=== PATIENT | female | born 1945 | race Caucasian/White ===

== ENCOUNTER → 2018-10-06 07:18 | Outpatient (CLI) | payer MEDICARE, SELFPAY ==
--- NOTE | 2018-10-06 07:24 | BI_ITS ---
MAMMOGRAPHY - BILATERAL SCREENING REASON FOR EXAM: Female, 73 years old. Routine annual screening examination. PERTINENT HISTORY: Grandmother with breast cancer. Remote left excisional breast biopsies. TECHNIQUE: Digital bilateral breast nick (3D mammographic acquisition) in the CC and MLO projections. 2-D mediolateral oblique (MLO) and craniocaudad (CC) views of both breasts were obtained. CAD: Full Field Digital Mammography with Computer Added Detection was performed. COMPARISON: Comparison is made with prior study dated February 09, 2016 and October 18, 2014. FINDINGS: Breast Composition: The breasts are heterogeneously dense, which may obscure small masses. There are no dominant masses or suspicious calcifications. There is evidence of a 8.8 mm x 8.1 mm well-defined nodular density in the deep slightly upper medial portion of the right breast. Correlation with ultrasound is recommended. The previously seen nodular density in the axillary region of the right breast as clear. No other significant abnormalities are identified. BI/SCREENING MAMM (CAD), BILAT IMPRESSION: 8.8 mm x 8.1 mm well-defined nodule in the slightly upper medial portion of the right breast. Correlation with ultrasound is recommended. ASSESSMENT CATEGORY: BIRADS Category 0: Incomplete. Need additional imaging evaluation. A letter regarding these results will be sent to the patient by the facility within 30 days. Approximately 10% of breast cancers are not detected by mammography. A normal mammogram should not delay biopsy of a clinically suspicious abnormality. [id number] Electronically Signed: Gutierrez Fisher MD at 9:14 EST Tel [phone], Service support ,
--- NOTE | 2018-10-06 13:53 | US_ITS ---
STUDY: ULTRASOUND BREAST - RIGHT REASON FOR EXAM: Female, 73 years old. Abnormal screening mammogram. TECHNIQUE: Axial and longitudinal images of the RIGHT breast were performed with a high resolution ultrasound transducer. COMPARISON: Comparison is made with prior mammogram dated October 06, 2018 and prior ultrasound of her breast dated September 02, 2016. FINDINGS: RIGHT Breast: The upper inner quadrant of the right breast was examined by ultrasound. No solid or cystic mass lesion is seen. The patient will be recalled for additional views of the right breast including 90 degree lateral and compression spot views. The previously seen cyst at the 9:00 position of breast is not seen at this time. US/Breast Limited Unilateral IMPRESSION: No sonographic abnormality is seen at this time. The patient will be recalled for additional views of the right breast including 90 degree lateral and compression spot views. ASSESSMENT CATEGORY: BIRADS Category 0: Incomplete. Need additional imaging evaluation. A letter regarding these results will be sent to the patient by the facility within 30 days. Electronically Signed: Gutierrez Fisher MD at 8:20 EST Tel [phone], Service support ,
--- OUTSIDE RECORDS SUMMARY | 2018-12-08 07:36 | XMS RPT_ITS | Continuity of Care Document ---
:1945 Author Organization [facility] Address [address] [place] [address] Phone Care Team Providers Name Role Phone Kristine Mccauley CNP Unavailable Macario De Jesus Unavailable Dr. Abebe Ba Unavailable Aurora Pedro Unavailable Unavailable Unavailable Unavailable Problems Name Dates Details Allergic rhinitis (J30.9, 477.9) Comments: stable Status: Active Benign essential hypertension (I10, 401.1) Comments: Diet and exercise, low salt diet.Check BP at home(arm cuff), relax for 5 minutes and take BP. Given BP log.Lipid panel: counselled on diet and exercisecontinue losartanTold to call if SOB, chest pain, syncope, headaches, numness/weakness in the body or rapid heart rate. Status: Active BMI 26.0-26.9,adult (Z68.26, V85.22) Status: Active Colonoscopy refused (Z53.20, V64.2) Comments: referred to Dr ba 07/30 for colonoscopy. pt doesnt want to get it because if you have a polyp she would have to pay for it.never had colonoscopy in the pastWarned her: Colonoscopy can detect early CRC which is treatable. Status: Active Cyst, breast, right (N60.01, 610.0) Comments: recheck 6 month 08/30: Stable cyst 4x5x4 mm, simple cystPt does not want to see surgeon at this time, but will referral to Dr Dukes 6 mmx 6 mmx 5 mm rt breast(02/28) Status: Active Deliveries (Parity) Comments: 2 Status: Active Diabetes mellitus type 2, controlled (E11.9, 250.00) Comments: HBA1c: 7.1(12/04/15) HBA1c :7.5 (02/28)HBA1c 6.8 (06/30)HBA1c 6.9 (7-18-17) EK12/07/15 Blood sugars at home:does not checkExercise: noDiet adherance:not eat very wellVision problems:noOpthalmology exam : 05/31 , no diabetic changes, Cataract), no changes, Nat Gallegos, [facility].Labs:urine albumin/Cr:Lipid panel:[id number] on medicine done.DIABETIC FOOT CARE:Check feet daily for sores, c uts, callusses, infection.Check inside of the shoes daily for loose objects or rough edges.Do not go barefoot inside or outside.Follow up in 3 monthsFBS at home:124. 118 Status: Active Elevated TSH (R79.89, 794.5) Comments: look at labs in 3months and decide on med Status: Active Encounter for screening mammogram for breast cancer (Renamed from Encounter for screening mammogram for malignant neoplasm of breast) (Z12.31, V76.12) Status: Active GERD (gastroesophageal reflux disease) (K21.9, 530.81) Comments: take prevacid m and f and help keep at bay. OTC TUMs.Discussed the need to let u know if continued reflux because of the risk of esophageal cancer if left unchecked. Pt encourage to stop eating chocol ate and peppermint, lose wt and adhere to behavior modification. Status: Active History of pulmonary embolism (Z86.711, V12.55) Comments: 7-14 question if even there and look old nto sure gut treated. told risk 7 % for repeat because no inciding. hypercoag workup negative. pt not want lifetime xarelto. aware of risk remind xarelto make sure have at home Status: Active Hypercholesteremia (E78.00, 272.0) Comments: reveiwed with patient recent tests and better on increase statin. Status: Active Hypertriglyceridemia (E78.1, 272.1) Comments: TG improved from 201(05/31) to 129(12/16) Triglyceride 152 Status: Active Influenza vaccination declined (Renamed from Refused influenza vaccine) (Z28.21, V64.06) Status: Active Need for prophylactic vaccination and inoculation against influenza (Renamed from Need for immunization against influenza) (Z23, V04.81) Status: Active Non-smoker (Z78.9, V49.89) Status: Active Osteopenia (M85.80, 733.90) Comments: bd 2-15 Status: Active Postmenopausal (Renamed from Postmenopausal status) (Z78.0, V49.81) Status: Active Pregnancies () Comments: 2 Status: Active Unspecified Diagnosis Status: Active Vitamin D deficiency (E55.9, 268.9) Comments: take 2000 daily Status: Active Medications Name Dates Details GlyBURIDE 5 MG Oral Tablet 1 (one) Tablet bid for 30 days Quantity: 90 {Tablet} Refills: 3 Ordered:14-Aug-2018 Parisa CAPPS Kristine Wanda CAPPS Kristine Perrin Start : 14-Aug-2018 Active GlyBURIDE 5 MG Oral Tablet 1 (one) Tablet bid for 90 days Quantity: 180 {Tablet} Refills: 3 Ordered:14-Aug-2018 Parisa CAPPS Kristine Wanda CAPPS Yuni Start : 14-Aug-2018 Active Losartan Potassium 50 MG Oral Tablet 1 (one) Tablet daily for 90 days Quantity: 90 {Tablet} Refills: 3 Ordered:11-Feb-2018 Parisa CAPPS Kristine Wanda CAPPS Yuni Start : 11-Feb-2018 Active Magnesium zinc daily Active MetFORMIN HCl ER (MOD) 1000 MG Oral Tablet Extended Release 24 Hour 1 (one) Tablet 1 in am and 1/2 qpm for 0 days Quantity: 130 {Tablet} Refills: 3 Ordered:14-Aug-2018 Parisa CAPPS Kristine Wanda CAPPS Yuni Start : 14-Aug-2018 Active MetFORMIN HCl ER (MOD) 1000 MG Oral Tablet Extended Release 24 Hour 1 (one) Tablet 1 in am and 1/2 qpm for 90 days Quantity: 135 {Tablet} Refills: 3 Ordered:14-Aug-2018 Parisa CAPPS Kristine Wanda CAPPS Kristine Perrin Start : 14-Aug-2018 Active MVI daily Active OneTouch Ultra Blue In Vitro Strip 1 (one) Strip bid for 90 days Quantity: 180 {Strip} Refills: 3 Ordered:14-Aug-2018 Parisa CAPPS, Kristine Marshall CNP Start : 14-Aug-2018 Active OneTouch Ultra Blue In Vitro Strip 1 (one) Strip bid for 90 days Quantity: 180 {Strip} Refills: 3 Ordered:14-Aug-2018 Parisa CAPPS, Kristine Muñoz CNP, Kristine Perrin Start : 14-Aug-2018 Active OneTouch Ultra Mini w/Device Kit 1 (one) Kit Kit qd for 0 days Quantity: 1 Kit Refills: 0 Ordered:26-Jun-2016 Ilia Garcia Start : 26-Jun-2016 Active Pravastatin Sodium 80 MG Oral Tablet 1 Tablet daily for 0 days Quantity: 90 {Tablet} Refills: 3 Ordered:15-Oct-2017 Parisa CAPPS, Kristine Marshall CNP Start : 15-Oct-2017 Active Pravastatin Sodium 80 MG Oral Tablet 1 Tablet daily for 90 days Quantity: 90 {Tablet} Refills: 3 Ordered:15-Oct-2017 Parisa CAPPS, Kristine Marshall CNP Start : 15-Oct-2017 Active Prevacid 24HR 15 MG Oral Capsule Delayed Release 1 qd prn for 0 days Refills: 0 Ordered:18-Jun-2016 Terrence Garcia MD Start : 18-Jun-2016 Active Victoza 18 MG/3ML Subcutaneous Solution Pen-injector 1.25 Milligram Start 0.6 sc qd x1 wk, then 1.2mg SC qd, then 1.8mg qd for 90 days Quantity: 1 {Milligram} Refills: 2 Ordered:14-Aug-2018 Parisa CAPPS, Kristine Marshall CNP Start : 14-Aug-2018 Active Victoza 18 MG/3ML Subcutaneous Solution Pen-injector 1.25 Milligram Start 0.6 sc qd x1 wk, then 1.2mg SC qd, then 1.8mg qd for 90 days Quantity: 3 {Box} Refills: 3 Ordered:14-Aug-2018 Parisa CAPPS, Kristine Marshall CNP Start : 14-Aug-2018 Active Vitamin D3 1000 UNIT Oral Capsule daily (1000 UNIT) Active ACTOS, 30MG (Oral Tablet) 1 Tablet qd for 0 days Quantity: 90 {Tablet} Refills: 3 Ordered:22-Jun-2013 Long Amalia GOLDSTEIN Start : 13-Aug-2007 End : 22-Jun-2013 Inactive ASTELIN, 137MCG/SPRAY (Nasal Solution) Solution QD for 0 days Quantity: 1 {Solution} Refills: 3 Ordered:22-Jun-2013 Amalia Wilder LPN Start : 16-Jul-2007 End : 22-Jun-2013 Inactive AUGMENTIN, 875-125MG (Oral Tablet) 1 (one) Tablet bid for 0 days Quantity: 28 {Tablet} Refills: 0 Ordered:15-Feb-2014 Amalia Wilder LPN Start : 11-Nov-2013 End : 15-Feb-2014 Inactive BIAXIN XL PAC, 500MG (Oral Tablet Extended Release 24 Hour) 2 (two) Tablet ER 24HR qd for 0 days Quantity: 1 {Packet} Refills: 0 Ordered:31-Jul-2015 GURPREET Brito Start : 15-May-2015 End : 31-Jul-2015 Inactive CALTRATE 600+D, 959-400MF-ATRF (Oral Tablet) 2 (two) Tablet qd for 0 days Quantity: 60 {Tablet} Refills: 0 Ordered:27-Mar-2015 GURPREET Brito Start : 24-Oct-2014 End : 27-Mar-2015 Inactive Comments:calcium with vitamin D 3, zinc and magnesium CoQ10 30 MG Oral Capsule daily (30 MG) Inactive fish oil 1 qd Inactive FISH OIL CONCENTRATE, 1000MG (Oral Capsule) 1 3x weekly (1000 MG) Inactive HYCODEN (Oral Syrup) (Free Text) 1 (one) Syrup Syrup 1 teaspon every 6 horus prn for 0 days Quantity: 4 {Fluid_Ounce} Refills: 0 Ordered:08-Dec-2014 Itzel Pulliam LPN Start : 12-Sep-2014 End : 08-Dec-2014 Inactive Comments:four LISINOPRIL, 20MG (Oral Tablet) 1 Tablet qd for 0 days Quantity: 30 {Tablet} Refills: 3 Ordered:18-Oct-2013 Annalee Alvarenga MD Start : 18-Oct-2013 End : 18-Oct-2013 Inactive Comments:cough MetFORMIN HCl 1000 MG Oral Tablet 1 1/2 Tablet qd for 90 days Quantity: 90 {Tablet} Refills: 3 Ordered:24-Nov-2017 Aline Chu LPN Start : 23-Oct-2017 End : 24-Nov-2017 Inactive NOVOFINE, 32G X 6 MM (Miscellaneous) 1 (one) Misc Misc daily use on victoza for 0 days Quantity: 30 {Each} Refills: 2 Ordered:27-Mar-2015 GURPREET Brito Start : 15-Jun-2014 End : 27-Mar-2015 Inactive PEN NEEDLES, 31G X 6 MM (Miscellaneous) 1 (one) Misc Misc qd for 0 days Quantity: 1 {Box} Refills: 3 Ordered:27-Mar-2015 GURPREET Brito Start : 16-Feb-2015 End : 27-Mar-2015 Inactive Comments:DX: 250.00NPI: [id number] PREDNISONE, 20MG (Oral Tablet) 1 (one) Tablet qd for 0 days Quantity: 4 {Tablet} Refills: 0 Ordered:15-Feb-2014 Long POWDER MILL OPERATOR, Amalia L Start : 11-Nov-2013 End : 15-Feb-2014 Inactive PROVENTIL HFA, 108 (90 Base)MCG/ACT (Inhalation Aerosol Solution) 2 (two) Aerosol Soln q 6 hr prn for 0 days Quantity: 1 {Canister} Refills: 0 Ordered:27-Mar-2015 GURPREET Brito Start : 08-Dec-2014 End : 27-Mar-2015 Inactive SIMVASTATIN, 80MG (Oral Tablet) Tablet QD for 0 days Quantity: 90 {Tablet} Refills: 3 Ordered:22-Jun-2013 Long POWDER MILL OPERATOR, Amalia L Start : 03-Sep-2007 End : 22-Jun-2013 Inactive TAMIFLU, 75MG (Oral Capsule) 1 (one) Capsule bid for 5 days Quantity: 10 {Capsule} Refills: 0 Ordered:12-Sep-2014 Laura Doll Start : 12-Sep-2014 End : 17-Sep-2014 Inactive TENORMIN, 50MG (Oral Tablet) 1 Tablet qd for 0 days Quantity: 30 {Tablet} Refills: 0 Ordered:22-Jun-2013 Long POWDER MILL OPERATOR, Amalia L Start : 13-Aug-2007 End : 22-Jun-2013 Inactive TESSALON PERLES, 100MG (Oral Capsule) 1 (one) Capsule bid prn cough for 0 days Quantity: 20 {Capsule} Refills: 0 Ordered:31-Jul-2015 GURPREET Brito Start : 15-May-2015 End : 31-Jul-2015 Inactive true star 1 qd Inactive Comments:TrueSight and Nasic/LeanX Vitamin D3 1000 UNIT Oral Tablet 2 (two) Tablet qd for 30 days Quantity: 60 {Tablet} Refills: 0 Ordered:11-Nov-2017 Parisa JEFRY, Kristine Muñoz JEFRY, Kristine Perrin Start : 11-Nov-2017 End : 11-Dec-2017 Inactive XARELTO, 15MG (Oral Tablet) 1 (one) Tablet bid for 21 days for 0 days Quantity: 42 {Tablet} Refills: 0 Ordered:14-Apr-2014 GURPREET Brito Start : 22-Mar-2014 End : 14-Apr-2014 Inactive ATENOLOL, 50MG (Oral Tablet) 1 Tablet qd for 0 days Quantity: 30 {Tablet} Refills: 3 Ordered:18-Oct-2013 Annalee Alvarenga MD Start : 18-Oct-2013 End : 18-Oct-2013 Discontinued Citracal +D3 250-107-500 MG-MG-UNIT Oral Tablet Chewable 1 qd for 0 days Refills: 0 Ordered:18-Dec-2016 Aline Chu LPN Start : 18-Jun-2016 End : 18-Dec-2016 Discontinued GlyBURIDE 2.5 MG Oral Tablet 1 (one) Tablet daily for 0 days Quantity: 90 {Tablet} Refills: 3 Ordered:11-Nov-2017 Parisa JEFRY, Kristine Arreolaalex CAPPS, Kristine Perrin Start : 01-Apr-2017 End : 11-Nov-2017 Discontinued GlyBURIDE 2.5 MG Oral Tablet 1 (one) Tablet daily for 30 days Quantity: 30 {QS} Refills: 3 Ordered:11-Nov-2017 Parisa JEFRY, Kristine Muñoz JEFRY, Kristine Perrin Start : 01-Apr-2017 End : 11-Nov-2017 Discontinued GLYBURIDE, 5MG (Oral Tablet) 1 Tablet bid for 0 days Quantity: 180 {Tablet} Refills: 3 Ordered:31-Jul-2015 Annalee Alvarenga MD Start : 31-Jul-2015 End : 31-Jul-2015 Discontinued MetFORMIN HCl 1000 MG Oral Tablet 1 (one) Tablet 1in am and 1 qpm for 90 days Quantity: 180 {Tablet} Refills: 3 Ordered:14-Aug-2018 Aurora Pedro Start : 11-Feb-2018 End : 14-Aug-2018 Discontinued PREVACID, 30MG (Oral Capsule Delayed Release) [address] QD for 0 days Quantity: 90 {Capsule_DR} Refills: 3 Ordered:22-Jun-2013 Colette WING, Annalee Tsang Start : 22-Jun-2013 End : 22-Jun-2013 Discontinued XARELTO, 20MG (Oral Tablet) 1 (one) Tablet Tablet qd for 0 days Quantity: 30 {Tablet} Refills: 2 Ordered:08-Dec-2014 Suri Paredes DO Start : 08-Dec-2014 End : 08-Dec-2014 Discontinued Allergies and Adverse Reactions Name Dates Details Codeine Sulfate *ANALGESICS - OPIOID* (Allergy) Status: Active Comments: vomit Lisinopril *ANTIHYPERTENSIVES* (Allergy) Status: Active Comments: cough No Known Drug Allergies (Allergy) Status: Inactive Past Medical History Name Dates Details Abdominal pain, acute, left upper quadrant (R10.12, 789.02) Comments: ? ibs with ? mass will us Status: Inactive as of 18-Oct-2013 Abnormal echocardiogram (R93.1, 793.2) Comments: segmental motion abn.had sob think PE cause sob. pt needs to see cardio and have cath refuse and nto want that. talk about CTA coronary as copromise with still may need cath if abnormal. at this point pt will think about and understand rsik of if not do Status: Resolved as of 04-Dec-2015 Abnormal lung sounds (R09.89, 786.7) Status: Inactive as of 14-Apr-2014 BMI 26.0-26.9,adult (Z68.26, V85.22) Status: Inactive as of 11-Jul-2017 BMI 27.0-27.9,adult (Z68.27, V85.23) Status: Inactive as of 11-Feb-2018 BMI 27.0-27.9,adult (Z68.27, V85.23) Status: Inactive as of 11-Jul-2017 BMI 27.0-27.9,adult (Z68.27, V85.23) Status: Inactive as of 27-Mar-2015 BMI 28.0-28.9,adult (Z68.28, V85.24) Status: Inactive as of 01-Dec-2015 Body aches (R52, 780.96) Status: Inactive as of 27-Mar-2015 Breast cancer screening (Z12.39, V76.10) Status: Inactive as of 18-Oct-2013 Breast pain (N64.4, 611.71) Comments: cut out caffiene use nsaids. 07-28 mammookay hhx of cyst. if not better then us. if feverish or redness start call for atb Status: Inactive as of 27-Mar-2015 Bronchitis (J40, 490) Status: Inactive as of 27-Mar-2015 Cough (R05, 786.2) Comments: biaxin help only had 5 days though and cogh come back. willcheck stefanie to assure not astham Status: Inactive as of 30-Jul-2015 Diabetes mellitus type 2, uncontrolled (Renamed from Uncontrolled type 2 diabetes mellitus) (E11.65, 250.02) Status: Inactive as of 11-Feb-2018 Elevated WBC count (D72.829, 288.60) Comments: WBC count WNl, lymphocytes high 3.4, will reheck Status: Inactive as of 18-Sep-2016 Encounter for Medicare annual wellness exam (Z00.00, V70.0) Comments: 07-30 reveiwed with patient all questions. mammo due 10-30. needs colonscopy cervix removed. Status: Inactive as of 01-Dec-2015 Encounter for screening colonoscopy (Z12.11, V76.51) Status: Inactive as of 01-Dec-2015 Eustachian tube dysfunction (H69.80, 381.81) Status: Inactive as of 18-Oct-2013 FIBROCYSTIC DISEASE OF BREAST (610.1) Status: Inactive as of 18-Oct-2013 Heart murmur (R01.1, 785.2) Status: Inactive as of 27-Mar-2015 History of tobacco abuse (Z87.891, V15.82) Comments: remote quit decades ago Status: Inactive as of 04-Mar-2016 Peptic ulcer disease (K27.9, 533.90) 1984 Status: Inactive as of 18-Oct-2013 Pneumonia (J18.9, 486) Comments: viral ? - will cover with antibiotics bc of wkd and lung sounds Status: Inactive as of 14-Apr-2014 Preop examination (Z01.818, V72.84) Comments: pt cleared. Status: Inactive as of 15-May-2015 Pulmonary embolism (I26.99, 415.19) Comments: follow up scan to assure resolution of embolism7-14 dx. Status: Resolved as of 31-Jul-2015 Sinusitis, acute (J01.90, 461.9) Status: Inactive as of 14-Apr-2014 SOB (shortness of breath) (R06.02, 786.05) Comments: sob better now Status: Resolved as of 04-Oct-2014 Sore throat (J02.9, 462) Status: Inactive as of 27-Mar-2015 ULCER, NOS Comments: 1983 Status: Inactive as of 18-Oct-2013 Unspecified Diagnosis Status: Resolved as of 12-Aug-2018 Unspecified Diagnosis Status: Inactive as of 14-Apr-2014 Viral infection (B34.9, 079.99) Comments: will use cough medication. if not better in 1 week Status: Inactive as of 27-Mar-2015 WWV V73.21 Comments: refuse vaccine see slava. recommend scope and told finds cancer. Status: Inactive as of 27-Mar-2015 Procedures Procedure Dates Details Annual Eye Exam Completed Comments: yearly bladder Completed Comments: suspended after hyster BLADDER, NOS Completed Comments: Surgery 1990 Bone Density Study Completed Comments: 2011, 10-18-14 BREAST, NOS Completed Comments: Biopsy 1989 Colonoscopy, Screening Completed Comments: has never had DILATION AND CURETTAGE Completed Comments: 1979 hysterectomy Completed Comments: still has L ovary HYSTERECTOMY, NOS Completed Mammogram, Screening Completed Comments: 10-18-14 Pap Smear Completed Comments: few years ago Date Value Details 22-Oct-2016 Dexa Bone Density Study (HP) Result: Comments: See Note; NOTES: [facility] Imaging Services [address] [place] [id number] [address] 4d Dexa Bone Density Study (HP) MR#: [id number] Acct: [id number] Name: ALFONSO SANTIAGO EN Rep #: [id number] : 1945 F 71 From: Gutierrez Fisher MD PCP: Terrence Garcia Status: REG CLI Study: Dexa Bone Density Study (HP) Date of Exam: 10/22/16 Exam# [id number] Ordering Dr: Melvin Garcia STUDY: DUAL ENERGY X-RAY ABSORPTIOMETRY / DXA REASON FOR EXAM: Female, 71 years old. The patient is postmenopausal. TECHNIQUE: Bone Mineral Density (BMD) measurements of lumbar spine and bilateral hips were obtained. COMPARISON: Comparison is made with prior study dated October 18, 2014. FINDINGS: Lumbar Spine (L1-L4): g/cm2 (1.194) / T-score (0.1) / Z-scor e (1.8) Findings are suggestive of normal bone density with a low fracture risk. Left Femur Total: g/cm2 (0.917) / T-score (-0.7) / Z-score (0.8) Left Femoral Neck: g/cm2 (0.919) / T-score (-0.9) / Z-s core (0.9) Right Femur Total: g/cm2 (0.874) / T-score (-1.1) / Z-score (0.5) Right Femoral Neck: g/cm2 (0.769) / T-score (-1.9) / Z-score (-0.2) The T-Scores on the most recent prior examination were: Lumbar Spine (L1-L4): There has been worsening of bone density since the previous examination. Left Femur Total: which represents a worsening of 2.2%. Right Femur Total: which represents an improvemen t of 0.5%. HPBD/Dexa Bone Density Study (HP) IMPRESSION: The patient is considered osteopenic at the level of the right femoral neck as outlined below according to World Douglas Organization (WHO) criteria with a moderate fracture risk. There has been worsening of bone density since the previous examination. R eference Information: The T-score is the number of standard deviations above or below the standard which is normal for young adults at their peak bone mineral density. The World Health Organization (WHO ) interprets the T-scores as follows: Above -1 Normal bone density Between -1 and -2.5 Osteopenia Equal to / or below -2.5 Osteoporosis As a practical clinical guideline, osteopenia may be graded as f ollows: Mild -1 through -1.5 Moderate -1.6 through -2.0 Severe -2.1 through -2.4 The Z-score is the number of standard deviations above or below age-matched controls. A Z-score of less than -1.5 would be considered abnormal. References: 1. NIH Osteoporosis and Related Bone Diseases http://www.osteo.org 2. International Society for Clinical Densitometry http://www.iscd.org 3. National Osteoporosis Fo undation http://www.nof.org Electronically Signed: Gutierrez Fisher MD at 9:00 EST Tel [phone], Service support [phone], CC: Terrence Garcia Security Nurse: Signed 02-Sep-2016 Breast Limited Unilateral Result: Comments: See Note; NOTES: [facility] Imaging Services [address] [place] [id number] [address] 4d Breast Limited Unilateral MR#: [id number] Acct: [id number] Name: EMILY SANTIAGO Rep #: [id number] : 1945 F 71 From: David Mclaughlin MD PCP: Terrence Garcia Status: REG CLI Study: Breast Limited Unilateral Date of Exam: 09/02/16 Exam# [id number] Ordering Dr: Terrence Garcia STUDY: UL TRASOUND BREAST - RIGHT REASON FOR EXAM: Female, 71 years old. Cyst follow-up TECHNIQUE: Axial and longitudinal images of the RIGHT breast were performed with a high resolution ultrasound transducer. COMPARISON: 02/14/2016 FINDINGS: RIGHT Breast: Stable appearance of a known 4 x 5 x 4 mm simple cyst in the 9:00 position of the right breast 8 cm from the nipple. N o suspicious shadowing lesion, nor or textural distortion or shadowing calcifications. US/Breast Limited Unilateral IMPRESSION: Stable subcentimeter cyst in the upper outer quadrant of the right breast. ASSESSMENT CATEGORY: BIRADS Category 2: Benign. A letter regarding these results will be sent to the patient by the facility within 30 days. E lectronically Signed: Kyle Mclaughlin MD at 10:19 EST Tel , Service support [phone], CC: Terrence Garcia Security Nurse: Signed 14-Feb-2016 Breast Limited Unilateral Result: Comments: See Note; NOTES: [facility] Imaging Services [address] [place] [address] Verdana 4d Breast Limited Unilateral MR#: [id number] Acct: [id number] Name: EMILY AVINA Rep #: [id number] : 1945 F 71 From: Gutierrez Fisher MD PCP: Annalee Alvarenga MD Status: REG CLI Study: Breast Limited Unilateral Date of Exam: 02/14/16 Exam# [id number] Ordering Dr: Annalee Alvarenga MD STUDY: ULTRASOUND BREAST - RIGHT REASON FOR EXAM: Female, 71 years old. Abnormal screening mammogram. TECHNIQUE: Axial and longitudinal images of the RIGHT breast were perf ormed with a high resolution ultrasound transducer. COMPARISON: Comparison is made with prior mammogram dated February 09, 2016. FINDINGS: RIGHT Breast: There is a 6 mm x 6 mm x 5 mm cyst at the 9:00 position of the breast at 8 cm from the nipple. This corresponds to the mammographic findings. IMPRESSION: The mammographic abnormality corresponds to a 6 mm x 6 mm x 5 mm cyst. ASSESSMENT CATEGORY: BIRADS Category 2: Benign. A letter regarding these results will be sent to the patien t by the facility within 30 days. Electronically Signed: Gutierrez Fisher MD at 9:13 EDT Tel [phone], Service support [phone], CC: Annalee Alvarenga MD Security Nurse: Signed 09-Feb-2016 Bilat Scrn Digital AND CAD Result: Comments: See Note; NOTES: [facility] Imaging Services [address] [place] [address] Verdana 4d Bilat Scrn Digital AND CAD MR#: [id number] Acct: [id number] Name: EMILY SANTIAGO Rep #: [id number] : 1945 F 71 From: Gutierrez Fisher MD PCP: Annalee Alvarenga MD Status: REG CLI Study: Bilat Scrn Digital AND CAD Date of Exam: 02/09/16 Exam# [id number] Ivonin g Dr: Annalee Alvarenga MD MAMMOGRAPHY - BILATERAL SCREENING REASON FOR EXAM: Female, 71 years old. Routine annual screening examination. PERTINENT HISTORY: Grandmother with breast cancer. Prior le ft excisional breast biopsies. TECHNIQUE: Digital bilateral breast tomosynthesis (3-D mammographic acquisition) in the CC and MLO projections. Synthesized 2-D images (C-View reconstruction from julito osynthesis acquisition) providing bilateral breast CC and MLO views. Mediolateral oblique (MLO) and craniocaudad (CC) views of both breasts were obtained. CAD: Full Field Digital Mammography with Com puter Added Detection was performed. COMPARISON: Comparison is made with prior study dated October 18, 2014 and July 21, 2013. FINDINGS: Breast Composition: The breasts are heterogeneously dense, which may obscure small masses. There are no dominant masses or suspicious calcifications. Stable calcified fibroadenomas in the left breast. Scattered benign -appearing bilateral calcifications. There is a 7 mm x 7 mm well-defined nodular density in the axillary region of the right breast. This may represent a small. Correlation with ultrasound is recomme nded. No other significant abnormalities are identified. IMPRESSION: 7 mm x 7 mm well-defined nodule in the axillary region of the right breast. Correlation wi th ultrasound is recommended. ASSESSMENT CATEGORY: BIRADS Category 0: Incomplete. Need additional imaging evaluation. A letter regarding these results will be s ent to the patient by the facility within 30 days. Approximately 10% of breast cancers are not detected by mammography. A normal mammogram should not delay biopsy of a clinically suspicious abnorma lity. [id number] Electronically Signed: Gutierrez Fisher MD at 10:27 EDT Tel [phone], Service support [phone], CC: Annalee Alvarenga MD Security Nurse: Signed 04-Dec-2015 ELECTROCARDIOGRAM, COMPLETE (ECG) ([id number]) Comments: see scanned document of test done to see results reviewed today with patient Result: [MEASUREMENTS ANALYSIS] Date of Test: 12/04/2015 08:33:40; Heart Rate: 71; DC Interval: 146; QRS: 96; QT Interval: 370; Corrected QT Interval (QTc): 389; P [place]: 52; QRS [place]: -15; T [place] : -1; Blood Pressure: 140/80 [ECG DIAGNOSTIC STATEMENTS] Date of Test: 12/04/2015 08:33:40; Summary: Sinus Rhythm WITHIN NORMAL LIMITS 15-May-2015 Spirometry (79626) Comments: see scanned document of test done to see results reviewed today with patient Result: 08-Dec-2014 Spirometry (47953) Comments: poor technique- mild restriction Result: 18-Oct-2014 Bilat Scrn Digital AND CAD Result: Comments: See Note; NOTES: [facility] Imaging Services [address] [place] [address] Breast Imaging Report MR#: [id number] Acct: [id number] Name: EMILY SANTIAGO Rep #: [id number] : 1945 F 69 From: Gutierrez Fisher MD PCP: Annalee Alvarenga MD Status: REG CLI Study: Bilat Scrn Digital AND CAD Date of Exam: 10/18/14 Exam# [id number] Ordering Dr: Annalee Alvarenga MD MAMMOGRAPHY - BILATERAL SCREENING REASON FOR EXAM: Female, 69 years old. Routine annual screening examination. PERTINENT HISTORY: Prior left excisional biopsies. TECHNIQUE: Digital examinatio n. Mediolateral oblique (MLO) and craniocaudad (CC) views of both breasts were obtained. CAD: CAD was performed on this study. COMPARISON: Comparison is made with prior study dated July 21, 2013 and June 11, 2011. FINDINGS: Breast Composition: The breasts are heterogeneously dense, which may obscure small masses. There are no dominant masses or s uspicious calcifications. Scattered calcifications are seen bilaterally there is stable calcified nodular density in the axillary region of the left breast. No other significant abnormalities are id entified. There has been no significant change since the prior study. IMPRESSION: Stable bilateral screening mammogram. Yearly follow-up recommended. (A) ASSESSMENT CATEGORY: BIRADS Category 2: Benign. A letter regarding these results will be sent to the patient by the facility within 30 days. Approximately [address]% [address] cancers are not detected by mammography. A normal mammogram should not delay biopsy of a clinically suspicious abnormality. Electronically Signed: Gutierrez Fisher MD at 9:48 EST Tel [phone], Service support [phone], CC: Annalee Alvarenga MD Security Nurse: Signed 18-Oct-2014 Dexa Bone Density Study (HP) Result: Comments: See Note; NOTES: [facility] Imaging Services [address] [place] [address] Bone Density Report MR#: [id number] Acct: [id number] Name: EMILY SANTIAGO Rep #: [id number] : 1945 F 69 From: Gutierrez Fisher MD PCP: Annalee Alvarenga MD Status: REG CLI Study: Dexa Bone Density Study (HP) Date of Exam: 10/18/14 Exam# [id number] Ordering Dr: Annalee Alvarenga MD STUDY: DUAL ENERGY X-RAY ABSORPTIOMETRY / DXA REASON FOR EXAM: Female, 69 years old. Early menopause. TECHNIQUE: Bone Mineral Density (BMD) measurements of lumbar spine and bilateral hips were obtained. COMPARISON: Comparison is made with prior study dated June 11, 2011. FINDINGS: Lumbar Spine (L1-L4): g/cm2 (1.198) / T-score (0.2) / Z-score (1. 8) Findings are suggestive of normal bone density with a low fracture risk. Left Femur Total: g/cm2 (0.938) / T-score (-0.6) / Z-score (0.9) Left Femoral Neck: g/cm2 (0.861) / T-score (-1.3) / Z-sco re (0.4) Right Femur Total: g/cm2 (0.870) / T-score (-1.1) / Z-score (0.4) Right Femoral Neck: g/cm2 (0.733) / T-score (-2.2) / Z-score (-0.5) The T-Scores on the most recent prior examination were: Lumbar Spine (L1-L4): There has been improvement of bone density since the previous examination. Left Femur Total: which represents an improvement of 2.6%. Right Femur Total: which represents a w orsening of 2.6%. IMPRESSION: The patient is considered osteopenic at the level of the femoral neck as outlined below according to World Douglas Organization (WHO) criteria with a moderate fracture risk. There has been improvement of bone density since the previous examination. Reference Information: The T-score is the n umber of standard deviations above or below the standard which is normal for young adults at their peak bone mineral density. The World Health Organization (WHO) interprets the T-scores as follows: Above -1 Normal bone density Between -1 and -2.5 Osteopenia Equal to / or below -2.5 Osteoporosis As a practical clinical guideline, osteopenia may be graded as follows: Mild -1 through -1.5 Mode rate -1.6 through -2.0 Severe -2.1 through -2.4 The Z-score is the number of standard deviations above or below age-matched controls. A Z-score of less than -1.5 would be considered abnormal. Refe rences: 1. NIH Osteoporosis and Related Bone Diseases http://www.osteo.org 2. International Society for Clinical Densitometry http://www.iscd.org 3. National Osteoporosis Foundation http://www.nof.or g Electronically Signed: Gutierrez Fisher MD at 11:31 EST Tel [phone], Service support [phone], CC: Annalee Alvarenga MD Security Nurse: Signed 23-Sep-2014 Discharge Instruction Result: Comments: See Note; NOTES: [facility] Medical Records Department [address] [place] [address] Discharge Instruction 09/15/14 1351 MR#: [id number] Acct: [id number] Name: EMILY SANTIAGO Rep #: [id number] : 1945 69 From: Phani Valencia MD PCP: Annalee Alvarenga MD Status: DEP ER ED Disposition - Plan for ED Patient: Chief Complaint: Cough Instructions: DRUG REACTION, GI Intolerance Prescriptions: Ondansetron [Zofran Odt] 4 mg PO Q8H PRN PRN #10 tablet PRN Reason: Nausea Referrals: Annalee Alvarenga MD [Primary Care Provider] - 3-5 Days if not improving What to do if you have Problems For any increased pain, shortness of breath, bleeding, nausea or vomiting, chest pain, or any unexpected problems, contact your doctor. Call [facility] ( [phone]) or report to the closest Emergency Room. Call 911 if necessary. 09/23/14 0821 <Electronically signed by Phani Valencia MD> Date ____ Phani Valencia MD Cosigner Signature (If Indicated): Date CC: Annalee Alvarenga MD 23-Sep-2014 Emergency Department Summary Result: Comments: See Note; NOTES: [facility] Medical Records Department [address] [place] [address] Emergency Department Summary MR#: [id number] Acct: [id number] Name: EMILY SANTIAGO Rep #: [id number] : 1945 69 From: Phani Valencia MD PCP: Annalee Alvarenga MD Status: DEP ER DATE OF SERVICE: 09/15/2014 METHOD OF ARRIVAL: Private car. CHIEF COMPLAINT: Nausea. HISTORY OF PRESENT ILLNESS: A 69-year-old female patient of Dr. Alvarenga who was diagnosed with influenza 3 days ago, placed on Tamiflu reports that immediately after taking Tamiflu. She becomes ve ry nauseated. She is not on anything for this. The patient reports she has had subjective fever, chills, nonproductive cough. No vomiting or diarrhea. Mild headache. PHYSICAL EXAMINATION: GENERA L: Reveals alert woman in no acute distress. VITAL SIGNS: 98.6, 164/92, 76, 16, 99% on room air. She is not hypoxic. CARDIOVASCULAR: Significant physical exam findings includes the cardiovascular exam shows regular rate and rhythm with no murmur. RESPIRATORY: Clear to auscultation bilaterally. ABDOMEN: Benign. Soft, nontender, nondistended with normal bowel sounds. The remainder of the physical exam is unremarkable. Please see T-sheet for details. TEST RESULTS: The patient had a chest x-ray that is normal. EMERGENCY DEPARTMENT COURSE: The patient was given Zofran IV, following which he r nausea was much better. TREATMENT PLAN: The patient will be discharged with Zofran prescription ____ prior to taking her Tamiflu. Follow up with Dr. Alvarenga in 2-3 days if not improving. DISPOS ITION: Home, stable condition. IMPRESSION: 1. Influenza. 2. Nausea from Tamiflu. Phani Valencia MD C C: Annalee Alvarenga MD T: [facility] JOB: [id number] 09/23/14 0821 <Electronically melissa d by Phani Valencia MD> Date Phani Valencia MD CC: Annalee Alvarenga MD Date Dictated: 09/18/14 1201 Date Transcribed: 09/18/141200 Security Nurse: Signed 15-Sep-2014 Chest PA and Lateral Result: Comments: See Note; NOTES: [facility] Imaging Services [address] [place] [address] Radiology Report MR#: [id number] Acct: [id number] Name: EMILY SANTIAGO Rep #: [id number] : 1945 F 69 From: Karina Grimm MD PCP: Annalee Alvarenga MD Status: [facility] ER Study: Chest PA and Lateral Date of Exam: 09/15/14 Exam# [id number] Ordering Dr: Phani Valencia MD STUDY: X-RA Y CHEST REASON FOR EXAM: Female, 69 years old. Cough TECHNIQUE: Frontal and lateral views of the chest. COMPARISON: November 11, 2013 FINDINGS: The lungs a re clear and expanded. There is no demonstrated pleural abnormality. Normal size heart. Normal mediastinum and manny. Normal visualized pulmonary arteries. Normal visualized aortic arch and descendin g thoracic aorta. There is a dextroscoliosis of the thoracic spine angle measures approximately 18?. Normal visualized ribs, clavicles, and shoulders. There is no demonstrated abnormality of the v isualized soft tissue structures of the upper abdomen. IMPRESSION: There is no evidence of acute disease. Electronically Signed: Lakshmi Grimm MD at 9:27 EST Tel , Service support [phone], RAD/Chest PA and Lateral IMPRESSION: There is no evidence of acute disease. Electronically Sign ed: Lakshmi Grimm MD at 9:27 EST Tel , Service support [phone], CC: Annalee Alvarenga MD; Phani Valencia MD Security Nurse: Signed 11-Mar-2014 Echocardiogram Complete Result: Comments: See Note; NOTES: [facility] Cardiovascular Services [address] [place] [address] Echo Complete 03/11/14 1314 MR#: [id number] Acct: [id number] Name: MEME SANTIAGO Rep #: [id number] : 1945 69 From: Joshua Leonard MD Attending Dr: Annalee Alvarenga MD Status: REG CLI Ordering Dr: Annalee Alvarenga MD Date: 03/11/14 Location: CT Sex: F C Admitted: [facility] This was a 2D Doppler, Color Flow transthoracic echocardiogram. The exam was of adequate technical quality. Exam performed in department. Left Ventricle Normal LV size. Segmental dysfunction with preserved ejection fraction (see wall motion). The estimated ejection fraction is 55 %. Septal bounce. Infero-Basal: Hypokinetic. Mid-Inferior: Hypokinetic. Mid-inferoseptal : Hypokinetic. Mid- anteroseptal : Hypokinetic. Anterior [place] : Hypokinetic. Inferior [place] : Hypokinetic. Septal [place] : Hypokinetic. Right Ventricle Normal RV size. Normal systolic function. Atria The left atrium i s mildly enlarged. Normal right atrium. No doppler evidence for ASD. Mitral Valve There is no mitral annular calcification. Normal mitral valve. Trivial mitral valve insufficiency. Tricuspid Valv e Normal tricuspid valve. Trivial tricuspid valve insufficiency. Aortic Valve Trisinus/trileaflet aortic valve. Normal aortic valve. Trivial aortic valve insufficiency. Pulmonic Valve The pulmon ic valve is not well visualized. Trivial pulmonic valve insufficiency. Great Vessels Normal sized aortic root. Pericardium/Pleural No pericardial effusion. LVIDd: 4.1 cm IVSd: 1.1 cm Ao root d yousuf: 2.6 cm LAV(MOD-bp): 50.6 ml LVIDs: 2.5 cm LVPWd: 1.0 cm Ao root area: 5.5 cm2 LAV(MOD-bp) Indexed: 26.5 ml/m2 RVDd: 2.8 cm FS: 37.9 % LA dimension: 4.0 cm LAV(MOD-sp2): 49.7 ml LAV(MOD-sp4): 5 1.2 ml LA A4 area: 18.9 cm2 RA A4 area: 10.6 cm2 MV E max latanya: 82.5 cm/secLat Peak E' Latanya: Med Peak E' Latanya: Ao V 2 max: MV A max latanya: 8.8 cm/sec 6.5 cm/sec 162.7 cm/sec 102.2 cm/sec Ao max P.6 mmHg MV E/A: 0.81 LV V1 max : 127.5 cm/sec PA V2 max: 122.2 cm/sec E/E' lat: 9.3 E /E' med: 12.8 LV V1 max P.5 mmHg PA max P.0 mmHg Interpretation Summary Segmental dysfunction with preserved ejection fraction (see wal l motion). The estimated ejection fraction is 55 %. Septal bounce. The left atrium is mildly enlarged. Trivial mitral valve insufficiency. Trivial tricuspid valve insufficiency. Trivial aortic jami ve insufficiency. Trivial pulmonic valve insufficiency. Ordering Physician: Annalee Alvarenga Per formed By: RHIANNON Mark : Annalee Alvarenga MD Date Dictated: 03/11/14 1314 Date Transcribed: 03/11/14 1713 Security Nurse: Signed 11-Mar-2014 CTA Chest W/WO Contrast Result: Comments: See Note; NOTES: [facility] Imaging Services [address] [place] [address] CAT Scan Report MR#: [id number] Acct: [id number] Name: EMILY SANTIAGO Rep #: [id number] : 1945 F 69 From: Gutierrez Fisher MD PCP: Annalee Alvarenga MD Status: REG CLI Study: CTA Chest W/WO Contrast Date of Exam: 03/11/14 Exam# [id number] Ordering Dr: Annalee Alvarenga MD STUDY : CTA CHEST REASON FOR EXAM: Female, 69 years old. Shortness of breath on exertion. RADIATION DOSAGE (If Supplied By Facility): CTDIvol = ( 16.28 ) mGy, DLP = ( 694.92 ) mGycm TECHNIQUE: The exam ination was performed with the intravenous administration of 75CC ml of Isovue 370 contrast material. Post-processing of the angiographic images was performed, with multiplanar reformation and 3D rec onstruction. COMPARISON: None. FINDINGS: There is a 5.7 mm hypodense nodule in the right lobe of the thyroid. There is elevation of the right diaphragm. The re is a single tiny intraluminal filling defect seen in the proximal branch of the right interlobar artery. This does not occupy the entire lumen. This most likely represents an old contracted thrombu s. No other filling defects are seen. . Normal thoracic aorta and visualized great vessels. There is no demonstrated aortic dissection. Normal heart and pericardium. Normal mediastinum. Normal hilar regions. Normal visualized trachea and bronchi. The lungs are well expanded. Normal pulmonary parenchyma. Normal pleura. Normal chest wall structures. Normal osseous structures. Normal visualized upper abdomen. IMPRESSION: Tiny nonobstructive intraluminal filling defect is seen in the proximal branch of the right interlobar artery as described . This most likely evidence of an old contracted thrombus. No significant pulmonary embolism is seen. Electronically Signed: Gutierrez Fisher MD at 15:17 EDT Tel [phone], Service support [phone], CC: Annalee Alvarenga MD Security Nurse: Signed 11-Nov-2013 Chest PA and Lateral Result: Comments: See Note; NOTES: [facility] Imaging Services [address] [place] [address] Radiology Report MR#: [id number] Acct: [id number] Name: EMILY SANTIAGO Rep #: [id number] : 1945 F 68 From: Alexander Gilman DO PCP: Suri Paredes DO Status: REG CLI Study: Chest PA and Lateral Date of Exam: 11/11/13 Exam# [id number] Ordering Dr: Suri Paredes DO STUDY: X -RAY CHEST REASON FOR EXAM: Female, 68 years old. Cough for 3 days. TECHNIQUE: PA and lateral views of the chest. COMPARISON: None. FINDINGS: The lungs are well expanded. There is interstitial changes within the lingula suggesting atelectasis versus infiltrate. There is no demonstrated pleural abnormality. Normal size heart. Normal mediastinum and hil a. Normal visualized pulmonary arteries. Normal visualized aortic arch and descending thoracic aorta. Normal visualized thoracic spine. Normal visualized ribs, clavicles, and shoulders. There is no demonstrated abnormality of the visualized soft tissue structures of the upper abdomen. IMPRESSION: Atelectasis versus infiltrate in the lingula. Electronic ally Signed: Alexander Gilman D.O. at 21:45 EST , Service support [phone], CC: Suri Paredes DO Security Nurse: Signed 21-Jul-2013 Bilat Scrn Digital & CAD Result: Comments: See Note; NOTES: [facility] Imaging Services [address] [place] [address] Breast Imaging Report MR#: [id number] Acct: [id number] Name: EMILY SANTIAGO Rep #: [id number] : 1945 F 68 From: Gutierrez Fisher MD PCP: CARLOS LING Status: REG CLI Exam# [id number] Ordering Dr: Annalee Alvarenga MD MAMMOGRAPHY - BILATERAL SCREENING REASON FOR EXAM: F leny, 68 years old. Routine annual screening examination. PERTINENT HISTORY: Non-contributory. TECHNIQUE: Digital examination. Mediolateral oblique (MLO) and craniocaudad (CC) views of both breas ts were obtained. CAD: CAD was performed on this study. COMPARISON: Comparison is made with prior study dated June 11, 2011 and June 01, 2008. FINDIN GS: The breast composition is heterogeneously dense - ranging from 51% to 75% of the breast tissue. There are no dominant masses or suspicious calcifications. No other significant abnormalities ar e identified. There has been no significant change since the prior study. IMPRESSION: Stable bilateral screening mammogram. Yearly follow-up recommended. (A) __ ASSESSMENT CATEGORY: BIRADS Category 2: Benign finding(s). A letter regarding these results will be sent to the patient by the facility within 30 days. Approximat gloria 10% of breast cancers are not detected by mammography. A normal mammogram should not delay biopsy of a clinically suspicious abnormality. Signed: Gutierrez Fisher M.D. July 21, 2013 at 2 :40:05 PM EST [phone] Electronically Signed GP/GP If you are the referring physician and would like to consult with the radiologist who provided this interpretation, please contact Gutierrez Fisher M.D. at [phone]. If this radiologist is unavailable, you will be directed to another radiologist to assist. If you are a patient with a question regarding this report, please contact your referring physician directly. Professional Interpretation Provided By: Sun Number, Phone , These documents contain legally protected and confidential health i nformation intended only for the use of the individual or entity named above. If you are not the intended recipient, you are hereby notified that any disclosure, copying, distribution, or other use of these documents is strictly prohibited. If you have received this information in error, please notify the sender immediately and arrange for the return or destruction of these documents. 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 Exercise History Comments: Inactive Status: Active Living Situation Comments: , Lives with spouse Status: Active No Drug Use Status: Active Non Smoker/No Tobacco Use Status: Active Vital Signs Date Test Result Details :13 Temperature 97.4 f Comments: Method: Temporal Pulse 83 /min Comments: Pattern: Regular Respiration Rate 16 /min Comments: Pattern: Unlabored O2 SAT 97 % Comments: Room air BP Systolic 116 mm[Hg] Comments: Patient Position: Sitting; Cuff Location: Left Arm; Cuff Size: Standard BP Diastolic 82 mm[Hg] Comments: Patient Position: Sitting; Cuff Location: Left Arm; Cuff Size: Standard Weight 171.125 lb Height 67 in Body Mass Index Calculated 26.8 kg/m2 Body Surface Area Calculated 1.89 m2 :18 Temperature 97.6 f Pulse 74 /min Comments: Pattern: Regular Respiration Rate 16 /min Comments: Pattern: Unlabored O2 SAT 98 % Comments: Room air BP Systolic 126 mm[Hg] Comments: Patient Position: Sitting; Cuff Location: Left Arm; Cuff Size: Standard BP Diastolic 82 mm[Hg] Comments: Patient Position: Sitting; Cuff Location: Left Arm; Cuff Size: Standard Weight 172.25 lb Height 67 in Body Mass Index Calculated 26.98 kg/m2 Body Surface Area Calculated 1.9 m2 :27 Temperature 97.8 f Comments: Method: Temporal Pulse 78 /min Comments: Pattern: Regular Respiration Rate 16 /min Comments: Pattern: Unlabored O2 SAT 98 % Comments: Room air BP Systolic 132 mm[Hg] Comments: Patient Position: Sitting; Cuff Location: Left Arm; Cuff Size: Standard BP Diastolic 74 mm[Hg] Comments: Patient Position: Sitting; Cuff Location: Left Arm; Cuff Size: Standard Weight 175 lb Height 67 in Body Mass Index Calculated 27.41 kg/m2 Body Surface Area Calculated 1.91 m2 :35 Temperature 97.4 f Pulse 71 /min Comments: Pattern: Regular Respiration Rate 16 /min Comments: Pattern: Unlabored O2 SAT 95 % Comments: Room air BP Systolic 118 mm[Hg] Comments: Patient Position: Sitting; Cuff Location: Left Arm; Cuff Size: Standard BP Diastolic 72 mm[Hg] Comments: Patient Position: Sitting; Cuff Location: Left Arm; Cuff Size: Standard Weight 173 lb Height 67 in Body Mass Index Calculated 27.1 kg/m2 Body Surface Area Calculated 1.9 m2 [id number] Temperature 97.8 f Pulse 72 /min Comments: Pattern: Regular Respiration Rate 18 /min Comments: Pattern: Unlabored O2 SAT 97 % Comments: Room air BP Systolic 124 mm[Hg] Comments: Patient Position: Sitting; Cuff Location: Left Arm; Cuff Size: Standard BP Diastolic 82 mm[Hg] Comments: Patient Position: Sitting; Cuff Location: Left Arm; Cuff Size: Standard Weight 173.5 lb Height 67 in Body Mass Index Calculated 27.17 kg/m2 Body Surface Area Calculated 1.9 m2 :45 Temperature 97.4 f Pulse 73 /min Comments: Pattern: Regular Respiration Rate 16 /min Comments: Pattern: Unlabored O2 SAT 98 % Comments: Room air BP Systolic 122 mm[Hg] Comments: Patient Position: Sitting; Cuff Location: Left Arm; Cuff Size: Standard BP Diastolic 80 mm[Hg] Comments: Patient Position: Sitting; Cuff Location: Left Arm; Cuff Size: Standard Weight 173 lb Height 67 in Body Mass Index Calculated 27.1 kg/m2 Body Surface Area Calculated 1.9 m2 :11 Temperature 98 f Pulse 76 /min Comments: Pattern: Regular Respiration Rate 16 /min Comments: Pattern: Unlabored O2 SAT 96 % Comments: Room air BP Systolic 116 mm[Hg] Comments: Patient Position: Sitting; Cuff Location: Left Arm; Cuff Size: Standard BP Diastolic 64 mm[Hg] Comments: Patient Position: Sitting; Cuff Location: Left Arm; Cuff Size: Standard Weight 170 lb Height 67 in Body Mass Index Calculated 26.63 kg/m2 Body Surface Area Calculated 1.89 m2 :03 Temperature 97.8 f Comments: Method: Temporal Pulse 72 /min Comments: Pattern: Regular Respiration Rate 15 /min Comments: Pattern: Unlabored O2 SAT 98 % Comments: Room air BP Systolic 132 mm[Hg] Comments: Patient Position: Sitting; Cuff Location: Left Arm; Cuff Size: Standard BP Diastolic 76 mm[Hg] Comments: Patient Position: Sitting; Cuff Location: Left Arm; Cuff Size: Standard Weight 172 lb Height 67 in Body Mass Index Calculated 26.94 kg/m2 Body Surface Area Calculated 1.9 m2 :26 Temperature 97.8 f Comments: Method: Temporal Pulse 79 /min Comments: Pattern: Regular Respiration Rate 16 /min Comments: Pattern: Unlabored O2 SAT 96 % Comments: Room air BP Systolic 122 mm[Hg] Comments: Patient Position: Sitting; Cuff Location: Left Arm; Cuff Size: Standard BP Diastolic 74 mm[Hg] Comments: Patient Position: Sitting; Cuff Location: Left Arm; Cuff Size: Standard Weight 174 lb Height 67 in Body Mass Index Calculated 27.25 kg/m2 Body Surface Area Calculated 1.91 m2 :53 Temperature 97.6 f Comments: Method: Temporal Pulse 74 /min Comments: Pattern: Regular Respiration Rate 20 /min Comments: Pattern: Unlabored O2 SAT 98 % Comments: Room air BP Systolic 140 mm[Hg] Comments: Patient Position: Sitting; Cuff Location: Left Arm; Cuff Size: Large BP Diastolic 80 mm[Hg] Comments: Patient Position: Sitting; Cuff Location: Left Arm; Cuff Size: Large Weight 177 lb Height 67 in Body Mass Index Calculated 27.72 kg/m2 Body Surface Area Calculated 1.92 m2 :34 Temperature 97.8 f Comments: Method: Temporal Pulse 68 /min Comments: Pattern: Regular Respiration Rate 20 /min Comments: Pattern: Unlabored O2 SAT 97 % Comments: Room air BP Systolic 140 mm[Hg] Comments: Patient Position: Sitting; Cuff Location: Left Arm; Cuff Size: Standard BP Diastolic 80 mm[Hg] Comments: Patient Position: Sitting; Cuff Location: Left Arm; Cuff Size: Standard Weight 179 lb Height 67 in Body Mass Index Calculated 28.04 kg/m2 Body Surface Area Calculated 1.93 m2 :11 Temperature 97.6 f Comments: Method: Temporal Pulse 78 /min Comments: Pattern: Regular Respiration Rate 18 /min Comments: Pattern: Unlabored O2 SAT 98 % Comments: Room air BP Systolic 126 mm[Hg] Comments: Patient Position: Sitting; Cuff Location: Left Arm; Cuff Size: Standard BP Diastolic 78 mm[Hg] Comments: Patient Position: Sitting; Cuff Location: Left Arm; Cuff Size: Standard Weight 172 lb Height 67 in Body Mass Index Calculated 26.94 kg/m2 Body Surface Area Calculated 1.9 m2 :03 Temperature 98.2 f Comments: Method: Temporal Pulse 72 /min Comments: Pattern: Regular Respiration Rate 18 /min Comments: Pattern: Unlabored O2 SAT 98 % Comments: Room air BP Systolic 128 mm[Hg] Comments: Patient Position: Sitting; Cuff Location: Left Arm; Cuff Size: Standard BP Diastolic 78 mm[Hg] Comments: Patient Position: Sitting; Cuff Location: Left Arm; Cuff Size: Standard Weight 172 lb Height 67 in Body Mass Index Calculated 26.94 kg/m2 Body Surface Area Calculated 1.9 m2 :51 Temperature 98.8 f Comments: Method: Oral Pulse 64 /min Comments: Pattern: Regular Respiration Rate 18 /min Comments: Pattern: Unlabored O2 SAT 98 % Comments: Room air BP Systolic 138 mm[Hg] Comments: Patient Position: Sitting; Cuff Location: Left Arm; Cuff Size: Large BP Diastolic 72 mm[Hg] Comments: Patient Position: Sitting; Cuff Location: Left Arm; Cuff Size: Large Weight 177 lb Height 67 in Body Mass Index Calculated 27.72 kg/m2 Body Surface Area Calculated 1.92 m2 :44 Temperature 96.8 f Comments: Method: Temporal Pulse 68 /min Comments: Pattern: Regular Respiration Rate 16 /min Comments: Pattern: Unlabored O2 SAT 98 % Comments: Room air BP Systolic 118 mm[Hg] Comments: Patient Position: Sitting; Cuff Location: Left Arm; Cuff Size: Standard BP Diastolic 70 mm[Hg] Comments: Patient Position: Sitting; Cuff Location: Left Arm; Cuff Size: Standard Weight 177 lb Height 67 in Body Mass Index Calculated 27.72 kg/m2 Body Surface Area Calculated 1.92 m2 :07 Temperature 98.6 f Comments: Method: Temporal Pulse 111 /min Comments: Pattern: Regular Respiration Rate 18 /min Comments: Pattern: Unlabored O2 SAT 98 % Comments: Room air BP Systolic 160 mm[Hg] Comments: Patient Position: Sitting; Cuff Location: Left Arm; Cuff Size: Standard BP Diastolic 90 mm[Hg] Comments: Patient Position: Sitting; Cuff Location: Left Arm; Cuff Size: Standard Weight 176 lb Height 67 in Body Mass Index Calculated 27.57 kg/m2 Body Surface Area Calculated 1.92 m2 :07 Temperature 97.8 f Comments: Method: Temporal Pulse 72 /min Comments: Pattern: Regular Respiration Rate 20 /min Comments: Pattern: Unlabored BP Systolic 138 mm[Hg] Comments: Patient Position: Sitting; Cuff Location: Left Arm; Cuff Size: Standard BP Diastolic 80 mm[Hg] Comments: Patient Position: Sitting; Cuff Location: Left Arm; Cuff Size: Standard Weight 176 lb Height 67 in Body Mass Index Calculated 27.57 kg/m2 Body Surface Area Calculated 1.92 m2 :46 Temperature 98.1 f Comments: Method: Oral Pulse 72 /min Comments: Pattern: Regular Respiration Rate 16 /min Comments: Pattern: Unlabored O2 SAT 98 % Comments: Room air BP Systolic 140 mm[Hg] Comments: Patient Position: Sitting; Cuff Location: Left Arm; Cuff Size: Standard BP Diastolic 80 mm[Hg] Comments: Patient Position: Sitting; Cuff Location: Left Arm; Cuff Size: Standard Weight 180 lb Height 67 in Body Mass Index Calculated 28.19 kg/m2 Body Surface Area Calculated 1.93 m2 :07 Temperature 97.6 f Comments: Method: Temporal Pulse 118 /min Comments: Pattern: Regular Respiration Rate 16 /min Comments: Pattern: Unlabored O2 SAT 98 % Comments: Room air BP Systolic 122 mm[Hg] Comments: Patient Position: Sitting; Cuff Location: Left Arm; Cuff Size: Standard BP Diastolic 74 mm[Hg] Comments: Patient Position: Sitting; Cuff Location: Left Arm; Cuff Size: Standard Weight 180 lb Height 67 in Body Mass Index Calculated 28.19 kg/m2 Body Surface Area Calculated 1.93 m2 :03 Temperature 97.4 f Comments: Method: Temporal Pulse 78 /min Comments: Pattern: Regular Respiration Rate 16 /min Comments: Pattern: Unlabored O2 SAT 98 % Comments: Room air BP Systolic 124 mm[Hg] Comments: Patient Position: Sitting; Cuff Location: Left Arm; Cuff Size: Standard BP Diastolic 72 mm[Hg] Comments: Patient Position: Sitting; Cuff Location: Left Arm; Cuff Size: Standard Weight 180 lb Height 67 in Body Mass Index Calculated 28.19 kg/m2 Body Surface Area Calculated 1.93 m2 :40 Temperature 98.8 f Comments: Method: Temporal Pulse 84 /min Comments: Pattern: Regular Respiration Rate 16 /min Comments: Pattern: Unlabored O2 SAT 98 % Comments: Room air BP Systolic 120 mm[Hg] Comments: Patient Position: Sitting; Cuff Location: Left Arm; Cuff Size: Standard BP Diastolic 74 mm[Hg] Comments: Patient Position: Sitting; Cuff Location: Left Arm; Cuff Size: Standard Weight 180 lb Height 67 in Body Mass Index Calculated 28.19 kg/m2 Body Surface Area Calculated 1.93 m2 :07 Temperature 97.9 f Comments: Method: Oral Pulse 68 /min Comments: Pattern: Regular Respiration Rate 18 /min Comments: Pattern: Unlabored BP Systolic 120 mm[Hg] Comments: Patient Position: Sitting; Cuff Location: Left Arm; Cuff Size: Standard BP Diastolic 70 mm[Hg] Comments: Patient Position: Sitting; Cuff Location: Left Arm; Cuff Size: Standard Weight 180 lb Height 67 in Body Mass Index Calculated 28.19 kg/m2 Body Surface Area Calculated 1.93 m2 :39 Temperature 96.3 f Comments: Method: Oral Pulse 74 /min Comments: Pattern: Regular Respiration Rate 16 /min BP Systolic 112 mm[Hg] Comments: Patient Position: Sitting BP Diastolic 68 mm[Hg] Comments: Patient Position: Sitting Weight 181 lb Height 67 in Body Mass Index Calculated 28.35 kg/m2 Body Surface Area Calculated 1.94 m2 :34 Temperature 98.4 f Comments: Method: Oral Pulse 70 /min Comments: Pattern: Regular Respiration Rate 18 /min Comments: Pattern: Unlabored BP Systolic 120 mm[Hg] Comments: Patient Position: Sitting; Cuff Location: Left Arm; Cuff Size: Standard BP Diastolic 80 mm[Hg] Comments: Patient Position: Sitting; Cuff Location: Left Arm; Cuff Size: Standard Weight 190 lb Height 0 in Head Circumference 0.00 cm :03 Temperature 98.5 f Comments: Method: Oral Pulse 70 /min Comments: Pattern: Regular Respiration Rate 18 /min Comments: Pattern: Unlabored BP Systolic 118 mm[Hg] Comments: Patient Position: Sitting; Cuff Location: Left Arm; Cuff Size: Standard BP Diastolic 76 mm[Hg] Comments: Patient Position: Sitting; Cuff Location: Left Arm; Cuff Size: Standard Weight 0 lb Height 0 in Head Circumference 0.00 cm Results Date Description Value Details :14 HgA1C , Office (64930) HgA1C , Office 7.5 % (Abnormal) Range: 4.6 - 7.1 :14 Blood Glucose , Office (59245) Blood Glucose , Office 156 (Normal) :10 HgA1C , Office (22629) Comments: 6.8 has improved HgA1C , Office 6.8 % (Normal) Range: 4.6 - 7.1 :10 Blood Glucose , Office (78486) Blood Glucose , Office 167 (Normal) :46 T4, FREE (THYROXINE) (50601) Comments: PATIENT WAS FASTINGPERFORMED BY: [facility] [id number] T4,Free(Direct) 1.00 ng/dL (Normal) Range: 0.82-1.77 :46 T3, FREE (TRIDOTHYRONINE) (14828) Comments: PATIENT WAS FASTINGPERFORMED BY: [facility] [id number] Triiodothyronine,Free,Serum 2.8 pg/mL (Normal) Range: 2.0-4.4 :46 TSH (THYROID STIMULATING Comments: PATIENT WAS FASTINGPERFORMED BY: [facility] [id number] HORMONE) (39820) TSH 3.730 {uIU/mL} (Normal) Range: 0.450-4.500 :46 Metabolic Panel, Comprehensive Comments: PATIENT WAS FASTINGPERFORMED BY: [facility] [id number] ([id number]) ALT (SGPT) 23 [iU]/L (Normal) Range: 0-32 AST (SGOT) 19 [iU]/L (Normal) Range: 0-40 Alkaline Phosphatase 79 [iU]/L (Normal) Range: 39-117 Bilirubin, Total 0.5 mg/dL (Normal) Range: 0.0-1.2 A/G Ratio 2.0 (Normal) Range: 1.2-2.2 Globulin, Total 2.2 g/dL (Normal) Range: 1.5-4.5 Albumin 4.4 g/dL (Normal) Range: 3.5-4.8 Protein, Total 6.6 g/dL (Normal) Range: 6.0-8.5 Calcium 9.3 mg/dL (Normal) Range: 8.7-10.3 Carbon Dioxide, Total 26 mmol/L (Normal) Range: 18-29 Chloride 101 mmol/L (Normal) Range: 96-106 Potassium 4.2 mmol/L (Normal) Range: 3.5-5.2 Sodium 143 mmol/L (Normal) Range: 134-144 BUN/Creatinine Ratio 12 (Normal) Range: 12-28 eGFR If Africn Am 71 mL/min/1.73 (Normal) eGFR If NonAfricn Am 62 mL/min/1.73 (Normal) Creatinine 0.92 mg/dL (Normal) Range: 0.57-1.00 BUN 11 mg/dL (Normal) Range: 8-27 Glucose 153 mg/dL (Abnormal) Range: 65-99 :25 HgA1C , Office (53413) HgA1C , Office 7.2 % (Abnormal) Range: 4.6 - 7.1 :25 Blood Glucose , Office (12716) Blood Glucose , Office 217 (Normal) :32 Microscopic Examination Comments: PATIENT WAS FASTINGPERFORMED BY: [place] [facility] [id number] Bacteria None seen (Normal) Epithelial Cells (non renal) 0-10 {/hpf} (Normal) Range: 0 - 10 RBC 0-2 {/hpf} (Normal) Range: 0 - 2 WBC 0-5 {/hpf} (Normal) Range: 0 - 5 :32 MICROALBUMIN: CREATININE RATIO Comments: PATIENT WAS FASTINGPERFORMED BY: [facility] [id number] ([id number]) AND (72813) Alb/Creat Ratio 9.8 {mg/g_creat} (Normal) Range: 0.0-30.0 Albumin, Urine 12.3 ug/mL (Normal) Creatinine, Urine 124.9 mg/dL (Normal) :32 URINALYSIS (77043) Comments: PATIENT WAS FASTINGPERFORMED BY: [place] [facility] [id number] Microscopic Examination See below: (Normal) Comments: Microscopic was indicated and was performed. Nitrite, Urine Negative (Normal) Urobilinogen,Semi-Qn 0.2 mg/dL (Normal) Range: 0.2-1.0 Bilirubin Negative (Normal) Occult Blood Negative (Normal) Ketones Negative (Normal) Glucose Negative (Normal) Protein Negative (Normal) WBC Esterase Trace (Abnormal) Appearance Clear (Normal) Urine-Color Yellow (Normal) pH 6.5 (Normal) Range: 5.0-7.5 Specific [place] 1.017 (Normal) Range: 1.005-1.030 :32 Lipid Panel (58338) Comments: PATIENT WAS FASTINGPERFORMED BY: [facility] [id number] LDL/HDL Ratio 1.8 {ratio_units} (Normal) Range: 0.0-3.2 Comments: LDL/HDL Ratio Men Women 1/2 Avg.Risk 1.0 1.5 Av g.Risk 3.6 3.2 2X Avg.Risk 6.2 5.0 3X Avg.Risk 8.0 6.1 LDL Cholesterol Calc 93 mg/dL (Normal) Range: 0-99 VLDL Cholesterol Arpit 45 mg/dL (Abnormal) Range: 5-40 HDL Cholesterol 53 mg/dL (Normal) Triglycerides 224 mg/dL (Abnormal) Range: 0-149 Cholesterol, Total 191 mg/dL (Normal) Range: 100-199 :32 Metabolic Panel, Comprehensive Comments: PATIENT WAS FASTINGPERFORMED BY: [facility] [id number] ([id number]) ALT (SGPT) 29 [iU]/L (Normal) Range: 0-32 AST (SGOT) 23 [iU]/L (Normal) Range: 0-40 Alkaline Phosphatase, S 77 [iU]/L (Normal) Range: 39-117 Bilirubin, Total 0.4 mg/dL (Normal) Range: 0.0-1.2 A/G Ratio 1.8 (Normal) Range: 1.2-2.2 Globulin, Total 2.4 g/dL (Normal) Range: 1.5-4.5 Albumin, Serum 4.3 g/dL (Normal) Range: 3.5-4.8 Protein, Total, Serum 6.7 g/dL (Normal) Range: 6.0-8.5 Calcium, Serum 9.3 mg/dL (Normal) Range: 8.7-10.3 Carbon Dioxide, Total 25 mmol/L (Normal) Range: 18-29 Chloride, Serum 101 mmol/L (Normal) Range: 96-106 Potassium, Serum 4.2 mmol/L (Normal) Range: 3.5-5.2 Sodium, Serum 143 mmol/L (Normal) Range: 134-144 BUN/Creatinine Ratio 8 (Abnormal) Range: 12-28 eGFR If Africn Am 59 mL/min/1.73 (Abnormal) eGFR If NonAfricn Am 51 mL/min/1.73 (Abnormal) Creatinine, Serum 1.08 mg/dL (Abnormal) Range: 0.57-1.00 BUN 9 mg/dL (Normal) Range: 8-27 Glucose, Serum 158 mg/dL (Abnormal) Range: 65-99 67-Gge-02989:32 CBC, Platelets & Auto Diff Comments: PATIENT WAS FASTINGPERFORMED BY: [facility]CoHoly [facility] Medical CenterDyohht0843 [facility] [id number] ([id number]) Immature Grans (Abs) 0.0 {x10E3/uL} (Normal) Range: 0.0-0.1 Immature Granulocytes 0 % (Normal) Baso (Absolute) 0.0 {x10E3/uL} (Normal) Range: 0.0-0.2 Eos (Absolute) 0.3 {x10E3/uL} (Normal) Range: 0.0-0.4 Monocytes(Absolute) 0.4 {x10E3/uL} (Normal) Range: 0.1-0.9 Lymphs (Absolute) 2.8 {x10E3/uL} (Normal) Range: 0.7-3.1 Neutrophils (Absolute) 2.5 {x10E3/uL} (Normal) Range: 1.4-7.0 Basos 1 % (Normal) Eos 5 % (Normal) Monocytes 7 % (Normal) Lymphs 46 % (Normal) Neutrophils 41 % (Normal) Platelets 209 {x10E3/uL} (Normal) Range: 150-379 RDW 13.6 % (Normal) Range: 12.3-15.4 MCHC 32.6 g/dL (Normal) Range: 31.5-35.7 MCH 28.7 pg (Normal) Range: 26.6-33.0 MCV 88 fL (Normal) Range: 79-97 Hematocrit 38.4 % (Normal) Range: 34.0-46.6 Hemoglobin 12.5 g/dL (Normal) Range: 11.1-15.9 RBC 4.35 {x10E6/uL} (Normal) Range: 3.77-5.28 WBC 6.0 {x10E3/uL} (Normal) Range: 3.4-10.8 :32 TSH (80277) Comments: PATIENT WAS FASTINGPERFORMED BY: [facility] Wscgfw2382 [facility] [place] [id number] TSH 4.760 {uIU/mL} (Abnormal) Range: 0.450-4.500 :32 CALCIFEDIOL (08621) Comments: PATIENT WAS FASTINGPERFORMED BY: [facility] Euuubv9459 [facility] [place] [id number] Vitamin D, 25-Hydroxy 70.9 ng/mL (Normal) Range: 30.0-100.0 Comments: Vitamin D deficiency has been defined by the [place] of[facility] and an Endocrine Society practice guideline as alevel of serum 25-OH vitamin D less than 20 ng/mL (1,2).The Endocrine Society went on to further define vitamin Dinsufficiency as a level between 21 and 29 ng/mL (2).1. IOM ([place] of Medicine). 2010. Dietary reference intakes for calcium and D. [place]: The National Academies Press.2. Sadiq MF, Pasha NC, Chirag CAMERON, et al. Evaluation, treatment, and prevention of vitamin D deficiency: an Endocrine Society clinical practice guideline. JCEM. 2010; 96(7):1911-30. :11 HgA1C , Office (96708) HgA1C , Office 6.8 % (Normal) Range: 4.6 - 7.1 :11 Blood Glucose , Office (29010) Blood Glucose , Office 209 (Normal) :22 CALCIFEDIOL (24495) Comments: today; PATIENT NOT FASTINGPERFORMED BY: [facility] Sotbag8056 [facility] [id number] Vitamin D, 25-Hydroxy 50.8 ng/mL (Normal) Range: 30.0-100.0 Comments: Vitamin D deficiency has been defined by the [place] ofMedicine and an Endocrine Society practice guideline as alevel of serum 25-OH vitamin D less than 20 ng/mL (1,2).The Endocrine Society went on to further define vitamin Dinsufficiency as a level between 21 and 29 ng/mL (2).1. IOM ([place] of Medicine). 2010. Dietary reference intakes for calcium and D. [place]: The National Academies Press.2. Sadiq MF, Pasha GARG, Chirag CAMERON, et al. Evaluation, treatment, and prevention of vitamin D deficiency: an Endocrine Society clinical practice guideline. JCEM. 2010; 96(7):1911-30. :32 HgA1C , Office (49955) HgA1C , Office 6.9 % (Normal) Range: 4.6 - 7.1 :31 Blood Glucose , Office (13951) Blood Glucose , Office 171 (Normal) :56 HgA1C , Office (87077) HgA1C , Office 6.6 % (Normal) Range: 4.6 - 7.1 :56 Blood Glucose , Office (00699) Blood Glucose , Office 184 (Normal) Comments: Just ate breakfast :49 MICROALBUMIN: CREATININE RATIO Comments: PATIENT WAS FASTINGPERFORMED BY: [employer] Mtvxda8343 [facility] [id number] (68486) AND (73747) Microalb/Creat Ratio 7.4 {mg/g_creat} (Normal) Range: 0.0-30.0 Microalbumin, Urine 14.7 ug/mL (Normal) Creatinine, Urine 198.7 mg/dL (Normal) :49 VITAMIN B12 AND FOLATES Comments: PATIENT WAS FASTINGPERFORMED BY: [employer] Slojvr8994 [facility] [id number] ([id number]) Folate (Folic Acid), Serum >20.0 ng/mL (Normal) Comments: A serum folate concentration of less than 3.1 ng/mL isconsidered to represent clinical deficiency. Vitamin B12 497 pg/mL (Normal) Range: 211-946 :49 CALCIFEDIOL (29544) Comments: PATIENT WAS FASTINGPERFORMED BY: [facility]6370 [facility] [id number] Vitamin D, 25-Hydroxy 57.6 ng/mL (Normal) Range: 30.0-100.0 Comments: Vitamin D deficiency has been defined by the [place] ofMedicine and an Endocrine Society practice guideline as alevel of serum 25-OH vitamin D less than 20 ng/mL (1,2).The Endocrine Society went on to further define vitamin Dinsufficiency as a level between 21 and 29 ng/mL (2).1. IOM ([place] of Medicine). 2010. Dietary reference intakes for calcium and D. [place]: The National Academies Press.2. Sadiq MF, Pasha GARG, Chirag CAMERON, et al. Evaluation, treatment, and prevention of vitamin D deficiency: an Endocrine Society clinical practice guideline. JCEM. 2010; 96(7):1911-30. :49 TSH (THYROID STIMULATING Comments: PATIENT WAS FASTINGPERFORMED BY: [facility]6370 [facility] [id number] HORMONE) (51399) TSH 3.740 {uIU/mL} (Normal) Range: 0.450-4.500 :49 LIPID PANEL (46840) Comments: PATIENT WAS FASTINGPERFORMED BY: [facility]6370 [facility] [id number] LDL/HDL Ratio 1.9 {ratio_units} (Normal) Range: 0.0-3.2 Comments: LDL/HDL Ratio Men Women 1/2 Avg.Risk 1.0 1.5 Av g.Risk 3.6 3.2 2X Avg.Risk 6.2 5.0 3X Avg.Risk 8.0 6.1 LDL Cholesterol Calc 97 mg/dL (Normal) Range: 0-99 VLDL Cholesterol Arpit 30 mg/dL (Normal) Range: 5-40 HDL Cholesterol 52 mg/dL (Normal) Triglycerides 152 mg/dL (Abnormal) Range: 0-149 Cholesterol, Total 179 mg/dL (Normal) Range: 100-199 :49 METABOLIC PANEL, COMPREHENSIVE Comments: PATIENT WAS FASTINGPERFORMED BY: MORE LabCoHoly Name Medical CenterWtqcxl6942 [facility] [id number] ([id number]) ALT (SGPT) 27 [iU]/L (Normal) Range: 0-32 AST (SGOT) 21 [iU]/L (Normal) Range: 0-40 Alkaline Phosphatase, S 78 [iU]/L (Normal) Range: 39-117 Bilirubin, Total 0.4 mg/dL (Normal) Range: 0.0-1.2 A/G Ratio 1.8 (Normal) Range: 1.2-2.2 Comments: Please note reference interval change Globulin, Total 2.3 g/dL (Normal) Range: 1.5-4.5 Albumin, Serum 4.1 g/dL (Normal) Range: 3.5-4.8 Protein, Total, Serum 6.4 g/dL (Normal) Range: 6.0-8.5 Calcium, Serum 9.2 mg/dL (Normal) Range: 8.7-10.3 Carbon Dioxide, Total 24 mmol/L (Normal) Range: 18-29 Chloride, Serum 100 mmol/L (Normal) Range: 96-106 Potassium, Serum 4.1 mmol/L (Normal) Range: 3.5-5.2 Sodium, Serum 142 mmol/L (Normal) Range: 134-144 BUN/Creatinine Ratio 12 (Normal) Range: 11-26 Comments: Effective December 16, 2016 BUN/Creatinine Ratio reference interval will be changing to: Age Male Female 0 days - 7 days 9 - 8 days - 30 days 8 - 32 10 - 33 1 month - 6 months 11 - 57 11 - 54 7 mo nths - 1 year - - 71 2 years - 5 years 19 - 51 19 - 49 6 years - 12 years 14 - 34 13 - 32 13 years - 17 years 10 - 22 10 - 22 18 years - 59 years 9 - 20 9 - 23 >59 years 10 - 24 12 - 28 eGFR If Africn Am 71 mL/min/1.73 (Normal) eGFR If NonAfricn Am 61 mL/min/1.73 (Normal) Creatinine, Serum 0.94 mg/dL (Normal) Range: 0.57-1.00 BUN 11 mg/dL (Normal) Range: 8-27 Glucose, Serum 136 mg/dL (Abnormal) Range: 65-99 :49 CBC, PLATELETS & AUT DIFF Comments: PATIENT WAS FASTINGPERFORMED BY: CB [facility] Wztqce1941 [facility] [id number]; fu [facility] 12-18-16 ([id number]) Immature Grans (Abs) 0.0 {x10E3/uL} (Normal) Range: 0.0-0.1 Immature Granulocytes 0 % (Normal) Baso (Absolute) 0.1 {x10E3/uL} (Normal) Range: 0.0-0.2 Eos (Absolute) 0.2 {x10E3/uL} (Normal) Range: 0.0-0.4 Monocytes(Absolute) 0.5 {x10E3/uL} (Normal) Range: 0.1-0.9 Lymphs (Absolute) 2.3 {x10E3/uL} (Normal) Range: 0.7-3.1 Neutrophils (Absolute) 2.9 {x10E3/uL} (Normal) Range: 1.4-7.0 Basos 1 % (Normal) Eos 3 % (Normal) Monocytes 8 % (Normal) Lymphs 38 % (Normal) Neutrophils 50 % (Normal) Platelets 215 {x10E3/uL} (Normal) Range: 150-379 RDW 13.3 % (Normal) Range: 12.3-15.4 MCHC 32.9 g/dL (Normal) Range: 31.5-35.7 MCH 28.7 pg (Normal) Range: 26.6-33.0 MCV 87 fL (Normal) Range: 79-97 Hematocrit 38.3 % (Normal) Range: 34.0-46.6 Hemoglobin 12.6 g/dL (Normal) Range: 11.1-15.9 RBC 4.39 {x10E6/uL} (Normal) Range: 3.77-5.28 WBC 5.9 {x10E3/uL} (Normal) Range: 3.4-10.8 :09 Blood Glucose , Office (79380) Blood Glucose , Office 231 (Normal) :09 HgA1C , Office (58730) HgA1C , Office 6.5 % (Normal) Range: 4.6 - 7.1 :33 MICROALBUMIN: CREATININE RATIO Comments: PATIENT WAS FASTINGPERFORMED BY: [facility] Uqeaag8399 [facility] [place] [id number] ([id number]) AND (35354) Microalb/Creat Ratio 14.1 {mg/g_creat} (Normal) Range: 0.0-30.0 Microalbumin, Urine 16.3 ug/mL (Normal) Creatinine, Urine 115.2 mg/dL (Normal) :33 VITAMIN B12 AND FOLATES Comments: PATIENT WAS FASTINGPERFORMED BY: [facility] Wkscnl5610 [facility] [place] [id number] ([id number]) Folate (Folic Acid), Serum 15.9 ng/mL (Normal) Comments: A serum folate concentration of less than 3.1 ng/mL isconsidered to represent clinical deficiency. Vitamin B12 251 pg/mL (Normal) Range: 211-946 :33 CALCIFEDIOL (94213) Comments: PATIENT WAS FASTINGPERFORMED BY: [facility] Jvonxk8613 [facility] [place] [id number] Vitamin D, 25-Hydroxy 45.1 ng/mL (Normal) Range: 30.0-100.0 Comments: Vitamin D deficiency has been defined by the [place] ofMedicine and an Endocrine Society practice guideline as alevel of serum 25-OH vitamin D less than 20 ng/mL (1,2).The Endocrine Society went on to further define vitamin Dinsufficiency as a level between 21 and 29 ng/mL (2).1. IOM ([place] of Medicine). 2010. Dietary reference intakes for calcium and D. [place]: The National Academies Press.2. Sadiq MF, Pasha NC, Chirag CAMERON, et al. Evaluation, treatment, and prevention of vitamin D deficiency: an Endocrine Society clinical practice guideline. JCEM. 2010; 96(7):1911-30. :33 TSH (THYROID STIMULATING Comments: PATIENT WAS FASTINGPERFORMED BY: [facility] Rcchly8380 [facility] [place] [id number] HORMONE) (83055) TSH 3.200 {uIU/mL} (Normal) Range: 0.450-4.500 :33 LIPID PANEL (71607) Comments: PATIENT WAS FASTINGPERFORMED BY: [employer] Fkktzc6387 [facility] [id number] LDL/HDL Ratio 1.3 {ratio_units} (Normal) Range: 0.0-3.2 Comments: LDL/HDL Ratio Men Women 1/2 Avg.Risk 1.0 1.5 Av g.Risk 3.6 3.2 2X Avg.Risk 6.2 5.0 3X Avg.Risk 8.0 6.1 LDL Cholesterol Calc 68 mg/dL (Normal) Range: 0-99 VLDL Cholesterol Arpit 26 mg/dL (Normal) Range: 5-40 HDL Cholesterol 53 mg/dL (Normal) Triglycerides 129 mg/dL (Normal) Range: 0-149 Cholesterol, Total 147 mg/dL (Normal) Range: 100-199 :33 METABOLIC PANEL, COMPREHENSIVE Comments: PATIENT WAS FASTINGPERFORMED BY: [employer]6370 [facility] [id number] ([id number]) ALT (SGPT) 20 [iU]/L (Normal) Range: 0-32 AST (SGOT) 20 [iU]/L (Normal) Range: 0-40 Alkaline Phosphatase, S 69 [iU]/L (Normal) Range: 39-117 Bilirubin, Total 0.5 mg/dL (Normal) Range: 0.0-1.2 A/G Ratio 2.2 (Normal) Range: 1.1-2.5 Globulin, Total 2.0 g/dL (Normal) Range: 1.5-4.5 Albumin, Serum 4.3 g/dL (Normal) Range: 3.5-4.8 Protein, Total, Serum 6.3 g/dL (Normal) Range: 6.0-8.5 Calcium, Serum 9.1 mg/dL (Normal) Range: 8.7-10.3 Carbon Dioxide, Total 25 mmol/L (Normal) Range: 18-29 Chloride, Serum 102 mmol/L (Normal) Range: 96-106 Potassium, Serum 4.0 mmol/L (Normal) Range: 3.5-5.2 Sodium, Serum 143 mmol/L (Normal) Range: 134-144 BUN/Creatinine Ratio 14 (Normal) Range: 11-26 eGFR If Africn Am 66 mL/min/1.73 (Normal) eGFR If NonAfricn Am 58 mL/min/1.73 (Abnormal) Creatinine, Serum 0.99 mg/dL (Normal) Range: 0.57-1.00 BUN 14 mg/dL (Normal) Range: 8-27 Glucose, Serum 133 mg/dL (Abnormal) Range: 65-99 37-Liz-16261:33 CBC, PLATELETS & AUT DIFF Comments: PATIENT WAS FASTINGPERFORMED BY: LabCoHoly Name Medical CenterUlfzcv6585 [facility] [id number] ([id number]) Immature Grans (Abs) 0.0 {x10E3/uL} (Normal) Range: 0.0-0.1 Immature Granulocytes 0 % (Normal) Baso (Absolute) 0.1 {x10E3/uL} (Normal) Range: 0.0-0.2 Eos (Absolute) 0.2 {x10E3/uL} (Normal) Range: 0.0-0.4 Monocytes(Absolute) 0.5 {x10E3/uL} (Normal) Range: 0.1-0.9 Lymphs (Absolute) 3.0 {x10E3/uL} (Normal) Range: 0.7-3.1 Neutrophils (Absolute) 3.1 {x10E3/uL} (Normal) Range: 1.4-7.0 Basos 1 % (Normal) Eos 3 % (Normal) Monocytes 7 % (Normal) Lymphs 44 % (Normal) Neutrophils 45 % (Normal) Platelets 210 {x10E3/uL} (Normal) Range: 150-379 RDW 12.9 % (Normal) Range: 12.3-15.4 MCHC 33.0 g/dL (Normal) Range: 31.5-35.7 MCH 29.9 pg (Normal) Range: 26.6-33.0 MCV 91 fL (Normal) Range: 79-97 Hematocrit 38.5 % (Normal) Range: 34.0-46.6 Hemoglobin 12.7 g/dL (Normal) Range: 11.1-15.9 RBC 4.25 {x10E6/uL} (Normal) Range: 3.77-5.28 WBC 6.8 {x10E3/uL} (Normal) Range: 3.4-10.8 :04 HgA1C , Office (17290) HgA1C , Office 6.8 % (Normal) Range: 4.6 - 7.1 :04 Blood Glucose , Office (95864) Blood Glucose , Office 140 (Normal) Comments: not fasting :58 VITAMIN D, 1, 25-DIHYDROXY Comments: PATIENT WAS FASTINGPERFORMED BY: [place] [facility] [id number] BY: Refinery29 [address] [id number] (32169) Calcitriol(1,25 di-OH Vit D) 38.6 pg/mL (Normal) Range: 19.9-79.3 :58 LIPID PANEL (24083) Comments: PATIENT WAS FASTINGPERFORMED BY: [place] CenterExajouleNovant Health [facility] [id number] BY: [employer] [id number] LDL/HDL Ratio 1.7 {ratio_units} (Normal) Range: 0.0-3.2 Comments: LDL/HDL Ratio Men Women 1/2 Avg.Risk 1.0 1.5 Av g.Risk 3.6 3.2 2X Avg.Risk 6.2 5.0 3X Avg.Risk 8.0 6.1 LDL Cholesterol Calc 88 mg/dL (Normal) Range: 0-99 VLDL Cholesterol Arpit 40 mg/dL (Normal) Range: 5-40 HDL Cholesterol 51 mg/dL (Normal) Comments: According to ATP-III Guidelines, HDL-C >59 mg/dL is considered anegative risk factor for CHD. Triglycerides 201 mg/dL (Abnormal) Range: 0-149 Cholesterol, Total 179 mg/dL (Normal) Range: 100-199 :58 MICROALBUMIN: CREATININE Comments: PATIENT WAS FASTINGPERFORMED BY: [place] [facility] [id number] BY: [employer] [id number] RATIO (12512) AND (64477) Microalb/Creat Ratio 5.1 {mg/g_creat} (Normal) Range: 0.0-30.0 Microalbumin, Urine 6.3 ug/mL (Normal) Creatinine, Urine 122.4 mg/dL (Normal) :58 METABOLIC PANEL, Comments: PATIENT WAS FASTINGPERFORMED BY: CB [facility] Alqyjp2563 [facility] [id number] BY: BN [facility] Mzxbejimcn0073 [facility] [id number] COMPREHENSIVE (48591) ALT (SGPT) 31 [iU]/L (Normal) Range: 0-32 AST (SGOT) 20 [iU]/L (Normal) Range: 0-40 Alkaline Phosphatase, S 81 [iU]/L (Normal) Range: 39-117 Bilirubin, Total 0.4 mg/dL (Normal) Range: 0.0-1.2 A/G Ratio 1.8 (Normal) Range: 1.1-2.5 Globulin, Total 2.3 g/dL (Normal) Range: 1.5-4.5 Albumin, Serum 4.2 g/dL (Normal) Range: 3.5-4.8 Protein, Total, Serum 6.5 g/dL (Normal) Range: 6.0-8.5 Calcium, Serum 9.3 mg/dL (Normal) Range: 8.7-10.3 Carbon Dioxide, Total 25 mmol/L (Normal) Range: 18-29 Chloride, Serum 101 mmol/L (Normal) Range: 97-108 Potassium, Serum 4.6 mmol/L (Normal) Range: 3.5-5.2 Sodium, Serum 144 mmol/L (Normal) Range: 134-144 BUN/Creatinine Ratio 9 (Abnormal) Range: 11-26 eGFR If Africn Am 75 mL/min/1.73 (Normal) eGFR If NonAfricn Am 65 mL/min/1.73 (Normal) Creatinine, Serum 0.89 mg/dL (Normal) Range: 0.57-1.00 BUN 8 mg/dL (Normal) Range: 8-27 Glucose, Serum 138 mg/dL (Abnormal) Range: 65-99 09-Fto-76188:58 CBC, PLATELETS & AUT DIFF Comments: PATIENT WAS FASTINGPERFORMED BY: CB [facility] Msgyeh6156 Ann Marie [facility] [id number] BY: BN [facility] Dlgudlpply3762 [facility] [id number] (96951) Immature Grans (Abs) 0.0 {x10E3/uL} (Normal) Range: 0.0-0.1 Immature Granulocytes 0 % (Normal) Baso (Absolute) 0.1 {x10E3/uL} (Normal) Range: 0.0-0.2 Eos (Absolute) 0.3 {x10E3/uL} (Normal) Range: 0.0-0.4 Monocytes(Absolute) 0.5 {x10E3/uL} (Normal) Range: 0.1-0.9 Lymphs (Absolute) 3.4 {x10E3/uL} (Abnormal) Range: 0.7-3.1 Neutrophils (Absolute) 2.7 {x10E3/uL} (Normal) Range: 1.4-7.0 Basos 1 % (Normal) Eos 5 % (Normal) Monocytes 7 % (Normal) Lymphs 48 % (Normal) Neutrophils 39 % (Normal) Platelets 222 {x10E3/uL} (Normal) Range: 150-379 RDW 13.0 % (Normal) Range: 12.3-15.4 MCHC 33.7 g/dL (Normal) Range: 31.5-35.7 MCH 29.5 pg (Normal) Range: 26.6-33.0 MCV 88 fL (Normal) Range: 79-97 Hematocrit 38.6 % (Normal) Range: 34.0-46.6 Hemoglobin 13.0 g/dL (Normal) Range: 11.1-15.9 RBC 4.40 {x10E6/uL} (Normal) Range: 3.77-5.28 WBC 6.9 {x10E3/uL} (Normal) Range: 3.4-10.8 :14 HgA1C , Office (56667) HgA1C , Office 7.5 % (Abnormal) Range: 4.6 - 7.1 :14 Blood Glucose , Office (58479) Blood Glucose , Office 108 (Normal) :55 HgA1C , Office (63203) HgA1C , Office 7.1 % (Normal) Range: 4.6 - 7.1 :08 CALCIFIDIOL (63756) VIT D 25 Comments: PATIENT WAS FASTINGPERFORMED BY: [facility]JumpSaint [facility] Bpsqsf2101 [facility] [id number] Vitamin D, 25-Hydroxy 42.3 ng/mL (Normal) Range: 30.0-100.0 Comments: Vitamin D deficiency has been defined by the [place] of[place]icine and an Endocrine Society practice guideline as alevel of serum 25-OH vitamin D less than 20 ng/mL (1,2).The Endocrine Society went on to further define vitamin Dinsufficiency as a level between 21 and 29 ng/mL (2).1. IOM ([place] of Medicine). 2010. Dietary reference intakes for calcium and D. [place]: The National Academies Press.2. Sadiq MF, Pasha NC, Chirag CAMERON, et al. Evaluation, treatment, and prevention of vitamin D deficiency: an Endocrine Society clinical practice guideline. JCEM. 2010; 96(7):1911-30. :08 MICROALBUMIN: CREATININE RATIO Comments: PATIENT WAS FASTINGPERFORMED BY: Nereus PharmaceuticalsSanta Ana Health CenterVksgdv7770 [facility] [id number] (69323) AND (57140) Microalb/Creat Ratio 6.3 {mg/g_creat} (Normal) Range: 0.0-30.0 Microalbumin, Urine 11.8 ug/mL (Normal) Range: 0.0-17.0 Creatinine, Urine 186.0 mg/dL (Normal) Range: 15.0-278.0 :08 METABOLIC PANEL, COMPREHENSIVE Comments: PATIENT WAS FASTINGPERFORMED BY: Nereus PharmaceuticalsSanta Ana Health CenterLorcmb8200 [facility] [id number] (43526) ALT (SGPT) 25 [iU]/L (Normal) Range: 0-32 AST (SGOT) 18 [iU]/L (Normal) Range: 0-40 Alkaline Phosphatase, S 85 [iU]/L (Normal) Range: 39-117 Bilirubin, Total 0.4 mg/dL (Normal) Range: 0.0-1.2 A/G Ratio 1.8 (Normal) Range: 1.1-2.5 Globulin, Total 2.4 g/dL (Normal) Range: 1.5-4.5 Albumin, Serum 4.4 g/dL (Normal) Range: 3.5-4.8 Protein, Total, Serum 6.8 g/dL (Normal) Range: 6.0-8.5 Calcium, Serum 9.3 mg/dL (Normal) Range: 8.7-10.3 Carbon Dioxide, Total 26 mmol/L (Normal) Range: 18-29 Chloride, Serum 100 mmol/L (Normal) Range: 97-108 Potassium, Serum 4.2 mmol/L (Normal) Range: 3.5-5.2 Sodium, Serum 143 mmol/L (Normal) Range: 134-144 BUN/Creatinine Ratio 13 (Normal) Range: 11-26 eGFR If Africn Am 69 mL/min/1.73 (Normal) eGFR If NonAfricn Am 60 mL/min/1.73 (Normal) Creatinine, Serum 0.96 mg/dL (Normal) Range: 0.57-1.00 BUN 12 mg/dL (Normal) Range: 8-27 Glucose, Serum 141 mg/dL (Abnormal) Range: 65-99 75-Jcq-69646:08 LIPID PANEL (81774) Comments: PATIENT WAS FASTINGPERFORMED BY: LabCoHoly Name Medical CenterKeyzjc2596 [facility] [id number]; apt. 12-04-15 LDL/HDL Ratio 1.7 {ratio_units} (Normal) Range: 0.0-3.2 Comments: LDL/HDL Ratio Men Women 1/2 Avg.Risk 1.0 1.5 Av g.Risk 3.6 3.2 2X Avg.Risk 6.2 5.0 3X Avg.Risk 8.0 6.1 LDL Cholesterol Calc 75 mg/dL (Normal) Range: 0-99 VLDL Cholesterol Aript 51 mg/dL (Abnormal) Range: 5-40 HDL Cholesterol 45 mg/dL (Normal) Comments: According to ATP-III Guidelines, HDL-C >59 mg/dL is considered anegative risk factor for CHD. Triglycerides 255 mg/dL (Abnormal) Range: 0-149 Cholesterol, Total 171 mg/dL (Normal) Range: 100-199 :08 CBC with auto diff Comments: PATIENT WAS FASTINGPERFORMED BY: LabCoHoly Name Medical CenterPyhyhj5312 [facility] [id number] Information: [id number] (02445) Immature Grans (Abs) 0.0 {x10E3/uL} (Normal) Range: 0.0-0.1 Immature Granulocytes 0 % (Normal) Baso (Absolute) 0.0 {x10E3/uL} (Normal) Range: 0.0-0.2 Eos (Absolute) 0.2 {x10E3/uL} (Normal) Range: 0.0-0.4 Monocytes(Absolute) 0.5 {x10E3/uL} (Normal) Range: 0.1-0.9 Lymphs (Absolute) 2.9 {x10E3/uL} (Normal) Range: 0.7-3.1 Neutrophils (Absolute) 2.9 {x10E3/uL} (Normal) Range: 1.4-7.0 Basos 1 % (Normal) Eos 4 % (Normal) Monocytes 8 % (Normal) Lymphs 44 % (Normal) Neutrophils 43 % (Normal) Platelets 210 {x10E3/uL} (Normal) Range: 150-379 RDW 13.6 % (Normal) Range: 12.3-15.4 MCHC 33.2 g/dL (Normal) Range: 31.5-35.7 MCH 29.1 pg (Normal) Range: 26.6-33.0 MCV 88 fL (Normal) Range: 79-97 Hematocrit 38.6 % (Normal) Range: 34.0-46.6 Hemoglobin 12.8 g/dL (Normal) Range: 11.1-15.9 RBC 4.40 {x10E6/uL} (Normal) Range: 3.77-5.28 WBC 6.6 {x10E3/uL} (Normal) Range: 3.4-10.8 :38 HgA1C , Office (16748) HgA1C , Office 7.5 % (Abnormal) Range: 4.6 - 7.1 :38 Blood Glucose , Office (23398) Blood Glucose , Office 171 (Normal) :31 LIPID PANEL (11559) Comments: PATIENT WAS FASTINGPERFORMED BY: [facility] Pahdub8361 [facility] [id number] Information: [id number]; apt. 07-31-15 LDL/HDL Ratio 1.7 {ratio_units} (Normal) Range: 0.0-3.2 Comments: LDL/HDL Ratio Men Women 1/2 Avg.Risk 1.0 1.5 Av g.Risk 3.6 3.2 2X Avg.Risk 6.2 5.0 3X Avg.Risk 8.0 6.1 LDL Cholesterol Calc 90 mg/dL (Normal) Range: 0-99 VLDL Cholesterol Arpit 35 mg/dL (Normal) Range: 5-40 HDL Cholesterol 52 mg/dL (Normal) Comments: According to ATP-III Guidelines, HDL-C >59 mg/dL is considered anegative risk factor for CHD. Triglycerides 173 mg/dL (Abnormal) Range: 0-149 Cholesterol, Total 177 mg/dL (Normal) Range: 100-199 :31 CALCIFIDIOL (25264) VIT D 25 Comments: PATIENT WAS FASTINGPERFORMED BY: [facility] Raaufr1455 [facility] [id number] Vitamin D, 25-Hydroxy 33.0 ng/mL (Normal) Range: 30.0-100.0 Comments: Vitamin D deficiency has been defined by the [place] ofMedicine and an Endocrine Society practice guideline as alevel of serum 25-OH vitamin D less than 20 ng/mL (1,2).The Endocrine Society went on to further define vitamin Dinsufficiency as a level between 21 and 29 ng/mL (2).1. IOM ([place] of Medicine). 2010. Dietary reference intakes for calcium and D. [place]: The National Academies Press.2. Sadiq MF, Pasha NC, Chirag CAMERON, et al. Evaluation, treatment, and prevention of vitamin D deficiency: an Endocrine Society clinical practice guideline. JCEM. 2010; 96(7):1911-30. :09 HgA1C , Office (53528) HgA1C , Office 6.8 % (Normal) Range: 4.6 - 7.1 :09 Blood Glucose , Office (83082) Blood Glucose , Office 172 (Normal) :20 CBC With Differential/Platelet Comments: PATIENT WAS FASTINGPERFORMED BY: MORE Nereus PharmaceuticalsHoly Name Medical CenterZjrguj4753 [facility] [id number] Information: [id number] Immature Grans (Abs) 0.0 {x10E3/uL} (Normal) Range: 0.0-0.1 Immature Granulocytes 0 % (Normal) Baso (Absolute) 0.1 {x10E3/uL} (Normal) Range: 0.0-0.2 Eos (Absolute) 0.2 {x10E3/uL} (Normal) Range: 0.0-0.4 Monocytes(Absolute) 0.5 {x10E3/uL} (Normal) Range: 0.1-0.9 Lymphs (Absolute) 2.9 {x10E3/uL} (Normal) Range: 0.7-3.1 Neutrophils (Absolute) 3.6 {x10E3/uL} (Normal) Range: 1.4-7.0 Basos 1 % (Normal) Eos 3 % (Normal) Monocytes 7 % (Normal) Lymphs 40 % (Normal) Neutrophils 49 % (Normal) Platelets 202 {x10E3/uL} (Normal) Range: 150-379 RDW 12.5 % (Normal) Range: 12.3-15.4 MCHC 33.9 g/dL (Normal) Range: 31.5-35.7 MCH 29.5 pg (Normal) Range: 26.6-33.0 MCV 87 fL (Normal) Range: 79-97 Hematocrit 37.5 % (Normal) Range: 34.0-46.6 Hemoglobin 12.7 g/dL (Normal) Range: 11.1-15.9 RBC 4.31 {x10E6/uL} (Normal) Range: 3.77-5.28 WBC 7.2 {x10E3/uL} (Normal) Range: 3.4-10.8 :20 Comp. Metabolic Panel (14) Comments: PATIENT WAS FASTINGPERFORMED BY: MORE LabCoHoly Name Medical CenterEzvboo6725 [facility] [id number]; will review at 03/27 appt ALT (SGPT) 18 [iU]/L (Normal) Range: 0-32 AST (SGOT) 14 [iU]/L (Normal) Range: 0-40 Alkaline Phosphatase, S 78 [iU]/L (Normal) Range: 39-117 Bilirubin, Total 0.4 mg/dL (Normal) Range: 0.0-1.2 A/G Ratio 2.0 (Normal) Range: 1.1-2.5 Globulin, Total 2.2 g/dL (Normal) Range: 1.5-4.5 Albumin, Serum 4.3 g/dL (Normal) Range: 3.5-4.8 Protein, Total, Serum 6.5 g/dL (Normal) Range: 6.0-8.5 Calcium, Serum 9.5 mg/dL (Normal) Range: 8.7-10.3 Carbon Dioxide, Total 25 mmol/L (Normal) Range: 18-29 Chloride, Serum 99 mmol/L (Normal) Range: 97-108 Potassium, Serum 4.6 mmol/L (Normal) Range: 3.5-5.2 Sodium, Serum 140 mmol/L (Normal) Range: 134-144 BUN/Creatinine Ratio 13 (Normal) Range: 11-26 eGFR If Africn Am 61 mL/min/1.73 (Normal) eGFR If NonAfricn Am 53 mL/min/1.73 (Abnormal) Creatinine, Serum 1.07 mg/dL (Abnormal) Range: 0.57-1.00 BUN 14 mg/dL (Normal) Range: 8-27 Glucose, Serum 133 mg/dL (Abnormal) Range: 65-99 21-Mar-20158:20 Lipid Panel With LDL/HDL Comments: PATIENT WAS FASTINGPERFORMED BY: LabCoHoly Name Medical CenterSxiwsb8872 [facility] [id number] Ratio LDL/HDL Ratio 1.8 {ratio_units} Range: 0.0-3.2 (Normal) Comments: LDL/HDL Ratio Men Women 1/2 Avg.Risk 1.0 1.5 Av g.Risk 3.6 3.2 2X Avg.Risk 6.2 5.0 3X Avg.Risk 8.0 6.1 LDL Cholesterol Calc 92 mg/dL (Normal) Range: 0-99 VLDL Cholesterol Arpit 50 mg/dL (Abnormal) Range: 5-40 HDL Cholesterol 51 mg/dL (Normal) Comments: According to ATP-III Guidelines, HDL-C >59 mg/dL is considered anegative risk factor for CHD. Triglycerides 249 mg/dL (Abnormal) Range: 0-149 Cholesterol, Total 193 mg/dL (Normal) Range: 100-199 : Vitamin D, 25-Hydroxy 23.5 ng/mL (Abnormal) Comments: PATIENT NOT FASTINGPERFORMED BY: [facility] Jxwmge4633 Ann Marie [facility]Wilson [facility] Centerignacio [place] [id number] Information: [id number] Range: 30.0-100.0 Comments: Vitamin D deficiency has been defined by the [place] ofMedicine and an Endocrine Society practice guideline as alevel of serum 25-OH vitamin D less than 20 ng/mL (1,2).The Endocrine Society went on to further define vitamin Dinsufficiency as a level between 21 and 29 ng/mL (2).1. IOM ([place] of Medicine). 2010. Dietary reference intakes for calcium and D. [place]: The National Academies Press.2. Sadiq MF, Pasha NC, Chirag CAMERON, et al. Evaluation, treatment, and prevention of vitamin D deficiency: an Endocrine Society clinical practice guideline. JCEM. 2010; 96(7):1911-30. :40 Rapid Strep Test, Office (04341) Rapid Strep Test, Office Negative (Normal) :39 Rapid Flu (51748 x 2) Influenza A Ag neg a and b (Normal) :45 HgA1C , Office (61727) HgA1C , Office 7.2 % (Abnormal) Range: 4.6 - 7.1 :16 Basic Metabolic Profile (BMP) Comments: Test performed at:[facility] Decfvgvqxd65[address] [place] [address] GAP 6 (Normal) Range: 5-15 CO2 31.0 mmol/L (Normal) Range: 21.0-32.0 CL 102 mmol/L (Normal) Range: 98-107 K 3.9 mmol/L (Normal) Range: 3.5-5.1 NA 139 mmol/L (Normal) Range: 136-145 CA 8.5 mg/dL (Normal) Range: 8.5-10.1 BUN/CRE 10.0 {RATIO} (Normal) Range: 10-20 Estimated CRCL 46.94 ml/min (Normal) EST GFR - AA 63 mL/min (Normal) EST GFR 52 mL/min (Abnormal) CREAT,SERUM 1.1 mg/dL (Abnormal) Range: 0.6-1.0 BUN 11 mg/dL (Normal) Range: 7-18 GLU 116 mg/dL (Abnormal) Range: 70-110 Comments: Fasting Glucose result from 110 to <126 mg/dLsuggests IMPAIRED HOMEOSTASIS per A.D.A. criteria. 4-Pre-841972:16 CBC W/Diff, Automated Comments: Test performed at:[facility] Xfipsvrjux5[address] Dejesus[address] [place], [place] [address] Absolute Lymph 1.81 {X10_3/ul} (Normal) Range: 0.83-4.51 Absolute Neut 2.5 {X10_3/uL} (Normal) Range: 2.0-7.7 IM GRAN % 0.200 % (Normal) Range: 0.0-0.9 Comments: IG% - Immature Granulocytes (promyelocytes, myelocytes andmetamyelocytes) > 1% indicates that a LEFT SHIFT is Present. BASO% 0.6 % (Normal) Range: 0-1 EO% 1.3 % (Normal) Range: 0-5 MONO% 7.4 % (Normal) Range: 0-10 LY% 38.3 % (Normal) Range: 19-41 NEUT% 52.2 % (Normal) Range: 47-70 MPV 9.7 fL (Normal) Range: 6.2-12.0 PLT 158 K/mm3 (Normal) Range: 150-450 RDW SD 39.5 fL (Normal) Range: 35.1-43.9 RDW CV 12.3 % (Normal) Range: 11.6-14.6 MCHC 33.6 {g/gl} (Normal) Range: 32-36 MCH 29.1 pg (Normal) Range: 27.0-32.0 MCV 86.5 fL (Normal) Range: 81-99 HCT 37.8 % (Normal) Range: 37-47 HGB 12.7 g/dL (Normal) Range: 12.0-15.0 RBC 4.37 {M/mm3} (Normal) Range: 4.2-5.4 WBC 4.7 K/mm3 (Normal) Range: 4.4-11.0 97-Ogv-270525:23 Rapid Flu (65561 x 2) Influenza A Ag positive A (Normal) 87-Ewu-99297:30 METABOLIC PANEL, COMPREHENSIVE Comments: PATIENT WAS FASTINGPERFORMED BY: LabCoHoly Name Medical CenterApwagj7108 [facility] [id number] (10336) ALT (SGPT) 21 [iU]/L (Normal) Range: 0-32 AST (SGOT) 15 [iU]/L (Normal) Range: 0-40 Alkaline Phosphatase, S 81 [iU]/L (Normal) Range: 39-117 Bilirubin, Total 0.5 mg/dL (Normal) Range: 0.0-1.2 A/G Ratio 2.0 (Normal) Range: 1.1-2.5 Globulin, Total 2.3 g/dL (Normal) Range: 1.5-4.5 Albumin, Serum 4.5 g/dL (Normal) Range: 3.6-4.8 Protein, Total, Serum 6.8 g/dL (Normal) Range: 6.0-8.5 Calcium, Serum 9.3 mg/dL (Normal) Range: 8.6-10.2 Comments: Effective October 03, 2014 the reference interval for Calcium, Serum will be changing to: Age Male Female 0 - 10 days 8.6 - 10.4 8.6 - 10.4 11 days - 1 year 9.2 - 11.0 9.2 - 11.0 2 - 11 years 9.1 - 10.5 9.1 - 10.5 12 - 17 years 8.9 - 10.4 8.9 - 10.4 18 - 59 years 8.7 - 10.2 8.7 - 10.2 >59 years 8.6 - 10.2 8.7 - 10.3 Carbon Dioxide, Total 25 mmol/L (Normal) Range: 18-29 Chloride, Serum 100 mmol/L (Normal) Range: 97-108 Potassium, Serum 4.2 mmol/L (Normal) Range: 3.5-5.2 Sodium, Serum 142 mmol/L (Normal) Range: 134-144 BUN/Creatinine Ratio 13 (Normal) Range: 11-26 eGFR If Africn Am 63 mL/min/1.73 (Normal) eGFR If NonAfricn Am 55 mL/min/1.73 (Abnormal) Creatinine, Serum 1.04 mg/dL (Abnormal) Range: 0.57-1.00 BUN 13 mg/dL (Normal) Range: 8-27 Glucose, Serum 138 mg/dL (Abnormal) Range: 65-99 15-Ygi-43767:30 CBC WITH MANUAL DIFF Comments: PATIENT WAS FASTINGPERFORMED BY: LabCoHoly Name Medical CenterNfufmh1606 [facility] [id number] Information: [id number] (25551) Immature Grans (Abs) 0.0 {x10E3/uL} (Normal) Range: 0.0-0.1 Immature Granulocytes 0 % (Normal) Baso (Absolute) 0.1 {x10E3/uL} (Normal) Range: 0.0-0.2 Eos (Absolute) 0.2 {x10E3/uL} (Normal) Range: 0.0-0.4 Monocytes(Absolute) 0.4 {x10E3/uL} (Normal) Range: 0.1-0.9 Lymphs (Absolute) 2.7 {x10E3/uL} (Normal) Range: 0.7-3.1 Neutrophils (Absolute) 4.0 {x10E3/uL} (Normal) Range: 1.4-7.0 Basos 1 % (Normal) Eos 3 % (Normal) Monocytes 6 % (Normal) Lymphs 37 % (Normal) Neutrophils 53 % (Normal) Platelets 226 {x10E3/uL} (Normal) Range: 150-379 RDW 13.3 % (Normal) Range: 12.3-15.4 MCHC 32.9 g/dL (Normal) Range: 31.5-35.7 MCH 28.7 pg (Normal) Range: 26.6-33.0 MCV 87 fL (Normal) Range: 79-97 Hematocrit 39.8 % (Normal) Range: 34.0-46.6 Hemoglobin 13.1 g/dL (Normal) Range: 11.1-15.9 RBC 4.56 {x10E6/uL} (Normal) Range: 3.77-5.28 WBC 7.5 {x10E3/uL} (Normal) Range: 3.4-10.8 8-Zss-398348:56 Anticardiolip Ab, IgA/G/M, Comments: PATIENT NOT FASTINGPERFORMED BY: [employer] [id number] BY: Reframe Itlin6370 Jesus Roadbl[address] [place] [id number] BY: [facility]CoMc[facility] ORP7811 [facility] [id number] Anticardiolipin Ab,IgA,Qn <9 {APL_U/mL} (Normal) Range: 0-11 Comments: Negative: <12 Indeterminate: 12 - 20 Low-Med Positive: >20 - 80 High Positive: >80 Anticardiolipin Ab,IgG,Qn <9 {GPL_U/mL} (Normal) Range: 0-14 Comments: Negative: <15 Indeterminate: 15 - 20 Low-Med Positive: >20 - 80 High Positive: >80 Anticardiolipin Ab,IgM,Qn <9 {MPL_U/mL} (Normal) Range: 0-12 Comments: Negative: <13 Indeterminate: 13 - 20 Low-Med Positive: >20 - 80 High Positive: >80 3-Xrg-171234:56 Antithrombin III, Comments: PATIENT NOT FASTINGPERFORMED BY: [employer] [id number] BY: [place] Jxrgml3361 [facility] [id number] BY: [facility] Func/Immunol WXU4240 [facility] [id number] Antithrombin Activity 117 % (Normal) Range: 75-135 Antithrombin Antigen 116 % (Normal) Range: 75-130 4-Rbt-427241:5 Factor II Activity 111 % (Normal) Comments: PATIENT NOT FASTINGPERFORMED BY: [employer] [id number] BY: [place] Ljmrzq4863 [facility] [id number] BY: [facility]Copris[facility] [id number] [facility] [id number] Range: 75-130 6-Cnp-350895:56 Factor V Leiden Mutation Comments: PATIENT NOT FASTINGPERFORMED BY: BN [facility] Llmgtiuulj5569 [place] [id number] BY: CB [facility] Gdxsbo1473 [place] [id number] BY: TG [facility] YWC5034 [place] [id number] Factor V Leiden FVNEG3 (Normal) Comments: Result: Negative (no mutation found) .Factor V Leiden is a specific mutation (R506Q) in the factorV gene that is associated with an increased r isk of venousthrombosis. Factor V Leiden is more resistant toinactivation by activated protein C. As a result, factor Vpersists in the circulation leading to a mild hyper-coagulable state. The Leiden mutation accounts for 90% -95% of APC resistance. Factor V Leiden has been reported inpatients with deep vein thrombosis, pulmonary embolus,central retinal vein occlusion, cerebral sinus thrombosisand hepatic vein thrombosis. Other risk factors to beconsidered in the workup for venous thrombosis include [id number] mutation in the factor II (prothrombin) gene,protein S and C deficiency, and antithromb in deficiencies.Anticardiolipin antibody and lupus anticoagulant analysismay be appropriate for certain patients, as well ashomocysteine levels. .Contact your local [facility] for information on how to orderadditional testing if desired. .Genetic counselors are available for health care* providers to discuss results at [phone] ([phone]). .Methodology:DNA analysis of the Factor V gene was performed by allele-specific PCR followed by gel electrophoresis. The diagnosticsensitivity and specificity is >99% for both. Molecular-based testing is highly accurate, but as in any laboratorytest, diagnostic errors may occur. All test results must becombined with clinical information for the most accurateinterpretation. .References:Kilo Pratt (1995). Clin Lab Med 16: 169-186. .Koby Do, Syed Arias PhDMarcia Eisenberg, Mirza Moseley MDVal V Zvereff, MD, PhDS JACOBY Davidson, PhD . Homocyst(e)ine, 10.8 umol/L Comments: PATIENT NOT FASTINGPERFORMED BY: BN [facility] Azyljrmhvk1502 [facility] [id number] BY: CB [facility] [id number] [facility] CenterD[facility] [place] [id number] BY: TG [facility] 8:56 Plasma (Normal) [id number] [facility] [id number] Range: 0.0-15.0 [id number] MTHFR Comments: PATIENT NOT FASTINGPERFORMED BY: BN [facility] [id number] [facility] [id number] BY: CB [facility] [id number] [facility] CenterD[facility] [place] [id number] BY: TG [facility] [id number] [facility] [id number] MTHFR, DNA Analysis [id number] (Normal) Comments: Result: C677T/C677T Two copies of the same mutation (C677T and C677T) identified .Interpretation: .This individual is homozygous for the MTHFR C677T variant (two copies).The MTHFR W3890M variant was not identified. Homozygosity for [id number] mutation confers an increased risk for the development ofhyperhomocysteinemia when the individual is deficient in folate,vitamin B6, or vitamin B12. A fasting homocysteine level should bemeasured. Hyperhomocysteinemia may also occur due to mutations inenzymes other than MTHFR that are involved in homocysteine metabolism,or arise due to acquired factors. If homocysteine falls within thenormal range, there is no increased risk for venous thromboembolism nani women, recurrent loss. Elevated homocysteine may beassociated with a mildly increased risk for venous thrombosis, coronaryartery disease and recurrent preg jus loss. Women homozygous forMTHFR C677T also have a modestly increased risk of neural tube defectswith , with a greater risk if the fetus is also homozygousfor MTHFR C677T. Other risk facto rs may be detected through systematicclinical laboratory analysis.Genetic counselors are available to discuss these results with healthcare providers at [phone]. .Methylenetetrahydrofolate reductase (MTHFR) is a salazar enzyme in thefolate pathway and is responsible for the metabolism of homocysteine.There are two common variants i n the MTHFR gene, c.655C>T(p.Pcz126Rxc), referred to as C677T, and c.1286A>C (p.Qyw714Sid),referred to as O6095L. Individuals homozygous for C677T (two copiesof the variant), have decreased activi ty of the MTHFR enzyme and apredisposition to hyperhomocysteinemia, particularly when deficient infolate. Hyperhomocysteinemia is a risk factor for venous thrombosisand coronary artery disease and is as sociated with an increased riskof open neural tube defects. The C677T variant does notindependently increase risk of these conditions in the absence ofhyperhomocysteinemia. The [id number] variant is n ot associated withelevated homocysteine levels unless a C677T variant is also present;however, the clinical significance of heterozygosity for both [id number] [id number] is controversial. Population data sugg est that these twovariants are not present on the same chromosome, but rare exceptionshave been reported of triple variant MTHFR genotypes (ie. homozygousfor one variant and heterozygous for the other). Homozygosity [id number] has an estimated frequency of 10% to 15% in Caucasians and 25%in Hispanics. .Additional information: .Dietary folic acid, B6 and B12 supplementation has been suggested tolower homocysteine levels in some people. Folic acid supplementationhas bee n shown to reduce the occurrence of neural tube defects.Methodology:DNA analysis of the MTHFR gene was performed by PCRamplification followed by restriction analysis. Thediagnostic sensitivity is >9 9% for both. Molecular-basedtesting is highly accurate, but as in any laboratory test,rare diagnostic errors may occur. All test results must becombined with clinical information for the most accuratei nterpretation. .Kpo LD, Jang Q. Am J Epidemiol 2000; 151(9):862-877.Anibal MM, Bryan JA. Arch Pathol Lab Med 2007; 131(6):872-884.Frosst P et al. Anahi Naomi 1995; 10(1):111-113.Jamie SE et al. Naomi Med 2013; 15(2):153- 156.Quentin C et al. Obstet Gynecol 2011; 118(3):730-740.Esdras B et al. Eur J Epidemiol 2013; 28(8):621-647. .Jami Gonogra MD, PhDJessica Bran, PhDOsmany Green, PhDMally Potter, PhDCt Berman, Eva Simon, MS, PhD 3-Wmm-517765:56 Protein C Deficiency Comments: PATIENT NOT FASTINGPERFORMED BY: [employer] [facility] Cmdkladvrd4962 [place] [id number] BY: [employer] LabCoFrugotonVwweev3526 [employer] Private LimitedNovant Health [facility] [id number] BY: TG LabBenten [employer] Profile [id number] [facility] [id number] Protein C-Functional 137 % (Normal) Range: 74-151 Protein C Antigen 124 % (Normal) Range: 70-140 1-Ilj-245920:56 Protein S Panel Comments: PATIENT NOT FASTINGPERFORMED BY: [employer] [facility] Pmqaujyjeh3228 [facility] [id number] BY: [employer] [facility] [id number] [employer] IndiaNovant Health [facility] [id number] BY: [employer] [facility] [id number] [facility] [id number] Protein S-Functional 120 % (Normal) Range: 60-145 Protein S, Free 129 % (Abnormal) Range: 56-124 Protein S, Total 112 % (Normal) Range: 58-150 21-Mar-20148:17 Metabolic Panel, Basic ([id number]) Comments: PATIENT WAS FASTINGPERFORMED BY: [employer] [id number] [employer] Private LimitedNovant Health [facility] [id number] Calcium, Serum 9.4 mg/dL (Normal) Range: 8.6-10.2 Carbon Dioxide, Total 26 mmol/L (Normal) Range: 18-29 Chloride, Serum 101 mmol/L (Normal) Range: 97-108 Potassium, Serum 4.5 mmol/L (Normal) Range: 3.5-5.2 Sodium, Serum 141 mmol/L (Normal) Range: 134-144 BUN/Creatinine Ratio 9 (Abnormal) Range: 11-26 eGFR If Africn Am 62 mL/min/1.73 (Normal) eGFR If NonAfricn Am 54 mL/min/1.73 (Abnormal) Creatinine, Serum 1.06 mg/dL (Abnormal) Range: 0.57-1.00 BUN 10 mg/dL (Normal) Range: 8-27 Glucose, Serum 137 mg/dL (Abnormal) Range: 65-99 :17 CBC (Auto) (31567) Comments: PATIENT WAS FASTINGPERFORMED BY: [employer] Cokclr1147 [facility] [id number] Information: [id number] Platelets 201 {x10E3/uL} (Normal) Range: 150-379 RDW 13.1 % (Normal) Range: 12.3-15.4 MCH 29.2 pg (Normal) Range: 26.6-33.0 MCHC 32.7 g/dL (Normal) Range: 31.5-35.7 MCV 89 fL (Normal) Range: 79-97 Hematocrit 40.1 % (Normal) Range: 34.0-46.6 Hemoglobin 13.1 g/dL (Normal) Range: 11.1-15.9 RBC 4.49 {x10E6/uL} (Normal) Range: 3.77-5.28 WBC 6.6 {x10E3/uL} (Normal) Range: 3.4-10.8 :04 HgA1C , Office (75366) HgA1C , Office 8.4 % (Abnormal) Range: 4.6 - 7.1 :04 Blood Glucose , Office (10750) Blood Glucose , Office 198 (Normal) :47 MICROALBUMIN: CREATININE RATIO Comments: PATIENT WAS FASTINGPERFORMED BY: Nereus PharmaceuticalsHoly Name Medical CenterMmmkqt9579 [facility] [id number] ([id number]) AND (51871) Microalb/Creat Ratio 4.0 {mg/g_creat} (Normal) Range: 0.0-30.0 Microalbumin, Urine 5.6 ug/mL (Normal) Range: 0.0-17.0 Creatinine, Urine 139.4 mg/dL (Normal) Range: 15.0-278.0 :47 METABOLIC PANEL, COMPREHENSIVE Comments: PATIENT WAS FASTINGPERFORMED BY: [employer] [facility] [id number] ([id number]) ALT (SGPT) 25 [iU]/L (Normal) Range: 0-32 Alkaline Phosphatase, S 81 [iU]/L (Normal) Range: 39-117 AST (SGOT) 22 [iU]/L (Normal) Range: 0-40 Bilirubin, Total 0.4 mg/dL (Normal) Range: 0.0-1.2 A/G Ratio 2.2 (Normal) Range: 1.1-2.5 Globulin, Total 2.0 g/dL (Normal) Range: 1.5-4.5 Albumin, Serum 4.4 g/dL (Normal) Range: 3.6-4.8 Protein, Total, Serum 6.4 g/dL (Normal) Range: 6.0-8.5 Calcium, Serum 9.3 mg/dL (Normal) Range: 8.6-10.2 Carbon Dioxide, Total 24 mmol/L (Normal) Range: 19-28 Chloride, Serum 102 mmol/L (Normal) Range: 97-108 Potassium, Serum 4.5 mmol/L (Normal) Range: 3.5-5.2 Sodium, Serum 141 mmol/L (Normal) Range: 134-144 BUN/Creatinine Ratio 13 (Normal) Range: 11-26 eGFR If Africn Am 66 mL/min/1.73 (Normal) eGFR If NonAfricn Am 58 mL/min/1.73 (Abnormal) Creatinine, Serum 1.00 mg/dL (Normal) Range: 0.57-1.00 BUN 13 mg/dL (Normal) Range: 8-27 Glucose, Serum 177 mg/dL (Abnormal) Range: 65-99 :47 LIPID PANEL (79258) Comments: PATIENT WAS FASTINGPERFORMED BY: [employer] Imtczr5695 [facility] [id number]; Non-emergent and has apt next week 02/2014. LDL/HDL Ratio 1.4 {ratio_units} (Normal) Range: 0.0-3.2 LDL Cholesterol Calc 81 mg/dL (Normal) Range: 0-99 VLDL Cholesterol Arpit 38 mg/dL (Normal) Range: 5-40 HDL Cholesterol 56 mg/dL (Normal) Comments: According to ATP-III Guidelines, HDL-C >59 mg/dL is considered anegative risk factor for CHD. Triglycerides 191 mg/dL (Abnormal) Range: 0-149 Cholesterol, Total 175 mg/dL (Normal) Range: 100-199 77-Jfd-63804:47 CBC WITH MANUAL DIFF Comments: PATIENT WAS FASTINGPERFORMED BY: LabAscension St. [facility] Hospital6370 [facility] [id number] Information: [id number] ([id number]) Immature Grans (Abs) 0.0 {x10E3/uL} (Normal) Range: 0.0-0.1 Immature Granulocytes 0 % (Normal) Range: 0-2 Baso (Absolute) 0.1 {x10E3/uL} (Normal) Range: 0.0-0.2 Eos (Absolute) 0.2 {x10E3/uL} (Normal) Range: 0.0-0.4 Monocytes(Absolute) 0.4 {x10E3/uL} (Normal) Range: 0.1-0.9 Lymphs (Absolute) 2.7 {x10E3/uL} (Normal) Range: 0.7-3.1 Neutrophils (Absolute) 3.0 {x10E3/uL} (Normal) Range: 1.4-7.0 Basos 1 % (Normal) Range: 0-3 Eos 3 % (Normal) Range: 0-5 Monocytes 6 % (Normal) Range: 4-12 Lymphs 42 % (Normal) Range: 14-46 Neutrophils 48 % (Normal) Range: 40-74 Platelets 203 {x10E3/uL} (Normal) Range: 155-379 RDW 13.5 % (Normal) Range: 12.3-15.4 MCHC 33.7 g/dL (Normal) Range: 31.5-35.7 MCH 29.1 pg (Normal) Range: 26.6-33.0 MCV 86 fL (Normal) Range: 79-97 Hematocrit 38.3 % (Normal) Range: 34.0-46.6 Hemoglobin 12.9 g/dL (Normal) Range: 11.1-15.9 RBC 4.44 {x10E6/uL} (Normal) Range: 3.77-5.28 WBC 6.3 {x10E3/uL} (Normal) Range: 3.4-10.8 :06 Blood Glucose , Office (89691) Blood Glucose , Office 135 (Normal) :06 HgA1C , Office (66064) HgA1C , Office 7.1 % (Normal) Range: 4.6 - 7.1 :23 Hemoglobin Glyclated (HGB A1C) Comments: PATIENT WAS FASTINGPERFORMED BY: Nereus PharmaceuticalsSanta Ana Health CenterZqnubw9920 [facility] [id number] ([id number]) Hemoglobin A1c 6.5 % (Abnormal) Range: 4.8-5.6 Comments: . Increased risk for diabetes: 5.7 - 6.4 Diabetes: >6.4 Glycemic control for adults with diabetes: <7.0 :23 MICROALBUMIN: CREATININE RATIO Comments: PATIENT WAS FASTINGPERFORMED BY: [employer] [facility] [id number] ([id number]) AND (73578) Microalb/Creat Ratio 2.3 {mg/g_creat} (Normal) Range: 0.0-30.0 Microalbumin, Urine 1.7 ug/mL (Normal) Range: 0.0-17.0 Creatinine, Urine 75.5 mg/dL (Normal) Range: 15.0-278.0 :23 METABOLIC PANEL, COMPREHENSIVE Comments: PATIENT WAS FASTINGPERFORMED BY: [employer] Iclfxm7446 [facility] [id number] ([id number]) ALT (SGPT) 19 [iU]/L (Normal) Range: 0-32 AST (SGOT) 17 [iU]/L (Normal) Range: 0-40 Alkaline Phosphatase, S 73 [iU]/L (Normal) Range: 39-117 Comments: Please note reference interval change Bilirubin, Total 0.4 mg/dL (Normal) Range: 0.0-1.2 A/G Ratio 1.7 (Normal) Range: 1.1-2.5 Globulin, Total 2.4 g/dL (Normal) Range: 1.5-4.5 Albumin, Serum 4.1 g/dL (Normal) Range: 3.6-4.8 Protein, Total, Serum 6.5 g/dL (Normal) Range: 6.0-8.5 Calcium, Serum 9.3 mg/dL (Normal) Range: 8.6-10.2 Carbon Dioxide, Total 23 mmol/L (Normal) Range: 19-28 Chloride, Serum 103 mmol/L (Normal) Range: 97-108 Potassium, Serum 4.9 mmol/L (Normal) Range: 3.5-5.2 Sodium, Serum 140 mmol/L (Normal) Range: 134-144 BUN/Creatinine Ratio 11 (Normal) Range: 11-26 eGFR If Africn Am 71 mL/min/1.73 (Normal) eGFR If NonAfricn Am 62 mL/min/1.73 (Normal) Creatinine, Serum 0.95 mg/dL (Normal) Range: 0.57-1.00 BUN 10 mg/dL (Normal) Range: 8-27 Glucose, Serum 140 mg/dL (Abnormal) Range: 65-99 :23 LIPID PANEL (56106) Comments: PATIENT WAS FASTINGPERFORMED BY: [employer] [facility] [id number] LDL/HDL Ratio 1.8 {ratio_units} (Normal) Range: 0.0-3.2 LDL Cholesterol Calc 100 mg/dL (Abnormal) Range: 0-99 HDL Cholesterol 56 mg/dL (Normal) Comments: According to ATP-III Guidelines, HDL-C >59 mg/dL is considered anegative risk factor for CHD. VLDL Cholesterol Arpit 41 mg/dL (Abnormal) Range: 5-40 Triglycerides 203 mg/dL (Abnormal) Range: 0-149 Cholesterol, Total 197 mg/dL (Normal) Range: 100-199 :23 CBC WITH MANUAL DIFF Comments: PATIENT WAS FASTINGPERFORMED BY: [id number] [facility] [id number] Information: [id number] (02324) Immature Grans (Abs) 0.0 {x10E3/uL} (Normal) Range: 0.0-0.1 Immature Granulocytes 0 % (Normal) Range: 0-2 Baso (Absolute) 0.1 {x10E3/uL} (Normal) Range: 0.0-0.2 Eos (Absolute) 0.4 {x10E3/uL} (Normal) Range: 0.0-0.4 Monocytes(Absolute) 0.3 {x10E3/uL} (Normal) Range: 0.1-0.9 Lymphs (Absolute) 2.8 {x10E3/uL} (Normal) Range: 0.7-3.1 Neutrophils (Absolute) 2.3 {x10E3/uL} (Normal) Range: 1.4-7.0 Basos 1 % (Normal) Range: 0-3 Eos 6 % (Abnormal) Range: 0-5 Monocytes 6 % (Normal) Range: 4-12 Lymphs 47 % (Abnormal) Range: 14-46 Neutrophils 40 % (Normal) Range: 40-74 Platelets 210 {x10E3/uL} (Normal) Range: 155-379 RDW 13.2 % (Normal) Range: 12.3-15.4 MCHC 33.7 g/dL (Normal) Range: 31.5-35.7 MCH 29.6 pg (Normal) Range: 26.6-33.0 MCV 88 fL (Normal) Range: 79-97 Hematocrit 38.9 % (Normal) Range: 34.0-46.6 Hemoglobin 13.1 g/dL (Normal) Range: 11.1-15.9 RBC 4.42 {x10E6/uL} (Normal) Range: 3.77-5.28 WBC 5.8 {x10E3/uL} (Normal) Range: 3.4-10.8 :37 HgA1C , Office (33379) HgA1C , Office .26 % (Abnormal) Range: 4.6 - 7.1 :45 CBCD,SMEAR DIFF CELLS COUNTED 100 (Normal) EOS 4 % (Normal) Range: 0-5 HCT 39.0 % (Normal) Range: 37-47 HGB 13.6 Gm/dl (Normal) Range: 12.0-16.0 LYMPH 55 % (Abnormal) Range: 19-41 MCH 31.6 PG (Normal) Range: 27-32 MCHC 34.9 g/dL (Normal) Range: 32-36 MCV 91 fL (Normal) Range: 81-99 MONOCYTE 2 % (Normal) Range: 0-10 PLT 210 K/mm3 (Normal) Range: 150-450 PLT EST SeeNote (Normal) Comments: Result: ADEQUATE RBC 4.31 {M/mm3} (Normal) Range: 4.2-5.4 RDW 12.7 % (Normal) Range: 11.6-14.6 RED CELL MORPH SeeNote {NORMAL} (Normal) Comments: Result: NORM C&C SEGS 39 % (Abnormal) Range: 47-70 WBC 6.3 K/mm3 (Normal) Range: 4.4-11.0 :45 COMP METABOLIC A/G 1.3 {RATIO} (Normal) Range: 0.9-2.4 ALB 3.9 g/dL (Normal) Range: 3.4-5.0 ALK P 93 U/L (Normal) Range: 50-136 ALT 37 [iU]/L (Normal) Range: 30-65 AST 16 U/L (Normal) Range: 15-37 BUN 13 mg/dL (Normal) Range: 7-18 BUN/CRE 11.8 {RATIO} (Normal) Range: 10-20 CA 9.5 mg/dL (Normal) Range: 8.5-10.1 CL 105 mmol/L (Normal) Range: 98-107 CO2 31.4 mmol/L (Normal) Range: 21.0-32.0 Comments: Please Note Reference Interval Change CREAT,SERUM 1.1 mg/dL (Abnormal) Range: 0.6-1.0 GAP 7 (Normal) Range: 5-15 GLOB 3.0 g/dL (Normal) Range: 2.7-4.2 Comments: Please Note Reference Interval Change GLU 134 mg/dL (Abnormal) Range: 70-110 Comments: Fasting Glucose result greater than or equal to 126 mg/dL suggests DIABETES MELLITUS per A.D.A. criteria. K 4.4 mmol/L (Normal) Range: 3.5-5.1 NA 143 mmol/L (Normal) Range: 136-145 T BILI 0.23 mg/dL (Normal) Range: 0.00-1.00 T PROT 6.9 g/dL (Normal) Range: 6.4-8.2 :45 LIPID CHOL 249 mg/dL (Abnormal) Comments: <200 mg/dL Desirable 200-240 mg/dL Borderline >240 mg/dL High Risk HDL 55 mg/dL (Normal) Comments: Reference Range HDL <40 mg/dL Low HDL Cholesterol HDL >or= 60 mg/dL High HDL Cholesterol LDL 155 mg/dL (Abnormal) Range: 0-130 TRIG 195 mg/dL (Normal) Comments: Serum Triglycerides Reference Interval Normal <150 mg/dL Borderline high 150 - 199 mg/dL High 200 - 499 mg/dL Very High > or = 500 mg/dL VLDL 39 mg/dL (Normal) Range: 5-40 37-Dyq-29849:45 MICROALB:CRE UR MALB:CREAT 2.8 {mg/g_CRE} (Normal) MICROALBUMIN,UR 4.4 mg/L (Normal) UR CREAT 155.1 mg/dL (Normal) 0-Aqr-208743:29 Blood Glucose , Office (73359) Blood Glucose , Office 101 (Normal) Plan of Care Name Dates Details Instructions Non-smoker : Eprescribed prescriptions (G8553) Indication: Non-smoker Vitamin D deficiency : Follow up in 6 months Indication: Vitamin D deficiency Diabetes mellitus type 2, controlled : Eprescribed prescriptions (G8553) Indication: Diabetes mellitus type 2, controlled Hypertriglyceridemia : Reviewed Lab Indication: Hypertriglyceridemia Benign essential hypertension : Reviewed Lab Indication: Benign essential hypertension Elevated TSH : Follow up in 1 month Indication: Elevated TSH Diabetes mellitus type 2, uncontrolled (Renamed from Uncontrolled type 2 diabetes mellitus) : Reviewed Diagnostic Tests Indication: Diabetes mellitus type 2, uncontrolled (Renamed from Uncontrolled type 2 diabetes mellitus) Diabetes mellitus type 2, uncontrolled (Renamed from Uncontrolled type 2 diabetes mellitus) : Diet, Exercise, and Wt loss Indication: Diabetes mellitus type 2, uncontrolled (Renamed from Uncontrolled type 2 diabetes mellitus) Diabetes mellitus type 2, uncontrolled (Renamed from Uncontrolled type 2 diabetes mellitus) : Eprescribed prescriptions (G8553) Indication: Diabetes mellitus type 2, uncontrolled (Renamed from Uncontrolled type 2 diabetes mellitus) BMI 27.0-27.9,adult : Follow up in 4 months Indication: BMI 27.0-27.9,adult Diabetes mellitus type 2, controlled : Eprescribed prescriptions (G8553) Indication: Diabetes mellitus type 2, controlled Hypercholesteremia : Follow up in 3 months Indication: Hypercholesteremia Diabetes mellitus type 2, controlled : Eprescribed prescriptions (G8553) Indication: Diabetes mellitus type 2, controlled Postmenopausal (Renamed from Postmenopausal status) : Follow up in 3 months Indication: Postmenopausal (Renamed from Postmenopausal status) Vitamin D deficiency : Reviewed Lab Indication: Vitamin D deficiency Hypertriglyceridemia : Reviewed Lab Indication: Hypertriglyceridemia Diabetes mellitus type 2, controlled : Eprescribed prescriptions (G8553) Indication: Diabetes mellitus type 2, controlled Diabetes mellitus type 2, controlled : Follow up in 3 months Indication: Diabetes mellitus type 2, controlled Diabetes mellitus type 2, controlled : Eprescribed prescriptions (G8553) Indication: Diabetes mellitus type 2, controlled Diabetes mellitus type 2, controlled : Follow up in 3 months Indication: Diabetes mellitus type 2, controlled Diabetes mellitus type 2, controlled : Eprescribed prescriptions (G8553) Indication: Diabetes mellitus type 2, controlled Diabetes mellitus type 2, controlled : Follow up in 3 months Indication: Diabetes mellitus type 2, controlled Diabetes mellitus type 2, controlled : Eprescribed prescriptions (G8553) Indication: Diabetes mellitus type 2, controlled Cough : *Antibiotic Usage Education - Female Indication: Cough Diabetes mellitus type 2, controlled : Eprescribed prescriptions (G8553) Indication: Diabetes mellitus type 2, controlled Pulmonary embolism : Eprescribed prescriptions (G8553) Indication: Pulmonary embolism Breast pain : Eprescribed prescriptions (G8553) Indication: Breast pain Pneumonia : MDI Education Indication: Pneumonia Abnormal lung sounds : *Antibiotic Usage Education - Female Indication: Abnormal lung sounds Sinusitis, acute : *URI Symptoms Indication: Sinusitis, acute GERD (gastroesophageal reflux disease) : Heartburn *: gastroesophageal reflux Indication: GERD (gastroesophageal reflux disease) Benign essential hypertension : *Waldo Inhibitor Side Effects Indication: Benign essential hypertension Hypercholesteremia : Cholesterol - Medication Side Effects Indication: Hypercholesteremia Hypercholesteremia : Cholesterol - Nonprescription Treatment Indication: Hypercholesteremia Planned Observations CALCIFEDIOL (03950)Indication: Osteopenia On: 1-Cmo-739941:03 Request METABOLIC PANEL, COMPREHENSIVE (75496)Indication: Benign essential hypertension On: 09-Mgi-17796:10 Request LIPID PANEL (60474)Indication: Benign essential hypertension On: 12-Vye-69758:10 Request CBC W/AUTO DIFF WBC (77602)Indication: Benign essential hypertension On: 28-Vom-98016:10 Request Protein S Profile (75445)Indication: Pulmonary embolism On: :45 Request Protein C Profile (48808)Indication: Pulmonary embolism On: :45 Request Homocysteine, Plasma (19981)Indication: Pulmonary embolism On: :45 Request Antiphospholipid atb (58723)Indication: Pulmonary embolism On: :45 Request ANTICOAG ANTTHROMB III & ASSAY (31278)Indication: Pulmonary embolism On: :45 Request ANTITHROMBIN III ACTIVTY (75591)Indication: Pulmonary embolism On: :45 Request CLOTTING FACTOR II (60266)Indication: Pulmonary embolism On: :45 Request Factor V Leiden (42305)Indication: Pulmonary embolism On: :45 Request MTHFR (47685)Indication: Pulmonary embolism On: :45 Request HEPATIC FUNCTION PANEL (32184)Indication: Hypercholesteremia On: :59 Request LIPID PANEL (88003)Indication: Hypercholesteremia On: :59 Request MICROALBUMIN: CREATININE RATIO (09847) AND (56389)Indication: Diabetes mellitus type 2, controlled On: 8-Wiv-660192:35 Request METABOLIC PANEL, COMPREHENSIVE (91983)Indication: Diabetes mellitus type 2, controlled On: 2-Ymp-053201:35 Request LIPID PANEL (67648)Indication: Diabetes mellitus type 2, controlled On: 1-Sgs-747362:35 Request CBC WITH MANUAL DIFF (56604)Indication: Diabetes mellitus type 2, controlled On: 6-Tjs-023996:35 Request Planned Procedures SCREENING DIGITAL TOMOSYNTHESIS OF On: 14-Aug-2018 Intent BREAST (28503)By: Kristine Mccauley CNP E Kristine Mccauley CNP E MAMMOGRAM, RIGHT (61319)By: Radha On: 28-Aug-2016 Intent Terrence WING Breast Ultrasound - RightBy: Radha On: 28-Aug-2016 Intent Terrence WING MAMMOGRAM, SCREENING, BOTH BREAST On: 31-Jul-2015 Intent (68072)By: Annalee Alvarenga MD Comments: 2-16 CTA CHEST W/W/O CONTRAST On: 08-Dec-2014 Intent (96173)By: Suri Paredes DO Treatment (01165)By: On: 08-Dec-2014 Intent Suri Paredes DO Comments: more a/e- DEXA SCAN AXIAL SKELETON On: 04-Oct-2014 Intent (06869)By: Annalee Alvarenga MD Comments: postmenapausal MAMMOGRAM, SCREENING, BOTH BREAST On: 04-Oct-2014 Intent (92663)By: Annalee Alvarenga MD EKG (31699)By: Annalee Alvarenga MD On: 04-Oct-2014 Intent Comments: see scanned document of test done to see results reviewed today with patient CT - Cardiac CTABy: Colette WING, On: 14-Apr-2014 Intent Annalee Tsang Venous Doppler - LeftBy: Colette On: 22-Mar-2014 Intent Annalee WING Comments: bilateral legs today COMPUTED TOMOGRAPHY ANGIOGRAPHY OF On: 09-Mar-2014 Intent CHEST WITH AND WITHOUT CONTRAST Comments: PE PROTOCOL (87225)By: Annalee Alvarenga MD CT - Chest (IV Contrast Needed)By: On: 08-Mar-2014 Intent Annalee Alvarenga MD Comments: due pe protocol Ultrasound - Breast - LeftBy: On: 08-Mar-2014 Intent Annalee Alvarenga MD Echo CompleteBy: Annalee Alvarenga MD On: 15-Feb-2014 Intent M Eprescribed prescriptions On: 15-Feb-2014 Intent (G8553)By: Annalee Alvarenga MD Inhaler Demo (99162)By: Reggie BRAND, On: 11-Nov-2013 Intent Suri Radiology - Chest- PA and LatBy: On: 11-Nov-2013 Intent Suri Paredes DO Aerosol Treatment (88632)By: On: 11-Nov-2013 Intent Suri Paredes DO Comments: more a/e less tight Eprescribed prescriptions On: 11-Nov-2013 Intent (G8553)By: Suri Paredes DO Breast Screening - BilateralBy: On: 14-Jul-2013 Intent Annalee Alvarenga MD MAMMOGRAM, SCREENING, BOTH BREASTS On: 08-Jul-2013 Intent (44359)By: Annalee Alvarenga MD EKG (64788)By: Annalee Alvarenga MD On: 22-Jun-2013 Intent Comments: see scanned document of test done to see results reviewed today with patient Eprescribed prescriptions On: 22-Jun-2013 Intent (G8553)By: Amalia Wilder LPN EKG (92561)By: Annalee Alvarenga MD On: 03-Sep-2007 Intent Ultrasound - Abdomen (Limited Area On: 03-Sep-2007 Intent or Organs)By: Annalee Alvarenga MD Comments: upper look at mass in epig area and luq Ultrasound - GallbladderBy: On: 03-Sep-2007 Intent Annalee Alvarenga MD EKG (15226)By: Annalee Alvarenga MD On: 03-Sep-2007 Intent Instructions Name Dates Details Non-smoker : How to access health information online Indication: Non-smoker Non-smoker : How to access health information online - Detail Indication: Non-smoker Non-smoker : Patient Instructions Indication: Non-smoker Diabetes mellitus type 2, controlled : How to access health information online Indication: Diabetes mellitus type 2, controlled Diabetes mellitus type 2, controlled : How to access health information online - Detail Indication: Diabetes mellitus type 2, controlled Diabetes mellitus type 2, controlled : Patient Instructions Indication: Diabetes mellitus type 2, controlled Diabetes mellitus type 2, uncontrolled (Renamed from Uncontrolled type 2 diabetes mellitus) : How to access health information online Indication: Diabetes mellitus type 2, uncontrolled (Renamed from Uncontrolled type 2 diabetes mellitus) Diabetes mellitus type 2, uncontrolled (Renamed from Uncontrolled type 2 diabetes mellitus) : How to access health information online - Detail Indication: Diabetes mellitus type 2, uncontrolled (Renamed from Uncontrolled type 2 diabetes mellitus) Diabetes mellitus type 2, uncontrolled (Renamed from Uncontrolled type 2 diabetes mellitus) : Patient Instructions Indication: Diabetes mellitus type 2, uncontrolled (Renamed from Uncontrolled type 2 diabetes mellitus) Diabetes mellitus type 2, controlled : How to access health information online Indication: Diabetes mellitus type 2, controlled Diabetes mellitus type 2, controlled : How to access health information online - Detail Indication: Diabetes mellitus type 2, controlled BMI 27.0-27.9,adult : Patient Instructions Indication: BMI 27.0-27.9,adult Diabetes mellitus type 2, controlled : How to access health information online Indication: Diabetes mellitus type 2, controlled Diabetes mellitus type 2, controlled : How to access health information online - Detail Indication: Diabetes mellitus type 2, controlled Diabetes mellitus type 2, controlled : Patient Instructions Indication: Diabetes mellitus type 2, controlled Cyst, breast, right : DISCONTINUED - US BREAST RIGHT (10617) Indication: Cyst, breast, right Diabetes mellitus type 2, controlled : How to access health information online Indication: Diabetes mellitus type 2, controlled Diabetes mellitus type 2, controlled : How to access health information online - Detail Indication: Diabetes mellitus type 2, controlled Diabetes mellitus type 2, controlled : Patient Instructions Indication: Diabetes mellitus type 2, controlled Diabetes mellitus type 2, controlled : How to access health information online Indication: Diabetes mellitus type 2, controlled Diabetes mellitus type 2, controlled : How to access health information online - Detail Indication: Diabetes mellitus type 2, controlled Diabetes mellitus type 2, controlled : Patient Instructions Indication: Diabetes mellitus type 2, controlled Diabetes mellitus type 2, controlled : How to access health information online Indication: Diabetes mellitus type 2, controlled Diabetes mellitus type 2, controlled : How to access health information online - Detail Indication: Diabetes mellitus type 2, controlled Diabetes mellitus type 2, controlled : Patient Instructions Indication: Diabetes mellitus type 2, controlled Diabetes mellitus type 2, controlled : How to access health information online Indication: Diabetes mellitus type 2, controlled Diabetes mellitus type 2, controlled : How to access health information online - Detail Indication: Diabetes mellitus type 2, controlled Diabetes mellitus type 2, controlled : Patient Instructions Indication: Diabetes mellitus type 2, controlled Diabetes mellitus type 2, controlled : How to access health information online Indication: Diabetes mellitus type 2, controlled Diabetes mellitus type 2, controlled : How to access health information online - Detail Indication: Diabetes mellitus type 2, controlled Diabetes mellitus type 2, controlled : Patient Instructions Indication: Diabetes mellitus type 2, controlled Diabetes mellitus type 2, controlled : How to access health information online Indication: Diabetes mellitus type 2, controlled Diabetes mellitus type 2, controlled : How to access health information online - Detail Indication: Diabetes mellitus type 2, controlled Diabetes mellitus type 2, controlled : Patient Instructions Indication: Diabetes mellitus type 2, controlled Cough : How to access health information online Indication: Cough Cough : How to access health information online - Detail Indication: Cough Cough : Patient Instructions Indication: Cough Preop examination : How to access health information online Indication: Preop examination Preop examination : How to access health information online - Detail Indication: Preop examination Preop examination : Patient Instructions Indication: Preop examination Cough : Patient Instructions Indication: Cough Diabetes mellitus type 2, controlled : How to access health information online Indication: Diabetes mellitus type 2, controlled Diabetes mellitus type 2, controlled : How to access health information online - Detail Indication: Diabetes mellitus type 2, controlled Diabetes mellitus type 2, controlled : Patient Instructions Indication: Diabetes mellitus type 2, controlled Pulmonary embolism : How to access health information online Indication: Pulmonary embolism Pulmonary embolism : How to access health information online - Detail Indication: Pulmonary embolism Pulmonary embolism : Patient Instructions Indication: Pulmonary embolism Breast pain : Patient Instructions Indication: Breast pain Diabetes mellitus type 2, controlled : Patient Instructions Indication: Diabetes mellitus type 2, controlled Cough : Patient Instructions Indication: Cough Diabetes mellitus type 2, controlled : Patient Instructions Indication: Diabetes mellitus type 2, controlled Encounters Review On: 14-Aug-2018 8:12 Encounter Reason: Follow up for chronic medical issues - The patient feels well with no complaints, has good energy level and is sleeping well. Patient has been compliant with instructions. Current medication use: no mitch e effects, compliant with dosing regimen and considered effective by patient. Patient sleeps 7 (6-7) hours per night. Impact of disease: emotional impact-mild. Nutrition: inappropriate diet. The medical issues the patient is following up for include blood sugar issues, cardiac issues, gastric reflux, high cholesterol, osteoporosis/osteopenia and other (vitamin d def., allergic rhinitis ). fasting bloo d sugars : (127-150 (at different times)). Note for Follow up for chronic medical issues: Have been off of meds x 3 months.Encounter Diagnosis: Diabetes mellitus type 2, controlled, Non-smoker, BMI 26.0-26.9,adult, Encounter for screening mammogram for breast cancer (Renamed from Encounter for screening mammogram for malignant neoplasm of breast), Need for prophylactic vaccination and inoculation against influenza (Renamed from Need for immunizati on against influenza), Influenza vaccination declined (Renamed from Refused influenza vaccine) [facility] Annotation/Addendum On: 19-Jun-2018 13:15 [facility] End: 19-Jun-2018 13:16 Office Visit On: 11-Feb-2018 9:09 Encounter Reason: Follow up for chronic medical issues - The patient feels well with no complaints, has good energy level and is sleeping well. Patient has been compliant with instructions. Current medication use: no mitch End: 11-Feb-2018 10:44 e effects, compliant with dosing regimen and considered effective by patient. Patient sleeps 7 hours per night. Impact of disease: emotional impact-mild. Nutrition: balanced diet and supplemental vitami ns. The medical issues the patient is following up for include blood sugar issues, cardiac issues, gastric reflux, high cholesterol, osteoporosis/osteopenia and other (vitamin d def., allergic rhinitis ). Note for Follow up for chronic medical issues: No complaints is aksing about kidney functionEncounter Diagnosis: Non-smoker, BMI 26.0-26.9,adult, Diabetes mellitus type 2, controlled, Vitamin D deficiency [facility] Annotation/Addendum On: 03-Dec-2017 14:12 Encounter Diagnosis: Unspecified Diagnosis End: 03-Dec-2017 14:16 [facility] Office Visit On: 11-Nov-2017 8:19 Encounter Reason: Follow up tests - Date: (11.03.17 - see vit d and tsh)., [ADDITIONAL REASON] Follow up for chronic medical issues - The patient feels well with no complaints End: 11-Nov-2017 9:40 , has good energy level and is sleeping well. Patient has been compliant with instructions. Current medication use: no side effects, compliant with dosing regimen and considered effective by patient. Miles donald sleeps 7 hours per night. Impact of disease: emotional impact-mild. Nutrition: balanced diet and supplemental vitamins. The medical issues the patient is following up for include blood sugar issue s, cardiac issues, gastric reflux, high cholesterol, osteoporosis/osteopenia and other (vitamin d def., allergic rhinitis ). Encounter Diagnosis: Diabetes mellitus type 2, uncontrolled (Renamed from Uncontrolled type 2 diabetes mellitus), Benign essential hypertension, Vitamin D deficiency, Hypertriglyceridemia, Elevated TSH [facility] Office Visit On: 11-Jul-2017 7:10 Encounter Reason: Follow up for chronic medical issues - The patient feels well with no complaints, has good energy level and is sleeping well. Patient has been compliant with instructions. Current medication use: no mitch End: 11-Jul-2017 8:20 e effects, compliant with dosing regimen and considered effective by patient. Patient sleeps 7 hours per night. Impact of disease: emotional impact-mild. Nutrition: balanced diet and supplemental vitami ns. The medical issues the patient is following up for include blood sugar issues, cardiac issues, gastric reflux, high cholesterol, osteoporosis/osteopenia and other (vitamin d def., allergic rhinitis ). Note for Follow up for chronic medical issues: Victoza was too expensive but worked in [facility] Diagnosis: Diabetes mellitus type 2, controlled, Non- smoker, Hypercholesteremia, Benign essential hypertension, Vitamin D deficiency, BMI 27.0-27.9,adult [facility] Office Visit On: 01-Apr-2017 7:21 Encounter Reason: Follow up for chronic medical issues - The patient feels well with no complaints, has good energy level and is sleeping well. Patient has been compliant with instructions. Current medication use: no mitch End: 01-Apr-2017 9:50 e effects, compliant with dosing regimen and considered effective by patient. Patient sleeps 7 hours per night. Impact of disease: emotional impact-mild. Nutrition: balanced diet and supplemental vitami ns. The medical issues the patient is following up for include blood sugar issues, cardiac issues, gastric reflux, high cholesterol, osteoporosis/osteopenia and other (vitamin d def., allergic rhinitis )., [ADDITIONAL REASON] Follow up for diabetes/glucose intolerance - The patient feels well with no complaints. Patient has been compliant with instructions. fasting blood sugars : (140-150). Encounter Diagnosis: Non-smoker, Diabetes mellitus type 2, controlled, GERD (gastroesophageal reflux disease), Vitamin D deficiency, Benign essential hypertension, Hypercholesteremia, BMI 27.0-27.9,adult [facility] Annotation/Addendum On: 10-Jan-2017 12:51 Encounter Diagnosis: Unspecified Diagnosis End: 10-Jan-2017 12:53 [facility] Office Visit On: 18-Dec-2016 7:54 Encounter Reason: Follow up for chronic medical issues - The patient feels well with no complaints, has good energy level and is sleeping well. Patient has been compliant with instructions. Current medication use: no mitch End: 18-Dec-2016 9:42 e effects, compliant with dosing regimen and considered effective by patient. Patient sleeps 7 hours per night. Impact of disease: emotional impact-mild. Nutrition: balanced diet and supplemental vitami ns. The medical issues the patient is following up for include blood sugar issues, cardiac issues, gastric reflux, high cholesterol, osteoporosis/osteopenia and other (vitamin d def., allergic rhinitis )., [ADDITIONAL REASON] Follow up tests - Diagnostic tests include other (labs ). Date: (12/10/16). Encounter Diagnosis: Diabetes mellitus type 2, controlled, BMI 27.0- 27.9,adult, Non-smoker, Hypertriglyceridemia, Vitamin D deficiency, History of pulmonary embolism, Cyst, breast, right, Postmenopausal (Renamed from Postmenopausal status) [facility] Office Visit On: 22-Oct-2016 9:01 Encounter Diagnosis: Diabetes mellitus type 2, controlled, Benign essential hypertension, Hypercholesteremia End: 22-Oct-2016 9:05 [facility] Office Visit On: 18-Sep-2016 8:04 Encounter Reason: Follow up for chronic medical issues - The patient feels well with no complaints, has good energy level and is sleeping well. Patient has been compliant with instructions. Current medication use: no mitch End: 18-Sep-2016 19:18 e effects, compliant with dosing regimen and considered effective by patient. Patient sleeps 7 hours per night. Impact of disease: emotional impact-mild. Nutrition: balanced diet and supplemental vitami ns. The medical issues the patient is following up for include blood sugar issues, cardiac issues, gastric reflux, high cholesterol, osteoporosis/osteopenia and other (vitamin d def., allergic rhinitis ).Encounter Diagnosis: Need for prophylactic vaccination and inoculation against influenza (Renamed from Need for immunization against influenza), Influenza vaccination declined (Renamed from Refused influenza vaccine), Diabetes mellitus type 2, controlled, BMI 26.0-26.9,adult, Non-smoker, Cyst, breast, right, Colonoscopy refused, Hypertriglyceridemia, GERD (gastroesophageal reflux disease), Benign essential hypertension, History of pulmonary embolism, Vitamin D deficiency, Hypercholesteremia, Osteopenia [facility] Phone Encounter On: 28-Aug-2016 15:25 Encounter Diagnosis: Cyst, breast, right End: 28-Aug-2016 15:28 [facility] Phone Encounter On: 26-Jun-2016 14:59 Encounter Diagnosis: Diabetes mellitus type 2, controlled End: 26-Jun-2016 15:03 [facility] Office Visit On: 18-Jun-2016 7:56 Encounter Reason: Follow up for chronic medical issues - The patient feels well with no complaints, has good energy level and is sleeping well. Patient has been compliant with instructions. Current medication use: no mitch End: 18-Jun-2016 16:57 e effects, compliant with dosing regimen and considered effective by patient. Patient sleeps 7 hours per night. Impact of disease: emotional impact-mild. Nutrition: balanced diet and supplemental vitami ns. The medical issues the patient is following up for include blood sugar issues, cardiac issues, gastric reflux, high cholesterol, osteoporosis/osteopenia and other (vitamin d def., allergic rhinitis )., [ADDITIONAL REASON] Follow up tests - Date: (06.10.16). Encounter Diagnosis: Diabetes mellitus type 2, controlled, Cyst, breast, right, Osteopenia, History of pulmonary embolism, GERD (gastroesophageal reflux disease), Hypercholesteremia, Benign essential hypertension, Vitamin D deficiency, Allergic rhinitis, Postmenopausal (Renamed from Postmenopausal status), Hypertriglyceridemia, Elevated WBC count, Colonoscopy refused [facility] Office Visit On: 04-Mar-2016 8:06 Encounter Reason: Follow up for chronic medical issues - The patient feels well with no complaints, has good energy level and is sleeping well. Patient has been compliant with instructions. Current medication use: no mitch End: 04-Mar-2016 17:10 e effects, compliant with dosing regimen and considered effective by patient. Patient sleeps 7 hours per night. Impact of disease: emotional impact-mild. Nutrition: balanced diet and supplemental vitami ns. The medical issues the patient is following up for include blood sugar issues, cardiac issues, gastric reflux, high cholesterol, osteoporosis/osteopenia and other (vitamin d def., allergic rhinitis ).Encounter Diagnosis: Diabetes mellitus type 2, controlled, Benign essential hypertension, Hypercholesteremia, History of pulmonary embolism, Vitamin D deficiency, GERD (gastroesophageal reflux disease), Non-smoker, Cyst, breast, right, Osteopenia, Allergic rhinitis [facility] Office Visit On: 04-Dec-2015 7:53 Encounter Reason: Follow up for chronic medical issues - The patient feels well with no complaints, has good energy level and is sleeping well. Patient has been compliant with instructions. Current medication use: no mitch End: 04-Dec-2015 8:41 e effects, compliant with dosing regimen and considered effective by patient. Patient sleeps 7 hours per night. Impact of disease: emotional impact-mild. Nutrition: balanced diet and supplemental vitami ns. The medical issues the patient is following up for include blood sugar issues, cardiac issues, gastric reflux, high cholesterol, osteoporosis/osteopenia and other (vitamin d def., allergic rhinitis ).Encounter Diagnosis: Diabetes mellitus type 2, controlled, History of tobacco abuse, Abnormal echocardiogram, Benign essential hypertension, GERD (gastroesophageal reflux disease), Osteopenia, History of pulmonary embolism, Hypercholesteremia, Allergic rhinitis, Vitamin D deficiency [facility] Office Visit On: 31-Jul-2015 8:34 Encounter Reason: Annual Medicare Exam - The patient had reviewed and updated the family history, medication/s, past medical history and social history. Yes the patient did have a mini mental status exam done today. The End: 31-Jul-2015 9:15 activities of daily living the patient needs help with are none. The patient has driven in past 6 months, put area rugs through house (fall handout given ) and put handrails in bathroom, but the patient has not had fecal incontinence, had urinary incontinence, missed or ran out of medications to soon, fallen in the past 6 months, gotten lost or has a medalert necklace or bracelet. The patient has comp leted the following preventative measures: PAP smear (Benekos, had cervix removed not having anymore ), mammography () and colonoscopy (has never had one, encouraged to make an apt. ). The patient does have durable power of pe teacher and living will. The patient has noticed nothing from the geriatic depression scale. Other providers contributing to the patient's care are other: (Opthalm: Dr. Zavala in [place] ).Encounter Diagnosis: Encounter for Medicare annual wellness exam, BMI 28.0-28.9,adult, History of tobacco abuse, Diabetes mellitus type 2, controlled, Encounter for screening colonoscopy, Vitamin D deficiency, GERD (gastroesophageal reflux disease), Osteopenia, Abnormal echocardiogram, Benign essential hypertension, Pulmonary embolism, Hypercholesteremia, Allergic rhinitis, Encounter for screening mammogram for breast cancer (Renamed from Encounter for screening mammogram for malignant neoplasm of breast), History of pulmonary embolism [facility] Office Visit On: 15-May-2015 11:11 Encounter Diagnosis: Cough, Type II Diabetes,controlled (250.00) End: 15-May-2015 11:53 [facility] Office Visit On: 27-Mar-2015 9:02 Encounter Reason: Preoperative evaluation - The patient feels well with no complaints, has good energy level and is sleeping well. Surgical procedures include: other (--ilateral cataract ??right eye is ??and left eye is End: 27-Mar-2015 9:45 04-27-15 ). Date of procedure: (-- Dr. Joshua Zavala ) . There have been no problems with general anesthesia or blood/blood products. Prosthetics include: eye glasses. Note for Preoperative evaluation: no issues with MAC. no signs and symptoms of infections. not able to get last script of hannah in [facility]. Encounter Diagnosis: Preop examination, Type II Diabetes,controlled (250.00), GERD (530.81), Benign Essential Hypertension (401.1), Osteopenia, Hypercholesteremia (272.0), Pulmonary embolism, Allergic rhinitis (477.9), Abnormal echocardiogram, Vitamin D deficiency [facility] Office Visit On: 08-Dec-2014 8:42 Encounter Reason: Cough - The last clinic visit was 1 day(s) ago. No changes in management were made at the last visit. Symptoms include cough and sore throat, while symptoms do not include chills, fever, runny nose or s End: 08-Dec-2014 10:08 tuffy nose. The cough is described as hacking. There is no known event that preceded symptom onset. The cough occurs constantly. Symptoms are described as moderate in severity.Encounter Diagnosis: Cough, Body aches, Sore throat, Bronchitis, Pulmonary embolism [facility] Phone Encounter On: 24-Oct-2014 13:02 Encounter Diagnosis: Osteopenia End: 24-Oct-2014 13:04 [facility] Office Visit On: 04-Oct-2014 8:44 Encounter Reason: Follow up for chronic medical issues - The patient feels well with minor complaints, has good energy level and is sleeping well. Patient has been compliant with instructions. Current medication use: com End: 04-Oct-2014 9:25 pliant with dosing regimen and considered effective by patient. Patient sleeps 7 hours per night. Impact of disease: emotional impact-mild. Nutrition: balanced diet and supplemental vitamins. The medica l issues the patient is following up for include blood sugar issues, cardiac issues, gastric reflux, high cholesterol and other (allergic rhinitis )., [ADDITIONAL REASON] Follow up tests - Date: (labs 09.27.14). Encounter Diagnosis: Type II Diabetes,controlled (250.00), GERD (530.81), Hypercholesteremia (272.0), Benign Essential Hypertension (401.1), BMI 27.0-27.9,adult, Breast pain, Allergic rhinitis (477.9), SOB (shortness of breath), Heart murmur, Abnormal echocardiogram, Pulmonary embolism, WWV V73.21 [facility] Office Visit On: 12-Sep-2014 13:07 Encounter Reason: Sinusitis/ - The duration of the symptoms are 2 days The course has been constant. The sinusitis/ has no relieving factors. Associated features include The symptoms have been associated with cough, ear End: 13-Sep-2014 18:20 pain, nasal discharge/stuffy nose and sinus pain. Note for Sinusitis/: clear drainage sore throat.Encounter Diagnosis: Viral infection [facility] Phone Encounter On: 18-Jul-2014 16:02 Encounter Diagnosis: Type II Diabetes,controlled (250.00) End: 18-Jul-2014 16:04 [facility] Office Visit On: 14-Apr-2014 10:06 Encounter Reason: Follow up, Diagnostic Procedure Results - Diagnostic tests include other (labs ). Date: (03-22-14).Encounter Diagnosis: Pulmonary embolism, Abnormal echocardiogram, SOB (shortness of breath) End: 14-Apr-2014 11:34 [facility] Office Visit On: 22-Mar-2014 11:44 Encounter Reason: Follow up tests - Date: (03/11/14 blood work and CTA of chest and Echo).Encounter Diagnosis: Pulmonary embolism, Abnormal echocardiogram End: 22-Mar-2014 12:51 [facility] Phone Encounter On: 09-Mar-2014 10:40 Encounter Diagnosis: SOB (shortness of breath) End: 09-Mar-2014 10:50 [facility] Office Visit On: 08-Mar-2014 16:07 Encounter Reason: Breast painEncounter Diagnosis: Breast pain, Type II Diabetes,controlled (250.00), SOB (shortness of breath) End: 08-Mar-2014 16:37 [facility] Office Visit On: 15-Feb-2014 14:01 Encounter Diagnosis: Heart murmur End: 15-Feb-2014 14:01 [facility] Office Visit On: 15-Feb-2014 13:02 Encounter Reason: Follow up for chronic medical issues - The patient feels well with minor complaints, has good energy level and is sleeping well. Patient has been compliant with instructions. Current medication use: com End: 15-Feb-2014 13:54 pliant with dosing regimen and considered effective by patient. Patient sleeps 7 hours per night. Impact of disease: emotional impact-mild. Nutrition: balanced diet and supplemental vitamins. The medica l issues the patient is following up for include blood sugar issues, cardiac issues, gastric reflux, high cholesterol and other (allergic rhinitis )., [ADDITIONAL REASON] Follow up tests - Date: (February 08, 2014). Encounter Diagnosis: Type II Diabetes,controlled (250.00), Hypercholesteremia (272.0), Allergic rhinitis (477.9), Benign Essential Hypertension (401.1), GERD (530.81), Pneumonia, Abnormal Lung Sounds/Rales (786.7), Cough [facility] Office Visit On: 11-Nov-2013 9:37 Encounter Reason: Cold Symptoms - Onset was 3 day(s) ago.Encounter Diagnosis: Cough, SINUSITIS, ACUTE NOS (461.9), Pneumonia, Abnormal Lung Sounds/Rales (786.7) End: 11-Nov-2013 14:59 [facility] Office Visit On: 18-Oct-2013 13:05 Encounter Reason: Follow up for chronic medical issues - The patient feels well with minor complaints, has good energy level and is sleeping well. Patient has been compliant with instructions. Current medication use: exp End: 18-Oct-2013 13:37 eriencing side effects (lisinopril caused cough ), compliant with dosing regimen and considered effective by patient. Patient sleeps 7 hours per night. Impact of disease: emotional impact-mild. Nutritio n: balanced diet and supplemental vitamins. The medical issues the patient is following up for include blood sugar issues, cardiac issues, gastric reflux, high cholesterol and other (allergic rhinitis ).Encounter Diagnosis: Type II Diabetes,controlled (250.00), Hypercholesteremia (272.0), Allergic rhinitis (477.9), GERD (530.81), Benign Essential Hypertension (401.1) [facility] Phone Encounter On: 14-Jul-2013 12:45 Encounter Diagnosis: Breast cancer screening (V76.10) End: 14-Jul-2013 12:47 [facility] Phone Encounter On: 08-Jul-2013 10:12 Encounter Diagnosis: Breast cancer screening (V76.10) End: 08-Jul-2013 10:14 [facility] Refill Request On: 24-Jun-2013 7:50 Encounter Diagnosis: Benign Essential Hypertension (401.1) End: 24-Jun-2013 7:51 [facility] Office Visit On: 22-Jun-2013 11:37 Encounter Reason: Follow up for chronic medical issues - The patient feels well with minor complaints and is sleeping well. Current medication use: no side effects. Patient sleeps 7 hours per night. Impact of disease: no End: 22-Jun-2013 12:25 overall impact. Nutrition: supplemental vitamins. The medical issues the patient is following up for include All identified problems below. Note for Follow up for chronic medical issues: etd better b ut ocass wheeze and postnasal drip, discomfort with eating in left upper quadEncounter Diagnosis: Type II Diabetes,controlled (250.00), GERD (530.81), FIBROCYSTIC DISEASE OF BREAST (610.1), Eustachian tube dysfunction (381.81), Hypercholesteremia (272.0), Peptic Ulcer Disease (536.9), Allergic rhinitis (477.9), Abdominal Pain,LUQ (789.02), ULCER, NOS, Benign Essential Hypertension (401.1), WWV V73.21 [facility] Office Visit On: 03-Sep-2007 8:34 Encounter Reason: Follow up, Laboratory Test Results - Lab results: abnormal blood chemistry ,abnormal blood lipids and abnormal CBC. Date: (08-26-07 ). There is a family history of cardiovascular disease. Past medical h End: 03-Sep-2007 9:08 istory includes elevated cholesterol ,elevated triglycerides ,gastroesophageal reflux disease and other (Type II diabetes ). , [ADDITIONAL REASON] Follow up for chronic medical issues - The patient feels well with minor complai nts. Patient has been compliant with instructions. Current medication use: no side effects. Patient sleeps 7 hours per night. Impact of disease: no overall impact. Nutrition: balanced diet. The medical issues the patient is following up for include All identified problems below. Note for Follow up for chronic medical issues: etd better but ocass wheeze and postnasal drip, discomfort with eating in left upper quad Encounter Diagnosis: Type II Diabetes,controlled (250.00), ULCER, NOS, GERD (530.81), FIBROCYSTIC DISEASE OF BREAST (610.1), Peptic Ulcer Disease (536.9), Eustachian tube dysfunction (381.81), Allergic rhinitis (477.9), Hypercholesteremia (272.0), Abdominal Pain,LUQ (789.02) [facility] Historical Summary On: 01-Sep-2007 9:26 [facility] End: 01-Sep-2007 9:33 Phone Encounter On: 11-Aug-2007 16:34 [facility] End: 11-Aug-2007 16:35 Office Visit On: 16-Jul-2007 13:03 Encounter Reason: Earache - The onset of the pain has been acute and has been occurring in a persistent pattern for 5 days. The course has been constant. The pain is described as a moderate dull aching and pressure. The End: 16-Jul-2007 13:35 pain is described as being located in the inner ear. The pain is felt in the right ear. Encounter Diagnosis: Eustachian tube dysfunction (381.81), Type II Diabetes,controlled (250.00) [facility] Payers [employer] Daylin Santiago; a guarantor
--- OUTSIDE RECORDS SUMMARY | 2018-12-08 07:36 | XMS RPT_ITS | Continuity of Care Document ---
:1945 Author Organization [facility] Address [address] [place] [address] Phone Care Team Providers Name Role Phone [...] Cataract), no changes, Nat Gallegos, [facility].Labs:urine albumin/Cr:Lipid panel:[id number] on medicine done.DIABETIC FOOT CARE:Check feet daily [...] home Status: Active Hypercholesteremia (E78.00, 272.0) Comments: has been taking but worse than a year ago, Status: Active Hypertriglyceridemia (E78.1, 272.1) Comments: TG improved from 201(05/31) to 129(08/30) Triglyceride 152 Status: Active Influenza vaccination declined [...] Status: Active Vitamin D deficiency (E55.9, 268.9) Status: Active Medications Name Dates Details GlyBURIDE 5 MG Oral Tablet 1 (one) Tablet bid for 30 days Quantity: 90 {Tablet} Refills: 3 Ordered:28-Sep-2018 Parisa CAPPS Kristine Wanda CAPPS Kristine Perrin Start : 28-Sep-2018 Active GlyBURIDE 5 MG Oral Tablet 1 (one) Tablet bid for 90 days Quantity: 180 {Tablet} Refills: 3 Ordered:28-Sep-2018 Parisa CAPPS Kristine NICOLEshireen CAPPS Kristine Perrin Start : 28-Sep-2018 Active Losartan Potassium 50 MG Oral Tablet 1 (one) Tablet daily for 90 days Quantity: 90 {Tablet} Refills: 3 Ordered:11-Feb-2018 Parisa CAPPS Kristine Wanda CAPPS Kristine Perrin Start : 11-Feb-2018 Active Magnesium zinc daily Active MetFORMIN HCl 1000 MG Oral Tablet 1 (one) Tablet 1in am and 1/2 qpm for 90 days Quantity: 135 {Tablet} Refills: 3 Ordered:31-Aug-2018 Parisa CAPPS Kristine Wanda CAPPS Kristine Perrin Start : 31-Aug-2018 Active MVI daily Active OneTouch Ultra Blue In Vitro Strip 1 (one) Strip bid for 90 days Quantity: 180 {Strip} Refills: 3 Ordered:14-Aug-2018 Parisa CAPPS Kristine Wanda CAPPS Kristine Perrin Start : 14-Aug-2018 Active OneTouch Ultra Blue In Vitro Strip 1 (one) Strip bid for 90 days Quantity: 180 {Strip} Refills: 3 Ordered:14-Aug-2018 Parisa CAPPS Kristine Wanda CAPPS Kristine Perrin Start : 14-Aug-2018 Active OneTouch Ultra Mini w/Device Kit 1 (one) Kit Kit qd for 0 days Quantity: 1 Kit Refills: 0 Ordered:26-Jun-2016 Ilia Garcia Start : 26-Jun-2016 Active Pravastatin Sodium 80 MG Oral Tablet 1 Tablet daily for 90 days Quantity: 90 {Tablet} Refills: 3 Ordered:15-Oct-2017 Parisa CAPPS, Kristine Muñoz CNP, Kristine Perrin Start : 15-Oct-2017 Active Pravastatin Sodium 80 MG Oral Tablet 1 Tablet daily for 0 days Quantity: 90 {Tablet} Refills: 3 Ordered:15-Oct-2017 Parisa CAPPS, Kristine Muñoz CNP, Kristine Perrin Start : 15-Oct-2017 Active Prevacid 24HR 15 MG Oral Capsule Delayed Release 1 qd prn for 0 days Refills: 0 Ordered:18-Jun-2016 Terrence Garcia MD Start : 18-Jun-2016 Active Victoza 18 MG/3ML Subcutaneous Solution Pen-injector 1.25 Milligram Start 0.6 sc qd x1 wk, then 1.2mg SC qd, then 1.8mg qd for 90 days Quantity: 1 {Milligram} Refills: 2 Ordered:14-Aug-2018 Parisa CAPPS, Kristine Muñoz CNP, Kristine Perrin Start : 14-Aug-2018 Active Victoza 18 MG/3ML Subcutaneous Solution Pen-injector 1.25 Milligram Start 0.6 sc qd x1 wk, then 1.2mg SC qd, then 1.8mg qd for 90 days Quantity: 3 {Box} Refills: 3 Ordered:14-Aug-2018 Parisa CAPPS, Kristine Muñoz CNP, Kristine Perrin Start : 14-Aug-2018 Active Vitamin D3 Ultra Strength 5000 UNIT Oral Capsule 1 (one) Capsule daily for 0 days Quantity: 30 {Capsule} Refills: 0 Ordered:14-Aug-2018 Parisa CAPPS, Kristine Muñoz CNP, Kristine Perrin Start : 14-Aug-2018 Active ACTOS, 30MG (Oral Tablet) 1 Tablet qd for 0 days Quantity: 90 {Tablet} Refills: 3 Ordered:22-Jun-2013 Long FILM READER, Amalia L Start : 13-Aug-2007 End : 22-Jun-2013 Inactive ASTELIN, 137MCG/SPRAY (Nasal Solution) Solution QD for 0 days Quantity: 1 {Solution} Refills: 3 Ordered:22-Jun-2013 Long FILM READER, Amalia L Start : 16-Jul-2007 End : 22-Jun-2013 Inactive AUGMENTIN, 875-125MG (Oral Tablet) 1 (one) Tablet bid for 0 days Quantity: 28 {Tablet} Refills: 0 Ordered:15-Feb-2014 Meño GOLDSTEIN Amalia Love Start : 11-Nov-2013 End : 15-Feb-2014 Inactive BIAXIN XL PAC, 500MG (Oral Tablet Extended Release 24 Hour) 2 (two) Tablet ER 24HR qd for 0 days Quantity: 1 {Packet} Refills: 0 Ordered:31-Jul-2015 GURPREET Brito Start : 15-May-2015 End : 31-Jul-2015 Inactive CALTRATE 600+D, 230-928OD-QBUN (Oral Tablet) 2 (two) Tablet qd for [...] 16-Feb-2015 End : 27-Mar-2015 Inactive Comments:DX: 250.00NPI: [phone] PREDNISONE, 20MG (Oral Tablet) 1 (one) Tablet qd for 0 days Quantity: 4 {Tablet} Refills: 0 Ordered:15-Feb-2014 Long FILM READER, Amalia L Start : 11-Nov-2013 End : 15-Feb-2014 Inactive PROVENTIL HFA, 108 (90 Base)MCG/ACT (Inhalation Aerosol Solution) 2 (two) Aerosol Soln q 6 hr prn for 0 days Quantity: 1 {Canister} Refills: 0 Ordered:27-Mar-2015 GURPREET Brito Start : 08-Dec-2014 End : 27-Mar-2015 Inactive SIMVASTATIN, 80MG (Oral Tablet) Tablet QD for 0 days Quantity: 90 {Tablet} Refills: 3 Ordered:22-Jun-2013 Long FILM READER, Amalia L Start : 03-Sep-2007 End : 22-Jun-2013 Inactive TAMIFLU, 75MG (Oral Capsule) 1 (one) Capsule bid for 5 days Quantity: 10 {Capsule} Refills: 0 Ordered:12-Sep-2014 Laura Doll Start : 12-Sep-2014 End : 17-Sep-2014 Inactive TENORMIN, 50MG (Oral Tablet) 1 Tablet qd for 0 days Quantity: 30 {Tablet} Refills: 0 Ordered:22-Jun-2013 Long FILM READER, Amalia L Start : 13-Aug-2007 End : 22-Jun-2013 Inactive TESSALON PERLES, 100MG (Oral Capsule) 1 (one) Capsule bid prn cough for 0 days Quantity: 20 {Capsule} Refills: 0 Ordered:31-Jul-2015 GURPREET Brito Start : 15-May-2015 End : 31-Jul-2015 Inactive true star 1 qd Inactive Comments:TrueSight and Nasic/LeanX Vitamin D3 1000 UNIT Oral Capsule daily (1000 UNIT) Inactive Vitamin D3 1000 UNIT Oral Tablet 2 (two) Tablet qd for 30 days Quantity: 60 {Tablet} Refills: 0 Ordered:11-Nov-2017 Parisa CAPPS, Kristine Muñoz CNP, Yuni Start : 11-Nov-2017 End : 11-Dec-2017 Inactive [...] Quantity: 90 {Tablet} Refills: 3 Ordered:11-Nov-2017 Parisa CAPPS, Kristine Muñoz CNP, Yuni Start : 01-Apr-2017 End : 11-Nov-2017 Discontinued GlyBURIDE 2.5 MG Oral Tablet 1 (one) Tablet daily for 30 days Quantity: 30 {QS} Refills: 3 Ordered:11-Nov-2017 Parisa CAPPS, Kristine Muñoz CNP, Yuni Start : 01-Apr-2017 End : 11-Nov-2017 Discontinued GLYBURIDE, 5MG (Oral Tablet) 1 Tablet bid for 0 days Quantity: 180 {Tablet} Refills: 3 Ordered:31-Jul-2015 Annalee Alvarenga MD Start : 31-Jul-2015 End : 31-Jul-2015 Discontinued MetFORMIN HCl ER (MOD) 1000 MG Oral Tablet Extended Release 24 Hour 1 (one) Tablet 1 in am and 1/2 qpm for 90 days Quantity: 135 {Tablet} Refills: 3 Ordered:31-Aug-2018 Aurora Pedro Start : 14-Aug-2018 End : 31-Aug-2018 Discontinued MetFORMIN HCl ER (MOD) 1000 MG Oral Tablet Extended Release 24 Hour 1 (one) Tablet 1 in am and 1/2 qpm for 0 days Quantity: 130 {Tablet} Refills: 3 Ordered:31-Aug-2018 Aurora Pedro Start : 14-Aug-2018 End : 31-Aug-2018 Discontinued PREVACID, 30MG (Oral Capsule Delayed Release) [address] QD for 0 days Quantity: 90 {Capsule_DR} Refills: 3 Ordered:22-Jun-2013 Annalee Alvarenga MD Start : 22-Jun-2013 End : 22-Jun-2013 Discontinued [...] V85.23) Status: Inactive as of 27-Mar-2015 BMI 27.0-27.9,adult (Z68.27, V85.23) Status: Inactive as of 11-Jul-2017 BMI 28.0-28.9,adult (Z68.28, V85.24) Status: Inactive as [...] Study (HP) Result: Comments: See Note; NOTES: [facility] Imaging Services [address] [place] [address] Verdana 4d Dexa Bone Density Study (HP) MR#: [id number] Acct: [id number] Name: ALFONSO SANTIAGO EN Rep #: [id number] : 1945 F 71 From: Gutierrez Fisher MD PCP: Terrence Garcia Status: REG CLI Study: Dexa Bone Density Study (HP) Date of Exam: 10/22/16 Exam# [id number] Ordering Dr: Melvin Garcia STUDY: DUAL ENERGY [...] Gutierrez Fisher MD at 9:00 EST Tel [phone], Service support [phone], CC: Terrence Garcia Software Quality Analyst: Signed 02-Sep-2016 Breast Limited Unilateral Result: Comments: See Note; NOTES: [facility] Imaging Services [address] [place] [address] Verda 4d Breast Limited Unilateral MR#: [id number] Acct: [id number] Name: EMILY SANTIAGO Rep #: [id number] : 1945 F 71 From: David Mclaughlin MD PCP: Terrence Garcia Status: REG CLI Study: Breast Limited Unilateral Date of Exam: 09/02/16 Exam# [id number] Ordering Dr: Terrence Garcia STUDY: UL TRASOUND [...] at 10:19 EST Tel , Service support [phone], CC: Terrence Garcia Software Quality Analyst: Signed 14-Feb-2016 Breast Limited Unilateral Result: Comments: See Note; NOTES: [facility] Imaging Services [address] [place] [address], [place] [address] Verdana 4d Breast Limited Unilateral MR#: [id number] Acct: [id number] Name: EMILY AVINA Rep #: [id number] : 1945 F 71 From: Gutierrez Fisher MD PCP: Annalee Alvarenga MD Status: REG CLI Study: Breast Limited Unilateral Date of Exam: 02/14/16 Exam# [id number] Ordering Dr: Annalee Alvarenga MD STUDY: ULTRASOUND [...] these results will be sent to the chandra mazariegos by the facility within 30 days. Electronically Signed: Gutierrez Fisher MD at 9:13 EDT Tel [phone], Service support [phone], CC: Annalee Alvarenga MD Software Quality Analyst: Signed 09-Feb-2016 Bilat Scrn Digital AND CAD Result: Comments: See Note; NOTES: [facility] Imaging Services [address] [place] [address] Verdana 4d Bilat Scrn Digital AND CAD MR#: [id number] Acct: [id number] Name: EMILY SANTIAGO Rep #: [id number] : 1945 F 71 From: Gutierrez Fisher MD PCP: Annalee Alvarenga MD Status: REG CLI Study: Bilat Scrn Digital AND CAD Date of Exam: 02/09/16 Exam# [id number] Hamzah ziegler Dr: Annalee Alvarenga MD MAMMOGRAPHY - BILATERAL [...] region of the right breast. Correlation wi ultrasound is recommended. ASSESSMENT CATEGORY: BIRADS Category 0: Incomplete. Need additional imaging evaluation. A letter regarding these results will be s ent to the patient by the facility within 30 days. Approximately 10% of breast cancers are not detected by mammography. A normal mammogram should not delay biopsy of a clinically suspicious abnorma lity. [id number] Electronically Signed: Gutierrez Fisher MD at 10:27 EDT Tel [phone], Service support [phone], CC: Annalee Alvarenga MD Software Quality Analyst: Signed 04-Dec-2015 ELECTROCARDIOGRAM, COMPLETE (ECG) (40393) Comments: see scanned document of test done to see results reviewed today with patient Result: [MEASUREMENTS ANALYSIS] Date of Test: 12/04/2015 08:33:40; Heart Rate: 71; NV Interval: 146; QRS: 96; QT Interval: 370; Corrected QT Interval (QTc): 389; P [place]: 52; QRS [place]: -15; T [place] : -1; Blood Pressure: 140/80 [ECG DIAGNOSTIC STATEMENTS] Date of Test: 12/04/2015 08:33:40; Summary: Sinus Rhythm WITHIN NORMAL LIMITS 15-May-2015 Spirometry (36127) Comments: see scanned document of test done to see results reviewed today with patient Result: 08-Dec-2014 Spirometry (92967) Comments: poor technique- mild restriction Result: 18-Oct-2014 Bilat Scrn Digital AND CAD Result: Comments: See Note; NOTES: [facility] Imaging Services [address] [place] [address] Breast Imaging Report MR#: [id number] Acct: [id number] Name: EMILY SANTIAGO Rep #: [id number] : 1945 F 69 From: Gutierrez Fisher MD PCP: Annalee Alvarenga MD Status: REG CLI Study: Bilat Scrn Digital AND CAD Date of Exam: 10/18/14 Exam# [id number] Ordering Dr: Annalee Alvarenga MD MAMMOGRAPHY - [...] Gutierrez Fisher MD at 9:48 EST Tel [phone], Service support [phone], CC: Annalee Alvarenga MD Software Quality Analyst: Signed 18-Oct-2014 Dexa Bone Density Study (HP) Result: Comments: See Note; NOTES: [facility] Imaging Services [address] [place] [address] Bone Density Report MR#: [id number] Acct: [id number] Name: EMILY SANTIAGO Rep #: [id number] : 1945 F 69 From: Gutierrez Fisher MD PCP: Annalee Alvarenga MD Status: REG CLI Study: Dexa Bone Density Study (HP) Date of Exam: 10/18/14 Exam# [id number] Ordering Dr: Annalee Alvarenga MD STUDY: DUAL [...] Gutierrez Fisher MD at 11:31 EST Tel [phone], Service support [phone], CC: Annalee Alvarenga MD Software Quality Analyst: Signed 23-Sep-2014 Discharge Instruction Result: Comments: See Note; NOTES: [facility] Medical Records Department [address] [place] [address] Discharge Instruction 09/15/14 1351 MR#: [id number] Acct: [id number] Name: EMILY SANTIAGO Rep #: [id number] : 1945 69 From: Phani Valencia MD [...] contact your doctor. Call [facility] ( [phone]) or report to the closest Emergency Room. Call 911 if necessary. 09/23/14 0821 <Electronically signed by Phani Valencia MD> Date ____ Phani Valencia MD Cosigner Signature (If Indicated): Date CC: Annalee Alvarenga MD 23-Sep-2014 Emergency Department Summary Result: Comments: See Note; NOTES: [facility] Medical Records Department [address] [place] [address] Emergency Department Summary MR#: [id number] Acct: [id number] Name: EMILY SANTIAGO Rep #: [id number] : 1945 69 From: Phani Valencia MD [...] IMPRESSION: 1. Influenza. 2. Nausea from Tamiflu. MD Hugh Ramirez C: Annalee Alvarenga MD T: [facility] JOB: [id number] 09/23/14 0821 <Electronically melissa d by Phani Valencia MD> Date Phani Valencia MD CC: Annalee Alvarenga MD Date Dictated: 09/18/14 1201 Date Transcribed: 09/18/141200 Software Quality Analyst: Signed 15-Sep-2014 Chest PA and Lateral Result: Comments: See Note; NOTES: [facility] Imaging Services [address] [place] [address] Radiology Report MR#: [id number] Acct: [id number] Name: EMILY SANTIAGO Rep #: [id number] : 1945 F 69 From: Karina Grimm MD PCP: Annalee Alvarenga MD Status: DEP ER Study: Chest PA and Lateral Date of Exam: 09/15/14 Exam# [id number] Ordering Dr: Phani Valencia MD STUDY: X-RA [...] at 9:27 EST Tel , Service support [phone], RAD/Chest PA and Lateral IMPRESSION: There is no evidence of acute disease. Electronically Sign ed: Lakshmi Grimm MD at 9:27 EST Tel , Service support [phone], CC: Annalee Alvarenga MD; Phani Valencia MD Software Quality Analyst: Signed 11-Mar-2014 Echocardiogram Complete Result: Comments: See Note; NOTES: [facility] Cardiovascular Services [address] [place] [address] Echo Complete 03/11/14 1314 MR#: [id number] Acct: [id number] Name: MEME SANTIAGO Rep #: [id number] : 1945 69 From: Joshua Leonard MD Attending Dr: Annalee Alvarenga MD Status: REG CLI Ordering Dr: Annalee Alvarenga MD Date: 03/11/14 Location: CT Sex: F C Admitted: [facility] This was a 2D Doppler, Color Flow transthoracic echocardiogram. The exam was of adequate technical quality. Exam performed in department. Left Ventricle Normal LV size. Segmental dysfunction with preserved ejection fraction (see wall motion). The estimated ejection fraction is 55 %. Septal bounce. Infero-Basal: Hypokinetic. Mid-Inferior: Hypokinetic. Mid-inferoseptal : Hypokinetic. Mid- anteroseptal : Hypokinetic. Anterior [place] : Hypokinetic. Inferior [place] : Hypokinetic. Septal [place] : Hypokinetic. Right Ventricle Normal RV size. [...] Dictated: 03/11/14 1314 Date Transcribed: 03/11/14 1713 Software Quality Analyst: Signed 11-Mar-2014 CTA Chest W/WO Contrast Result: Comments: See Note; NOTES: [facility] Imaging Services [address] [place] [address] CAT Scan Report MR#: [id number] Acct: [id number] Name: EMILY SANTIAGO Rep #: [id number] : 1945 F 69 From: Gutierrez Fisher MD PCP: Annalee Alvarenga MD Status: REG CLI Study: CTA Chest W/WO Contrast Date of Exam: 03/11/14 Exam# [id number] Ordering Dr: Annalee Alvarenga MD STUDY : [...] Gutierrez Fisher MD at 15:17 EDT Tel [phone], Service support [phone], CC: Annalee Alvarenga MD Software Quality Analyst: Signed 11-Nov-2013 Chest PA and Lateral Result: Comments: See Note; NOTES: [facility] Imaging Services [address] [place] [address] Radiology Report MR#: [id number] Acct: [id number] Name: EMILY SANTIAGO Rep #: [id number] : 1945 F 68 From: Alexander Gilman DO PCP: Suri Paredes DO Status: REG CLI Study: Chest PA and Lateral Date of Exam: 11/11/13 Exam# [id number] Ordering Dr: Suri Paredes DO STUDY: X [...] D.O. at 21:45 EST , Service support [phone], CC: Suri Paredes DO Software Quality Analyst: Signed 21-Jul-2013 Adele Quintero Digital & CAD Result: Comments: See Note; NOTES: [facility] Imaging Services [address] [place] [address] Breast Imaging Report MR#: [id number] Acct: [id number] Name: EMILY SANTIAGO Rep #: [id number] : 1945 F 68 From: Gutierrez Fisher MD PCP: CARLOS LING Status: REG CLI Exam# [id number] Ordering Dr: Annalee Alvarenga MD MAMMOGRAPHY - [...] 21, 2013 at 2 :40:05 PM EST [phone] Electronically Signed GP/GP If you are the referring physician and would like to consult with the radiologist who provided this interpretation, please contact Gutierrez Fisher M.D. at [phone]. If this radiologist is unavailable, you will be directed to another radiologist to assist. If you are a patient with a question regarding this report, please contact your referring physician directly. Professional Interpretation Provided By: [employer], Phone , These documents contain legally protected [...] documents. CC: CARLOS LING; Annalee Alvarenga MD Software Quality Analyst: Signed Family History Unknown Family Member Name [...] kg/m2 Body Surface Area Calculated 1.9 m2 :53 Temperature 97.8 f Pulse 72 /min Comments: [...] 0.00 cm Results Date Description Value Details :39 CALCIFEDIOL (78276) Comments: PATIENT WAS FASTINGPERFORMED BY: [facility]ykuam7382 [facility] [id number] Vitamin D, 25-Hydroxy 37.6 ng/mL (Normal) Range: 30.0-100.0 Comments: Vitamin D deficiency has been defined by the [place] of[place]icine and an Endocrine Society practice guideline as alevel of serum 25-OH vitamin D less than 20 ng/mL (1,2).The Endocrine Society went on to further define vitamin Dinsufficiency as a level between 21 and 29 ng/mL (2).1. IOM ([place] of Medicine). 2010. Dietary reference intakes for calcium and D. [place]: The National Academies Press.2. Sadiq MF, Pasha GARG, Chirag CAMERON, et al. Evaluation, treatment, and prevention of vitamin D deficiency: an Endocrine Society clinical practice guideline. JCEM. 2010; 96(7):1911-30. 91-Bgs-36024:39 Metabolic Panel, Comprehensive Comments: PATIENT WAS FASTINGPERFORMED BY: [facility] Xprpxk9737 [facility] [id number] (56070) ALT (SGPT) 19 [iU]/L (Normal) Range: 0-32 AST (SGOT) 15 [iU]/L (Normal) Range: 0-40 Alkaline Phosphatase 79 [iU]/L (Normal) Range: 39-117 Bilirubin, Total 0.3 mg/dL (Normal) Range: 0.0-1.2 A/G Ratio 2.3 (Abnormal) Range: 1.2-2.2 Globulin, Total 2.0 g/dL (Normal) Range: 1.5-4.5 Albumin 4.5 g/dL (Normal) Range: 3.5-4.8 Protein, Total 6.5 g/dL (Normal) Range: 6.0-8.5 Calcium 9.2 mg/dL (Normal) Range: 8.7-10.3 Carbon Dioxide, Total 23 mmol/L (Normal) Range: 20-29 Chloride 104 mmol/L (Normal) Range: 96-106 Potassium 4.4 mmol/L (Normal) Range: 3.5-5.2 Sodium 142 mmol/L (Normal) Range: 134-144 BUN/Creatinine Ratio 12 (Normal) Range: 12-28 eGFR If Africn Am 63 mL/min/1.73 (Normal) eGFR If NonAfricn Am 55 mL/min/1.73 (Abnormal) Creatinine 1.02 mg/dL (Abnormal) Range: 0.57-1.00 BUN 12 mg/dL (Normal) Range: 8-27 Glucose 210 mg/dL (Abnormal) Range: 65-99 :39 LIPID PANEL (01901) Comments: PATIENT WAS FASTINGPERFORMED BY: [facility]6370 [facility] [id number]; fu 11-30 MEC LDL/HDL Ratio 2.3 {ratio} (Normal) Range: 0.0-3.2 Comments: LDL/HDL Ratio Men Women 1/2 Avg.Risk 1.0 1.5 Av g.Risk 3.6 3.2 2X Avg.Risk 6.2 5.0 3X Avg.Risk 8.0 6.1 LDL Cholesterol Calc 123 mg/dL (Abnormal) Range: 0-99 VLDL Cholesterol Arpit 43 mg/dL (Abnormal) Range: 5-40 HDL Cholesterol 53 mg/dL (Normal) Triglycerides 213 mg/dL (Abnormal) Range: 0-149 Cholesterol, Total 219 mg/dL (Abnormal) Range: 100-199 :14 HgA1C , Office (77965) HgA1C , Office 7.5 % (Abnormal) Range: 4.6 - 7.1 :14 Blood Glucose , Office (86589) Blood Glucose , Office 156 (Normal) :10 HgA1C , Office (02004) Comments: 6.8 has improved HgA1C , Office 6.8 % (Normal) Range: 4.6 - 7.1 :10 Blood Glucose , Office (47633) Blood Glucose , Office 167 (Normal) :46 T4, FREE (THYROXINE) (28412) Comments: PATIENT WAS FASTINGPERFORMED BY: [facility]Co[facility] HospitalCndcna0420 [facility] [id number] T4,Free(Direct) 1.00 ng/dL (Normal) Range: 0.82-1.77 :46 T3, FREE (TRIDOTHYRONINE) (48944) Comments: PATIENT WAS FASTINGPERFORMED BY: [facility] [id number] Triiodothyronine,Free,Serum 2.8 pg/mL (Normal) Range: 2.0-4.4 :46 TSH (THYROID STIMULATING Comments: PATIENT WAS FASTINGPERFORMED BY: [facility]6[address] [facility] [id number] HORMONE) (00824) TSH 3.730 {uIU/mL} (Normal) Range: 0.450-4.500 :46 Metabolic Panel, Comprehensive Comments: PATIENT WAS FASTINGPERFORMED BY: [facility]6[address] [facility] [id number] (18558) ALT (SGPT) 23 [iU]/L (Normal) Range: 0-32 [...] (Abnormal) Range: 65-99 :25 HgA1C , Office (12527) HgA1C , Office 7.2 % (Abnormal) Range: 4.6 - 7.1 :25 Blood Glucose , Office (86343) Blood Glucose , Office 217 (Normal) :32 Microscopic Examination Comments: PATIENT WAS FASTINGPERFORMED BY: [facility]Pres[facility] RanchoKrnxqe7598 [facility] [id number] Bacteria None seen (Normal) Epithelial Cells (non renal) 0-10 {/hpf} (Normal) Range: 0 - 10 RBC 0-2 {/hpf} (Normal) Range: 0 - 2 WBC 0-5 {/hpf} (Normal) Range: 0 - 5 :32 MICROALBUMIN: CREATININE RATIO Comments: PATIENT WAS FASTINGPERFORMED BY: [facility] [employer] [facility] [id number] (55792) AND (75097) Alb/Creat Ratio 9.8 {mg/g_creat} (Normal) Range: 0.0-30.0 Albumin, Urine 12.3 ug/mL (Normal) Creatinine, Urine 124.9 mg/dL (Normal) :32 URINALYSIS (36693) Comments: PATIENT WAS FASTINGPERFORMED BY: NWIX Sjbxgk0015 [facility] [id number] Microscopic Examination See below: (Normal) Comments: Microscopic was indicated and was performed. Nitrite, Urine Negative (Normal) Urobilinogen,Semi-Qn 0.2 mg/dL (Normal) Range: 0.2-1.0 Bilirubin Negative (Normal) Occult Blood Negative (Normal) Ketones Negative (Normal) Glucose Negative (Normal) Protein Negative (Normal) WBC Esterase Trace (Abnormal) Appearance Clear (Normal) Urine-Color Yellow (Normal) pH 6.5 (Normal) Range: 5.0-7.5 Specific [place] 1.017 (Normal) Range: 1.005-1.030 :32 Lipid Panel (16027) Comments: PATIENT WAS FASTINGPERFORMED BY: [facility] [id number] LDL/HDL Ratio 1.8 {ratio_units} (Normal) Range: 0.0-3.2 [...] Panel, Comprehensive Comments: PATIENT WAS FASTINGPERFORMED BY: [facility]Co[facility] HospitalWhfbqs3635 [facility] [id number] (40811) ALT (SGPT) 29 [iU]/L (Normal) Range: 0-32 [...] Glucose, Serum 158 mg/dL (Abnormal) Range: 65-99 :32 CBC, Platelets & Auto Diff Comments: PATIENT WAS FASTINGPERFORMED BY: [facility]6[address] [facility] [id number] (97593) Immature Grans (Abs) 0.0 {x10E3/uL} (Normal) Range: [...] 6.0 {x10E3/uL} (Normal) Range: 3.4-10.8 :32 TSH (91253) Comments: PATIENT WAS FASTINGPERFORMED BY: [facility] [id number] TSH 4.760 {uIU/mL} (Abnormal) Range: 0.450-4.500 54-Ssl-24076:32 CALCIFEDIOL (84926) Comments: PATIENT WAS FASTINGPERFORMED BY: [facility] Panfjc4414 [facility] [place] [id number] Vitamin D, 25-Hydroxy 70.9 ng/mL (Normal) Range: 30.0-100.0 Comments: Vitamin D deficiency has been defined by the [place] ofMedicine and an Endocrine Society practice guideline as alevel of serum 25-OH vitamin D less than 20 ng/mL (1,2).The Endocrine Society went on to further define vitamin Dinsufficiency as a level between 21 and 29 ng/mL (2).1. IOM ([place] of Medicine). 2010. Dietary reference intakes for calcium and D. [place]: The National [employer].2. Pasha Quevedo, Chirag CAMERON, et al. Evaluation, treatment, and prevention of vitamin D deficiency: an Endocrine Society clinical practice guideline. JCEM. 2010; 96(7):1911-30. :11 HgA1C , Office (55750) HgA1C , Office 6.8 % (Normal) Range: 4.6 - 7.1 :11 Blood Glucose , Office (72591) Blood Glucose , Office 209 (Normal) :22 CALCIFEDIOL (61134) Comments: today; PATIENT NOT FASTINGPERFORMED BY: [facility] Ywhrcy6321 [facility] [id number] Vitamin D, 25-Hydroxy 50.8 ng/mL (Normal) Range: 30.0-100.0 Comments: Vitamin D deficiency has been defined by the [place]inson ofMedicine and an Endocrine Society practice guideline as alevel of serum 25-OH vitamin D less than 20 ng/mL (1,2).The Endocrine Society went on to further define vitamin Dinsufficiency as a level between 21 and 29 ng/mL (2).1. IOM (Vinson of Medicine). 2010. Dietary reference intakes for calcium and D. [place]: The National [employer].2. Pasha Quevedo, Chirag CAMERON, et al. Evaluation, treatment, and prevention of vitamin D deficiency: an Endocrine Society clinical practice guideline. JCEM. 2010; 96(7):1911-30. :32 HgA1C , Office (17240) HgA1C , Office 6.9 % (Normal) Range: 4.6 - 7.1 :31 Blood Glucose , Office (14968) Blood Glucose , Office 171 (Normal) :56 HgA1C , Office (97526) HgA1C , Office 6.6 % (Normal) Range: 4.6 - 7.1 :56 Blood Glucose , Office (02329) Blood Glucose , Office 184 (Normal) Comments: Just ate breakfast :49 MICROALBUMIN: CREATININE RATIO Comments: PATIENT WAS FASTINGPERFORMED BY: Redknee70 [facility] Construction[facility], [facility] [id number] (62684) AND (02418) Microalb/Creat Ratio 7.4 {mg/g_creat} (Normal) Range: 0.0-30.0 Microalbumin, Urine 14.7 ug/mL (Normal) Creatinine, Urine 198.7 mg/dL (Normal) :49 VITAMIN B12 AND FOLATES Comments: PATIENT WAS FASTINGPERFORMED BY: Tilck Lhrtfe1273 R.A. Burch ConstructionNovant Health, [facility] [id number] (31249) Folate (Folic Acid), Serum >20.0 ng/mL (Normal) Comments: A serum folate concentration of less than 3.1 ng/mL isconsidered to represent clinical deficiency. Vitamin B12 497 pg/mL (Normal) Range: 211-946 :49 CALCIFEDIOL (85295) Comments: PATIENT WAS FASTINGPERFORMED BY: Tilck Fxmnrt4876 [facility] [id number] Vitamin D, 25-Hydroxy 57.6 ng/mL (Normal) Range: 30.0-100.0 Comments: Vitamin D deficiency has been defined by the Vinson ofMedicine and an Endocrine Society practice guideline as alevel of serum 25-OH vitamin D less than 20 ng/mL (1,2).The Endocrine Society went on to further define vitamin Dinsufficiency as a level between 21 and 29 ng/mL (2).1. IOM (Vinson of Medicine). 2010. Dietary reference intakes for calcium and D. [place]: The National Academies Press.2. Sadiq MF, Pasha NC, Chirag CAMERON, et al. Evaluation, treatment, and prevention of vitamin D deficiency: an Endocrine Society clinical practice guideline. JCEM. 2010; 96(7):6811-30. :49 TSH (THYROID STIMULATING Comments: PATIENT WAS FASTINGPERFORMED BY: Redknee70 [facility] [id number] HORMONE) (51104) TSH 3.740 {uIU/mL} (Normal) Range: 0.450-4.500 :49 LIPID PANEL (79421) Comments: PATIENT WAS FASTINGPERFORMED BY: [facility] [id number] LDL/HDL Ratio 1.9 {ratio_units} (Normal) Range: 0.0-3.2 [...] PANEL, COMPREHENSIVE Comments: PATIENT WAS FASTINGPERFORMED BY: Redknee70 [facility] [id number] (15976) ALT (SGPT) 27 [iU]/L (Normal) Range: 0-32 [...] 0 days - 7 days 9 - 25 9 - 26 8 days - 30 days 8 - 32 10 - 33 1 month - 6 months 11 - 57 11 - 54 7 mo nths - 1 year - 71 - 71 2 years - 5 years [...] Glucose, Serum 136 mg/dL (Abnormal) Range: 65-99 82-Whf-80527:49 CBC, PLATELETS & AUT DIFF Comments: PATIENT WAS FASTINGPERFORMED BY: CB [facility] Oryxhs3638 [facility] [id number]; fu [facility] 12-18-[facility] (22459) Immature Grans (Abs) 0.0 {x10E3/uL} (Normal) Range: [...] Range: 3.4-10.8 :09 Blood Glucose , Office (19689) Blood Glucose , Office 231 (Normal) :09 HgA1C , Office (10316) HgA1C , Office 6.5 % (Normal) Range: 4.6 - 7.1 :33 MICROALBUMIN: CREATININE RATIO Comments: PATIENT WAS FASTINGPERFORMED BY: NWIXSt. Luke's Warren HospitalOjmhps1543 [facility] [id number] (25902) AND (46338) Microalb/Creat Ratio 14.1 {mg/g_creat} (Normal) Range: 0.0-30.0 Microalbumin, Urine 16.3 ug/mL (Normal) Creatinine, Urine 115.2 mg/dL (Normal) :33 VITAMIN B12 AND FOLATES Comments: PATIENT WAS FASTINGPERFORMED BY: NWIX Wczevx0703 [facility] [id number] (32566) Folate (Folic Acid), Serum 15.9 ng/mL (Normal) Comments: A serum folate concentration of less than 3.1 ng/mL isconsidered to represent clinical deficiency. Vitamin B12 251 pg/mL (Normal) Range: 211-946 :33 CALCIFEDIOL (86686) Comments: PATIENT WAS FASTINGPERFORMED BY: NWIX Epkonw0144 [facility] [id number] Vitamin D, 25-Hydroxy 45.1 ng/mL (Normal) Range: 30.0-100.0 Comments: Vitamin D deficiency has been defined by the Vinson ofMedicine and an Endocrine Society practice guideline as alevel of serum 25-OH vitamin D less than 20 ng/mL (1,2).The Endocrine Society went on to further define vitamin Dinsufficiency as a level between 21 and 29 ng/mL (2).1. IOM (Vinson of Medicine). 2010. Dietary reference intakes for calcium and D. [place]: The National Academies Press.2. Sadiq MF, Pasha NC, Chirag CAMERON, et al. Evaluation, treatment, and prevention of vitamin D deficiency: an Endocrine Society clinical practice guideline. JCEM. 2010; 96(7):1911-30. :33 TSH (THYROID STIMULATING Comments: PATIENT WAS FASTINGPERFORMED BY: [employer])lin6370 [facility] [id number] HORMONE) (58334) TSH 3.200 {uIU/mL} (Normal) Range: 0.450-4.500 :33 LIPID PANEL (64210) Comments: PATIENT WAS FASTINGPERFORMED BY: NWIX Zqaydi2306 [facility] [id number] LDL/HDL Ratio 1.3 {ratio_units} (Normal) Range: 0.0-3.2 [...] PANEL, COMPREHENSIVE Comments: PATIENT WAS FASTINGPERFORMED BY: [employer] [facility] [id number] (42049) ALT (SGPT) 20 [iU]/L (Normal) Range: 0-32 [...] Glucose, Serum 133 mg/dL (Abnormal) Range: 65-99 :33 CBC, PLATELETS & AUT DIFF Comments: PATIENT WAS FASTINGPERFORMED BY: Tilck Qchlll4573 [facility] [id number] (45439) Immature Grans (Abs) 0.0 {x10E3/uL} (Normal) Range: [...] (Normal) Range: 3.4-10.8 :04 HgA1C , Office (97060) HgA1C , Office 6.8 % (Normal) Range: 4.6 - 7.1 :04 Blood Glucose , Office (20312) Blood Glucose , Office 140 (Normal) Comments: not fasting :58 VITAMIN D, 1, 25-DIHYDROXY Comments: PATIENT WAS FASTINGPERFORMED BY: CB [facility] Oixiqf4086 [facility] [id number] BY: BN [facility] [address] [id number] (23644) Calcitriol(1,25 di-OH Vit D) 38.6 pg/mL (Normal) Range: 19.9-79.3 :58 LIPID PANEL (00377) Comments: PATIENT WAS FASTINGPERFORMED BY: NWIX[address] [id number] BY: Corsair[address] [id number] LDL/HDL Ratio 1.7 {ratio_units} (Normal) Range: 0.0-3.2 [...] MICROALBUMIN: CREATININE Comments: PATIENT WAS FASTINGPERFORMED BY: [place]ckJulie [place] 0198870 [facility] [id number] BY: NWIX[address] [id number] RATIO (60454) AND (28559) Microalb/Creat Ratio 5.1 {mg/g_creat} (Normal) Range: 0.0-30.0 Microalbumin, Urine 6.3 ug/mL (Normal) Creatinine, Urine 122.4 mg/dL (Normal) :58 METABOLIC PANEL, Comments: PATIENT WAS FASTINGPERFORMED BY: [place]ck[place] 0198870 [facility] [id number] BY: Corsair[address] [id number] COMPREHENSIVE (77392) ALT (SGPT) 31 [iU]/L (Normal) Range: 0-32 [...] Glucose, Serum 138 mg/dL (Abnormal) Range: 65-99 53-Rew-75592:58 CBC, PLATELETS & AUT DIFF Comments: PATIENT WAS FASTINGPERFORMED BY: CB [facility] Chhcwi1585 [facility] [id number] BY: BN [facility] [address] [id number] (09182) Immature Grans (Abs) 0.0 {x10E3/uL} (Normal) Range: [...] (Normal) Range: 3.4-10.8 :14 HgA1C , Office (02828) HgA1C , Office 7.5 % (Abnormal) Range: 4.6 - 7.1 :14 Blood Glucose , Office (62252) Blood Glucose , Office 108 (Normal) :55 HgA1C , Office (93204) HgA1C , Office 7.1 % (Normal) Range: 4.6 - 7.1 :08 CALCIFIDIOL (87308) VIT D 25 Comments: PATIENT WAS FASTINGPERFORMED BY: [facility]6370 [facility] [id number] Vitamin D, 25-Hydroxy 42.3 ng/mL (Normal) Range: 30.0-100.0 Comments: Vitamin D deficiency has been defined by the Vinson ofMedicine and an Endocrine Society practice guideline as alevel of serum 25-OH vitamin D less than 20 ng/mL (1,2).The Endocrine Society went on to further define vitamin Dinsufficiency as a level between 21 and 29 ng/mL (2).1. IOM (Vinson of Medicine). 2010. Dietary reference intakes for calcium and D. [place]: The National Academies Press.2. Sadiq MF, Pasha GARG, Chirag CAMERON, et al. Evaluation, treatment, and prevention of vitamin D deficiency: an Endocrine Society clinical practice guideline. JCEM. 2010; 96(7):1911-30. :08 MICROALBUMIN: CREATININE RATIO Comments: PATIENT WAS FASTINGPERFORMED BY: TilckPresbyterian Medical Center-Rio RanchoVoksbr3960 [facility] [id number] (58553) AND (15023) Microalb/Creat Ratio 6.3 {mg/g_creat} (Normal) Range: 0.0-30.0 Microalbumin, Urine 11.8 ug/mL (Normal) Range: 0.0-17.0 Creatinine, Urine 186.0 mg/dL (Normal) Range: 15.0-278.0 :08 METABOLIC PANEL, COMPREHENSIVE Comments: PATIENT WAS FASTINGPERFORMED BY: Tilck Hmdrev7086 [facility] [id number] (86172) ALT (SGPT) 25 [iU]/L (Normal) Range: 0-32 [...] Glucose, Serum 141 mg/dL (Abnormal) Range: 65-99 :08 LIPID PANEL (30377) Comments: PATIENT WAS FASTINGPERFORMED BY: Redknee70 [facility] [id number]; apt. 12-04-15 LDL/HDL Ratio 1.7 {ratio_units} (Normal) Range: 0.0-3.2 Comments: LDL/HDL Ratio Men Women 1/2 Avg.Risk 1.0 1.5 Av g.Risk 3.6 3.2 2X Avg.Risk 6.2 5.0 3X Avg.Risk 8.0 6.1 LDL Cholesterol Calc 75 mg/dL (Normal) Range: 0-99 VLDL Cholesterol Arpit 51 mg/dL (Abnormal) Range: 5-40 HDL Cholesterol 45 mg/dL (Normal) Comments: According to ATP-III Guidelines, HDL-C >59 mg/dL is considered anegative risk factor for CHD. Triglycerides 255 mg/dL (Abnormal) Range: 0-149 Cholesterol, Total 171 mg/dL (Normal) Range: 100-199 :08 CBC with auto diff Comments: PATIENT WAS FASTINGPERFORMED BY: [employer]6370 [facility] [id number] Information: [id number] (11902) Immature Grans (Abs) 0.0 {x10E3/uL} (Normal) Range: [...] (Normal) Range: 3.4-10.8 :38 HgA1C , Office (58827) HgA1C , Office 7.5 % (Abnormal) Range: 4.6 - 7.1 :38 Blood Glucose , Office (27839) Blood Glucose , Office 171 (Normal) :31 LIPID PANEL (27828) Comments: PATIENT WAS FASTINGPERFORMED BY: LabCoSt. Luke's Warren HospitalSxzxwv6756 [facility] [id number] Information: [id number]; apt. 07-31-15 LDL/HDL Ratio 1.7 {ratio_units} (Normal) [...] 177 mg/dL (Normal) Range: 100-199 :31 CALCIFIDIOL (76520) VIT D 25 Comments: PATIENT WAS FASTINGPERFORMED BY: NWIX Iqzpku9677 [facility] [id number] Vitamin D, 25-Hydroxy 33.0 ng/mL (Normal) Range: 30.0-100.0 Comments: Vitamin D deficiency has been defined by the Vinson ofMedicine and an Endocrine Society practice guideline as alevel of serum 25-OH vitamin D less than 20 ng/mL (1,2).The Endocrine Society went on to further define vitamin Dinsufficiency as a level between 21 and 29 ng/mL (2).1. IOM (Vinson of Medicine). 2010. Dietary reference intakes for calcium and D. [place]: The National Academies Press.2. Sadiq MF, Pasha NC, Chirag CAMERON, et al. Evaluation, treatment, and prevention of vitamin D deficiency: an Endocrine Society clinical practice guideline. JCEM. 2010; 96(7):1911-30. :09 HgA1C , Office (86743) HgA1C , Office 6.8 % (Normal) Range: 4.6 - 7.1 :09 Blood Glucose , Office (94962) Blood Glucose , Office 172 (Normal) :20 CBC With Differential/Platelet Comments: PATIENT WAS FASTINGPERFORMED BY: LabCoSt. Luke's Warren HospitalBygkjk9515 [facility] [id number] Information: [id number] Immature Grans (Abs) 0.0 {x10E3/uL} (Normal) Range: [...] 3.77-5.28 WBC 7.2 {x10E3/uL} (Normal) Range: 3.4-10.8 21-Mar-20158:20 Comp. Metabolic Panel (14) Comments: PATIENT WAS FASTINGPERFORMED BY: LabCoSt. Luke's Warren HospitalYsqktd8009 [facility] [id number]; will review at 03/27 appt ALT (SGPT) [...] Glucose, Serum 133 mg/dL (Abnormal) Range: 65-99 :20 Lipid Panel With LDL/HDL Comments: PATIENT WAS FASTINGPERFORMED BY: [facility]XNov[facility] Health, [facility] [id number] Ratio LDL/HDL Ratio 1.8 {ratio_units} Range: 0.0-3.2 [...] ng/mL (Abnormal) Comments: PATIENT NOT FASTINGPERFORMED BY: Redknee70 [facility] [id number] Information: [id number] Range: 30.0-100.0 Comments: Vitamin D deficiency has been defined by the Vinson ofMedicine and an Endocrine Society practice guideline as alevel of serum 25-OH vitamin D less than 20 ng/mL (1,2).The Endocrine Society went on to further define vitamin Dinsufficiency as a level between 21 and 29 ng/mL (2).1. IOM (Vinson of Medicine). 2010. Dietary reference intakes for calcium and D. [place]: The National Academies Press.2. Sadiq MF, Pasha NC, Chirag CAMERON, et al. Evaluation, treatment, and prevention of vitamin D deficiency: an Endocrine Society clinical practice guideline. JCEM. 2010; 96(7):1911-30. :40 Rapid Strep Test, Office (20298) Rapid Strep Test, Office Negative (Normal) :39 Rapid Flu (97431 x 2) Influenza A Ag neg a and b (Normal) :45 HgA1C , Office (04252) HgA1C , Office 7.2 % (Abnormal) Range: 4.6 - 7.1 :16 Basic Metabolic Profile (BMP) Comments: Test performed at:[facility] Soitlcxmme9621 [place] [address] GAP 6 (Normal) Range: 5-15 CO2 31.0 [...] <126 mg/dLsuggests IMPAIRED HOMEOSTASIS per A.D.A. criteria. :16 CBC W/Diff, Automated Comments: Test performed at:[facility] Vdjypaojkx3933 [place] [address] Absolute Lymph 1.81 {X10_3/ul} (Normal) Range: 0.83-4.51 [...] 4.2-5.4 WBC 4.7 K/mm3 (Normal) Range: 4.4-11.0 38-Byy-349160:23 Rapid Flu (44944 x 2) Influenza A Ag positive A (Normal) 47-Ehr-40686:30 METABOLIC PANEL, COMPREHENSIVE Comments: PATIENT WAS FASTINGPERFORMED BY: LabCoSt. Luke's Warren HospitalDwgbjs9943 [facility] [id number] (32326) ALT (SGPT) 21 [iU]/L (Normal) Range: 0-32 [...] Glucose, Serum 138 mg/dL (Abnormal) Range: 65-99 64-Pkw-94512:30 CBC WITH MANUAL DIFF Comments: PATIENT WAS FASTINGPERFORMED BY: LabCoSt. Luke's Warren HospitalZslduw8737 [facility] [id number] Information: [id number] (76306) Immature Grans (Abs) 0.0 {x10E3/uL} (Normal) Range: [...] 3.77-5.28 WBC 7.5 {x10E3/uL} (Normal) Range: 3.4-10.8 8-Pve-784536:56 Anticardiolip Ab, IgA/G/M, Comments: PATIENT NOT FASTINGPERFORMED BY: BN [facility] Ohkweochnf7961 [facility] [id number] BY: CB [facility] Kborbd5163 [facility] [id number] BY: TG [facility] Qn BNL1815 [facility] [id number] Anticardiolipin Ab,IgA,Qn <9 {APL_U/mL} (Normal) Range: 0-11 [...] Positive: >20 - 80 High Positive: >80 4-Luy-449279:56 Antithrombin III, Comments: PATIENT NOT FASTINGPERFORMED BY: Infolinks [facility] Ggwgwqmrvy[address] [id number] BY: IEMO [facility] Yplshg5540 Jesus RoadNovant Health, [facility] [id number] BY: [facility] [employer]5582 [facility] [id number] Antithrombin Activity 117 % (Normal) Range: 75-135 Antithrombin Antigen 116 % (Normal) Range: 75-130 8-Pbc-622810:5 Factor II Activity 111 % (Normal) Comments: PATIENT NOT FASTINGPERFORMED BY: Infolinks [facility] Eosduhkmgj299[address] [id number] BY: [facility] Ienzre0685 [facility] [id number] BY: LabCoralph [facility]. [facility] VRG1224 [facility] [id number] Range: 75-130 1-Khj-606303:56 Factor V Leiden Mutation Comments: PATIENT NOT FASTINGPERFORMED BY: [facility] [address] [id number] BY: IEMO [facility] Yphvdw2709 [facility] Hospitalin [place] [id number] BY: [facility] EFQ1770 [facility] [id number] Factor V Leiden FVNEG3 (Normal) Comments: Result: [...] in the workup for venous thrombosis include [id number] mutation in the factor II (prothrombin) gene,protein S and C deficiency, and antithromb in deficiencies.Anticardiolipin antibody and lupus anticoagulant analysismay be appropriate for certain patients, as well ashomocysteine levels. .Contact your local [facility] for information on how to orderadditional testing if desired. .Genetic counselors are available for health care* providers to discuss results at [phone]). .Methodology:DNA analysis of the Factor V gene was performed by allele-specific PCR followed by gel electrophoresis. The diagnosticsensitivity and specificity is >99% for both. Molecular-based testing is highly accurate, but as in any laboratorytest, diagnostic errors may occur. All test results must becombined with clinical information for the most accurateinterpretation. .References:Kilo Pratt (1996). Clin Lab Med 16: 169-186. .Koby Do, Syed Arias PhDRuth Ann Velasquez, PhDMally Potter PhDJenny Astorga MD, PhDS JACOBY Davidson, PhD . Homocyst(e)ine, 10.8 umol/L Comments: PATIENT NOT FASTINGPERFORMED BY: [facility] Klsifucmfx1835 [facility] [id number] BY: CB LabCoSt. Luke's Warren HospitalJfmzws5101 [facility] [id number] BY: TG [facility] 8:56 Plasma (Normal) YBN3428 TW [facility] [id number] Range: 0.0-15.0 3-Jxb-467232:56 MTHFR Comments: PATIENT NOT FASTINGPERFORMED BY: [facility] Yfxukasonn4740 [facility] [id number] BY: CB [facility] Clktro1832 [place] [id number] BY: TG [facility] GIX5015 JOSELITO [facility]int[facility]JEFFERSON [facility] [id number] MTHFR, DNA Analysis KMV280 (Normal) Comments: Result: C677T/C677T Two copies of the same mutation (C677T and C677T) identified .Interpretation: .This individual is homozygous for the MTHFR C677T variant (two copies).The MTHFR I3269O variant was not identified. Homozygosity for okrP562P mutation confers an increased risk for the [...] discuss these results with healthcare providers at [phone]. .Methylenetetrahydrofolate reductase (MTHFR) is a salazar enzyme in thefolate pathway and is responsible for the metabolism of homocysteine.There are two common variants i n the MTHFR gene, c.655C>T(p.Hsi100Ngd), referred to as C677T, and c.1286A>C (p.Dqf236Wqz),referred to as M7333E. Individuals homozygous for C677T (two copiesof the variant), have decreased activi ty of the MTHFR enzyme and apredisposition to hyperhomocysteinemia, particularly when deficient infolate. Hyperhomocysteinemia is a risk factor for venous thrombosisand coronary artery disease and is as sociated with an increased riskof open neural tube defects. The C677T variant does notindependently increase risk of these conditions in the absence ofhyperhomocysteinemia. The V8408E variant is n ot associated withelevated homocysteine levels unless a C677T variant is also present;however, the clinical significance of heterozygosity for both I567Jgli X2282B is controversial. Population data sugg est that these twovariants are not present on the same chromosome, but rare exceptionshave been reported of triple variant MTHFR genotypes (ie. homozygousfor one variant and heterozygous for the other). Homozygosity wufI558M has an estimated frequency of 10% to [...] clinical information for the most accuratei nterpretation. .Esperanza LD, Jang Q. Am J Epidemiol 2000; 151(9):862-877.Silvay MM, Bryan JA. Arch Pathol Lab Med 2007; 131(6):872-884.Frosst P et al. Anahi Naomi 1995; 10(1):111-113.Hickey SE et al. Naomi Med 2013; 15(2):153- 156.[place] C et al. Obstet Gynecol 2011; 118(3):730-740.Esdras B et al. Eur J Epidemiol 2013; 28(8):621-647. .Jami Gongora MD, PhDJessica Bran PhDOsmany Green, PhDMirza Carpenter MDAnnette K Taylor, MS, PhD 1-Cgw-329070:56 Protein C Deficiency Comments: PATIENT NOT FASTINGPERFORMED BY: [facility] Afcbbpgjcr2949 [facility] [id number] BY: [facility] Pxuucg9961 [facility] [id number] BY: TG [facility] Profile PQT7965 JOSELITO McintoshJEFFERSON [facility]SD[facility] [id number] Protein C-Functional 137 % (Normal) Range: 74-151 Protein C Antigen 124 % (Normal) Range: 70-140 6-Yqs-404212:56 Protein S Panel Comments: PATIENT NOT FASTINGPERFORMED BY: [facility] Aoltxxzdvx2545 [facility] [id number] BY: CB [facility] Rpqvmk4007 JesusFinanzCheckFormerly [facility] [id number] BY: TG [facility] MSA8148 JOSELITO McintoshJEFFERSON [facility]SD[facility] [id number] Protein S-Functional 120 % (Normal) Range: 60-145 Protein S, Free 129 % (Abnormal) Range: 56-124 Protein S, Total 112 % (Normal) Range: 58-150 :17 Metabolic Panel, Basic (88365) Comments: PATIENT WAS FASTINGPERFORMED BY: [facility] Wfpiib9919 [facility] [id number] Calcium, Serum 9.4 mg/dL (Normal) Range: 8.6-10.2 [...] mg/dL (Abnormal) Range: 65-99 :17 CBC (Auto) (45713) Comments: PATIENT WAS FASTINGPERFORMED BY: [facility] Pzyidg2291 Jesus V-me MediaFormerly [facility] [id number] Information: [id number] Platelets 201 {x10E3/uL} (Normal) Range: 150-379 RDW 13.1 % (Normal) Range: 12.3-15.4 MCH 29.2 pg (Normal) Range: 26.6-33.0 MCHC 32.7 g/dL (Normal) Range: 31.5-35.7 MCV 89 fL (Normal) Range: 79-97 Hematocrit 40.1 % (Normal) Range: 34.0-46.6 Hemoglobin 13.1 g/dL (Normal) Range: 11.1-15.9 RBC 4.49 {x10E6/uL} (Normal) Range: 3.77-5.28 WBC 6.6 {x10E3/uL} (Normal) Range: 3.4-10.8 :04 HgA1C , Office (69395) HgA1C , Office 8.4 % (Abnormal) Range: 4.6 - 7.1 :04 Blood Glucose , Office (49953) Blood Glucose , Office 198 (Normal) :47 MICROALBUMIN: CREATININE RATIO Comments: PATIENT WAS FASTINGPERFORMED BY: [facility] Ukdvdo1159 [facility] [id number] (65038) AND (82955) Microalb/Creat Ratio 4.0 {mg/g_creat} (Normal) Range: 0.0-30.0 Microalbumin, Urine 5.6 ug/mL (Normal) Range: 0.0-17.0 Creatinine, Urine 139.4 mg/dL (Normal) Range: 15.0-278.0 :47 METABOLIC PANEL, COMPREHENSIVE Comments: PATIENT WAS FASTINGPERFORMED BY: [facility] Vwynly5978 [facility] [id number] (49393) ALT (SGPT) 25 [iU]/L (Normal) Range: 0-32 [...] Glucose, Serum 177 mg/dL (Abnormal) Range: 65-99 57-Qob-45638:47 LIPID PANEL (88681) Comments: PATIENT WAS FASTINGPERFORMED BY: [employer] [facility] [id number]; Non-emergent and has apt next week 02/2014. LDL/HDL Ratio 1.4 {ratio_units} (Normal) Range: 0.0-3.2 LDL Cholesterol Calc 81 mg/dL (Normal) Range: 0-99 VLDL Cholesterol Arpit 38 mg/dL (Normal) Range: 5-40 HDL Cholesterol 56 mg/dL (Normal) Comments: According to ATP-III Guidelines, HDL-C >59 mg/dL is considered anegative risk factor for CHD. Triglycerides 191 mg/dL (Abnormal) Range: 0-149 Cholesterol, Total 175 mg/dL (Normal) Range: 100-199 79-Fvs-20693:47 CBC WITH MANUAL DIFF Comments: PATIENT WAS FASTINGPERFORMED BY: Tilck Krhgmq3437 [facility] [id number] Information: [id number] (39226) Immature Grans (Abs) 0.0 {x10E3/uL} (Normal) Range: [...] Range: 3.4-10.8 :06 Blood Glucose , Office (10392) Blood Glucose , Office 135 (Normal) :06 HgA1C , Office (40539) HgA1C , Office 7.1 % (Normal) Range: 4.6 - 7.1 :23 Hemoglobin Glyclated (HGB A1C) Comments: PATIENT WAS FASTINGPERFORMED BY: LabCoSt. Luke's Warren HospitalVcopfy9404 [facility] [id number] (26940) Hemoglobin A1c 6.5 % (Abnormal) Range: 4.8-5.6 Comments: . Increased risk for diabetes: 5.7 - 6.4 Diabetes: >6.4 Glycemic control for adults with diabetes: <7.0 :23 MICROALBUMIN: CREATININE RATIO Comments: PATIENT WAS FASTINGPERFORMED BY: [facility] [id number] [facility] [id number] ([id number]) AND ([id number]) Microalb/Creat Ratio 2.3 {mg/g_creat} (Normal) Range: 0.0-30.0 Microalbumin, Urine 1.7 ug/mL (Normal) Range: 0.0-17.0 Creatinine, Urine 75.5 mg/dL (Normal) Range: 15.0-278.0 :23 METABOLIC PANEL, COMPREHENSIVE Comments: PATIENT WAS FASTINGPERFORMED BY: [employer] [id number] [facility] [id number] ([id number]) ALT (SGPT) 19 [iU]/L (Normal) Range: 0-32 [...] mg/dL (Abnormal) Range: 65-99 :23 LIPID PANEL ([id number]) Comments: PATIENT WAS FASTINGPERFORMED BY: [id number] [facility] [id number] LDL/HDL Ratio 1.8 {ratio_units} (Normal) Range: 0.0-3.2 [...] MANUAL DIFF Comments: PATIENT WAS FASTINGPERFORMED BY: [id number] [facility] [id number] Information: [id number] ([id number]) Immature Grans (Abs) 0.0 {x10E3/uL} (Normal) Range: [...] (Normal) Range: 3.4-10.8 :37 HgA1C , Office ([id number]) HgA1C , Office .26 % (Abnormal) Range: [...] mg/dL VLDL 39 mg/dL (Normal) Range: 5-40 :45 MICROALB:CRE UR MALB:CREAT 2.8 {mg/g_CRE} (Normal) MICROALBUMIN,UR 4.4 mg/L (Normal) UR CREAT 155.1 mg/dL (Normal) 4-Stk-695383:29 Blood Glucose , Office (77965) Blood Glucose , Office 101 (Normal) Plan of Care Name Dates Details Instructions Vitamin D deficiency : Follow up in 3 months Indication: Vitamin D deficiency Diabetes mellitus type 2, controlled : Diet, Exercise, and Wt loss Indication: Diabetes mellitus type 2, controlled Hypercholesteremia : Diet, Exercise, and Wt loss Indication: Hypercholesteremia Non-smoker : Eprescribed prescriptions (G8553) Indication: Non-smoker [...] - Nonprescription Treatment Indication: Hypercholesteremia Planned Observations Lipid Panel ([id number])Indication: Diabetes mellitus type 2, controlled On: 16-Nov-20188:57 Request CALCIFEDIOL (14978)Indication: Vitamin D deficiency On: 16-Nov-20188:57 Request Metabolic Panel, Comprehensive (66099)Indication: Diabetes mellitus type 2, controlled On: 16-Nov-20188:57 Request CALCIFEDIOL (27499)Indication: Osteopenia On: 3-Wny-530623:03 Request METABOLIC PANEL, COMPREHENSIVE (21033)Indication: Benign essential hypertension On: 21-Fyx-19683:10 Request LIPID PANEL (52342)Indication: Benign essential hypertension On: :10 Request CBC W/AUTO DIFF WBC (22720)Indication: Benign essential hypertension On: 68-Tuh-61015:10 Request Protein S Profile (03945)Indication: Pulmonary embolism On: :45 Request Protein C Profile (66213)Indication: Pulmonary embolism On: :45 Request Homocysteine, Plasma (11162)Indication: Pulmonary embolism On: :45 Request Antiphospholipid atb (35708)Indication: Pulmonary embolism On: :45 Request ANTICOAG ANTTHROMB III & ASSAY (34058)Indication: Pulmonary embolism On: :45 Request ANTITHROMBIN III ACTIVTY (45784)Indication: Pulmonary embolism On: :45 Request CLOTTING FACTOR II (31566)Indication: Pulmonary embolism On: :45 Request Factor V Leiden (13789)Indication: Pulmonary embolism On: :45 Request MTHFR (21961)Indication: Pulmonary embolism On: :45 Request HEPATIC FUNCTION PANEL (20127)Indication: Hypercholesteremia On: :59 Request LIPID PANEL (11173)Indication: Hypercholesteremia On: :59 Request MICROALBUMIN: CREATININE RATIO (36161) AND (26590)Indication: Diabetes mellitus type 2, controlled On: 8-Hws-988214:35 Request METABOLIC PANEL, COMPREHENSIVE (08610)Indication: Diabetes mellitus type 2, controlled On: 6-Wnb-638301:35 Request LIPID PANEL (54348)Indication: Diabetes mellitus type 2, controlled On: :35 Request CBC WITH MANUAL DIFF (19722)Indication: Diabetes mellitus type 2, controlled On: 5-Ppv-396122:35 Request Planned Encounters Medical; 3 Month FU - On: 23-Nov-2018 8:30 [facility] Kristine Mccauley CNP, CNP, Mary E Planned Procedures SCREENING DIGITAL TOMOSYNTHESIS OF On: 14-Aug-2018 Intent BREAST ([id number])By: Kristine Mccauley CNP, CNP, Mary E MAMMOGRAM, RIGHT ([id number])By: Radha On: 28-Aug-2016 Intent Terrence WING Breast Ultrasound - RightBy: Radha On: 28-Aug-2016 Intent Terrence WING MAMMOGRAM, SCREENING, BOTH BREAST On: 31-Jul-2015 Intent (73191)By: Annalee Alvarenga MD Comments: 2-16 CTA CHEST W/W/O CONTRAST On: 08-Dec-2014 Intent ([id number])By: Suri Paredes DO Aerosol Treatment (13164)By: On: 08-Dec-2014 Intent Suri Paredes DO Comments: more a/e- DEXA SCAN AXIAL SKELETON On: 04-Oct-2014 Intent (63261)By: Annalee Alvarenga MD Comments: postmenapausal MAMMOGRAM, SCREENING, BOTH BREAST On: 04-Oct-2014 Intent ([id number])By: Annalee Alvarenga MD EKG ([id number])By: Annalee Alvarenga MD On: 04-Oct-2014 Intent Comments: see scanned document of test done to see results reviewed today with patient CT - Cardiac CTABy: Colette WING, On: 14-Apr-2014 Intent Annalee Tsang Venous Doppler - LeftBy: Colette On: 22-Mar-2014 Intent Annalee WING Comments: bilateral legs today COMPUTED TOMOGRAPHY ANGIOGRAPHY OF On: 09-Mar-2014 Intent CHEST WITH AND WITHOUT CONTRAST Comments: PE PROTOCOL ([id number])By: Annalee Alvarenga MD CT - Chest (IV Contrast Needed)By: On: 08-Mar-2014 Intent Annalee Alvarenga MD Comments: due pe protocol Ultrasound - Breast - LeftBy: On: 08-Mar-2014 Intent Annalee Alvarenga MD Echo CompleteBy: Annalee Alvarenga MD On: 15-Feb-2014 Intent Trinh Eprescribed prescriptions On: 15-Feb-2014 Intent (G8553)By: Annalee Alvarenga MD Inhaler Demo ([id number])By: Reggie BRAND, On: 11-Nov-2013 Intent Suri Radiology - Chest- PA and LatBy: On: 11-Nov-2013 Intent Suri Paredes DO Aerosol Treatment ([id number])By: On: 11-Nov-2013 Intent uSri Paredes DO Comments: more a/e less tight Eprescribed prescriptions On: 11-Nov-2013 Intent (G8553)By: Suri Paredes DO Breast Screening - BilateralBy: On: 14-Jul-2013 Intent Annalee Alvarenga MD MAMMOGRAM, SCREENING, BOTH BREASTS On: 08-Jul-2013 Intent ([id number])By: Annalee Alvarenga MD EKG ([id number])By: Annalee Alvarenga MD On: 22-Jun-2013 Intent Comments: see scanned document of test done to see results reviewed today with patient Eprescribed prescriptions On: 22-Jun-2013 Intent (G8553)By: Amalia Wilder LPN EKG ([id number])By: Annalee Alvarenga MD On: 03-Sep-2007 Intent Ultrasound - Abdomen (Limited Area On: 03-Sep-2007 Intent or Organs)By: Annalee Alvarenga MD Comments: upper look at mass in epig area and luq Ultrasound - GallbladderBy: On: 03-Sep-2007 Intent Annalee Alvarenga MD EKG ([id number])By: Annalee Alavrenga MD On: 03-Sep-2007 Intent Instructions Name Dates Details Non-smoker : How to access health information online Indication: Non-smoker Non-smoker : How to access health information online - Detail Indication: Non-smoker Vitamin D deficiency : Patient Instructions Indication: Vitamin D deficiency Diabetes mellitus type 2, controlled : How [...] right : DISCONTINUED - US BREAST RIGHT ([id number]) Indication: Cyst, breast, right Diabetes mellitus type [...] Indication: Diabetes mellitus type 2, controlled Encounters Office Visit On: 14-Aug-2018 8:12 Encounter Reason: Follow up for chronic medical issues - The patient feels well with no complaints, has good energy level and is sleeping well. Patient has been compliant with instructions. Current medication use: no mitch End: 14-Aug-2018 9:01 e effects, compliant with dosing regimen and [...] vaccination declined (Renamed from Refused influenza vaccine), Hypercholesteremia, Vitamin D deficiency [facility] Annotation/Addendum On: 19-Jun-2018 13:15 [...] dosing regimen and considered effective by patient. Pa donald sleeps 7 hours per night. Impact [...] Victoza was too expensive but worked in [facility] Diagnosis: Diabetes mellitus type 2, controlled, Non- [...] The patient does have durable power of vat tender and living will. The patient has noticed nothing from the geriatic depression scale. Other providers contributing to the patient's care are other: (Opthalm: Dr. Zavala in [place] ).Encounter Diagnosis: Encounter for Medicare annual wellness [...] not able to get last script of victoza in [facility]. Encounter Diagnosis: Preop examination, Type II Diabetes,controlled [...] Internal Medicine Payers [employer] Daylin Santiago; alex guarantor
--- OUTSIDE RECORDS SUMMARY | 2018-12-08 07:37 | XMS RPT_ITS | Continuity of Care Document ---
:1945 Author Organization [facility] Address [address] [place] [address] Phone Care Team Providers Name Role Phone Kristine Mccauley CNP Unavailable Macario De Jesus Unavailable Dr. Abebe Ba Unavailable Unavailable Unavailable Problems Name Dates Details [...] Cataract), no changes, Nat Gallegos, [facility].Labs:urine albumin/Cr:Lipid panel:VZK5ACaweth on medicine done.DIABETIC FOOT CARE:Check feet daily for sores, c uts, callusses, infection.Check inside of the shoes daily for loose objects or rough edges.Do not go barefoot inside or outside.Follow up in 3 monthsFBS at home:124. 118 Status: Active Elevated TSH (R79.89, 794.5) Comments: look at labs in 3months and decide on med Status: Active GERD (gastroesophageal reflux disease) (K21.9, [...] 2 Status: Active Unspecified Diagnosis Status: Active Unspecified Diagnosis Status: Active Vitamin D deficiency (E55.9, 268.9) Comments: take 2000 daily Status: Active Medications Name Dates Details GlyBURIDE 5 MG Oral Tablet 1 (one) Tablet Tablet daily as directed for 0 days Quantity: 90 {Tablet} Refills: 0 Ordered:11-Nov-2017 Aline Chu LPN Start : 11-Nov-2017 Active GlyBURIDE 5 MG Oral Tablet 1 (one) Tablet Tablet daily as directed for 30 days Quantity: 90 {Tablet} Refills: 3 Ordered:11-Nov-2017 Aline Chu LPN Start : 11-Nov-2017 Active Losartan Potassium 50 MG Oral Tablet 1 (one) Tablet daily for 90 days Quantity: 90 {Tablet} Refills: 3 Ordered:11-Feb-2018 Kristine Mccauley CNP, CNP, Mary E Start : 11-Feb-2018 Active Magnesium zinc daily Active MetFORMIN HCl 1000 MG Oral Tablet 1 (one) Tablet 1in am and 1 qpm for 90 days Quantity: 180 {Tablet} Refills: 3 Ordered:11-Feb-2018 Kristine Mccauley CNP, CNP, Mary E Start : 11-Feb-2018 Active MetFORMIN HCl ER (MOD) 1000 MG Oral Tablet Extended Release 24 Hour 1 (one) Tablet 1 in am and 1/2 qpm for 0 days Quantity: 130 {Tablet} Refills: 3 Ordered:24-Mar-2018 Kristine Mccauley CNP, CNP, Mary E Start : 24-Mar-2018 End : 11-Feb-2018 Active MetFORMIN HCl ER (MOD) 1000 MG Oral Tablet Extended Release 24 Hour 1 (one) Tablet 1 in am and 1/2 qpm for 0 days Quantity: 130 {Tablet} Refills: 3 Ordered:24-Mar-2018 Kristine Mccauley CNP, CNP, Mary E Start : 24-Mar-2018 End : 11-Feb-2018 Active MVI daily Active OneTouch Ultra Blue In Vitro Strip 1 (one) Strip Strip qd for 0 days Quantity: 100 {Strip} Refills: 3 Ordered:26-Jun-2016 Ilia Garcia Start : 26-Jun-2016 Active OneTouch Ultra Mini w/Device Kit 1 (one) Kit Kit qd for 0 days Quantity: 1 Kit Refills: 0 Ordered:26-Jun-2016 Ilia Garcia Start : 26-Jun-2016 Active Pravastatin Sodium 80 MG Oral Tablet 1 Tablet daily for 90 days Quantity: 90 {Tablet} Refills: 3 Ordered:15-Oct-2017 [employer] SALES, Kristine Muñoz DIRECTOR SALES, [employer] Start : 15-Oct-2017 Active Pravastatin Sodium 80 MG Oral Tablet 1 Tablet daily for 0 days Quantity: 90 {Tablet} Refills: 3 Ordered:15-Oct-2017 [place] DIRECTOR SALES, Kristine Muñoz [facility], [place] Start : 15-Oct-2017 Active Prevacid 24HR 15 MG Oral Capsule Delayed Release 1 qd prn for 0 days Refills: 0 Ordered:18-Jun-2016 Terrence Garcia MD Start : 18-Jun-2016 Active Vitamin D3 1000 UNIT Oral Capsule daily (1000 UNIT) Active ACTOS, 30MG (Oral Tablet) 1 Tablet qd for 0 days Quantity: 90 {Tablet} Refills: 3 Ordered:22-Jun-2013 Amalia Wilder LPN Start : 13-Aug-2007 End : 22-Jun-2013 Inactive ASTELIN, 137MCG/SPRAY (Nasal Solution) Solution QD for 0 days Quantity: 1 {Solution} Refills: 3 Ordered:22-Jun-2013 Amalia Wilder LPN L Start : 16-Jul-2007 End : 22-Jun-2013 Inactive AUGMENTIN, 875-125MG (Oral Tablet) 1 (one) Tablet bid for 0 days Quantity: 28 {Tablet} Refills: 0 Ordered:15-Feb-2014 Herve Wilder LPNn L Start : 11-Nov-2013 End : 15-Feb-2014 Inactive BIAXIN XL PAC, 500MG (Oral Tablet Extended Release 24 Hour) 2 (two) Tablet ER 24HR qd for 0 days Quantity: 1 {Packet} Refills: 0 Ordered:31-Jul-2015 GURPREET Brito Start : 15-May-2015 End : 31-Jul-2015 Inactive CALTRATE 600+D, 264-580YK-WOLD (Oral Tablet) 2 (two) Tablet qd for [...] 16-Feb-2015 End : 27-Mar-2015 Inactive Comments:DX: 250.00NPI: [id number] PREDNISONE, 20MG (Oral Tablet) 1 (one) Tablet qd for 0 days Quantity: 4 {Tablet} Refills: 0 Ordered:15-Feb-2014 Amalia Wilder LPN [...] Quantity: 90 {Tablet} Refills: 3 Ordered:22-Jun-2013 Long DOCTOR OF NURSING PRACTICE, Amalia L Start : 03-Sep-2007 End : 22-Jun-2013 Inactive TAMIFLU, 75MG (Oral Capsule) 1 (one) Capsule bid for 5 days Quantity: 10 {Capsule} Refills: 0 Ordered:12-Sep-2014 Laura Doll Start : 12-Sep-2014 End : 17-Sep-2014 Inactive TENORMIN, 50MG (Oral Tablet) 1 Tablet qd for 0 days Quantity: 30 {Tablet} Refills: 0 Ordered:22-Jun-2013 Long DOCTOR OF NURSING PRACTICE, Amalia L Start : 13-Aug-2007 End : 22-Jun-2013 Inactive TESSALON PERLES, 100MG (Oral Capsule) 1 (one) Capsule bid prn cough for 0 days Quantity: 20 {Capsule} Refills: 0 Ordered:31-Jul-2015 GURPREET Brito Start : 15-May-2015 End : 31-Jul-2015 Inactive true star 1 qd Inactive Comments:TrueSight and Nasic/LeanX Victoza 18 MG/3ML Subcutaneous Solution Pen-injector 1.25 Milligram Start 0.6 sc qd x1 wk, then 1.2mg SC qd, then 1.8mg qd for 90 days Quantity: 1 {Milligram} Refills: 2 Ordered:11-Nov-2017 Parisa CAPPS, Kristine Marshall CNP E Start : 11-Jul-2017 End : 11-Nov-2017 Inactive Victoza 18 MG/3ML Subcutaneous Solution Pen-injector 1.25 Milligram Start 0.6 sc qd x1 wk, then 1.2mg SC qd, then 1.8mg qd for 90 days Quantity: 3 {Box} Refills: 3 Ordered:11-Nov-2017 Parisa CAPPS, Kristine Marshall CNP E Start : 11-Jul-2017 End : 11-Nov-2017 Inactive Vitamin D3 1000 UNIT Oral Tablet 2 (two) Tablet qd for 30 days Quantity: 60 {Tablet} Refills: 0 Ordered:11-Nov-2017 Parisa CAPPS, Kristine Muñoz CNP, Kristine Perrin Start : 11-Nov-2017 End : [...] 3 Ordered:11-Nov-2017 Parisa CAPPS, Kristine Muñoz CNP, Kristine Perrin Start : 01-Apr-2017 End : 11-Nov-2017 Discontinued GlyBURIDE 2.5 MG Oral Tablet 1 (one) Tablet daily for 0 days Quantity: 90 {Tablet} Refills: 3 Ordered:11-Nov-2017 Parisa CAPPS, Kristine Muñoz CNP, Kristine Perrin Start : 01-Apr-2017 End : 11-Nov-2017 Discontinued GLYBURIDE, 5MG (Oral Tablet) 1 Tablet bid for 0 days Quantity: 180 {Tablet} Refills: 3 Ordered:31-Jul-2015 Annalee Alvarenga MD Start : 31-Jul-2015 End : 31-Jul-2015 Discontinued PREVACID, 30MG (Oral Capsule Delayed Release) [...] 611.71) Comments: cut out caffiene use nsaids. - mammookay hhx of cyst. if not better [...] (Z12.11, V76.51) Status: Inactive as of 01-Dec-2015 Encounter for screening mammogram for breast cancer (Renamed from Encounter for screening mammogram for malignant neoplasm of breast) (Z12.31, V76.12) Status: Inactive as of 01-Dec-2015 Eustachian tube [...] Inactive as of 18-Oct-2013 Unspecified Diagnosis Status: Inactive as of 14-Apr-2014 [...] Study (HP) Result: Comments: See Note; NOTES: [facility] Imaging Services [address] [place] [address] Verdana 4d Dexa Bone Density Study (HP) MR#: [id number] Acct: [id number] Name: ALFONSO SANTIAGO EN Rep #: [id number] : 1945 F 71 From: Gutierrez Fisher MD PCP: Terrence Garcia Status: REG CLI Study: Dexa Bone Density Study (HP) Date of Exam: 10/22/16 Exam# [id number] Ordering Dr: Melvin Garcia STUDY: DUAL ENERGY [...] Gutierrez Fisher MD at 9:00 EST Tel [phone], Service support [phone], CC: Terrence Garcia Seat Cover Maker: Signed 02-Sep-2016 Breast Limited Unilateral Result: Comments: See Note; NOTES: [facility] Imaging Services [address] [place] [address] Verdana 4d Breast Limited Unilateral MR#: [id number] Acct: [id number] Name: EMILY SANTIAGO Rep #: [id number] : 1945 F 71 From: David Mclaughlin MD PCP: Terrence Garcia Status: REG CLI Study: Breast Limited Unilateral Date of Exam: 09/02/16 Exam# [id number] Ordering Dr: Terrence Garcia STUDY: UL TRASOUND [...] at 10:19 EST Tel , Service support [phone], CC: Terrence Garcia Seat Cover Maker: Signed 14-Feb-2016 Breast Limited Unilateral Result: Comments: See Note; NOTES: [facility] Imaging Services [address] [place] [address] Zane 4d Breast Limited Unilateral MR#: [id number] Acct: [id number] Name: EMILY AVINA Rep #: [id number] : 1945 F 71 From: Gutierrez Fisher MD PCP: Annalee Alvarenga MD Status: REG CLI Study: Breast Limited Unilateral Date of Exam: 02/14/16 Exam# [id number] Ordering Dr: Annalee Alvarenga MD STUDY: ULTRASOUND [...] Gutierrez Fisher MD at 9:13 EDT Tel [phone], Service support [phone], CC: Annalee Alvarenga MD Seat Cover Maker: Signed 09-Feb-2016 Bilat Scrn Digital AND CAD Result: Comments: See Note; NOTES: [facility] Imaging Services [address] [place] [address] Verdana 4d Bilat Scrn Digital AND CAD MR#: [id number] Acct: [id number] Name: EMILY SANTIAGO Rep #: [id number] : 1945 F 71 From: Gutierrez Fisher MD PCP: Annalee Alvarenga MD Status: REG CLI Study: Bilat Scrn Digital AND CAD Date of Exam: 02/09/16 Exam# [id number] Orderin g Dr: Annalee Alvarenga MD MAMMOGRAPHY - [...] biopsy of a clinically suspicious abnorma lity. [id number] Electronically Signed: Gutierrez Fisher MD at 10:27 EDT Tel [phone], Service support [phone], CC: Annalee Alvarenga MD Seat Cover Maker: Signed 04-Dec-2015 ELECTROCARDIOGRAM, COMPLETE (ECG) (09721) Comments: see scanned document of test done to see results reviewed today with patient Result: [MEASUREMENTS ANALYSIS] Date of Test: 12/04/2015 08:33:40; Heart Rate: 71; [place] Interval: 146; QRS: 96; QT Interval: 370; Corrected QT Interval (QTc): 389; P Wave [place]: 52; QRS Wave [place]: -15; T Wave [place] : -1; Blood Pressure: 140/80 [ECG DIAGNOSTIC STATEMENTS] Date of Test: 12/04/2015 08:33:40; Summary: Sinus Rhythm WITHIN NORMAL LIMITS 15-May-2015 Spirometry (24237) Comments: see scanned document of test done to see results reviewed today with patient Result: 08-Dec-2014 Spirometry (46471) Comments: poor technique- mild restriction Result: 18-Oct-2014 Bilat Scrn Digital AND CAD Result: Comments: See Note; NOTES: [facility] Imaging Services [address] [place] [address] Breast Imaging Report MR#: [id number] Acct: [id number] Name: EMILY SANTIAGO Rep #: [id number] : 1945 F 69 From: Gutierrez Fisher MD PCP: Annalee Alvarenga MD Status: REG CLI Study: Bilat Scrn Digital AND CAD Date of Exam: 10/18/14 Exam# [id number] Ordering Dr: Annalee Alvarenga MD MAMMOGRAPHY - [...] Gutierrez Fisher MD at 9:48 EST Tel [phone], Service support [phone], CC: Annalee Alvarenga MD Seat Cover Maker: Signed 18-Oct-2014 Dexa Bone Density Study (HP) Result: Comments: See Note; NOTES: [facility] Imaging Services [address] [place] [address] Bone Density Report MR#: [id number] Acct: [id number] Name: EMILY SANTIAGO Rep #: [id number] : 1945 F 69 From: Gutierrez Fisher MD PCP: Annalee Alvarenga MD Status: REG CLI Study: Dexa Bone Density Study () Date of Exam: 10/18/14 Exam# [id number] Ordering Dr: Annalee Alvarenga MD STUDY: DUAL [...] Gutierrez Fisher MD at 11:31 EST Tel [phone], Service support [phone], CC: Annalee Alvarenga MD Seat Cover Maker: Signed 23-Sep-2014 Discharge Instruction Result: Comments: See Note; NOTES: [facility] Medical Records Department [address] [place] [address] Discharge Instruction 09/15/14 1351 MR#: [id number] Acct: [id number] Name: EMILY SANTIAGO Rep #: [id number] : 1945 69 From: Phani Valencia MD [...] any unexpected problems, contact your doctor. Call [facility] ( [phone]) or report to the closest Emergency Room. Call 911 if necessary. 09/23/14 0821 <Electronically signed by Phani Valencia MD> Date ____ Phani Valencia MD Cosigner Signature (If Indicated): Date CC: Annalee Alvarenga MD 23-Sep-2014 Emergency Department Summary Result: Comments: See Note; NOTES: [facility] Medical Records Department [address] [place] [address] Emergency Department Summary MR#: [id number] Acct: [id number] Name: EMILY SANTIAGO Rep #: [id number] : 1945 69 From: Phani Valencia MD [...] Hugh Ramirez C: Annalee Alvarenga MD T: NTS JOB: [id number] 09/23/14 0821 <Electronically melissa d by Phani Valencia MD> Date Phani Valencia MD CC: Annalee Alvarenga MD Date Dictated: 09/18/141200 Date Transcribed: 09/18/141200 Seat Cover Maker: Signed 15-Sep-2014 Chest PA and Lateral Result: Comments: See Note; NOTES: [facility] Imaging Services [address] [place] [address] Radiology Report MR#: [id number] Acct: [id number] Name: EMILY SANTIAGO Rep #: [id number] : 1945 F 69 From: Karina Grimm MD PCP: Annalee Alvarenga MD Status: DEP ER Study: Chest PA and Lateral Date of Exam: 09/15/14 Exam# [id number] Ordering Dr: Phani Valencia MD STUDY: X-RA [...] at 9:27 EST Tel , Service support [phone], RAD/Chest PA and Lateral IMPRESSION: There is no evidence of acute disease. Electronically Sign ed: Lakshmi Grimm MD at 9:27 EST Tel , Service support [phone], CC: Annalee Alvarenga MD; Phani Valencia MD Seat Cover Maker: Signed 11-Mar-2014 Echocardiogram Complete Result: Comments: See Note; NOTES: [facility] Cardiovascular Services [address] [place] [address] Echo Complete 03/11/14 1314 MR#: [id number] Acct: [id number] Name: MEME SANTIAGO Rep #: [id number] : 1945 69 From: Joshua Leonard MD Attending Dr: Annalee Alvarenga MD Status: REG CLI Ordering Dr: Annalee Alvarenga MD Date: 03/11/14 Location: [place] Sex: F C Admitted: [facility] This was a 2D Doppler, Color Flow transthoracic echocardiogram. The exam was of adequate technical quality. Exam performed in department. Left Ventricle Normal LV size. Segmental dysfunction with preserved ejection fraction (see wall motion). The estimated ejection fraction is 55 %. Septal bounce. Infero-Basal: Hypokinetic. Mid-Inferior: Hypokinetic. Mid-inferoseptal : Hypokinetic. Mid- anteroseptal : Hypokinetic. Anterior [place] : Hypokinetic. Inferior [place] : Hypokinetic. Septal [place] : Hypokinetic. Right Ventricle Normal RV size. [...] Dictated: 03/11/14 1314 Date Transcribed: 03/11/14 1713 Seat Cover Maker: Signed 11-Mar-2014 CTA Chest W/WO Contrast Result: Comments: See Note; NOTES: [facility] Imaging Services [address] [place] [address] CAT Scan Report MR#: [id number] Acct: [id number] Name: EMILY SANTIAGO Rep #: [id number] : 1945 F 69 From: Gutierrez Fisher MD PCP: Annalee Alvarenga MD Status: REG CLI Study: CTA Chest W/WO Contrast Date of Exam: 03/11/14 Exam# [id number] Ordering Dr: Annalee Alvarenga MD STUDY : [...] Gutierrez Fisher MD at 15:17 EDT Tel [phone], Service support [phone], CC: Annalee Alvarenga MD Seat Cover Maker: Signed 11-Nov-2013 Chest PA and Lateral Result: Comments: See Note; NOTES: [facility] Imaging Services [address] [place] [address] Radiology Report MR#: [id number] Acct: [id number] Name: EMILY SANTIAGO Rep #: [id number] : 1945 F 68 From: Alexander Gilman DO PCP: Suri Paredes DO Status: REG CLI Study: Chest PA and Lateral Date of Exam: 11/11/13 Exam# [id number] Ordering Dr: Suri Paredes DO STUDY: X [...] D.O. at 21:45 EST , Service support [phone], CC: Suri Paredes DO Seat Cover Maker: Signed 21-Jul-2013 Adele Quintero Digital & CAD Result: Comments: See Note; NOTES: [facility] Imaging Services [address] [place] [address] Breast Imaging Report MR#: [id number] Acct: [id number] Name: EMILY SANTIAGO Rep #: [id number] : 1945 F 68 From: Gutierrez Fisher MD PCP: CARLOS LING Status: REG CLI Exam# [id number] Ordering Dr: Annalee Alvarenga MD MAMMOGRAPHY - BILATERAL SCREENING REASON FOR EXAM: Kailee michele, 68 years old. Routine annual screening examination. [...] 21, 2013 at 2 :40:05 PM EST [phone] Electronically Signed GP/GP If you are the referring physician and would like to consult with the radiologist who provided this interpretation, please contact Gutierrez Fisher M.D. at [phone]. If this radiologist is unavailable, you will be directed to another radiologist to assist. If you are a patient with a question regarding this report, please contact your referring physician directly. Professional Interpretation Provided By: [facility], Phone , These documents contain legally protected [...] documents. CC: CARLOS LING; Annalee Alvarenga MD Seat Cover Maker: Signed Family History Unknown Family Member Name [...] Active Vital Signs Date Test Result Details :18 Temperature 97.6 f Pulse 74 /min [...] 0.00 cm Results Date Description Value Details :10 HgA1C , Office (86068) Comments: 6.8 has improved HgA1C , Office 6.8 % (Normal) Range: 4.6 - 7.1 :10 Blood Glucose , Office (07643) Blood Glucose , Office 167 (Normal) :46 T4, FREE (THYROXINE) (35075) Comments: PATIENT WAS FASTINGPERFORMED BY: [employer] [facility] [id number] T4,Free(Direct) 1.00 ng/dL (Normal) Range: 0.82-1.77 :46 T3, FREE (TRIDOTHYRONINE) (37188) Comments: PATIENT WAS FASTINGPERFORMED BY: [employer]70 [facility] [id number] Triiodothyronine,Free,Serum 2.8 pg/mL (Normal) Range: 2.0-4.4 :46 TSH (THYROID STIMULATING Comments: PATIENT WAS FASTINGPERFORMED BY: [employer]70 [facility] [id number] HORMONE) (74356) TSH 3.730 {uIU/mL} (Normal) Range: 0.450-4.500 :46 Metabolic Panel, Comprehensive Comments: PATIENT WAS FASTINGPERFORMED BY: DeclaraLour[facility] Center of Burlington CountyIvbtof9837 [facility] [id number] (39115) ALT (SGPT) 23 [iU]/L (Normal) Range: 0-32 [...] (Abnormal) Range: 65-99 :25 HgA1C , Office (71224) HgA1C , Office 7.2 % (Abnormal) Range: 4.6 - 7.1 :25 Blood Glucose , Office (56100) Blood Glucose , Office 217 (Normal) :32 Microscopic Examination Comments: PATIENT WAS FASTINGPERFORMED BY: DeclaraLour[facility] of Burlington CountyIcoqld1054 [facility] [id number] Bacteria None seen (Normal) Epithelial Cells (non renal) 0-10 {/hpf} (Normal) Range: 0 - 10 RBC 0-2 {/hpf} (Normal) Range: 0 - 2 WBC 0-5 {/hpf} (Normal) Range: 0 - 5 :32 MICROALBUMIN: CREATININE RATIO Comments: PATIENT WAS FASTINGPERFORMED BY: [employer] [facility] [id number] (67362) AND (47193) Alb/Creat Ratio 9.8 {mg/g_creat} (Normal) Range: 0.0-30.0 Albumin, Urine 12.3 ug/mL (Normal) Creatinine, Urine 124.9 mg/dL (Normal) :32 URINALYSIS (87485) Comments: PATIENT WAS FASTINGPERFORMED BY: [employer] [facility] [id number] Microscopic Examination See below: (Normal) Comments: Microscopic was indicated and was performed. Nitrite, Urine Negative (Normal) Urobilinogen,Semi-Qn 0.2 mg/dL (Normal) Range: 0.2-1.0 Bilirubin Negative (Normal) Occult Blood Negative (Normal) Ketones Negative (Normal) Glucose Negative (Normal) Protein Negative (Normal) WBC Esterase Trace (Abnormal) Appearance Clear (Normal) Urine-Color Yellow (Normal) pH 6.5 (Normal) Range: 5.0-7.5 Specific [place] 1.017 (Normal) Range: 1.005-1.030 :32 Lipid Panel (33119) Comments: PATIENT WAS FASTINGPERFORMED BY: [employer]70 [facility] [id number] LDL/HDL Ratio 1.8 {ratio_units} (Normal) Range: 0.0-3.2 [...] Panel, Comprehensive Comments: PATIENT WAS FASTINGPERFORMED BY: Declara Psfrac5032 [facility] [id number] (05263) ALT (SGPT) 29 [iU]/L (Normal) Range: 0-32 [...] Auto Diff Comments: PATIENT WAS FASTINGPERFORMED BY: Declara Awvtyo4657 [facility] [id number] (80589) Immature Grans (Abs) 0.0 {x10E3/uL} (Normal) Range: [...] 6.0 {x10E3/uL} (Normal) Range: 3.4-10.8 :32 TSH (03183) Comments: PATIENT WAS FASTINGPERFORMED BY: [facility] Kzjnph1929 [facility] [place] [id number] TSH 4.760 {uIU/mL} (Abnormal) Range: 0.450-4.500 :32 CALCIFEDIOL (23941) Comments: PATIENT WAS FASTINGPERFORMED BY: [facility] Idmwls0777 [facility] [place] [id number] Vitamin D, 25-Hydroxy 70.9 ng/mL (Normal) Range: 30.0-100.0 Comments: Vitamin D deficiency has been defined by the [place] of[place]icine and an Endocrine Society practice guideline as alevel of serum 25-OH vitamin D less than 20 ng/mL (1,2).The Endocrine Society went on to further define vitamin Dinsufficiency as a level between 21 and 29 ng/mL (2).1. IOM ([place] of Medicine). 2010. Dietary reference intakes for calcium and D. [place]: The National AcademCloud Floor Press.2. Pasha Quevedo, Chirag CAMERON, et al. Evaluation, treatment, and prevention of vitamin D deficiency: an Endocrine Society clinical practice guideline. JCEM. 2010; 96(7):1911-30. :11 HgA1C , Office (30888) HgA1C , Office 6.8 % (Normal) Range: 4.6 - 7.1 :11 Blood Glucose , Office (58855) Blood Glucose , Office 209 (Normal) :22 CALCIFEDIOL (96161) Comments: today; PATIENT NOT FASTINGPERFORMED BY: [facility]6370 [facility] [id number] Vitamin D, 25-Hydroxy 50.8 ng/mL (Normal) Range: 30.0-100.0 Comments: Vitamin D deficiency has been defined by the [place] of[place] and an Endocrine Society practice guideline as alevel of serum 25-OH vitamin D less than 20 ng/mL (1,2).The Endocrine Society went on to further define vitamin Dinsufficiency as a level between 21 and 29 ng/mL (2).1. IOM ([place] of [employer]). 2010. Dietary reference intakes for calcium and D. [place]: The National AcademCloud Floor Press.2. Pasha Quevedo, Chirag CAMERON, et al. Evaluation, treatment, and prevention of vitamin D deficiency: an Endocrine Society clinical practice guideline. JCEM. 2010; 96(7):1911-30. :32 HgA1C , Office (97112) HgA1C , Office 6.9 % (Normal) Range: 4.6 - 7.1 :31 Blood Glucose , Office (24267) Blood Glucose , Office 171 (Normal) :56 HgA1C , Office (90212) HgA1C , Office 6.6 % (Normal) Range: 4.6 - 7.1 :56 Blood Glucose , Office (18942) Blood Glucose , Office 184 (Normal) Comments: Just ate breakfast :49 MICROALBUMIN: CREATININE RATIO Comments: PATIENT WAS FASTINGPERFORMED BY: [facility] Gjdfqs4039 [facility] [place] [id number] (64571) AND (63195) Microalb/Creat Ratio 7.4 {mg/g_creat} (Normal) Range: 0.0-30.0 Microalbumin, Urine 14.7 ug/mL (Normal) Creatinine, Urine 198.7 mg/dL (Normal) :49 VITAMIN B12 AND FOLATES Comments: PATIENT WAS FASTINGPERFORMED BY: [facility] Ggjirc9895 [facility] [id number] (95158) Folate (Folic Acid), Serum >20.0 ng/mL (Normal) Comments: A serum folate concentration of less than 3.1 ng/mL isconsidered to represent clinical deficiency. Vitamin B12 497 pg/mL (Normal) Range: 211-946 :49 CALCIFEDIOL (88909) Comments: PATIENT WAS FASTINGPERFORMED BY: [facility] [id number] [facility] [place] [id number] Vitamin D, 25-Hydroxy 57.6 ng/mL (Normal) Range: 30.0-100.0 Comments: Vitamin D deficiency has been defined by the [place] of[place] and an Endocrine Society practice guideline as alevel of serum 25-OH vitamin D less than 20 ng/mL (1,2).The Endocrine Society went on to further define vitamin Dinsufficiency as a level between 21 and 29 ng/mL (2).1. IOM ([place] of [employer]). 2010. Dietary reference intakes for calcium and D. [place]: The National Academies Press.2. Sadiq MF, Pasha [place], Chirag CAMERON, et al. Evaluation, treatment, and prevention of vitamin D deficiency: an Endocrine Society clinical practice guideline. JCEM. 2010; 96(7):1911-30. :49 TSH (THYROID STIMULATING Comments: PATIENT WAS FASTINGPERFORMED BY: [facility]6370 [facility] [id number] HORMONE) (14197) TSH 3.740 {uIU/mL} (Normal) Range: 0.450-4.500 :49 LIPID PANEL (93424) Comments: PATIENT WAS FASTINGPERFORMED BY: [facility]6370 [facility] [id number] LDL/HDL Ratio 1.9 {ratio_units} (Normal) Range: 0.0-3.2 [...] PANEL, COMPREHENSIVE Comments: PATIENT WAS FASTINGPERFORMED BY: [facility]6370 [facility] [id number] (56012) ALT (SGPT) 27 [iU]/L (Normal) Range: 0-32 [...] 54 7 mo nths - 1 year 20 - 71 20 - 71 2 years - 5 years [...] Glucose, Serum 136 mg/dL (Abnormal) Range: 65-99 48-Vyu-78933:49 CBC, PLATELETS & AUT DIFF Comments: PATIENT WAS FASTINGPERFORMED BY: CB [facility] Plcljg9154 [facility] [id number]; fu [facility] 12-18-16 (98507) Immature Grans (Abs) 0.0 {x10E3/uL} (Normal) Range: [...] Range: 3.4-10.8 :09 Blood Glucose , Office (52471) Blood Glucose , Office 231 (Normal) :09 HgA1C , Office (49284) HgA1C , Office 6.5 % (Normal) Range: 4.6 - 7.1 :33 MICROALBUMIN: CREATININE RATIO Comments: PATIENT WAS FASTINGPERFORMED BY: DeclaraLourdes Medical Center of Burlington CountyKefbjc1069 [facility] [id number] (00967) AND (85588) Microalb/Creat Ratio 14.1 {mg/g_creat} (Normal) Range: 0.0-30.0 Microalbumin, Urine 16.3 ug/mL (Normal) Creatinine, Urine 115.2 mg/dL (Normal) :33 VITAMIN B12 AND FOLATES Comments: PATIENT WAS FASTINGPERFORMED BY: LabCoLourdes Medical Center of Burlington CountyCokrkk6548 [facility] [id number] (42363) Folate (Folic Acid), Serum 15.9 ng/mL (Normal) Comments: A serum folate concentration of less than 3.1 ng/mL isconsidered to represent clinical deficiency. Vitamin B12 251 pg/mL (Normal) Range: 211-946 :33 CALCIFEDIOL (61481) Comments: PATIENT WAS FASTINGPERFORMED BY: GenomeraEaton [facility] Center6370 [facility] [id number] Vitamin D, 25-Hydroxy 45.1 ng/mL (Normal) Range: 30.0-100.0 Comments: Vitamin D deficiency has been defined by the [place] of[place]icine and an Endocrine Society practice guideline as alevel of serum 25-OH vitamin D less than 20 ng/mL (1,2).The Endocrine Society went on to further define vitamin Dinsufficiency as a level between 21 and 29 ng/mL (2).1. IOM ([place] of Medicine). 2010. Dietary reference intakes for calcium and D. [place]: The National Academies Press.2. Sadiq MF, Pasha GARG, Chirag CAMERON, et al. Evaluation, treatment, and prevention of vitamin D deficiency: an Endocrine Society clinical practice guideline. JCEM. 2010; 96(7):1911-30. :33 TSH (THYROID STIMULATING Comments: PATIENT WAS FASTINGPERFORMED BY: LabEaton [facility] Center6370 [facility] [id number] HORMONE) (93609) TSH 3.200 {uIU/mL} (Normal) Range: 0.450-4.500 :33 LIPID PANEL (37805) Comments: PATIENT WAS FASTINGPERFORMED BY: LabEaton [facility] Center6370 [facility] [id number] LDL/HDL Ratio 1.3 {ratio_units} (Normal) Range: 0.0-3.2 Comments: LDL/HDL Ratio Men Women 1/2 Avg.Risk 1.0 1.5 Av g.Risk 3.6 3.2 2X Avg.Risk 6.2 5.0 3X Avg.Risk 8.0 6.1 LDL Cholesterol Calc 68 mg/dL (Normal) Range: 0-99 VLDL Cholesterol Arpit 26 mg/dL (Normal) Range: 5-40 HDL Cholesterol 53 mg/dL (Normal) Triglycerides 129 mg/dL (Normal) Range: 0-149 Cholesterol, Total 147 mg/dL (Normal) Range: 100-199 12-Sde-17843:33 METABOLIC PANEL, COMPREHENSIVE Comments: PATIENT WAS FASTINGPERFORMED BY: LabCoLourdes Medical Center of Burlington CountyKczegt0756 [facility] [id number] (86143) ALT (SGPT) 20 [iU]/L (Normal) Range: 0-32 [...] Glucose, Serum 133 mg/dL (Abnormal) Range: 65-99 00-Gks-60186:33 CBC, PLATELETS & AUT DIFF Comments: PATIENT WAS FASTINGPERFORMED BY: LabCoLourdes Medical Center of Burlington CountyUoirqs8934 [facility] [id number] (60491) Immature Grans (Abs) 0.0 {x10E3/uL} (Normal) Range: [...] (Normal) Range: 3.4-10.8 :04 HgA1C , Office (20904) HgA1C , Office 6.8 % (Normal) Range: 4.6 - 7.1 :04 Blood Glucose , Office (15699) Blood Glucose , Office 140 (Normal) Comments: not fasting :58 VITAMIN D, 1, 25-DIHYDROXY Comments: PATIENT WAS FASTINGPERFORMED BY: Lab[facility] Tupamx9278 [facility] [id number] BY: LabCo[address] [id number] (70870) Calcitriol(1,25 di-OH Vit D) 38.6 pg/mL (Normal) Range: 19.9-79.3 :58 LIPID PANEL (68607) Comments: PATIENT WAS FASTINGPERFORMED BY: TwiiggLourdes Medical Center of Burlington CountyKwtxuj1975 [facility] [id number] BY: Declara[address] [id number] LDL/HDL Ratio 1.7 {ratio_units} (Normal) Range: 0.0-3.2 [...] MICROALBUMIN: CREATININE Comments: PATIENT WAS FASTINGPERFORMED BY: Vayablelin6370 [facility] [id number] BY: Declara[address] [id number] RATIO (84273) AND (31273) Microalb/Creat Ratio 5.1 {mg/g_creat} (Normal) Range: 0.0-30.0 Microalbumin, Urine 6.3 ug/mL (Normal) Creatinine, Urine 122.4 mg/dL (Normal) 61-Scy-97107:58 METABOLIC PANEL, Comments: PATIENT WAS FASTINGPERFORMED BY: TwiiggMatthew Ville 1001270 [facility] [id number] BY: Declara[address] [id number] COMPREHENSIVE (35995) ALT (SGPT) 31 [iU]/L (Normal) Range: 0-32 [...] Glucose, Serum 138 mg/dL (Abnormal) Range: 65-99 28-Dgd-74511:58 CBC, PLATELETS & AUT DIFF Comments: PATIENT WAS FASTINGPERFORMED BY: CB [facility] Fulkzp7843 [facility] [id number] BY: BN [facility] [address] [id number] (65861) Immature Grans (Abs) 0.0 {x10E3/uL} (Normal) Range: [...] (Normal) Range: 3.4-10.8 :14 HgA1C , Office (77012) HgA1C , Office 7.5 % (Abnormal) Range: 4.6 - 7.1 :14 Blood Glucose , Office (03539) Blood Glucose , Office 108 (Normal) :55 HgA1C , Office (59948) HgA1C , Office 7.1 % (Normal) Range: 4.6 - 7.1 :08 CALCIFIDIOL (43853) VIT D 25 Comments: PATIENT WAS FASTINGPERFORMED BY: [facility]6370 [facility] [id number] Vitamin D, 25-Hydroxy 42.3 ng/mL (Normal) Range: 30.0-100.0 Comments: Vitamin D deficiency has been defined by the [place] of[place]icine and an Endocrine Society practice guideline as alevel of serum 25-OH vitamin D less than 20 ng/mL (1,2).The Endocrine Society went on to further define vitamin Dinsufficiency as a level between 21 and 29 ng/mL (2).1. IOM ([place] of Medicine). 2010. Dietary reference intakes for calcium and D. [place]: The National Academies Press.2. Sadiq MF, Pasha GARG, Chirag CAMERON et al. Evaluation, treatment, and prevention of vitamin D deficiency: an Endocrine Society clinical practice guideline. JCEM. 2010; 96(7):1911-30. :08 MICROALBUMIN: CREATININE RATIO Comments: PATIENT WAS FASTINGPERFORMED BY: [place]6370 [facility] [id number] (27857) AND (82828) Microalb/Creat Ratio 6.3 {mg/g_creat} (Normal) Range: 0.0-30.0 Microalbumin, Urine 11.8 ug/mL (Normal) Range: 0.0-17.0 Creatinine, Urine 186.0 mg/dL (Normal) Range: 15.0-278.0 :08 METABOLIC PANEL, COMPREHENSIVE Comments: PATIENT WAS FASTINGPERFORMED BY: [place]6370 [facility] [id number] (94161) ALT (SGPT) 25 [iU]/L (Normal) Range: 0-32 [...] mg/dL (Abnormal) Range: 65-99 :08 LIPID PANEL (24879) Comments: PATIENT WAS FASTINGPERFORMED BY: LabEaton [facility] Center6370 [facility] [id number]; apt. 3--16 LDL/HDL Ratio 1.7 {ratio_units} (Normal) Range: 0.0-3.2 [...] auto diff Comments: PATIENT WAS FASTINGPERFORMED BY: LabCoLourdes Medical Center of Burlington CountyXmgfde7554 [facility] [id number] Information: [id number] (69757) Immature Grans (Abs) 0.0 {x10E3/uL} (Normal) Range: [...] (Normal) Range: 3.4-10.8 :38 HgA1C , Office (14268) HgA1C , Office 7.5 % (Abnormal) Range: 4.6 - 7.1 :38 Blood Glucose , Office (20048) Blood Glucose , Office 171 (Normal) :31 LIPID PANEL (65211) Comments: PATIENT WAS FASTINGPERFORMED BY: LabCoLourdes Medical Center of Burlington CountyNnsbia6899 [facility] [id number] Information: [id number]; apt. 07-31-15 LDL/HDL Ratio 1.7 {ratio_units} (Normal) [...] 177 mg/dL (Normal) Range: 100-199 :31 CALCIFIDIOL (81233) VIT D 25 Comments: PATIENT WAS FASTINGPERFORMED BY: DeclaraLourdes Medical Center of Burlington CountyFglhfj2869 [facility] [id number] Vitamin D, 25-Hydroxy 33.0 ng/mL (Normal) Range: 30.0-100.0 Comments: Vitamin D deficiency has been defined by the [place] ofS[facility] Hospitalcine and an Endocrine Society practice guideline as alevel of serum 25-OH vitamin D less than 20 ng/mL (1,2).The Endocrine Society went on to further define vitamin Dinsufficiency as a level between 21 and 29 ng/mL (2).1. IOM ([place] of Medicine). 2010. Dietary reference intakes for calcium and D. [place]: The National Academies Press.2. Sadiq MF, Pasha GARG, Chirag CAMERON, et al. Evaluation, treatment, and prevention of vitamin D deficiency: an Endocrine Society clinical practice guideline. JCEM. 2010; 96(7):1911-30. :09 HgA1C , Office (01110) HgA1C , Office 6.8 % (Normal) Range: 4.6 - 7.1 :09 Blood Glucose , Office (33446) Blood Glucose , Office 172 (Normal) :20 CBC With Differential/Platelet Comments: PATIENT WAS FASTINGPERFORMED BY: LabCoMountain View Regional Medical CenterWbzfdy7428 [facility] [id number] Information: [id number] Immature Grans (Abs) 0.0 {x10E3/uL} (Normal) Range: [...] Panel (14) Comments: PATIENT WAS FASTINGPERFORMED BY: LabCoLourdes Medical Center of Burlington CountyIvvpfu8619 [facility] [id number]; will review at 03/27 appt ALT (SGPT) [...] With LDL/HDL Comments: PATIENT WAS FASTINGPERFORMED BY: [place]6370 [employer] [facility] [id number] Ratio LDL/HDL Ratio 1.8 {ratio_units} Range: 0.0-3.2 [...] ng/mL (Abnormal) Comments: PATIENT NOT FASTINGPERFORMED BY: Vayablelin6370 [facility] [id number] Information: [id number] 20 Range: 30.0-100.0 Comments: Vitamin D deficiency has been defined by the [place] of[place]icine and an Endocrine Society practice guideline as alevel of serum 25-OH vitamin D less than 20 ng/mL (1,2).The Endocrine Society went on to further define vitamin Dinsufficiency as a level between 21 and 29 ng/mL (2).1. IOM ([place] of Medicine). 2010. Dietary reference intakes for calcium and D. [place]: The National Academies Press.2. Sadiq MF, Pasha [place], Chirag CAMERON, et al. Evaluation, treatment, and prevention of vitamin D deficiency: an Endocrine Society clinical practice guideline. JCEM. 2010; 96(7):1911-30. :40 Rapid Strep Test, Office (27881) Rapid Strep Test, Office Negative (Normal) :39 Rapid Flu (31016 x 2) Influenza A Ag neg a and b (Normal) :45 HgA1C , Office (86784) HgA1C , Office 7.2 % (Abnormal) Range: 4.6 - 7.1 :16 Basic Metabolic Profile (BMP) Comments: Test performed at:[facility] [address] [place] [address] GAP 6 (Normal) Range: 5-15 CO2 31.0 [...] :16 CBC W/Diff, Automated Comments: Test performed at:[facility] Vjcizjgito8553 [facility] [place], [place] [id number] Absolute Lymph 1.81 {X10_3/ul} (Normal) Range: 0.83-4.51 [...] 4.2-5.4 WBC 4.7 K/mm3 (Normal) Range: 4.4-11.0 59-Xjq-271286:23 Rapid Flu (09960 x 2) Influenza A Ag positive A (Normal) 81-Afq-24211:30 METABOLIC PANEL, COMPREHENSIVE Comments: PATIENT WAS FASTINGPERFORMED BY: LabCoLourdes Medical Center of Burlington CountyLxixqy2368 [facility] [id number] (15674) ALT (SGPT) 21 [iU]/L (Normal) Range: 0-32 [...] Glucose, Serum 138 mg/dL (Abnormal) Range: 65-99 81-Xrx-74459:30 CBC WITH MANUAL DIFF Comments: PATIENT WAS FASTINGPERFORMED BY: LabCoLourdes Medical Center of Burlington CountyDmtaiv9993 [facility] [id number] Information: [id number] (53509) Immature Grans (Abs) 0.0 {x10E3/uL} (Normal) Range: [...] 3.77-5.28 WBC 7.5 {x10E3/uL} (Normal) Range: 3.4-10.8 2-Pzn-304572:56 Anticardiolip Ab, IgA/G/M, Comments: PATIENT NOT FASTINGPERFORMED BY: BN [facility] [address] [id number] BY: CB [facility] Dkkwio9365 [facility] [id number] BY: TG [facility] Qn AWX4290 [facility] [id number] Anticardiolipin Ab,IgA,Qn <9 {APL_U/mL} (Normal) Range: 0-11 [...] Positive: >20 - 80 High Positive: >80 5-Bro-278518:56 Antithrombin III, Comments: PATIENT NOT FASTINGPERFORMED BY: [facility] [address] [id number] BY: CB [facility] Bvllhl0638 Jesus RoadDublin [place] [id number] BY: TG [facility] Func/Immunol GEJ1682 [facility] [id number] Antithrombin Activity 117 % (Normal) Range: 75-135 Antithrombin Antigen 116 % (Normal) Range: 75-130 3-Kum-741317:5 Factor II Activity 111 % (Normal) Comments: PATIENT NOT FASTINGPERFORMED BY: [facility] [address] [id number] BY: [facility] Qfcism7775 [facility] [id number] BY: LabCoallendale [facility] hospital BHY2364 [facility] [id number] Range: 75-130 2-Oaa-844153:56 Factor V Leiden Mutation Comments: PATIENT NOT FASTINGPERFORMED BY: [facility] [address] [id number] BY: [facility] Jbrdqm3440 [facility] Childrenin [place] [id number] BY: [facility] FYN4635 [facility] [id number] Factor V Leiden FVNEG3 (Normal) Comments: Result: [...] in the workup for venous thrombosis include [id number] mutation in the factor II (prothrombin) gene,protein S and C deficiency, and antithromb in deficiencies.Anticardiolipin antibody and lupus anticoagulant analysismay be appropriate for certain patients, as well ashomocysteine levels. .Contact your local [facility] for information on how to orderadditional testing if desired. .Genetic counselors are available for health care* providers to discuss results at [phone] [employer] ([phone]). .Methodology:DNA analysis of the Factor V gene was performed by allele-specific PCR followed by gel electrophoresis. The diagnosticsensitivity and specificity is >99% for both. Molecular-based testing is highly accurate, but as in any laboratorytest, diagnostic errors may occur. All test results must becombined with clinical information for the most accurateinterpretation. .References:Kilo Pratt (1996). Clin Lab Med 16: 169-186. .Koby Do, PhDTaylor Smith PhDShahida Rubio, PhDRuth Ann Velasquez, PhDMally Potter, PhDJenny Astorga MD, PhDS JACOBY Davidson, PhD . Homocyst(e)ine, 10.8 umol/L Comments: PATIENT NOT FASTINGPERFORMED BY: LabCo[address] [id number] BY: LabE[facility] Center6370 [facility] [id number] BY: LabC[facility] 8:56 Plasma (Normal) AWM8938 [facility] [id number] Range: 0.0-15.0 8-Mfy-305140:56 MTHFR Comments: PATIENT NOT FASTINGPERFORMED BY: LabCo[address] [id number] BY: LabE[facility] Center6370 [facility] [id number] BY: [facility] VWF1518 [facility]TP [place] [id number] MTHFR, DNA Analysis [id number] (Normal) Comments: Result: C677T/C677T Two copies of the same mutation (C677T and C677T) identified .Interpretation: .This individual is homozygous for the MTHFR C677T variant (two copies).The MTHFR Y2409A variant was not identified. Homozygosity for vrsI185N mutation confers an increased risk for the [...] discuss these results with healthcare providers at [phone]. .Methylenetetrahydrofolate reductase (MTHFR) is a salazar enzyme in thefolate pathway and is responsible for the metabolism of homocysteine.There are two common variants i n the MTHFR gene, c.655C>T(p.Eif228Clz), referred to as C677T, and c.1286A>C (p.Lnm540Qkh),referred to as I6454I. Individuals homozygous for C677T (two copiesof the variant), have decreased activi ty of the MTHFR enzyme and apredisposition to hyperhomocysteinemia, particularly when deficient infolate. Hyperhomocysteinemia is a risk factor for venous thrombosisand coronary artery disease and is as sociated with an increased riskof open neural tube defects. The C677T variant does notindependently increase risk of these conditions in the absence ofhyperhomocysteinemia. The N7864H variant is n ot associated withelevated homocysteine levels unless a C677T variant is also present;however, the clinical significance of heterozygosity for both L695Kjxg I0770W is controversial. Population data sugg est that these twovariants are not present on the same chromosome, but rare exceptionshave been reported of triple variant MTHFR genotypes (ie. homozygousfor one variant and heterozygous for the other). Homozygosity jutC811X has an estimated frequency of 10% to [...] for the most accuratei nterpretation. .Esperanza LD, Suhail Q. Am J Epidemiol 2000; 151(9):862-877.Anibal MM, Bryan JA. Arch Pathol Lab Med 2007; 131(6):872-884.Frosst P et al. Anahi Naomi 1995; 10(1):111-113.Hickey SE et al. Naomi Med 2013; 15(2):153- 156.Epworth C et al. Obstet Gynecol 2011; 118(3):730-740.Esdras B et al. Eur J Epidemiol 2013; 28(8):621-647. .Jami Gongora MD, PhDJessica Bran, PhDLacy Gutierrez PhDDorothy Adcock, MDAnnette K Taylor, MS, PhD 7-Bot-644018:56 Protein C Deficiency Comments: PATIENT NOT FASTINGPERFORMED BY: BN [facility] Afpifvvime6360 [facility] [id number] BY: CB [facility] Bttdzg3790 [facility] [id number] BY: TG [facility] Profile [id number] TW [facility] [id number] Protein C-Functional 137 % (Normal) Range: 74-151 Protein C Antigen 124 % (Normal) Range: 70-140 2-Lub-770557:56 Protein S Panel Comments: PATIENT NOT FASTINGPERFORMED BY: Lab[facility]1447 [facility] [id number] BY: LabE[facility] Center6370 [facility] [id number] BY: [facility] EJN9816 JOSELIT[facility] [id number] Protein S-Functional 120 % (Normal) Range: 60-145 Protein S, Free 129 % (Abnormal) Range: 56-124 Protein S, Total 112 % (Normal) Range: 58-150 :17 Metabolic Panel, Basic (99925) Comments: PATIENT WAS FASTINGPERFORMED BY: GenomeraEaton Rapids Medical Center6370 [facility] [id number] Calcium, Serum 9.4 mg/dL (Normal) Range: 8.6-10.2 [...] mg/dL (Abnormal) Range: 65-99 :17 CBC (Auto) (05435) Comments: PATIENT WAS FASTINGPERFORMED BY: LabE[facility] Center6370 [facility] [id number] Information: [id number] Platelets 201 {x10E3/uL} (Normal) Range: 150-379 RDW 13.1 % (Normal) Range: 12.3-15.4 MCH 29.2 pg (Normal) Range: 26.6-33.0 MCHC 32.7 g/dL (Normal) Range: 31.5-35.7 MCV 89 fL (Normal) Range: 79-97 Hematocrit 40.1 % (Normal) Range: 34.0-46.6 Hemoglobin 13.1 g/dL (Normal) Range: 11.1-15.9 RBC 4.49 {x10E6/uL} (Normal) Range: 3.77-5.28 WBC 6.6 {x10E3/uL} (Normal) Range: 3.4-10.8 :04 HgA1C , Office (54737) HgA1C , Office 8.4 % (Abnormal) Range: 4.6 - 7.1 :04 Blood Glucose , Office (16746) Blood Glucose , Office 198 (Normal) :47 MICROALBUMIN: CREATININE RATIO Comments: PATIENT WAS FASTINGPERFORMED BY: DeclaraLourdes Medical Center of Burlington CountyTiigjx8659 [facility] [id number] (63772) AND (68703) Microalb/Creat Ratio 4.0 {mg/g_creat} (Normal) Range: 0.0-30.0 Microalbumin, Urine 5.6 ug/mL (Normal) Range: 0.0-17.0 Creatinine, Urine 139.4 mg/dL (Normal) Range: 15.0-278.0 :47 METABOLIC PANEL, COMPREHENSIVE Comments: PATIENT WAS FASTINGPERFORMED BY: [facility]6370 [facility] [id number] (73225) ALT (SGPT) 25 [iU]/L (Normal) Range: 0-32 [...] Glucose, Serum 177 mg/dL (Abnormal) Range: 65-99 17-Ecz-86631:47 LIPID PANEL (62894) Comments: PATIENT WAS FASTINGPERFORMED BY: [facility] [id number]; Non-emergent and has apt next week 02/2014. LDL/HDL Ratio 1.4 {ratio_units} (Normal) Range: 0.0-3.2 LDL Cholesterol Calc 81 mg/dL (Normal) Range: 0-99 VLDL Cholesterol Arpit 38 mg/dL (Normal) Range: 5-40 HDL Cholesterol 56 mg/dL (Normal) Comments: According to ATP-III Guidelines, HDL-C >59 mg/dL is considered anegative risk factor for CHD. Triglycerides 191 mg/dL (Abnormal) Range: 0-149 Cholesterol, Total 175 mg/dL (Normal) Range: 100-199 27-Ejq-82220:47 CBC WITH MANUAL DIFF Comments: PATIENT WAS FASTINGPERFORMED BY: [place]6370 [facility] [id number] Information: [id number] (53311) Immature Grans (Abs) 0.0 {x10E3/uL} (Normal) Range: [...] Range: 3.4-10.8 :06 Blood Glucose , Office (61999) Blood Glucose , Office 135 (Normal) :06 HgA1C , Office (71041) HgA1C , Office 7.1 % (Normal) Range: 4.6 - 7.1 :23 Hemoglobin Glyclated (HGB A1C) Comments: PATIENT WAS FASTINGPERFORMED BY: MORE DeclaraLourdes Medical Center of Burlington CountyXixoxb4145 [facility] [id number] (76611) Hemoglobin A1c 6.5 % (Abnormal) Range: 4.8-5.6 Comments: . Increased risk for diabetes: 5.7 - 6.4 Diabetes: >6.4 Glycemic control for adults with diabetes: <7.0 :23 MICROALBUMIN: CREATININE RATIO Comments: PATIENT WAS FASTINGPERFORMED BY: [employer] Ridge Networkslin6370 [facility] [id number] (39455) AND (17410) Microalb/Creat Ratio 2.3 {mg/g_creat} (Normal) Range: 0.0-30.0 Microalbumin, Urine 1.7 ug/mL (Normal) Range: 0.0-17.0 Creatinine, Urine 75.5 mg/dL (Normal) Range: 15.0-278.0 19-Jul-20138:23 METABOLIC PANEL, COMPREHENSIVE Comments: PATIENT WAS FASTINGPERFORMED BY: DeclaraLourdes Medical Center of Burlington CountyJklzse7300 [facility] [id number] (55344) ALT (SGPT) 19 [iU]/L (Normal) Range: 0-32 [...] mg/dL (Abnormal) Range: 65-99 :23 LIPID PANEL (05182) Comments: PATIENT WAS FASTINGPERFORMED BY: DeclaraLourdes Medical Center of Burlington CountyNgdcoo8935 [facility] [id number] LDL/HDL Ratio 1.8 {ratio_units} (Normal) Range: 0.0-3.2 [...] MANUAL DIFF Comments: PATIENT WAS FASTINGPERFORMED BY: Declara Nfenvw7747 [facility] [id number] Information: [id number] (87313) Immature Grans (Abs) 0.0 {x10E3/uL} (Normal) Range: [...] (Normal) Range: 3.4-10.8 :37 HgA1C , Office (49796) HgA1C , Office .26 % (Abnormal) Range: [...] mg/L (Normal) UR CREAT 155.1 mg/dL (Normal) :29 Blood Glucose , Office (72094) Blood Glucose , Office 101 (Normal) Plan [...] Nonprescription Treatment Indication: Hypercholesteremia Planned Observations CALCIFEDIOL (50357)Indication: Vitamin D deficiency On: 78-Aqr-528828:41 Request Metabolic Panel, Comprehensive (10830)Indication: BMI 26.0-26.9,adult On: 56-Hgi-141333:41 Request LIPID PANEL (88852)Indication: Diabetes mellitus type 2, controlled On: 64-Ycw-171587:40 Request CALCIFEDIOL (49289)Indication: Osteopenia On: 6-Axe-662047:03 Request METABOLIC PANEL, COMPREHENSIVE (41843)Indication: Benign essential hypertension On: 41-Ibh-46750:10 Request LIPID PANEL (44686)Indication: Benign essential hypertension On: 53-Qdo-56678:10 Request CBC W/AUTO DIFF WBC (58681)Indication: Benign essential hypertension On: 70-Avm-00031:10 Request Protein S Profile (28122)Indication: Pulmonary embolism On: :45 Request Protein C Profile (00788)Indication: Pulmonary embolism On: :45 Request Homocysteine, Plasma (53286)Indication: Pulmonary embolism On: :45 Request Antiphospholipid atb (57400)Indication: Pulmonary embolism On: :45 Request ANTICOAG ANTTHROMB III & ASSAY (53631)Indication: Pulmonary embolism On: :45 Request ANTITHROMBIN III ACTIVTY (53129)Indication: Pulmonary embolism On: :45 Request CLOTTING FACTOR II (88656)Indication: Pulmonary embolism On: :45 Request Factor V Leiden (75416)Indication: Pulmonary embolism On: 0-Ftp-715335:45 Request MTHFR (71084)Indication: Pulmonary embolism On: 3-Qba-969452:45 Request HEPATIC FUNCTION PANEL (49781)Indication: Hypercholesteremia On: 01-Erz-15998:59 Request LIPID PANEL (68352)Indication: Hypercholesteremia On: 58-Clf-50537:59 Request MICROALBUMIN: CREATININE RATIO (53903) AND (22496)Indication: Diabetes mellitus type 2, controlled On: 5-Hug-577020:35 Request METABOLIC PANEL, COMPREHENSIVE (74020)Indication: Diabetes mellitus type 2, controlled On: 4-Zkq-667896:35 Request LIPID PANEL (68862)Indication: Diabetes mellitus type 2, controlled On: :35 Request CBC WITH MANUAL DIFF (27320)Indication: Diabetes mellitus type 2, controlled On: :35 Request Planned Encounters Medical; 6 Month FU - On: 14-Aug-2018 8:15 Comprehensive Internal [facility] [place] Planned Procedures MAMMOGRAM, RIGHT ([id number])By: Radha On: 28-Aug-2016 Intent Terrence WING Breast Ultrasound - RightBy: Radha On: 28-Aug-2016 Intent Terrence WING MAMMOGRAM, SCREENING, BOTH BREAST On: 31-Jul-2015 Intent ([id number])By: Annalee Alvarenga MD Comments: 2-16 CTA CHEST W/W/O CONTRAST On: 08-Dec-2014 Intent ([id number])By: Suri Paredes DO Aerosol Treatment ([id number])By: On: 08-Dec-2014 Intent Suri Paredes DO Comments: more a/e- DEXA SCAN AXIAL SKELETON On: 04-Oct-2014 Intent ([id number])By: Annalee Alvarenga MD Comments: postmenapausal MAMMOGRAM, SCREENING, BOTH BREAST On: 04-Oct-2014 Intent ([id number])By: Annalee Alvarenga MD EKG ([id number])By: Annalee Alvarenga MD On: 04-Oct-2014 Intent Comments: see scanned document of test done to see results reviewed today with patient CT - Cardiac CTABy: Colette WING, On: 14-Apr-2014 Intent Annalee Tsang Venous Doppler - LeftBy: Colette On: 22-Mar-2014 Intent Annalee WING Comments: bilateral legs today COMPUTED TOMOGRAPHY ANGIOGRAPHY OF On: 09-Mar-2014 Intent CHEST WITH AND WITHOUT CONTRAST Comments: PE PROTOCOL ([id number])By: Annalee Alvarenga MD CT - Chest (IV Contrast Needed)By: On: 08-Mar-2014 Intent Annalee Alvarenga MD Comments: due pe protocol Ultrasound - Breast - LeftBy: On: 08-Mar-2014 Intent Annalee Alvarenga MD Echo CompleteBy: Annalee Alvarenga MD On: 15-Feb-2014 Maddie Tsang Eprescribed prescriptions On: 15-Feb-2014 Intent ([id number])By: Annalee Alvarenga MD Inhaler Demo ([id number])By: Reggie BRAND, On: 11-Nov-2013 Intent Suri Radiology - Chest- PA and LatBy: On: 11-Nov-2013 Intent Suri Paredes DO Aerosol Treatment ([id number])By: On: 11-Nov-2013 Intent Suri Paredes DO Comments: more a/e less tight Eprescribed prescriptions On: 11-Nov-2013 Intent ([id number])By: Suri Paredes DO Breast Screening - BilateralBy: On: 14-Jul-2013 Intent Annalee Alvarenga MD MAMMOGRAM, SCREENING, BOTH BREASTS On: 08-Jul-2013 Intent ([id number])By: Annalee Alvarenga MD EKG ([id number])By: Annalee Alvarenga MD On: 22-Jun-2013 Intent Comments: see scanned document of test done to see results reviewed today with patient Eprescribed prescriptions On: 22-Jun-2013 Intent ([id number])By: Amalia Wilder LPN EKG ([id number])By: Annalee Alvarenga MD On: 03-Sep-2007 Intent Ultrasound - Abdomen (Limited Area On: 03-Sep-2007 Intent or Organs)By: Annalee Alvarenga MD Comments: upper look at mass in epig area and luq Ultrasound - GallbladderBy: On: 03-Sep-2007 Intent Annalee Alvarenga MD EKG ([id number])By: Annalee Alvarenga MD On: 03-Sep-2007 Intent Instructions Name Dates Details Diabetes mellitus type 2, controlled : How [...] type 2, controlled Cyst, breast, right : [facility] - BREAST RIGHT ([id number]) Indication: Cyst, breast, right Diabetes mellitus type [...] Indication: Diabetes mellitus type 2, controlled Encounters Annotation/Addendum On: 19-Jun-2018 13:15 [facility] [...] Victoza was too expensive but worked in [facility] Diagnosis: Diabetes mellitus type 2, controlled, [...] The patient does have durable power of vascular manager and living will. The patient has noticed nothing from the geriatic depression scale. Other providers contributing to the patient's care are other: (Opthalm: Dr. Zavala in [place] ).Encounter Diagnosis: Encounter for Medicare annual wellness [...] to get last script of victoza in [facility]. Encounter Diagnosis: Preop examination, Type II Diabetes,controlled [...]
--- OUTSIDE RECORDS SUMMARY | 2018-12-08 07:38 | XMS RPT_ITS | Continuity of Care Document ---
:1945 Author Organization [facility] Address [address] [place] [address] Phone Care Team Providers Name Role Phone [...] this time, but will referral to Dr Dukse 6 mmx 6 mmx 5 mm rt breast(02/28) Status: Active Deliveries (Parity) Comments: 2 Status: Active Diabetes mellitus type 2, controlled (E11.9, 250.00) Comments: HBA1c: 7.1(12/04/15) HBA1c :7.5 (02/28)HBA1c 6.8 (06/30)HBA1c 6.9 (7-18-17) EK12/07/15 Blood sugars at home:does not checkExercise: noDiet adherance:not eat very wellVision problems:noOpthalmology exam : 05/31 , no diabetic changes, Cataract), no changes, Nat Gallegos, [facility].Labs:urine albumin/Cr:Lipid panel:[id number] on medicine done.DIABETIC FOOT CARE:Check feet daily [...] {Tablet} Refills: 3 Ordered:14-Aug-2018 Parisa CAPPS Kristine NICOLEshireen CAPPS Kristine Perrin Start : 14-Aug-2018 Active Losartan Potassium 50 MG Oral Tablet 1 (one) Tablet daily for 90 days Quantity: 90 {Tablet} Refills: 3 Ordered:11-Feb-2018 Parisa CAPPS Kristine Wanda CAPPS Kristine Perrin Start : 11-Feb-2018 Active Magnesium zinc daily Active MetFORMIN HCl 1000 MG Oral Tablet 1 (one) Tablet 1in am and 1/2 qpm for 90 days Quantity: 135 {Tablet} Refills: 3 Ordered:31-Aug-2018 aPrisa CAPPS Kristine Wanda CAPPS Kristine Perrin Start : 31-Aug-2018 Active MVI daily Active OneTouch Ultra Blue In Vitro Strip 1 (one) Strip bid for 90 days Quantity: 180 {Strip} Refills: 3 Ordered:14-Aug-2018 Parisa CAPPS Kristine Wanda CAPPS Kristine Perrin Start : 14-Aug-2018 Active OneTouch Ultra Blue In Vitro Strip 1 (one) Strip bid for 90 days Quantity: 180 {Strip} Refills: 3 Ordered:14-Aug-2018 Parisa CAPSP Kristine Wanda CAPPS Kristine Perrin Start : 14-Aug-2018 Active OneTouch Ultra Mini w/Device Kit 1 (one) Kit Kit qd for 0 days Quantity: 1 Kit Refills: 0 Ordered:26-Jun-2016 Ilai Garcia Start : 26-Jun-2016 Active Pravastatin Sodium [...] Quantity: 90 {Tablet} Refills: 3 Ordered:22-Jun-2013 Long SYSTEM ADMIN, Amalia L Start : 13-Aug-2007 End : 22-Jun-2013 Inactive ASTELIN, 137MCG/SPRAY (Nasal Solution) Solution QD for 0 days Quantity: 1 {Solution} Refills: 3 Ordered:22-Jun-2013 Long SYSTEM ADMIN, Amalia L Start : 16-Jul-2007 End : [...] 15-May-2015 End : 31-Jul-2015 Inactive CALTRATE 600+D, 590-167OR-PKJA (Oral Tablet) 2 (two) Tablet qd for [...] 16-Feb-2015 End : 27-Mar-2015 Inactive Comments:DX: 250.00NPI: [id number] PREDNISONE, 20MG (Oral Tablet) 1 (one) Tablet qd for 0 days Quantity: 4 {Tablet} Refills: 0 Ordered:15-Feb-2014 Long SYSTEM ADMIN, Amalia L Start : 11-Nov-2013 End : 15-Feb-2014 Inactive PROVENTIL HFA, 108 (90 Base)MCG/ACT (Inhalation Aerosol Solution) 2 (two) Aerosol Soln q 6 hr prn for 0 days Quantity: 1 {Canister} Refills: 0 Ordered:27-Mar-2015 GURPREET Brito Start : 08-Dec-2014 End : 27-Mar-2015 Inactive SIMVASTATIN, 80MG (Oral Tablet) Tablet QD for 0 days Quantity: 90 {Tablet} Refills: 3 Ordered:22-Jun-2013 Long SYSTEM ADMIN, Amalia L Start : 03-Sep-2007 End : 22-Jun-2013 Inactive TAMIFLU, 75MG (Oral Capsule) 1 (one) Capsule bid for 5 days Quantity: 10 {Capsule} Refills: 0 Ordered:12-Sep-2014 Laura Doll Start : 12-Sep-2014 End : 17-Sep-2014 Inactive TENORMIN, 50MG (Oral Tablet) 1 Tablet qd for 0 days Quantity: 30 {Tablet} Refills: 0 Ordered:22-Jun-2013 Long SYSTEM ADMIN, Amalia L Start : 13-Aug-2007 End : [...] Study (HP) Result: Comments: See Note; NOTES: [facility] Imaging Services [address] [place] [address] Verdana 4d Dexa Bone Density Study (HP) MR#: [id number] Acct: [id number] Name: ALFONSO SANTIAGO EN Rep #: [id number] : 1945 F 71 From: Gutierrez Fisher MD PCP: Terrence Garcia Status: REG CLI Study: Dexa Bone Density Study (HP) Date of Exam: 10/22/16 Exam# [id number] Ordering Dr: Mevlin Garcia STUDY: DUAL ENERGY X-RAY ABSORPTIOMETRY / [...] Gutierrez Fisher MD at 9:00 EST Tel [phone], Service support [phone], CC: Terrence Garcia Java Security Architect: Signed 02-Sep-2016 Breast Limited Unilateral Result: Comments: See Note; NOTES: [facility] Imaging Services [address] [place] [address] Verda 4d Breast Limited Unilateral MR#: [id number] Acct: [id number] Name: EMILY SANTIAGO Rep #: [id number] : 1945 F 71 From: David Mclaughlin MD PCP: Terrence Garcia Status: REG CLI Study: Breast Limited Unilateral Date of Exam: 09/02/16 Exam# [id number] Ordering Dr: Terrence Garcia STUDY: UL TRASOUND [...] at 10:19 EST Tel , Service support [phone], CC: Terrence Garcia Java Security Architect: Signed 14-Feb-2016 Breast Limited Unilateral Result: Comments: See Note; NOTES: [facility] Imaging Services [address] [place] [address], [place] [address] Verdana 4d Breast Limited Unilateral MR#: [id number] Acct: [id number] Name: EMILY AVINA Rep #: [id number] : 1945 F 71 From: Gutierrez Fisher MD PCP: Annalee Alvarenga MD Status: REG CLI Study: Breast Limited Unilateral Date of Exam: 02/14/16 Exam# [id number] Ordering Dr: Annalee Alvarenga MD STUDY: ULTRASOUND [...] Gutierrez Fisher MD at 9:13 EDT Tel [phone], Service support [phone], CC: Annalee Alvarenga MD Java Security Architect: Signed 09-Feb-2016 Bilat Scrn Digital AND CAD Result: Comments: See Note; NOTES: [facility] Imaging Services [address] [place] [address] Verdana 4d Bilat Scrn Digital AND CAD MR#: [id number] Acct: [id number] Name: EMILY SANTIAGO Rep #: [id number] : 1945 F 71 From: Gutierrez Fisher MD PCP: Annalee Alvarenga MD Status: REG CLI Study: Bilat Scrn Digital AND CAD Date of Exam: 02/09/16 Exam# [id number] Hamzah ziegler Dr: Annalee Alvarenga MD MAMMOGRAPHY [...] biopsy of a clinically suspicious abnorma lity. [id number] Electronically Signed: Gutierrez Fisher MD at 10:27 EDT Tel [phone], Service support [phone], CC: Annalee Alvarenga MD Java Security Architect: Signed 04-Dec-2015 ELECTROCARDIOGRAM, COMPLETE (ECG) (74608) Comments: see scanned document of test done to see results reviewed today with patient Result: [MEASUREMENTS ANALYSIS] Date of Test: 12/04/2015 08:33:40; Heart Rate: 71; OR Interval: 146; QRS: 96; QT Interval: 370; Corrected QT Interval (QTc): 389; P Wave Amelia: 52; QRS Wave Amelia: -15; T Wave Amelia : -1; Blood Pressure: 140/80 [ECG DIAGNOSTIC STATEMENTS] Date of Test: 12/04/2015 08:33:40; Summary: Sinus Rhythm WITHIN NORMAL LIMITS 15-May-2015 Spirometry (95342) Comments: see scanned document of test done to see results reviewed today with patient Result: 08-Dec-2014 Spirometry (88747) Comments: poor technique- mild restriction Result: 18-Oct-2014 Bilat Scrn Digital AND CAD Result: Comments: See Note; NOTES: [facility] Imaging Services [address] [place] [address] Breast Imaging Report MR#: [id number] Acct: [id number] Name: EMILY SANTIAGO Rep #: [id number] : 1945 F 69 From: Gutierrez Fisher MD PCP: Annalee Alvarenga MD Status: REG CLI Study: Bilat Scrn Digital AND CAD Date of Exam: 10/18/14 Exam# [id number] Ordering Dr: Annalee Alvarenga MD MAMMOGRAPHY - [...] Gutierrez Fisher MD at 9:48 EST Tel [phone], Service support [phone], CC: Annalee Alvarenga MD Java Security Architect: Signed 18-Oct-2014 Dexa Bone Density Study (HP) Result: Comments: See Note; NOTES: [facility] Imaging Services [address] [place] [address] Bone Density Report MR#: [id number] Acct: [id number] Name: EMILY SANTIAGO Rep #: [id number] : 1945 F 69 From: Gutierrez Fisher MD PCP: Annalee Alvarenga MD Status: REG CLI Study: Dexa Bone Density Study (HP) Date of Exam: 10/18/14 Exam# [id number] Ordering Dr: Annalee Alvarenga MD STUDY: DUAL [...] Gutierrez Fisher MD at 11:31 EST Tel [phone], Service support [phone], CC: Annalee Alvarenga MD Java Security Architect: Signed 23-Sep-2014 Discharge Instruction Result: Comments: See Note; NOTES: [facility] Medical Records Department [address] [place] [address] Discharge Instruction 09/15/14 1351 MR#: [id number] Acct: [id number] Name: EMILY SANTIAGO Rep #: [id number] : 1945 69 From: Phani Valencia MD [...] contact your doctor. Call [facility] ( [phone]) or report to the closest Emergency Room. Call 911 if necessary. 09/23/14 0821 <Electronically signed by Phani Valencia MD> Date ____ Phani Valencia MD Cosigner Signature (If Indicated): Date CC: Annalee Alvarenga MD 23-Sep-2014 Emergency Department Summary Result: Comments: See Note; NOTES: [facility] Medical Records Department [address] [place] [address] Emergency Department Summary MR#: [id number] Acct: [id number] Name: EMILY SANTIAGO Rep #: [id number] : 1945 69 From: Phani Valencia MD [...] Hugh Ramirez C: Annalee Alvarenga MD T: [facility] JOB: [id number] 09/23/14 0821 <Electronically melissa d by Phani Valencia MD> Date Phani Valencia MD CC: Annalee Alvarenga MD Date Dictated: 09/18/14 1201 Date Transcribed: 09/18/141200 Java Security Architect: Signed 15-Sep-2014 Chest PA and Lateral Result: Comments: See Note; NOTES: [facility] Imaging Services [address] [place] [address] Radiology Report MR#: [id number] Acct: [id number] Name: EMILY SANTIAGO Rep #: [id number] : 1945 F 69 From: Karina Grimm MD PCP: Annalee Alvarenga MD Status: DEP ER Study: Chest PA and Lateral Date of Exam: 09/15/14 Exam# [id number] Ordering Dr: Phani Valencia MD STUDY: X-RA [...] at 9:27 EST Tel , Service support [phone], RAD/Chest PA and Lateral IMPRESSION: There is no evidence of acute disease. Electronically Sign ed: Lakshmi Grimm MD at 9:27 EST Tel , Service support [phone], CC: Annalee Alvarenga MD; Phani Valencia MD Java Security Architect: Signed 11-Mar-2014 Echocardiogram Complete Result: Comments: See Note; NOTES: [facility] Cardiovascular Services [address] [place] [address] Echo Complete 03/11/14 1314 MR#: [id number] Acct: [id number] Name: MEME SANTIAGO Rep #: [id number] : 1945 69 From: Joshua Leonard MD Attending Dr: Annalee Alvarenga MD Status: REG CLI Ordering Dr: Annalee Alvarenga MD Date: 03/11/14 Location: CT Sex: F C Admitted: [facility] This was a 2D Doppler, Color Flow transthoracic echocardiogram. The exam was of adequate technical quality. Exam performed in department. Left Ventricle Normal LV size. Segmental dysfunction with preserved ejection fraction (see wall motion). The estimated ejection fraction is 55 %. Septal bounce. Infero-Basal: Hypokinetic. Mid-Inferior: Hypokinetic. Mid-inferoseptal : Hypokinetic. Mid- anteroseptal : Hypokinetic. Anterior [place] : Hypokinetic. Inferior [place] : Hypokinetic. Septal [place] : Hypokinetic. Right Ventricle Normal RV size. [...] Dictated: 03/11/14 1314 Date Transcribed: 03/11/14 1713 Java Security Architect: Signed 11-Mar-2014 CTA Chest W/WO Contrast Result: Comments: See Note; NOTES: [facility] Imaging Services [address] [place] [address] CAT Scan Report MR#: [id number] Acct: [id number] Name: EMILY SANTIAGO Rep #: [id number] : 1945 F 69 From: Gutierrez Fisher MD PCP: Annalee Alvarenga MD Status: REG CLI Study: CTA Chest W/WO Contrast Date of Exam: 03/11/14 Exam# [id number] Ordering Dr: Annalee Alvarenga MD STUDY : [...] Gutierrez Fisher MD at 15:17 EDT Tel [phone], Service support [phone], CC: Annalee Alvarenga MD Java Security Architect: Signed 11-Nov-2013 Chest PA and Lateral Result: Comments: See Note; NOTES: [facility] Imaging Services [address] [place] [address] Radiology Report MR#: [id number] Acct: [id number] Name: EMILY SANTIAGO Rep #: [id number] : 1945 F 68 From: Alexander Gilman DO PCP: Suri Paredes DO Status: REG CLI Study: Chest PA and Lateral Date of Exam: 11/11/13 Exam# [id number] Ordering Dr: Suri Paredes DO STUDY: X [...] D.O. at 21:45 EST , Service support [phone], CC: Suri Paredes DO Java Security Architect: Signed 21-Jul-2013 Adele Quintero Digital & CAD Result: Comments: See Note; NOTES: [facility] Imaging Services [address] [place] [address] Breast Imaging Report MR#: [id number] Acct: [id number] Name: EMILY SANTIAGO Rep #: [id number] : 1945 F 68 From: Gutierrez Fisher MD PCP: CARLOS LING Status: REG CLI Exam# [id number] Ordering Dr: Annalee Alvarenga MD MAMMOGRAPHY - [...] 21, 2013 at 2 :40:05 PM EST [phone] Electronically Signed GP/GP If you are the referring physician and would like to consult with the radiologist who provided this interpretation, please contact Gutierrez Fisher M.D. at [phone]. If this radiologist is unavailable, you will be directed to another radiologist to assist. If you are a patient with a question regarding this report, please contact your referring physician directly. Professional Interpretation Provided By: [employer], Phone , These documents contain legally protected [...] documents. CC: CARLOS LING; Annalee Alvarenga MD Java Security Architect: Signed Family History Unknown Family Member Name [...] Results Date Description Value Details :39 CALCIFEDIOL (56352) Comments: PATIENT WAS FASTINGPERFORMED BY: [facility]Jcqjwa0161 [facility] [id number] Vitamin D, 25-Hydroxy 37.6 ng/mL (Normal) Range: 30.0-100.0 Comments: Vitamin D deficiency has been defined by the [place] ofMedicine and an Endocrine Society practice guideline as alevel of serum 25-OH vitamin D less than 20 ng/mL (1,2).The Endocrine Society went on to further define vitamin Dinsufficiency as a level between 21 and 29 ng/mL (2).1. IOM ([place]endall of Medicine). 2010. Dietary reference intakes for calcium and D. [place]: The National Academies Press.2. Sadiq MF, Pasha GARG, Chirag CAMERON, et al. Evaluation, treatment, and prevention of vitamin D deficiency: an Endocrine Society clinical practice guideline. JCEM. 2010; 96(7):1911-30. 05-Ucv-50250:39 Metabolic Panel, Comprehensive Comments: PATIENT WAS FASTINGPERFORMED BY: [facility] Rcmapl7869 [facility] [id number] (73338) ALT (SGPT) 19 [iU]/L (Normal) Range: 0-32 [...] mg/dL (Abnormal) Range: 65-99 :39 LIPID PANEL (87446) Comments: PATIENT WAS FASTINGPERFORMED BY: [facility]6370 [facility] [id number]; fu 11-30 MEC LDL/HDL Ratio 2.3 {ratio} [...] (Abnormal) Range: 100-199 :14 HgA1C , Office (49946) HgA1C , Office 7.5 % (Abnormal) Range: 4.6 - 7.1 :14 Blood Glucose , Office (04345) Blood Glucose , Office 156 (Normal) :10 HgA1C , Office (65879) Comments: 6.8 has improved HgA1C , Office 6.8 % (Normal) Range: 4.6 - 7.1 :10 Blood Glucose , Office (71188) Blood Glucose , Office 167 (Normal) :46 T4, FREE (THYROXINE) (54206) Comments: PATIENT WAS FASTINGPERFORMED BY: [facility]Lcjqga9519 [facility] [id number] T4,Free(Direct) 1.00 ng/dL (Normal) Range: 0.82-1.77 :46 T3, FREE (TRIDOTHYRONINE) (60365) Comments: PATIENT WAS FASTINGPERFORMED BY: [facility] [id number] Triiodothyronine,Free,Serum 2.8 pg/mL (Normal) Range: 2.0-4.4 :46 TSH (THYROID STIMULATING Comments: PATIENT WAS FASTINGPERFORMED BY: [facility] [id number] HORMONE) (99486) TSH 3.730 {uIU/mL} (Normal) Range: 0.450-4.500 :46 Metabolic Panel, Comprehensive Comments: PATIENT WAS FASTINGPERFORMED BY: [facility] [id number] (83031) ALT (SGPT) 23 [iU]/L (Normal) Range: 0-32 [...] (Abnormal) Range: 65-99 :25 HgA1C , Office (05655) HgA1C , Office 7.2 % (Abnormal) Range: 4.6 - 7.1 :25 Blood Glucose , Office (15718) Blood Glucose , Office 217 (Normal) :32 Microscopic Examination Comments: PATIENT WAS FASTINGPERFORMED BY: [facility] HospitalEknmzk1190 [facility] [id number] Bacteria None seen (Normal) Epithelial Cells (non renal) 0-10 {/hpf} (Normal) Range: 0 - 10 RBC 0-2 {/hpf} (Normal) Range: 0 - 2 WBC 0-5 {/hpf} (Normal) Range: 0 - 5 :32 MICROALBUMIN: CREATININE RATIO Comments: PATIENT WAS FASTINGPERFORMED BY: [employer] [facility] [id number] (62623) AND (96594) Alb/Creat Ratio 9.8 {mg/g_creat} (Normal) Range: 0.0-30.0 Albumin, Urine 12.3 ug/mL (Normal) Creatinine, Urine 124.9 mg/dL (Normal) :32 URINALYSIS (80739) Comments: PATIENT WAS FASTINGPERFORMED BY: [facility] Awrjpc6909 [facility] [id number] Microscopic Examination See below: (Normal) Comments: Microscopic was indicated and was performed. Nitrite, Urine Negative (Normal) Urobilinogen,Semi-Qn 0.2 mg/dL (Normal) Range: 0.2-1.0 Bilirubin Negative (Normal) Occult Blood Negative (Normal) Ketones Negative (Normal) Glucose Negative (Normal) Protein Negative (Normal) WBC Esterase Trace (Abnormal) Appearance Clear (Normal) Urine-Color Yellow (Normal) pH 6.5 (Normal) Range: 5.0-7.5 Specific [place] 1.017 (Normal) Range: 1.005-1.030 :32 Lipid Panel (04821) Comments: PATIENT WAS FASTINGPERFORMED BY: [facility]rapeutics[facility] Oakland6370 [facility] [id number] LDL/HDL Ratio 1.8 {ratio_units} (Normal) Range: 0.0-3.2 [...] Panel, Comprehensive Comments: PATIENT WAS FASTINGPERFORMED BY: [facility]Ahtain8593 [facility] [id number] (90049) ALT (SGPT) 29 [iU]/L (Normal) Range: 0-32 [...] Auto Diff Comments: PATIENT WAS FASTINGPERFORMED BY: [facility] [id number] (20000) Immature Grans (Abs) 0.0 {x10E3/uL} (Normal) Range: [...] 6.0 {x10E3/uL} (Normal) Range: 3.4-10.8 :32 TSH (84383) Comments: PATIENT WAS FASTINGPERFORMED BY: [facility] [id number] TSH 4.760 {uIU/mL} (Abnormal) Range: 0.450-4.500 79-Gey-38190:32 CALCIFEDIOL (01351) Comments: PATIENT WAS FASTINGPERFORMED BY: [facility] Ulhafn5161 [facility] [place] [id number] Vitamin D, 25-Hydroxy 70.9 ng/mL (Normal) Range: 30.0-100.0 Comments: Vitamin D deficiency has been defined by the Kendall ofMedicine and an Endocrine Society practice guideline as alevel of serum 25-OH vitamin D less than 20 ng/mL (1,2).The Endocrine Society went on to further define vitamin Dinsufficiency as a level between 21 and 29 ng/mL (2).1. IOM (Kendall of Medicine). 2010. Dietary reference intakes for calcium and D. [place]: The National [employer] Press.2. Pasha Quevedo, Chirag CAMERON, et al. Evaluation, treatment, and prevention of vitamin D deficiency: an Endocrine Society clinical practice guideline. JCEM. 2010; 96(7):1911-30. :11 HgA1C , Office (94107) HgA1C , Office 6.8 % (Normal) Range: 4.6 - 7.1 :11 Blood Glucose , Office (60068) Blood Glucose , Office 209 (Normal) :22 CALCIFEDIOL (16915) Comments: today; PATIENT NOT FASTINGPERFORMED BY: [facility] Zlsaio6623 [facility] [id number] Vitamin D, 25-Hydroxy 50.8 ng/mL (Normal) Range: 30.0-100.0 Comments: Vitamin D deficiency has been defined by the Kendall ofMedicine and an Endocrine Society practice guideline as alevel of serum 25-OH vitamin D less than 20 ng/mL (1,2).The Endocrine Society went on to further define vitamin Dinsufficiency as a level between 21 and 29 ng/mL (2).1. IOM (Kendall of Medicine). 2010. Dietary reference intakes for calcium and D. [place]: The National [employer].2. Pasha Quevedo, Chirag CAMERON, et al. Evaluation, treatment, and prevention of vitamin D deficiency: an Endocrine Society clinical practice guideline. JCEM. 2010; 96(7):1911-30. :32 HgA1C , Office (35226) HgA1C , Office 6.9 % (Normal) Range: 4.6 - 7.1 :31 Blood Glucose , Office (39027) Blood Glucose , Office 171 (Normal) :56 HgA1C , Office (01723) HgA1C , Office 6.6 % (Normal) Range: 4.6 - 7.1 :56 Blood Glucose , Office (33528) Blood Glucose , Office 184 (Normal) Comments: Just ate breakfast :49 MICROALBUMIN: CREATININE RATIO Comments: PATIENT WAS FASTINGPERFORMED BY: [employer]70 [facility] [id number] (28652) AND (02142) Microalb/Creat Ratio 7.4 {mg/g_creat} (Normal) Range: 0.0-30.0 Microalbumin, Urine 14.7 ug/mL (Normal) Creatinine, Urine 198.7 mg/dL (Normal) :49 VITAMIN B12 AND FOLATES Comments: PATIENT WAS FASTINGPERFORMED BY: [employer] Qxbuqg5759 [facility] [id number] (09377) Folate (Folic Acid), Serum >20.0 ng/mL (Normal) Comments: A serum folate concentration of less than 3.1 ng/mL isconsidered to represent clinical deficiency. Vitamin B12 497 pg/mL (Normal) Range: 211-946 :49 CALCIFEDIOL (02328) Comments: PATIENT WAS FASTINGPERFORMED BY: [employer] Mqctae1964 [facility] [id number] Vitamin D, 25-Hydroxy 57.6 ng/mL (Normal) Range: 30.0-100.0 Comments: Vitamin D deficiency has been defined by the Kendall ofMedicine and an Endocrine Society practice guideline as alevel of serum 25-OH vitamin D less than 20 ng/mL (1,2).The Endocrine Society went on to further define vitamin Dinsufficiency as a level between 21 and 29 ng/mL (2).1. IOM (Kendall of Medicine). 2010. Dietary reference intakes for calcium and D. [place]: The National Academies Press.2. Sadiq MF, Pasha [place], Chirag CAMERON, et al. Evaluation, treatment, and prevention of vitamin D deficiency: an Endocrine Society clinical practice guideline. JCEM. 2010; 96(7):4841-30. :49 TSH (THYROID STIMULATING Comments: PATIENT WAS FASTINGPERFORMED BY: [employer]70 [facility]Nov[facility] [id number] HORMONE) (82204) TSH 3.740 {uIU/mL} (Normal) Range: 0.450-4.500 :49 LIPID PANEL (82124) Comments: PATIENT WAS FASTINGPERFORMED BY: [facility] [id number] LDL/HDL Ratio 1.9 {ratio_units} (Normal) Range: 0.0-3.2 [...] PANEL, COMPREHENSIVE Comments: PATIENT WAS FASTINGPERFORMED BY: [employer]70 [facility] [id number] (16918) ALT (SGPT) 27 [iU]/L (Normal) Range: 0-32 [...] Glucose, Serum 136 mg/dL (Abnormal) Range: 65-99 68-Wmp-18217:49 CBC, PLATELETS & AUT DIFF Comments: PATIENT WAS FASTINGPERFORMED BY: CB [facility] Cgwafl9085 [facility] [id number]; fu [facility] 12-18-16 (10724) Immature Grans (Abs) 0.0 {x10E3/uL} (Normal) Range: [...] Range: 3.4-10.8 :09 Blood Glucose , Office (83073) Blood Glucose , Office 231 (Normal) :09 HgA1C , Office (25757) HgA1C , Office 6.5 % (Normal) Range: 4.6 - 7.1 :33 MICROALBUMIN: CREATININE RATIO Comments: PATIENT WAS FASTINGPERFORMED BY: [facility]Vojzxv8378 [facility] [id number] (54053) AND (63841) Microalb/Creat Ratio 14.1 {mg/g_creat} (Normal) Range: 0.0-30.0 Microalbumin, Urine 16.3 ug/mL (Normal) Creatinine, Urine 115.2 mg/dL (Normal) :33 VITAMIN B12 AND FOLATES Comments: PATIENT WAS FASTINGPERFORMED BY: [employer] Hngvqa8254 [facility] [id number] (32264) Folate (Folic Acid), Serum 15.9 ng/mL (Normal) Comments: A serum folate concentration of less than 3.1 ng/mL isconsidered to represent clinical deficiency. Vitamin B12 251 pg/mL (Normal) Range: 211-946 :33 CALCIFEDIOL (49112) Comments: PATIENT WAS FASTINGPERFORMED BY: [employer] Dkbdkp1111 [facility] [id number] Vitamin D, 25-Hydroxy 45.1 ng/mL (Normal) Range: 30.0-100.0 Comments: Vitamin D deficiency has been defined by the Kendall ofMedicine and an Endocrine Society practice guideline as alevel of serum 25-OH vitamin D less than 20 ng/mL (1,2).The Endocrine Society went on to further define vitamin Dinsufficiency as a level between 21 and 29 ng/mL (2).1. IOM (Kendall of Medicine). 2010. Dietary reference intakes for calcium and D. [place]: The National Academies Press.2. Sadiq MF, Pasha NC, Chirag CAMERON, et al. Evaluation, treatment, and prevention of vitamin D deficiency: an Endocrine Society clinical practice guideline. JCEM. 2010; 96(7):1911-30. :33 TSH (THYROID STIMULATING Comments: PATIENT WAS FASTINGPERFORMED BY: [employer]6370 [facility] [id number] HORMONE) (78150) TSH 3.200 {uIU/mL} (Normal) Range: 0.450-4.500 :33 LIPID PANEL (93456) Comments: PATIENT WAS FASTINGPERFORMED BY: [employer] Frzdnc4004 [facility] [id number] LDL/HDL Ratio 1.3 {ratio_units} (Normal) Range: 0.0-3.2 [...] PANEL, COMPREHENSIVE Comments: PATIENT WAS FASTINGPERFORMED BY: [employer] [facility] [id number] (36984) ALT (SGPT) 20 [iU]/L (Normal) Range: 0-32 [...] AUT DIFF Comments: PATIENT WAS FASTINGPERFORMED BY: [employer] Ficuyu0127 [facility] [id number] (48340) Immature Grans (Abs) 0.0 {x10E3/uL} (Normal) Range: [...] (Normal) Range: 3.4-10.8 :04 HgA1C , Office (29913) HgA1C , Office 6.8 % (Normal) Range: 4.6 - 7.1 :04 Blood Glucose , Office (42796) Blood Glucose , Office 140 (Normal) Comments: not fasting :58 VITAMIN D, 1, 25-DIHYDROXY Comments: PATIENT WAS FASTINGPERFORMED BY: CB [facility] Bqbmgs1486 [facility] [id number] BY: BN [facility] [address] [id number] (90599) Calcitriol(1,25 di-OH Vit D) 38.6 pg/mL (Normal) Range: 19.9-79.3 :58 LIPID PANEL (68651) Comments: PATIENT WAS FASTINGPERFORMED BY: [employer] [id number] BY: [employer] [id number] LDL/HDL Ratio 1.7 {ratio_units} (Normal) Range: 0.0-3.2 [...] MICROALBUMIN: CREATININE Comments: PATIENT WAS FASTINGPERFORMED BY: Komli MediaFrank V[place] 2113770 [facility] [id number] BY: [employer] [id number] RATIO (89625) AND (83210) Microalb/Creat Ratio 5.1 {mg/g_creat} (Normal) Range: 0.0-30.0 Microalbumin, Urine 6.3 ug/mL (Normal) Creatinine, Urine 122.4 mg/dL (Normal) :58 METABOLIC PANEL, Comments: PATIENT WAS FASTINGPERFORMED BY: Kom[employer] MediaFrank [place] 2113770 [facility] [id number] BY: [employer] [id number] COMPREHENSIVE (36878) ALT (SGPT) 31 [iU]/L (Normal) Range: 0-32 [...] Glucose, Serum 138 mg/dL (Abnormal) Range: 65-99 13-Ecb-70253:58 CBC, PLATELETS & AUT DIFF Comments: PATIENT WAS FASTINGPERFORMED BY: CB [facility] Vyfmqd2373 [facility] [id number] BY: BN [facility] [address] [id number] (27504) Immature Grans (Abs) 0.0 {x10E3/uL} (Normal) Range: [...] (Normal) Range: 3.4-10.8 :14 HgA1C , Office (84738) HgA1C , Office 7.5 % (Abnormal) Range: 4.6 - 7.1 :14 Blood Glucose , Office (50723) Blood Glucose , Office 108 (Normal) :55 HgA1C , Office (24152) HgA1C , Office 7.1 % (Normal) Range: 4.6 - 7.1 :08 CALCIFIDIOL (47692) VIT D 25 Comments: PATIENT WAS FASTINGPERFORMED BY: [facility]6370 [facility] [id number] Vitamin D, 25-Hydroxy 42.3 ng/mL (Normal) Range: 30.0-100.0 Comments: Vitamin D deficiency has been defined by the [place] ofMedicine and an Endocrine Society practice guideline as alevel of serum 25-OH vitamin D less than 20 ng/mL (1,2).The Endocrine Society went on to further define vitamin Dinsufficiency as a level between 21 and 29 ng/mL (2).1. IOM ([place] of Medicine). 2010. Dietary reference intakes for calcium and D. [place]: The National Academies Press.2. Sadiq MF, Pasha GARG, Chirag CAMERON, et al. Evaluation, treatment, and prevention of vitamin D deficiency: an Endocrine Society clinical practice guideline. JCEM. 2010; 96(7):1911-30. :08 MICROALBUMIN: CREATININE RATIO Comments: PATIENT WAS FASTINGPERFORMED BY: Komli MediaClovis Baptist HospitalEocqrb3605 [facility] [id number] (31950) AND (61806) Microalb/Creat Ratio 6.3 {mg/g_creat} (Normal) Range: 0.0-30.0 Microalbumin, Urine 11.8 ug/mL (Normal) Range: 0.0-17.0 Creatinine, Urine 186.0 mg/dL (Normal) Range: 15.0-278.0 :08 METABOLIC PANEL, COMPREHENSIVE Comments: PATIENT WAS FASTINGPERFORMED BY: [employer] Ahrbej5573 [facility] [id number] (30051) ALT (SGPT) 25 [iU]/L (Normal) Range: 0-32 [...] mg/dL (Abnormal) Range: 65-99 :08 LIPID PANEL (53895) Comments: PATIENT WAS FASTINGPERFORMED BY: [employer]70 [facility] [id number]; apt. 12-04-15 LDL/HDL Ratio 1.7 {ratio_units} (Normal) [...] auto diff Comments: PATIENT WAS FASTINGPERFORMED BY: POLYBONA6370 [facility] [id number] Information: [id number] (12470) Immature Grans (Abs) 0.0 {x10E3/uL} (Normal) Range: [...] (Normal) Range: 3.4-10.8 :38 HgA1C , Office (60834) HgA1C , Office 7.5 % (Abnormal) Range: 4.6 - 7.1 :38 Blood Glucose , Office (56136) Blood Glucose , Office 171 (Normal) :31 LIPID PANEL (22661) Comments: PATIENT WAS FASTINGPERFORMED BY: [facility]Yvqteu0897 [facility] [id number] Information: [id number]; apt. 07-31-15 LDL/HDL Ratio 1.7 {ratio_units} (Normal) [...] 177 mg/dL (Normal) Range: 100-199 :31 CALCIFIDIOL (09204) VIT D 25 Comments: PATIENT WAS FASTINGPERFORMED BY: Mu[employer] Asotwy5872 [facility] [id number] Vitamin D, 25-Hydroxy 33.0 ng/mL (Normal) Range: 30.0-100.0 Comments: Vitamin D deficiency has been defined by the [place] ofMedicine and an Endocrine Society practice guideline as alevel of serum 25-OH vitamin D less than 20 ng/mL (1,2).The Endocrine Society went on to further define vitamin Dinsufficiency as a level between 21 and 29 ng/mL (2).1. IOM ([place] of Medicine). 2010. Dietary reference intakes for calcium and D. [place]: The National Academies Press.2. Sadiq MF, Pasha [place], Chirag CAMERON, et al. Evaluation, treatment, and prevention of vitamin D deficiency: an Endocrine Society clinical practice guideline. JCEM. 2010; 96(7):1911-30. :09 HgA1C , Office (54429) HgA1C , Office 6.8 % (Normal) Range: 4.6 - 7.1 :09 Blood Glucose , Office (44844) Blood Glucose , Office 172 (Normal) :20 CBC With Differential/Platelet Comments: PATIENT WAS FASTINGPERFORMED BY: [facility]Cektpp5265 [facility] [id number] Information: [id number] Immature Grans (Abs) 0.0 {x10E3/uL} (Normal) Range: [...] Panel (14) Comments: PATIENT WAS FASTINGPERFORMED BY: [facility]Bizljm8728 [facility] [id number]; will review at 03/27 appt ALT (SGPT) [...] With LDL/HDL Comments: PATIENT WAS FASTINGPERFORMED BY: Confetti GamesCritical access hospital [id number] Ratio LDL/HDL Ratio 1.8 {ratio_units} Range: 0.0-3.2 [...] ng/mL (Abnormal) Comments: PATIENT NOT FASTINGPERFORMED BY: [employer]arch[employer]70 [facility] [id number] Information: [id number] Range: 30.0-100.0 Comments: Vitamin D deficiency has been defined by the [place] ofMedicine and an Endocrine Society practice guideline as alevel of serum 25-OH vitamin D less than 20 ng/mL (1,2).The Endocrine Society went on to further define vitamin Dinsufficiency as a level between 21 and 29 ng/mL (2).1. IOM ([place] of Medicine). 2010. Dietary reference intakes for calcium and D. [place]: The National Academies Press.2. Sadiq MF, Pasha [place], Chirag CAMERON, et al. Evaluation, treatment, and prevention of vitamin D deficiency: an Endocrine Society clinical practice guideline. JCEM. 2010; 96(7):1911-30. :40 Rapid Strep Test, Office (75207) Rapid Strep Test, Office Negative (Normal) :39 Rapid Flu (75052 x 2) Influenza A Ag neg a and b (Normal) :45 HgA1C , Office (94454) HgA1C , Office 7.2 % (Abnormal) Range: 4.6 - 7.1 :16 Basic Metabolic Profile (BMP) Comments: Test performed at:[facility] Kgbfymjetw9674 [place] [address] GAP 6 (Normal) Range: 5-15 CO2 31.0 [...] :16 CBC W/Diff, Automated Comments: Test performed at:[facility] Rhlyyxpano7396 [place] [address] Absolute Lymph 1.81 {X10_3/ul} (Normal) Range: 0.83-4.51 [...] 4.2-5.4 WBC 4.7 K/mm3 (Normal) Range: 4.4-11.0 39-Txp-956753:23 Rapid Flu (85668 x 2) Influenza A Ag positive A (Normal) 12-Zzz-59057:30 METABOLIC PANEL, COMPREHENSIVE Comments: PATIENT WAS FASTINGPERFORMED BY: [facility]Kvusvn7168 [facility] [id number] (88886) ALT (SGPT) 21 [iU]/L (Normal) Range: 0-32 [...] Glucose, Serum 138 mg/dL (Abnormal) Range: 65-99 46-Iho-12552:30 CBC WITH MANUAL DIFF Comments: PATIENT WAS FASTINGPERFORMED BY: [facility]Gamnzd9243 [facility] [id number] Information: [id number] (31688) Immature Grans (Abs) 0.0 {x10E3/uL} (Normal) Range: [...] 3.77-5.28 WBC 7.5 {x10E3/uL} (Normal) Range: 3.4-10.8 5-Aom-249178:56 Anticardiolip Ab, IgA/G/M, Comments: PATIENT NOT FASTINGPERFORMED BY: BN [facility] Shahgezzcs[address] [facility] [place] [place] [id number] BY: CB [facility] Mczypc5343 [facility] [id number] BY: TG [facility] Qn WJB4836 [facility] [id number] Anticardiolipin Ab,IgA,Qn <9 {APL_U/mL} (Normal) Range: 0-11 [...] Positive: >20 - 80 High Positive: >80 8-Ddo-967315:56 Antithrombin III, Comments: PATIENT NOT FASTINGPERFORMED BY: [employer] [facility] Jwkgcryzca[address] [id number] BY: [employer] [facility] Vwtsvt5154 Jesus RoadCritical access hospital [id number] BY: [facility] Func/Immunol EAZ0294 [facility] [id number] Antithrombin Activity 117 % (Normal) Range: 75-135 Antithrombin Antigen 116 % (Normal) Range: 75-130 6-Ziq-921615:5 Factor II Activity 111 % (Normal) Comments: PATIENT NOT FASTINGPERFORMED BY: [employer] [facility] Crdgbabwlh[address] [id number] BY: [facility] Udnlik0966 [facility] [id number] BY: [facility] IAA5874 [facility] [id number] Range: 75-130 2-Huo-469006:56 Factor V Leiden Mutation Comments: PATIENT NOT FASTINGPERFORMED BY: [facility] [address] [id number] BY: [employer] [facility] Cgktjf2742 [facility] [place] [id number] BY: [facility] ZPP2126 [facility] [id number] Factor V Leiden FVNEG3 (Normal) Comments: Result: [...] in the workup for venous thrombosis include [id number] mutation in the factor II (prothrombin) gene,protein S and C deficiency, and antithromb in deficiencies.Anticardiolipin antibody and lupus anticoagulant analysismay be appropriate for certain patients, as well ashomocysteine levels. .Contact your local [facility] for information on how to orderadditional testing if desired. .Genetic counselors are available for health care* providers to discuss results at [phone] .Methodology:DNA analysis of the Factor V gene [...] umol/L Comments: PATIENT NOT FASTINGPERFORMED BY: [facility] Sqqrpqwjst4[address] [facility] [place] [id number] BY: CB [facility]Tcgwnm8999 [facility] [id number] BY: TG [facility] 8:56 Plasma (Normal) MWD9[address] [facility] [id number] Range: 0.0-15.0 9-Uso-114692:56 MTHFR Comments: PATIENT NOT FASTINGPERFORMED BY: [facility] Jirlgfjltb30[address] [facility] [place] [id number] BY: CB [facility] Enbnxh8564 [place] [id number] BY: TG [facility] LQE5153 [facility] [id number] MTHFR, DNA Analysis MTX371 (Normal) Comments: Result: C677T/C677T Two copies of the same mutation (C677T and C677T) identified .Interpretation: .This individual is homozygous for the MTHFR C677T variant (two copies).The MTHFR P2945B variant was not identified. Homozygosity for exjB882Y mutation confers an increased risk for the [...] discuss these results with healthcare providers at [phone]. .Methylenetetrahydrofolate reductase (MTHFR) is a salazar enzyme in thefolate pathway and is responsible for the metabolism of homocysteine.There are two common variants i n the MTHFR gene, c.655C>T(p.Vha873Ykc), referred to as C677T, and c.1286A>C (p.Hwv902Que),referred to as X3851E. Individuals homozygous for C677T (two copiesof the variant), have decreased activi ty of the MTHFR enzyme and apredisposition to hyperhomocysteinemia, particularly when deficient infolate. Hyperhomocysteinemia is a risk factor for venous thrombosisand coronary artery disease and is as sociated with an increased riskof open neural tube defects. The C677T variant does notindependently increase risk of these conditions in the absence ofhyperhomocysteinemia. The Y4419E variant is n ot associated withelevated homocysteine levels unless a C677T variant is also present;however, the clinical significance of heterozygosity for both B263Nndg H7253N is controversial. Population data sugg est that these twovariants are not present on the same chromosome, but rare exceptionshave been reported of triple variant MTHFR genotypes (ie. homozygousfor one variant and heterozygous for the other). Homozygosity yqgI263Q has an estimated frequency of 10% to [...] PhDMirza Carpenter MDAnnette K Taylor, MS, PhD 5-Gbq-201742:56 Protein C Deficiency Comments: PATIENT NOT FASTINGPERFORMED BY: [facility] Qpbknnsltl7[address] [facility] [place] [id number] BY: [facility] Sagmii8573 [facility] [id number] BY: TG [facility] Profile [id number] [facility] [id number] Protein C-Functional 137 % (Normal) Range: 74-151 Protein C Antigen 124 % (Normal) Range: 70-140 7-Wrc-005595:56 Protein S Panel Comments: PATIENT NOT FASTINGPERFORMED BY: [facility] Magcauuiln35[address] [facility] [place] [id number] BY: CB [facility] Ycnbav0184 JesusPacketVideoNovant Health [facility] [id number] BY: TG [facility] TUH1462 [facility] [id number] Protein S-Functional 120 % (Normal) Range: 60-145 Protein S, Free 129 % (Abnormal) Range: 56-124 Protein S, Total 112 % (Normal) Range: 58-150 :17 Metabolic Panel, Basic (52410) Comments: PATIENT WAS FASTINGPERFORMED BY: [facility] Cyqpjl0341 [facility]Nov[facility] [id number] Calcium, Serum 9.4 mg/dL (Normal) Range: 8.6-10.2 [...] mg/dL (Abnormal) Range: 65-99 :17 CBC (Auto) (99404) Comments: PATIENT WAS FASTINGPERFORMED BY: [facility] Jprrce6560 [facility] AcademizeNov[facility] [id number] Information: [id number] Platelets 201 {x10E3/uL} (Normal) Range: 150-379 RDW 13.1 % (Normal) Range: 12.3-15.4 MCH 29.2 pg (Normal) Range: 26.6-33.0 MCHC 32.7 g/dL (Normal) Range: 31.5-35.7 MCV 89 fL (Normal) Range: 79-97 Hematocrit 40.1 % (Normal) Range: 34.0-46.6 Hemoglobin 13.1 g/dL (Normal) Range: 11.1-15.9 RBC 4.49 {x10E6/uL} (Normal) Range: 3.77-5.28 WBC 6.6 {x10E3/uL} (Normal) Range: 3.4-10.8 :04 HgA1C , Office (43695) HgA1C , Office 8.4 % (Abnormal) Range: 4.6 - 7.1 :04 Blood Glucose , Office (17348) Blood Glucose , Office 198 (Normal) :47 MICROALBUMIN: CREATININE RATIO Comments: PATIENT WAS FASTINGPERFORMED BY: [employer] Rydajv6488 [facility] [id number] (58770) AND (39994) Microalb/Creat Ratio 4.0 {mg/g_creat} (Normal) Range: 0.0-30.0 Microalbumin, Urine 5.6 ug/mL (Normal) Range: 0.0-17.0 Creatinine, Urine 139.4 mg/dL (Normal) Range: 15.0-278.0 :47 METABOLIC PANEL, COMPREHENSIVE Comments: PATIENT WAS FASTINGPERFORMED BY: [employer] Ukiafy1921 [facility] [id number] (49079) ALT (SGPT) 25 [iU]/L (Normal) Range: 0-32 [...] Glucose, Serum 177 mg/dL (Abnormal) Range: 65-99 19-Xik-72495:47 LIPID PANEL (75458) Comments: PATIENT WAS FASTINGPERFORMED BY: [employer] [facility] [id number]; Non-emergent and has apt next week 02/2014. LDL/HDL Ratio 1.4 {ratio_units} (Normal) Range: 0.0-3.2 LDL Cholesterol Calc 81 mg/dL (Normal) Range: 0-99 VLDL Cholesterol Arpit 38 mg/dL (Normal) Range: 5-40 HDL Cholesterol 56 mg/dL (Normal) Comments: According to ATP-III Guidelines, HDL-C >59 mg/dL is considered anegative risk factor for CHD. Triglycerides 191 mg/dL (Abnormal) Range: 0-149 Cholesterol, Total 175 mg/dL (Normal) Range: 100-199 96-Gqv-09667:47 CBC WITH MANUAL DIFF Comments: PATIENT WAS FASTINGPERFORMED BY: [employer] Zyxjvo0462 [facility] [id number] Information: [id number] (12066) Immature Grans (Abs) 0.0 {x10E3/uL} (Normal) Range: [...] Range: 3.4-10.8 :06 Blood Glucose , Office (98423) Blood Glucose , Office 135 (Normal) :06 HgA1C , Office (88748) HgA1C , Office 7.1 % (Normal) Range: 4.6 - 7.1 :23 Hemoglobin Glyclated (HGB A1C) Comments: PATIENT WAS FASTINGPERFORMED BY: [facility]Ikdvaj0018 [facility] [id number] (88826) Hemoglobin A1c 6.5 % (Abnormal) Range: 4.8-5.6 Comments: . Increased risk for diabetes: 5.7 - 6.4 Diabetes: >6.4 Glycemic control for adults with diabetes: <7.0 :23 MICROALBUMIN: CREATININE RATIO Comments: PATIENT WAS FASTINGPERFORMED BY: MuutClovis Baptist HospitalPiutmu0318 [facility] [id number] (81965) AND (44839) Microalb/Creat Ratio 2.3 {mg/g_creat} (Normal) Range: 0.0-30.0 Microalbumin, Urine 1.7 ug/mL (Normal) Range: 0.0-17.0 Creatinine, Urine 75.5 mg/dL (Normal) Range: 15.0-278.0 :23 METABOLIC PANEL, COMPREHENSIVE Comments: PATIENT WAS FASTINGPERFORMED BY: [employer] Emgszg5278 [facility] [id number] (45910) ALT (SGPT) 19 [iU]/L (Normal) Range: 0-32 [...] mg/dL (Abnormal) Range: 65-99 :23 LIPID PANEL (59319) Comments: PATIENT WAS FASTINGPERFORMED BY: POLYBONA6370 [facility] [id number] LDL/HDL Ratio 1.8 {ratio_units} (Normal) Range: 0.0-3.2 [...] MANUAL DIFF Comments: PATIENT WAS FASTINGPERFORMED BY: .[employer]6370 [facility] [id number] Information: [id number] (75848) Immature Grans (Abs) 0.0 {x10E3/uL} (Normal) Range: [...] (Normal) Range: 3.4-10.8 :37 HgA1C , Office (04910) HgA1C , Office .26 % (Abnormal) Range: [...] mg/L (Normal) UR CREAT 155.1 mg/dL (Normal) 2-Hwj-050217:29 Blood Glucose , Office (19730) Blood Glucose , Office 101 (Normal) Plan [...] Treatment Indication: Hypercholesteremia Planned Observations Lipid Panel (30680)Indication: Diabetes mellitus type 2, controlled On: 16-Nov-20188:57 Request CALCIFEDIOL (62756)Indication: Vitamin D deficiency On: 16-Nov-20188:57 Request Metabolic Panel, Comprehensive (53564)Indication: Diabetes mellitus type 2, controlled On: 16-Nov-20188:57 Request CALCIFEDIOL (56019)Indication: Osteopenia On: 7-Cnm-551628:03 Request METABOLIC PANEL, COMPREHENSIVE (55520)Indication: Benign essential hypertension On: 79-Dnx-80065:10 Request LIPID PANEL (71722)Indication: Benign essential hypertension On: :10 Request CBC W/AUTO DIFF WBC (66530)Indication: Benign essential hypertension On: 68-Ruh-63784:10 Request Protein S Profile (75252)Indication: Pulmonary embolism On: :45 Request Protein C Profile (77505)Indication: Pulmonary embolism On: :45 Request Homocysteine, Plasma (07526)Indication: Pulmonary embolism On: :45 Request Antiphospholipid atb (85645)Indication: Pulmonary embolism On: :45 Request ANTICOAG ANTTHROMB III & ASSAY (71113)Indication: Pulmonary embolism On: :45 Request ANTITHROMBIN III ACTIVTY (79557)Indication: Pulmonary embolism On: :45 Request CLOTTING FACTOR II (61725)Indication: Pulmonary embolism On: :45 Request Factor V Leiden (59954)Indication: Pulmonary embolism On: :45 Request MTHFR (29733)Indication: Pulmonary embolism On: :45 Request HEPATIC FUNCTION PANEL (51806)Indication: Hypercholesteremia On: :59 Request LIPID PANEL (60032)Indication: Hypercholesteremia On: :59 Request MICROALBUMIN: CREATININE RATIO (74165) AND (71191)Indication: Diabetes mellitus type 2, controlled On: 9-Yjz-864392:35 Request METABOLIC PANEL, COMPREHENSIVE (84802)Indication: Diabetes mellitus type 2, controlled On: 3-Lcu-729061:35 Request LIPID PANEL (03413)Indication: Diabetes mellitus type 2, controlled On: :35 Request CBC WITH MANUAL DIFF (12222)Indication: Diabetes mellitus type 2, controlled On: 8-Zru-906874:35 Request Planned Encounters Medical; 3 Month FU - On: 23-Nov-2018 8:30 [facility] Kristine Mccauley CNP, CNP, Mary E Planned Procedures SCREENING DIGITAL TOMOSYNTHESIS OF On: 14-Aug-2018 Intent BREAST (23429)By: Kristine Mccauley CNP, CNP, Mary E MAMMOGRAM, RIGHT (84460)By: Radha On: 28-Aug-2016 Intent Terrence WING Breast Ultrasound - RightBy: Radha On: 28-Aug-2016 Intent Terrence WING MAMMOGRAM, SCREENING, BOTH BREAST On: 31-Jul-2015 Intent (09358)By: Annalee Alvarenga MD Comments: 2-16 CTA CHEST W/W/O CONTRAST On: 08-Dec-2014 Intent (96527)By: Suri Paredes DO Aerosol Treatment (92678)By: On: 08-Dec-2014 Intent Suri Paredes DO Comments: more a/e- DEXA SCAN AXIAL SKELETON On: 04-Oct-2014 Intent (93770)By: Annalee Alvarenga MD Comments: postmenapausal MAMMOGRAM, SCREENING, BOTH BREAST On: 04-Oct-2014 Intent (17360)By: Annalee Alvarenga MD EKG (19645)By: Annalee Alvarenga MD On: 04-Oct-2014 Intent Comments: see scanned document of test done to see results reviewed today with patient CT - Cardiac CTABy: Colette WING, On: 14-Apr-2014 Intent Annalee Tsang Venous Doppler - LeftBy: Colette On: 22-Mar-2014 Intent Annalee WING Comments: bilateral legs today COMPUTED TOMOGRAPHY ANGIOGRAPHY OF On: 09-Mar-2014 Intent CHEST WITH AND WITHOUT CONTRAST Comments: PE PROTOCOL (39053)By: Annalee Alvarenga MD CT - Chest (IV Contrast Needed)By: On: 08-Mar-2014 Intent Annalee Alvarenga MD Comments: due pe protocol Ultrasound - Breast - LeftBy: On: 08-Mar-2014 Intent Annalee Alvarenga MD Echo CompleteBy: Annalee Alvarenga MD On: 15-Feb-2014 Intent Trinh Eprescribed prescriptions On: 15-Feb-2014 Intent (G8553)By: Annalee Alvarenga MD Inhaler Demo (41857)By: Reggie BRAND, On: 11-Nov-2013 Intent Suri Radiology - Chest- PA and LatBy: On: 11-Nov-2013 Intent Suri Paredes DO Aerosol Treatment (96965)By: On: 11-Nov-2013 Intent Suri Paredes DO Comments: more a/e less tight Eprescribed prescriptions On: 11-Nov-2013 Intent (G8553)By: Suri Paredes DO Breast Screening - BilateralBy: On: 14-Jul-2013 Intent Annalee Alvarenga MD MAMMOGRAM, SCREENING, BOTH BREASTS On: 08-Jul-2013 Intent (14308)By: Annalee Alvarenga MD EKG (97290)By: Annalee Alvarenga MD On: 22-Jun-2013 Intent Comments: see scanned document of test done to see results reviewed today with patient Eprescribed prescriptions On: 22-Jun-2013 Intent (G8553)By: Amalia Wilder LPN EKG (50836)By: Annalee Alvarenga MD On: 03-Sep-2007 Intent Ultrasound - Abdomen (Limited Area On: 03-Sep-2007 Intent or Organs)By: Annalee Alvarenga MD Comments: upper look at mass in epig area and luq Ultrasound - GallbladderBy: On: 03-Sep-2007 Intent Annalee Alvarenga MD EKG (66055)By: Annalee Alvarenga MD On: 03-Sep-2007 Intent Instructions [...] right : DISCONTINUED - US BREAST RIGHT (19093) Indication: Cyst, breast, right Diabetes mellitus type [...] Victoza was too expensive but worked in [facility] Diagnosis: Diabetes mellitus type 2, controlled, [...] The patient does have durable power of title attorney and living will. The patient has noticed nothing from the geriatic depression scale. Other providers contributing to the patient's care are other: (Opthalm: Dr. Zavala in [place] ).Encounter Diagnosis: Encounter for Medicare annual wellness [...] 04-27-15 ). Date of procedure: (-- Dr. Josuha Zavala ) . There have been no problems with general anesthesia or blood/blood products. Prosthetics include: eye glasses. Note for Preoperative evaluation: no issues with MAC. no signs and symptoms of infections. not able to get last script of victoza in [facility]. Encounter Diagnosis: Preop examination, Type II [...]
--- OUTSIDE RECORDS SUMMARY | 2018-12-08 07:39 | XMS RPT_ITS | Continuity of Care Document ---
:1945 Author Organization [facility] Address [address] [place] [address] Phone Care Team Providers Name Role Phone [...] Cataract), no changes, Nat Gallegos, [facility].Labs:urine albumin/Cr:Lipid panel:[id number] on medicine done.DIABETIC FOOT CARE:Check feet daily [...] {Tablet} Refills: 3 Ordered:11-Feb-2018 Kristine Mccauley CNP, CNP Yuni Start : 11-Feb-2018 Active Magnesium zinc [...] Wanda CAPPS [place] Start : 14-Aug-2018 Active MVI daily Active OneTouch Ultra Blue In Vitro Strip 1 (one) Strip bid for 90 days Quantity: 180 {Strip} Refills: 3 Ordered:14-Aug-2018 Kristine Mccauley CNP, CNP Yuni Start : 14-Aug-2018 Active OneTouch Ultra Blue [...] Quantity: 3 {Box} Refills: 3 Ordered:14-Aug-2018 Parisa CAPPS Kristine Marshall CNP Start : 14-Aug-2018 Active Vitamin D3 Ultra Strength 5000 UNIT Oral Capsule 1 (one) Capsule daily for 0 days Quantity: 30 {Capsule} Refills: 0 Ordered:14-Aug-2018 Parisa CAPPS, Kristine Muñoz CNP Kristine Perrin Start : 14-Aug-2018 Active ACTOS, 30MG (Oral Tablet) 1 Tablet qd for 0 days Quantity: 90 {Tablet} Refills: 3 Ordered:22-Jun-2013 Amalia Wilder LPN L Start : 13-Aug-2007 End : 22-Jun-2013 Inactive ASTELIN, 137MCG/SPRAY (Nasal Solution) Solution QD for 0 days Quantity: 1 {Solution} Refills: 3 Ordered:22-Jun-2013 Amalia Wilder LPN L Start : 16-Jul-2007 End : 22-Jun-2013 Inactive AUGMENTIN, 875-125MG (Oral Tablet) 1 (one) Tablet bid for 0 days Quantity: 28 {Tablet} Refills: 0 Ordered:15-Feb-2014 Amalia Wilder LPN L Start : 11-Nov-2013 End : 15-Feb-2014 Inactive BIAXIN XL PAC, 500MG (Oral Tablet Extended Release 24 Hour) 2 (two) Tablet ER 24HR qd for 0 days Quantity: 1 {Packet} Refills: 0 Ordered:31-Jul-2015 GURPREET Brito Start : 15-May-2015 End : 31-Jul-2015 Inactive CALTRATE 600+D, 066-366PX-PIQT (Oral Tablet) 2 (two) Tablet qd for [...] days Quantity: 90 {Tablet} Refills: 3 Ordered:24-Nov-2017 Vlad GOLDSTEIN Aline Start : 23-Oct-2017 End : 24-Nov-2017 Inactive [...] 16-Feb-2015 End : 27-Mar-2015 Inactive Comments:DX: 250.00NPI: [id number] PREDNISONE, 20MG (Oral Tablet) 1 (one) Tablet qd for 0 days Quantity: 4 {Tablet} Refills: 0 Ordered:15-Feb-2014 Long SECURITY INCIDENT RESPONSE ENGINEER, Amalia L Start : 11-Nov-2013 End : 15-Feb-2014 Inactive PROVENTIL HFA, 108 (90 Base)MCG/ACT (Inhalation Aerosol Solution) 2 (two) Aerosol Soln q 6 hr prn for 0 days Quantity: 1 {Canister} Refills: 0 Ordered:27-Mar-2015 GURPREET Brito Start : 08-Dec-2014 End : 27-Mar-2015 Inactive SIMVASTATIN, 80MG (Oral Tablet) Tablet QD for 0 days Quantity: 90 {Tablet} Refills: 3 Ordered:22-Jun-2013 Long SECURITY INCIDENT RESPONSE ENGINEER, Amalia L Start : 03-Sep-2007 End : 22-Jun-2013 Inactive TAMIFLU, 75MG (Oral Capsule) 1 (one) Capsule bid for 5 days Quantity: 10 {Capsule} Refills: 0 Ordered:12-Sep-2014 Laura Doll Start : 12-Sep-2014 End : 17-Sep-2014 Inactive TENORMIN, 50MG (Oral Tablet) 1 Tablet qd for 0 days Quantity: 30 {Tablet} Refills: 0 Ordered:22-Jun-2013 Long SECURITY INCIDENT RESPONSE ENGINEER, Amalia L Start : 13-Aug-2007 End : [...] days Quantity: 60 {Tablet} Refills: 0 Ordered:11-Nov-2017 Cyndidarrell JEFRY, Kristine Wanda CAPPS, Yuni Start : 11-Nov-2017 End : 11-Dec-2017 [...] qd for 0 days Refills: 0 Ordered:18-Dec-2016 Slarb Aline GOLDSTEIN Start : 18-Jun-2016 End : 18-Dec-2016 Discontinued GlyBURIDE 2.5 MG Oral Tablet 1 (one) Tablet daily for 0 days Quantity: 90 {Tablet} Refills: 3 Ordered:11-Nov-2017 Parisa JEFRY, Kristine Arreolaalex CAPPS, Yuni Start : 01-Apr-2017 End : 11-Nov-2017 Discontinued GlyBURIDE 2.5 MG Oral Tablet 1 (one) Tablet daily for 30 days Quantity: 30 {QS} Refills: 3 Ordered:11-Nov-2017 Parisa TIGER MACHINE OPERATOR, Kristine Muñoz TIGER MACHINE OPERATOR, Yuni Start : 01-Apr-2017 End : 11-Nov-2017 Discontinued GLYBURIDE, 5MG (Oral Tablet) 1 Tablet bid for 0 days Quantity: 180 {Tablet} Refills: 3 Ordered:31-Jul-2015 Annalee Alvarenga MD Start : 31-Jul-2015 End : 31-Jul-2015 Discontinued MetFORMIN HCl 1000 MG Oral Tablet 1 (one) Tablet 1in am and 1 qpm for 90 days Quantity: 180 {Tablet} Refills: 3 Ordered:30-Nov-2018 Aurora Pedro Start : 11-Feb-2018 End : [...] Study (HP) Result: Comments: See Note; NOTES: [facility] Imaging Services [address] [place] [address] Verdana 4d Dexa Bone Density Study (HP) MR#: [id number] Acct: [id number] Name: ALFONSO SANTIAGO EN Rep #: [id number] : 1945 F 71 From: Gutierrez Fisher MD PCP: Terrence Garcia Status: REG CLI Study: Dexa Bone Density Study (HP) Date of Exam: 10/22/16 Exam# [id number] Ordering Dr: Melvin Garcia STUDY: DUAL ENERGY [...] National Osteoporosis Fo undation http://www.nof.org Electronically Signed: Gtuierrez Fisher MD at 9:00 EST Tel [phone], Service support [phone], CC: Terrence Garcia Ager Tender: Signed 02-Sep-2016 Breast Limited Unilateral Result: Comments: See Note; NOTES: [facility] Imaging Services [address] [place] [address] Verda 4d Breast Limited Unilateral MR#: [id number] Acct: [id number] Name: EMILY SANTIAGO Rep #: [id number] : 1945 F 71 From: David Mclaughlin MD PCP: Terrence Garcia Status: REG CLI Study: Breast Limited Unilateral Date of Exam: 09/02/16 Exam# [id number] Ordering Dr: Terrence Garcia STUDY: UL TRASOUND [...] at 10:19 EST Tel , Service support [phone], CC: Terrence Garcia Ager Tender: Signed 14-Feb-2016 Breast Limited Unilateral Result: Comments: See Note; NOTES: [facility] Imaging Services [address] [place] [address], [place] [address] Verdana 4d Breast Limited Unilateral MR#: [id number] Acct: [id number] Name: EMILY AVINA Rep #: [id number] : 1945 F 71 From: Gutierrez Fisher MD PCP: Annalee Alvarenga MD Status: REG CLI Study: Breast Limited Unilateral Date of Exam: 02/14/16 Exam# [id number] Ordering Dr: Annalee Alvarenga MD STUDY: ULTRASOUND [...] Gutierrez Fisher MD at 9:13 EDT Tel [phone], Service support [phone], CC: Annalee Alvarenga MD Ager Tender: Signed 09-Feb-2016 Bilat Scrn Digital AND CAD Result: Comments: See Note; NOTES: [facility] Imaging Services [address] [place] [address] Verdana 4d Bilat Scrn Digital AND CAD MR#: [id number] Acct: [id number] Name: EMILY SANTIAGO Rep #: [id number] : 1945 F 71 From: Gutierrez Fisher MD PCP: Annalee Alvarenga MD Status: REG CLI Study: Bilat Scrn Digital AND CAD Date of Exam: 02/09/16 Exam# [id number] Hamzah ziegler Dr: Annalee Alvarenga MD MAMMOGRAPHY [...] biopsy of a clinically suspicious abnorma lity. [id number] Electronically Signed: Gutierrez Fisher MD at 10:27 EDT Tel [phone], Service support [phone], CC: Annalee Alvarenga MD Ager Tender: Signed 04-Dec-2015 ELECTROCARDIOGRAM, COMPLETE (ECG) (69471) Comments: see scanned document of test done to see results reviewed today with patient Result: [MEASUREMENTS ANALYSIS] Date of Test: 12/04/2015 08:33:40; Heart Rate: 71; RI Interval: 146; QRS: 96; QT Interval: 370; Corrected QT Interval (QTc): 389; P [place]: 52; QRS [place]: -15; T [place] : -1; Blood Pressure: 140/80 [ECG DIAGNOSTIC STATEMENTS] Date of Test: 12/04/2015 08:33:40; Summary: Sinus Rhythm WITHIN NORMAL LIMITS 15-May-2015 Spirometry (32162) Comments: see scanned document of test done to see results reviewed today with patient Result: 08-Dec-2014 Spirometry (25183) Comments: poor technique- mild restriction Result: 18-Oct-2014 Bilat Scrn Digital AND CAD Result: Comments: See Note; NOTES: [facility] Imaging Services [address] [place] [address] Breast Imaging Report MR#: [id number] Acct: [id number] Name: EMILY SANTIAGO Rep #: [id number] : 1945 F 69 From: Gutierrez Fisher MD PCP: Annalee Alvarenga MD Status: REG CLI Study: Bilat Scrn Digital AND CAD Date of Exam: 10/18/14 Exam# [id number] Ordering Dr: Annalee Alvarenga MD MAMMOGRAPHY - [...] Gutierrez Fisher MD at 9:48 EST Tel [phone], Service support [phone], CC: Annalee Alvarenga MD Ager Tender: Signed 18-Oct-2014 Dexa Bone Density Study (HP) Result: Comments: See Note; NOTES: [facility] Imaging Services [address] [place] [address] Bone Density Report MR#: [id number] Acct: [id number] Name: EMILY SANTIAGO Rep #: [id number] : 1945 F 69 From: Gutierrez Fisher MD PCP: Annalee Alvarenga MD Status: REG CLI Study: Dexa Bone Density Study (HP) Date of Exam: 10/18/14 Exam# [id number] Ordering Dr: Annalee Alvarenga MD STUDY: DUAL [...] Gutierrez Fisher MD at 11:31 EST Tel [phone], Service support [phone], CC: Annalee Alvarenga MD Ager Tender: Signed 23-Sep-2014 Discharge Instruction Result: Comments: See Note; NOTES: [facility] Medical Records Department [address] [place] [address] Discharge Instruction 09/15/14 1351 MR#: [id number] Acct: [id number] Name: EMILY SANTIAGO Rep #: [id number] : 1945 69 From: Phani Valencia MD [...] contact your doctor. Call [facility] ( [phone]) or report to the closest Emergency Room. Call 911 if necessary. 09/23/14 0821 <Electronically signed by Phani Valencia MD> Date ____ Phani Valencia MD Cosigner Signature (If Indicated): Date CC: Annalee Alvarenga MD 23-Sep-2014 Emergency Department Summary Result: Comments: See Note; NOTES: [facility] Medical Records Department [address] [place] [address] Emergency Department Summary MR#: [id number] Acct: [id number] Name: EMILY SANTIAGO Rep #: [id number] : 1945 69 From: Phani Valencia MD [...] Hugh Ramirez C: Annalee Alvarenga MD T: [facility] JOB: [id number] 09/23/14 0821 <Electronically melissa d by Phani Valencia MD> Date Phani Valencia MD CC: Annalee Alvarenga MD Date Dictated: 09/18/14 1201 Date Transcribed: 09/18/141200 Ager Tender: Signed 15-Sep-2014 Chest PA and Lateral Result: Comments: See Note; NOTES: [facility] Imaging Services [address] [place] [address] Radiology Report MR#: [id number] Acct: [id number] Name: EMILY SANTIAGO Rep #: [id number] : 1945 F 69 From: Karina Grimm MD PCP: Annalee Alvarenga MD Status: DEP ER Study: Chest PA and Lateral Date of Exam: 09/15/14 Exam# [id number] Ordering Dr: Phani Valencia MD STUDY: X-RA [...] at 9:27 EST Tel , Service support [phone], RAD/Chest PA and Lateral IMPRESSION: There is no evidence of acute disease. Electronically Sign ed: Lakshmi Grimm MD at 9:27 EST Tel , Service support [phone], CC: Annalee Alvarenga MD; Phani Valencia MD Ager Tender: Signed 11-Mar-2014 Echocardiogram Complete Result: Comments: See Note; NOTES: [facility] Cardiovascular Services [address] [place] [address] Echo Complete 03/11/14 1314 MR#: [id number] Acct: [id number] Name: MEME SANTIAGO Rep #: [id number] : 1945 69 From: Joshua Leonard MD [...] : Hypokinetic. Mid- anteroseptal : Hypokinetic. Anterior O'Brien : Hypokinetic. Inferior O'Brien : Hypokinetic. Septal O'Brien : Hypokinetic. Right Ventricle Normal RV size. [...] Dictated: 03/11/14 1314 Date Transcribed: 03/11/14 1713 Ager Tender: Signed 11-Mar-2014 CTA Chest W/WO Contrast Result: Comments: See Note; NOTES: [facility] Imaging Services [address] [place] [address] CAT Scan Report MR#: [id number] Acct: [id number] Name: EMILY SANTIAGO Rep #: [id number] : 1945 F 69 From: Gutierrez Fisher MD PCP: Annalee Alvarenga MD Status: REG CLI Study: CTA Chest W/WO Contrast Date of Exam: 03/11/14 Exam# [id number] Ordering Dr: Annalee Alvarenga MD STUDY : [...] Gutierrez Fisher MD at 15:17 EDT Tel [phone], Service support [phone], CC: Annalee Alvarenga MD Ager Tender: Signed 11-Nov-2013 Chest PA and Lateral Result: Comments: See Note; NOTES: [facility] Imaging Services [address] [place] [address] Radiology Report MR#: [id number] Acct: [id number] Name: EMILY SANTIAGO Rep #: [id number] : 1945 F 68 From: Alexander Gilman DO PCP: Suri Paredes DO Status: REG CLI Study: Chest PA and Lateral Date of Exam: 11/11/13 Exam# [id number] Ordering Dr: Suri Paredes DO STUDY: X [...] D.O. at 21:45 EST , Service support [phone], CC: Suri Paredes DO Ager Tender: Signed 21-Jul-2013 Adele Quintero Digital & CAD Result: Comments: See Note; NOTES: [facility] Imaging Services [address] [place] [address] Breast Imaging Report MR#: [id number] Acct: [id number] Name: EMILY SANTIAGO Rep #: [id number] : 1945 F 68 From: Gutierrez Fisher MD PCP: CARLOS LING Status: REG CLI Exam# [id number] Ordering Dr: Annalee Alvarenga MD MAMMOGRAPHY - [...] biopsy of a clinically suspicious abnormality. Signed: Gutirerez Fisher M.D. July 21, 2013 at 2 :40:05 PM EST [phone] Electronically Signed GP/GP If you are the referring physician and would like to consult with the radiologist who provided this interpretation, please contact Gutierrez Fisher M.D. at [phone]. If this radiologist is unavailable, you will be directed to another radiologist to assist. If you are a patient with a question regarding this report, please contact your referring physician directly. Professional Interpretation Provided By: [employer], Phone , These documents contain legally protected [...] documents. CC: CARLOS LING; Annalee Alvarenga MD Ager Tender: Signed Family History Unknown Family Member Name [...] Results Date Description Value Details :39 CALCIFEDIOL (37820) Comments: PATIENT WAS FASTINGPERFORMED BY: [facility] HospitalUkxebw3040 [facility] [id number] Vitamin D, 25-Hydroxy 37.6 ng/mL (Normal) Range: 30.0-100.0 Comments: Vitamin D deficiency has been defined by the [place] of[place]icine and an Endocrine Society practice guideline as alevel of serum 25-OH vitamin D less than 20 ng/mL (1,2).The Endocrine Society went on to further define vitamin Dinsufficiency as a level between 21 and 29 ng/mL (2).1. IOM ([place] of Medicine). 2010. Dietary reference intakes for calcium and D. [place]: The National Academies Press.2. Sadiq MF, Pasha GARG, Chirag CAMERON, et al. Evaluation, treatment, and prevention of vitamin D deficiency: an Endocrine Society clinical practice guideline. JCEM. 2010; 96(7):1911-30. 24-Qia-09587:39 Metabolic Panel, Comprehensive Comments: PATIENT WAS FASTINGPERFORMED BY: [facility] Wgvqih0842 [facility] [id number] (03790) ALT (SGPT) 19 [iU]/L (Normal) Range: 0-32 [...] mg/dL (Abnormal) Range: 65-99 :39 LIPID PANEL (79531) Comments: PATIENT WAS FASTINGPERFORMED BY: [facility]6370 [facility] [id number]; fu 11-30 MEC LDL/HDL Ratio 2.3 {ratio} [...] (Abnormal) Range: 100-199 :14 HgA1C , Office (28552) HgA1C , Office 7.5 % (Abnormal) Range: 4.6 - 7.1 :14 Blood Glucose , Office (26174) Blood Glucose , Office 156 (Normal) :10 HgA1C , Office (41054) Comments: 6.8 has improved HgA1C , Office 6.8 % (Normal) Range: 4.6 - 7.1 :10 Blood Glucose , Office (30578) Blood Glucose , Office 167 (Normal) :46 T4, FREE (THYROXINE) (42746) Comments: PATIENT WAS FASTINGPERFORMED BY: [facility]CoR[facility] HospitalRgugfa1436 [facility] [id number] T4,Free(Direct) 1.00 ng/dL (Normal) Range: 0.82-1.77 :46 T3, FREE (TRIDOTHYRONINE) (09990) Comments: PATIENT WAS FASTINGPERFORMED BY: [facility]6370 [facility] [id number] Triiodothyronine,Free,Serum 2.8 pg/mL (Normal) Range: 2.0-4.4 :46 TSH (THYROID STIMULATING Comments: PATIENT WAS FASTINGPERFORMED BY: [facility]6370 [facility] [id number] HORMONE) (10570) TSH 3.730 {uIU/mL} (Normal) Range: 0.450-4.500 :46 Metabolic Panel, Comprehensive Comments: PATIENT WAS FASTINGPERFORMED BY: [facility]6370 [facility] [id number] (70995) ALT (SGPT) 23 [iU]/L (Normal) Range: 0-32 [...] (Abnormal) Range: 65-99 :25 HgA1C , Office (72967) HgA1C , Office 7.2 % (Abnormal) Range: 4.6 - 7.1 :25 Blood Glucose , Office (94572) Blood Glucose , Office 217 (Normal) :32 Microscopic Examination Comments: PATIENT WAS FASTINGPERFORMED BY: [facility]endaAlbuquer[facility] Dental ClinicNcvsdt0276 [facility] [id number] Bacteria None seen (Normal) Epithelial Cells (non renal) 0-10 {/hpf} (Normal) Range: 0 - 10 RBC 0-2 {/hpf} (Normal) Range: 0 - 2 WBC 0-5 {/hpf} (Normal) Range: 0 - 5 :32 MICROALBUMIN: CREATININE RATIO Comments: PATIENT WAS FASTINGPERFORMED BY: Ensenda GreenWatt [facility] [id number] (09030) AND (50146) Alb/Creat Ratio 9.8 {mg/g_creat} (Normal) Range: 0.0-30.0 Albumin, Urine 12.3 ug/mL (Normal) Creatinine, Urine 124.9 mg/dL (Normal) :32 URINALYSIS (76921) Comments: PATIENT WAS FASTINGPERFORMED BY: Ensenda Qsiqpu5860 [facility] [id number] Microscopic Examination See below: (Normal) Comments: Microscopic was indicated and was performed. Nitrite, Urine Negative (Normal) Urobilinogen,Semi-Qn 0.2 mg/dL (Normal) Range: 0.2-1.0 Bilirubin Negative (Normal) Occult Blood Negative (Normal) Ketones Negative (Normal) Glucose Negative (Normal) Protein Negative (Normal) WBC Esterase Trace (Abnormal) Appearance Clear (Normal) Urine-Color Yellow (Normal) pH 6.5 (Normal) Range: 5.0-7.5 Specific [place] 1.017 (Normal) Range: 1.005-1.030 :32 Lipid Panel (23501) Comments: PATIENT WAS FASTINGPERFORMED BY: [facility]6370 [facility] [id number] LDL/HDL Ratio 1.8 {ratio_units} (Normal) Range: 0.0-3.2 [...] Panel, Comprehensive Comments: PATIENT WAS FASTINGPERFORMED BY: [facility]CoR[facility] HospitalXjirzb5278 [facility] [id number] (68324) ALT (SGPT) 29 [iU]/L (Normal) Range: 0-32 [...] Auto Diff Comments: PATIENT WAS FASTINGPERFORMED BY: [facility]6370 [facility] [id number] (26488) Immature Grans (Abs) 0.0 {x10E3/uL} (Normal) Range: [...] 6.0 {x10E3/uL} (Normal) Range: 3.4-10.8 :32 TSH (09793) Comments: PATIENT WAS FASTINGPERFORMED BY: [facility]6370 [facility] [id number] TSH 4.760 {uIU/mL} (Abnormal) Range: 0.450-4.500 33-Yvh-09639:32 CALCIFEDIOL (45749) Comments: PATIENT WAS FASTINGPERFORMED BY: [facility] Barytn7894 [facility] [place] [id number] Vitamin D, 25-Hydroxy 70.9 ng/mL (Normal) Range: 30.0-100.0 Comments: Vitamin D deficiency has been defined by the [place] of[place]icine and an Endocrine Society practice guideline as alevel of serum 25-OH vitamin D less than 20 ng/mL (1,2).The Endocrine Society went on to further define vitamin Dinsufficiency as a level between 21 and 29 ng/mL (2).1. IOM ([place] of Medicine). 2010. Dietary reference intakes for calcium and D. [place]: The National IntroMaps Press.2. Pasha Quevedo, Chirag CAMERON, et al. Evaluation, treatment, and prevention of vitamin D deficiency: an Endocrine Society clinical practice guideline. JCEM. 2010; 96(7):1911-30. :11 HgA1C , Office (03557) HgA1C , Office 6.8 % (Normal) Range: 4.6 - 7.1 :11 Blood Glucose , Office (66592) Blood Glucose , Office 209 (Normal) :22 CALCIFEDIOL (21243) Comments: today; PATIENT NOT FASTINGPERFORMED BY: [facility] Ifhbpq4787 [facility] [id number] Vitamin D, 25-Hydroxy 50.8 ng/mL (Normal) Range: 30.0-100.0 Comments: Vitamin D deficiency has been defined by the [place] of[place] and an Endocrine Society practice guideline as alevel of serum 25-OH vitamin D less than 20 ng/mL (1,2).The Endocrine Society went on to further define vitamin Dinsufficiency as a level between 21 and 29 ng/mL (2).1. IOM ([place] of [place]). 2010. Dietary reference intakes for calcium and D. [place]: The National IntroMaps Press.2. Pasha Quevedo, Chirag CAMERON, et al. Evaluation, treatment, and prevention of vitamin D deficiency: an Endocrine Society clinical practice guideline. JCEM. 2010; 96(7):1911-30. :32 HgA1C , Office (55584) HgA1C , Office 6.9 % (Normal) Range: 4.6 - 7.1 :31 Blood Glucose , Office (08521) Blood Glucose , Office 171 (Normal) :56 HgA1C , Office (59127) HgA1C , Office 6.6 % (Normal) Range: 4.6 - 7.1 :56 Blood Glucose , Office (45330) Blood Glucose , Office 184 (Normal) Comments: Just ate breakfast :49 MICROALBUMIN: CREATININE RATIO Comments: PATIENT WAS FASTINGPERFORMED BY: [employer]70 [facility] [id number] (79325) AND (14556) Microalb/Creat Ratio 7.4 {mg/g_creat} (Normal) Range: 0.0-30.0 Microalbumin, Urine 14.7 ug/mL (Normal) Creatinine, Urine 198.7 mg/dL (Normal) :49 VITAMIN B12 AND FOLATES Comments: PATIENT WAS FASTINGPERFORMED BY: [employer] Cqcytq4325 [facility] [id number] (30226) Folate (Folic Acid), Serum >20.0 ng/mL (Normal) Comments: A serum folate concentration of less than 3.1 ng/mL isconsidered to represent clinical deficiency. Vitamin B12 497 pg/mL (Normal) Range: 211-946 :49 CALCIFEDIOL (70333) Comments: PATIENT WAS FASTINGPERFORMED BY: [employer] Jiihdo4195 [facility] [id number] Vitamin D, 25-Hydroxy 57.6 ng/mL (Normal) Range: 30.0-100.0 Comments: Vitamin D deficiency has been defined by the [place] of[place] and an Endocrine Society practice guideline as alevel of serum 25-OH vitamin D less than 20 ng/mL (1,2).The Endocrine Society went on to further define vitamin Dinsufficiency as a level between 21 and 29 ng/mL (2).1. IOM ([place] of [place]). 2010. Dietary reference intakes for calcium and D. [place]: The National Academies Press.2. Sadiq MF, Pasha [place], Chirag CAMERON, et al. Evaluation, treatment, and prevention of vitamin D deficiency: an Endocrine Society clinical practice guideline. JCEM. 2010; 96(7):7291-30. :49 TSH (THYROID STIMULATING Comments: PATIENT WAS FASTINGPERFORMED BY: [employer]70 [facility] PharmaceuticalsUNC [facility] [id number] HORMONE) (95644) TSH 3.740 {uIU/mL} (Normal) Range: 0.450-4.500 :49 LIPID PANEL (45648) Comments: PATIENT WAS FASTINGPERFORMED BY: [employer] [facility] [id number] LDL/HDL Ratio 1.9 {ratio_units} (Normal) Range: 0.0-3.2 [...] PANEL, COMPREHENSIVE Comments: PATIENT WAS FASTINGPERFORMED BY: [employer]70 [facility] [id number] (59358) ALT (SGPT) 27 [iU]/L (Normal) Range: 0-32 [...] Glucose, Serum 136 mg/dL (Abnormal) Range: 65-99 49-Fda-89589:49 CBC, PLATELETS & AUT DIFF Comments: PATIENT WAS FASTINGPERFORMED BY: CB [facility] Jvrbmo9734 [facility] [id number]; fu [facility] 12-18-16 (67401) Immature Grans (Abs) 0.0 {x10E3/uL} (Normal) Range: [...] Range: 3.4-10.8 :09 Blood Glucose , Office (55021) Blood Glucose , Office 231 (Normal) :09 HgA1C , Office (37144) HgA1C , Office 6.5 % (Normal) Range: 4.6 - 7.1 :33 MICROALBUMIN: CREATININE RATIO Comments: PATIENT WAS FASTINGPERFORMED BY: EnsendaRunnells Specialized HospitalZkthmz8079 [facility] [id number] (07208) AND (33018) Microalb/Creat Ratio 14.1 {mg/g_creat} (Normal) Range: 0.0-30.0 Microalbumin, Urine 16.3 ug/mL (Normal) Creatinine, Urine 115.2 mg/dL (Normal) :33 VITAMIN B12 AND FOLATES Comments: PATIENT WAS FASTINGPERFORMED BY: [employer] Pudrgy8774 [facility] [id number] (73948) Folate (Folic Acid), Serum 15.9 ng/mL (Normal) Comments: A serum folate concentration of less than 3.1 ng/mL isconsidered to represent clinical deficiency. Vitamin B12 251 pg/mL (Normal) Range: 211-946 :33 CALCIFEDIOL (99021) Comments: PATIENT WAS FASTINGPERFORMED BY: [employer] Uahrgl4596 [facility] [id number] Vitamin D, 25-Hydroxy 45.1 ng/mL (Normal) Range: 30.0-100.0 Comments: Vitamin D deficiency has been defined by the [place] of[place]icine and an Endocrine Society practice guideline as alevel of serum 25-OH vitamin D less than 20 ng/mL (1,2).The Endocrine Society went on to further define vitamin Dinsufficiency as a level between 21 and 29 ng/mL (2).1. IOM ([place] of [place]). 2010. Dietary reference intakes for calcium and D. [place]: The National Academies Press.2. Sadiq MF, Pasha [place], Chirag CAMERON, et al. Evaluation, treatment, and prevention of vitamin D deficiency: an Endocrine Society clinical practice guideline. JCEM. 2010; 96(7):1911-30. :33 TSH (THYROID STIMULATING Comments: PATIENT WAS FASTINGPERFORMED BY: mylearnadfriendlin6370 [facility] [id number] HORMONE) (90474) TSH 3.200 {uIU/mL} (Normal) Range: 0.450-4.500 :33 LIPID PANEL (30662) Comments: PATIENT WAS FASTINGPERFORMED BY: Ensenda Svpfbh8698 [facility] [id number] LDL/HDL Ratio 1.3 {ratio_units} (Normal) Range: 0.0-3.2 [...] PANEL, COMPREHENSIVE Comments: PATIENT WAS FASTINGPERFORMED BY: [employer] [facility] [id number] (37326) ALT (SGPT) 20 [iU]/L (Normal) Range: 0-32 [...] AUT DIFF Comments: PATIENT WAS FASTINGPERFORMED BY: [employer] Igrnpv9030 [facility] [id number] (41991) Immature Grans (Abs) 0.0 {x10E3/uL} (Normal) Range: [...] (Normal) Range: 3.4-10.8 :04 HgA1C , Office (57136) HgA1C , Office 6.8 % (Normal) Range: 4.6 - 7.1 :04 Blood Glucose , Office (94250) Blood Glucose , Office 140 (Normal) Comments: not fasting :58 VITAMIN D, 1, 25-DIHYDROXY Comments: PATIENT WAS FASTINGPERFORMED BY: CB [facility] Vgsbry5224 [facility] [id number] BY: BN [facility] [address] [id number] (81543) Calcitriol(1,25 di-OH Vit D) 38.6 pg/mL (Normal) Range: 19.9-79.3 :58 LIPID PANEL (79218) Comments: PATIENT WAS FASTINGPERFORMED BY: Ensenda[address] [id number] BY: [employer] [id number] LDL/HDL Ratio 1.7 {ratio_units} (Normal) Range: 0.0-3.2 [...] MICROALBUMIN: CREATININE Comments: PATIENT WAS FASTINGPERFORMED BY: WishdatesLindsay V[place] 9079570 [facility] [id number] BY: Ensenda[address] [id number] RATIO (88093) AND (11147) Microalb/Creat Ratio 5.1 {mg/g_creat} (Normal) Range: 0.0-30.0 Microalbumin, Urine 6.3 ug/mL (Normal) Creatinine, Urine 122.4 mg/dL (Normal) :58 METABOLIC PANEL, Comments: PATIENT WAS FASTINGPERFORMED BY: [place] 9079570 [facility] [id number] BY: [employer] [id number] COMPREHENSIVE (75134) ALT (SGPT) 31 [iU]/L (Normal) Range: 0-32 [...] Glucose, Serum 138 mg/dL (Abnormal) Range: 65-99 99-Vha-32656:58 CBC, PLATELETS & AUT DIFF Comments: PATIENT WAS FASTINGPERFORMED BY: CB [facility] Fstdob1240 [facility] [id number] BY: BN [facility] [address] [id number] (49914) Immature Grans (Abs) 0.0 {x10E3/uL} (Normal) Range: [...] (Normal) Range: 3.4-10.8 :14 HgA1C , Office (22167) HgA1C , Office 7.5 % (Abnormal) Range: 4.6 - 7.1 :14 Blood Glucose , Office (60342) Blood Glucose , Office 108 (Normal) :55 HgA1C , Office (60096) HgA1C , Office 7.1 % (Normal) Range: 4.6 - 7.1 :08 CALCIFIDIOL (96258) VIT D 25 Comments: PATIENT WAS FASTINGPERFORMED BY: [facility]6370 [facility] [id number] Vitamin D, 25-Hydroxy 42.3 ng/mL (Normal) Range: 30.0-100.0 Comments: Vitamin D deficiency has been defined by the [place] of[place]icine and an Endocrine Society practice guideline as alevel of serum 25-OH vitamin D less than 20 ng/mL (1,2).The Endocrine Society went on to further define vitamin Dinsufficiency as a level between 21 and 29 ng/mL (2).1. IOM ([place] of Medicine). 2010. Dietary reference intakes for calcium and D. [place]: The National Academies Press.2. Sadiq MF, Pasha GARG, Chirag CAMERON, et al. Evaluation, treatment, and prevention of vitamin D deficiency: an Endocrine Society clinical practice guideline. JCEM. 2010; 96(7):1911-30. :08 MICROALBUMIN: CREATININE RATIO Comments: PATIENT WAS FASTINGPERFORMED BY: WishdatesAlbuquerque Indian Dental ClinicTxffpy7133 [facility] [id number] (55292) AND (17744) Microalb/Creat Ratio 6.3 {mg/g_creat} (Normal) Range: 0.0-30.0 Microalbumin, Urine 11.8 ug/mL (Normal) Range: 0.0-17.0 Creatinine, Urine 186.0 mg/dL (Normal) Range: 15.0-278.0 :08 METABOLIC PANEL, COMPREHENSIVE Comments: PATIENT WAS FASTINGPERFORMED BY: [employer] Hwafgy1643 [facility] [id number] (70127) ALT (SGPT) 25 [iU]/L (Normal) Range: 0-32 [...] mg/dL (Abnormal) Range: 65-99 :08 LIPID PANEL (40683) Comments: PATIENT WAS FASTINGPERFORMED BY: [employer]tu[employer]70 [facility] [id number]; apt. 12-04-15 LDL/HDL Ratio 1.7 {ratio_units} (Normal) [...] auto diff Comments: PATIENT WAS FASTINGPERFORMED BY: redIT6370 [facility] [id number] Information: [id number] (76078) Immature Grans (Abs) 0.0 {x10E3/uL} (Normal) Range: [...] (Normal) Range: 3.4-10.8 :38 HgA1C , Office (30488) HgA1C , Office 7.5 % (Abnormal) Range: 4.6 - 7.1 :38 Blood Glucose , Office (62921) Blood Glucose , Office 171 (Normal) :31 LIPID PANEL (38328) Comments: PATIENT WAS FASTINGPERFORMED BY: LabCoRunnells Specialized HospitalNcvxnw4680 [facility] [id number] Information: [id number]; apt. 07-31-15 LDL/HDL Ratio 1.7 {ratio_units} (Normal) [...] 177 mg/dL (Normal) Range: 100-199 :31 CALCIFIDIOL (88873) VIT D 25 Comments: PATIENT WAS FASTINGPERFORMED BY: Ensenda Unvzyr8786 [facility] [id number] Vitamin D, 25-Hydroxy 33.0 ng/mL (Normal) Range: 30.0-100.0 Comments: Vitamin D deficiency has been defined by the [place] of[place]icine and an Endocrine Society practice guideline as alevel of serum 25-OH vitamin D less than 20 ng/mL (1,2).The Endocrine Society went on to further define vitamin Dinsufficiency as a level between 21 and 29 ng/mL (2).1. IOM ([place] of Medicine). 2010. Dietary reference intakes for calcium and D. [place]: The National Academies Press.2. Sadiq MF, Pasha [place], Chirag CAMERON, et al. Evaluation, treatment, and prevention of vitamin D deficiency: an Endocrine Society clinical practice guideline. JCEM. 2010; 96(7):1911-30. :09 HgA1C , Office (52163) HgA1C , Office 6.8 % (Normal) Range: 4.6 - 7.1 :09 Blood Glucose , Office (18498) Blood Glucose , Office 172 (Normal) :20 CBC With Differential/Platelet Comments: PATIENT WAS FASTINGPERFORMED BY: LabCoRunnells Specialized HospitalNedvjf0378 [facility] [id number] Information: [id number] Immature Grans (Abs) 0.0 {x10E3/uL} (Normal) Range: [...] Panel (14) Comments: PATIENT WAS FASTINGPERFORMED BY: LabCoRunnells Specialized HospitalCcowxn1484 [facility] [id number]; will review at 03/27 appt ALT (SGPT) [...] With LDL/HDL Comments: PATIENT WAS FASTINGPERFORMED BY: Tr[facility] TechnologiesSelect [facility] [id number] Ratio LDL/HDL Ratio 1.8 {ratio_units} Range: 0.0-3.2 [...] ng/mL (Abnormal) Comments: PATIENT NOT FASTINGPERFORMED BY: Adtuitive70 [facility] [id number] Information: [id number] Range: 30.0-100.0 Comments: Vitamin D deficiency has been defined by the [place] of[place] and an Endocrine Society practice guideline as alevel of serum 25-OH vitamin D less than 20 ng/mL (1,2).The Endocrine Society went on to further define vitamin Dinsufficiency as a level between 21 and 29 ng/mL (2).1. IOM ([place] of Medicine). 2010. Dietary reference intakes for calcium and D. [place]: The National Academies Press.2. Sadiq MF, Pasha [place], Chirag CAMERON, et al. Evaluation, treatment, and prevention of vitamin D deficiency: an Endocrine Society clinical practice guideline. JCEM. 2010; 96(7):1911-30. :40 Rapid Strep Test, Office (64533) Rapid Strep Test, Office Negative (Normal) :39 Rapid Flu (17678 x 2) Influenza A Ag neg a and b (Normal) :45 HgA1C , Office (08447) HgA1C , Office 7.2 % (Abnormal) Range: 4.6 - 7.1 :16 Basic Metabolic Profile (BMP) Comments: Test performed at:[facility] Xtztkmduax1986 [place] [address] GAP 6 (Normal) Range: 5-15 CO2 31.0 [...] :16 CBC W/Diff, Automated Comments: Test performed at:[facility] Fdpvhbtssd6521 [place] [address] Absolute Lymph 1.81 {X10_3/ul} (Normal) Range: 0.83-4.51 [...] 4.2-5.4 WBC 4.7 K/mm3 (Normal) Range: 4.4-11.0 00-Ztd-796898:23 Rapid Flu (51024 x 2) Influenza A Ag positive A (Normal) 68-Xxf-32400:30 METABOLIC PANEL, COMPREHENSIVE Comments: PATIENT WAS FASTINGPERFORMED BY: LabCoRunnells Specialized HospitalSslfiq2363 [facility] [id number] (52837) ALT (SGPT) 21 [iU]/L (Normal) Range: 0-32 [...] Glucose, Serum 138 mg/dL (Abnormal) Range: 65-99 71-Aqp-08296:30 CBC WITH MANUAL DIFF Comments: PATIENT WAS FASTINGPERFORMED BY: LabCoRunnells Specialized HospitalJuvnil0994 [facility] [id number] Information: [id number] (20991) Immature Grans (Abs) 0.0 {x10E3/uL} (Normal) Range: [...] 3.77-5.28 WBC 7.5 {x10E3/uL} (Normal) Range: 3.4-10.8 2-Pmn-013103:56 Anticardiolip Ab, IgA/G/M, Comments: PATIENT NOT FASTINGPERFORMED BY: BN [facility] Mgcvbzmssv8088 [facility] [id number] BY: CB [facility] Ozsfzv1713 [facility] [id number] BY: TG [facility] Qn JNA0996 [facility] [id number] Anticardiolipin Ab,IgA,Qn <9 {APL_U/mL} (Normal) Range: 0-11 [...] Positive: >20 - 80 High Positive: >80 9-Kms-901923:56 Antithrombin III, Comments: PATIENT NOT FASTINGPERFORMED BY: [employer] [facility] Oqhzolinaj[address] [id number] BY: [employer] [facility] Cvonqo7060 [facility] RoadSelect [facility]ty Hospital [facility] [id number] BY: [facility] Func/Immunol AVM3979 [facility] [id number] Antithrombin Activity 117 % (Normal) Range: 75-135 Antithrombin Antigen 116 % (Normal) Range: 75-130 2-Ikg-069524:5 Factor II Activity 111 % (Normal) Comments: PATIENT NOT FASTINGPERFORMED BY: [employer] [facility] X[address]fcz[address] [id number] BY: [facility] Zwvkqk0307 [facility] [id number] BY: [facility] LOR3565 [facility] [id number] Range: 75-130 1-Qtf-099477:56 Factor V Leiden Mutation Comments: PATIENT NOT FASTINGPERFORMED BY: [facility] [address] [id number] BY: [employer] [facility] Bwxvao2304 [facility]in [place] [id number] BY: [facility] SME7493 [facility] [id number] Factor V Leiden FVNEG3 (Normal) Comments: Result: [...] in the workup for venous thrombosis include [id number] mutation in the factor II (prothrombin) gene,protein S and C deficiency, and antithromb in deficiencies.Anticardiolipin antibody and lupus anticoagulant analysismay be appropriate for certain patients, as well ashomocysteine levels. .Contact your local [facility] for information on how to orderadditional testing if desired. .Genetic counselors are available for health care* providers to discuss results at [phone] (2102). .Methodology:DNA analysis of the Factor V gene [...] umol/L Comments: PATIENT NOT FASTINGPERFORMED BY: [facility] Rigvgifdnt0179 [facility] [id number] BY: CB [facility]CoRunnells Specialized HospitalEskiom8335 [facility] [id number] BY: TG [facility] 8:56 Plasma (Normal) QQY4578 TW [facility] [id number] Range: 0.0-15.0 5-Dsu-718759:56 MTHFR Comments: PATIENT NOT FASTINGPERFORMED BY: [facility] Ynnrhvpbcm6980 [facility] [id number] BY: CB [facility] Addzdd5435 [place] [id number] BY: TG [facility] VGU7447 [facility]MAG[facility] [id number] MTHFR, DNA Analysis YEY598 (Normal) Comments: Result: C677T/C677T Two copies of the same mutation (C677T and C677T) identified .Interpretation: .This individual is homozygous for the MTHFR C677T variant (two copies).The MTHFR I6102S variant was not identified. Homozygosity for jqcP449Y mutation confers an increased risk for the [...] discuss these results with healthcare providers at [phone]. .Methylenetetrahydrofolate reductase (MTHFR) is a salazar enzyme in thefolate pathway and is responsible for the metabolism of homocysteine.There are two common variants i n the MTHFR gene, c.655C>T(p.Zza867Nki), referred to as C677T, and c.1286A>C (p.Xcv549Lkx),referred to as F4206I. Individuals homozygous for C677T (two copiesof the variant), have decreased activi ty of the MTHFR enzyme and apredisposition to hyperhomocysteinemia, particularly when deficient infolate. Hyperhomocysteinemia is a risk factor for venous thrombosisand coronary artery disease and is as sociated with an increased riskof open neural tube defects. The C677T variant does notindependently increase risk of these conditions in the absence ofhyperhomocysteinemia. The A8121H variant is n ot associated withelevated homocysteine levels unless a C677T variant is also present;however, the clinical significance of heterozygosity for both N297Bohk L5963R is controversial. Population data sugg est that these twovariants are not present on the same chromosome, but rare exceptionshave been reported of triple variant MTHFR genotypes (ie. homozygousfor one variant and heterozygous for the other). Homozygosity lhpA964P has an estimated frequency of 10% to [...] PhDMirza Carpenter MDAnnette K Taylor, MS, PhD 4-Ysd-396471:56 Protein C Deficiency Comments: PATIENT NOT FASTINGPERFORMED BY: [facility] Trxoweqeku4661 [facility] [id number] BY: [facility] Rmbdzi5063 [facility] [id number] BY: TG [facility] Profile DHW1969 [facility] [id number] Protein C-Functional 137 % (Normal) Range: 74-151 Protein C Antigen 124 % (Normal) Range: 70-140 9-Duv-678341:56 Protein S Panel Comments: PATIENT NOT FASTINGPERFORMED BY: [facility] Hpfycfxhow0117 [facility] [id number] BY: CB [facility] Hormwx8126 [facility] CenterUNC [facility] [id number] BY: TG [facility] PDS3309 [facility] [id number] Protein S-Functional 120 % (Normal) Range: 60-145 Protein S, Free 129 % (Abnormal) Range: 56-124 Protein S, Total 112 % (Normal) Range: 58-150 :17 Metabolic Panel, Basic (21126) Comments: PATIENT WAS FASTINGPERFORMED BY: [facility] Pvrxxw6840 [facility] PharmaceuticalsUNC [facility] [id number] Calcium, Serum 9.4 mg/dL (Normal) Range: 8.6-10.2 [...] mg/dL (Abnormal) Range: 65-99 :17 CBC (Auto) (79293) Comments: PATIENT WAS FASTINGPERFORMED BY: [facility] Klrxgh7819 [facility] WellMetrisUNC Health [facility] [id number] Information: [id number] Platelets 201 {x10E3/uL} (Normal) Range: 150-379 RDW 13.1 % (Normal) Range: 12.3-15.4 MCH 29.2 pg (Normal) Range: 26.6-33.0 MCHC 32.7 g/dL (Normal) Range: 31.5-35.7 MCV 89 fL (Normal) Range: 79-97 Hematocrit 40.1 % (Normal) Range: 34.0-46.6 Hemoglobin 13.1 g/dL (Normal) Range: 11.1-15.9 RBC 4.49 {x10E6/uL} (Normal) Range: 3.77-5.28 WBC 6.6 {x10E3/uL} (Normal) Range: 3.4-10.8 :04 HgA1C , Office (89122) HgA1C , Office 8.4 % (Abnormal) Range: 4.6 - 7.1 :04 Blood Glucose , Office (05443) Blood Glucose , Office 198 (Normal) :47 MICROALBUMIN: CREATININE RATIO Comments: PATIENT WAS FASTINGPERFORMED BY: [employer] Xxvlie9345 [facility] [id number] (53221) AND (14180) Microalb/Creat Ratio 4.0 {mg/g_creat} (Normal) Range: 0.0-30.0 Microalbumin, Urine 5.6 ug/mL (Normal) Range: 0.0-17.0 Creatinine, Urine 139.4 mg/dL (Normal) Range: 15.0-278.0 :47 METABOLIC PANEL, COMPREHENSIVE Comments: PATIENT WAS FASTINGPERFORMED BY: [employer] Nllaee9664 [facility] [id number] (74164) ALT (SGPT) 25 [iU]/L (Normal) Range: 0-32 [...] Glucose, Serum 177 mg/dL (Abnormal) Range: 65-99 15-Dpd-92526:47 LIPID PANEL (01560) Comments: PATIENT WAS FASTINGPERFORMED BY: [employer] [facility] [id number]; Non-emergent and has apt next week 02/2014. LDL/HDL Ratio 1.4 {ratio_units} (Normal) Range: 0.0-3.2 LDL Cholesterol Calc 81 mg/dL (Normal) Range: 0-99 VLDL Cholesterol Arpit 38 mg/dL (Normal) Range: 5-40 HDL Cholesterol 56 mg/dL (Normal) Comments: According to ATP-III Guidelines, HDL-C >59 mg/dL is considered anegative risk factor for CHD. Triglycerides 191 mg/dL (Abnormal) Range: 0-149 Cholesterol, Total 175 mg/dL (Normal) Range: 100-199 90-Pmh-68732:47 CBC WITH MANUAL DIFF Comments: PATIENT WAS FASTINGPERFORMED BY: [employer] Wygyed0933 [facility] [id number] Information: [id number] (37298) Immature Grans (Abs) 0.0 {x10E3/uL} (Normal) Range: [...] Range: 3.4-10.8 :06 Blood Glucose , Office (91359) Blood Glucose , Office 135 (Normal) :06 HgA1C , Office (01224) HgA1C , Office 7.1 % (Normal) Range: 4.6 - 7.1 :23 Hemoglobin Glyclated (HGB A1C) Comments: PATIENT WAS FASTINGPERFORMED BY: LabCoRunnells Specialized HospitalKhezzi7577 [facility] [id number] (50680) Hemoglobin A1c 6.5 % (Abnormal) Range: 4.8-5.6 Comments: . Increased risk for diabetes: 5.7 - 6.4 Diabetes: >6.4 Glycemic control for adults with diabetes: <7.0 :23 MICROALBUMIN: CREATININE RATIO Comments: PATIENT WAS FASTINGPERFORMED BY: EnsendaAlbuquerque Indian Dental ClinicTapklg0287 [facility] [id number] (70705) AND (42803) Microalb/Creat Ratio 2.3 {mg/g_creat} (Normal) Range: 0.0-30.0 Microalbumin, Urine 1.7 ug/mL (Normal) Range: 0.0-17.0 Creatinine, Urine 75.5 mg/dL (Normal) Range: 15.0-278.0 :23 METABOLIC PANEL, COMPREHENSIVE Comments: PATIENT WAS FASTINGPERFORMED BY: [employer] Jvqibi3147 [facility] [id number] (56356) ALT (SGPT) 19 [iU]/L (Normal) Range: 0-32 [...] mg/dL (Abnormal) Range: 65-99 :23 LIPID PANEL (26942) Comments: PATIENT WAS FASTINGPERFORMED BY: redIT6370 [facility] [id number] LDL/HDL Ratio 1.8 {ratio_units} (Normal) Range: 0.0-3.2 [...] MANUAL DIFF Comments: PATIENT WAS FASTINGPERFORMED BY: [employer]6370 [facility] [id number] Information: [id number] (48188) Immature Grans (Abs) 0.0 {x10E3/uL} (Normal) Range: [...] (Normal) Range: 3.4-10.8 :37 HgA1C , Office (07727) HgA1C , Office .26 % (Abnormal) Range: [...] mg/L (Normal) UR CREAT 155.1 mg/dL (Normal) 9-Pit-783455:29 Blood Glucose , Office (32605) Blood Glucose , Office 101 (Normal) Plan [...] Treatment Indication: Hypercholesteremia Planned Observations Lipid Panel (49004)Indication: Diabetes mellitus type 2, controlled On: 16-Nov-20188:57 Request CALCIFEDIOL (52885)Indication: Vitamin D deficiency On: 16-Nov-20188:57 Request Metabolic Panel, Comprehensive (94046)Indication: Diabetes mellitus type 2, controlled On: 16-Nov-20188:57 Request CALCIFEDIOL (30975)Indication: Osteopenia On: 7-Knq-319736:03 Request METABOLIC PANEL, COMPREHENSIVE (20979)Indication: Benign essential hypertension On: 99-Zpe-59930:10 Request LIPID PANEL (53135)Indication: Benign essential hypertension On: :10 Request CBC W/AUTO DIFF WBC (28581)Indication: Benign essential hypertension On: 67-Vhj-89115:10 Request Protein S Profile (60462)Indication: Pulmonary embolism On: :45 Request Protein C Profile (38723)Indication: Pulmonary embolism On: :45 Request Homocysteine, Plasma (81573)Indication: Pulmonary embolism On: :45 Request Antiphospholipid atb (39195)Indication: Pulmonary embolism On: :45 Request ANTICOAG ANTTHROMB III & ASSAY (69168)Indication: Pulmonary embolism On: :45 Request ANTITHROMBIN III ACTIVTY (03086)Indication: Pulmonary embolism On: :45 Request CLOTTING FACTOR II (08586)Indication: Pulmonary embolism On: :45 Request Factor V Leiden (78077)Indication: Pulmonary embolism On: :45 Request MTHFR (24810)Indication: Pulmonary embolism On: :45 Request HEPATIC FUNCTION PANEL (18560)Indication: Hypercholesteremia On: :59 Request LIPID PANEL (48676)Indication: Hypercholesteremia On: :59 Request MICROALBUMIN: CREATININE RATIO (25876) AND (05410)Indication: Diabetes mellitus type 2, controlled On: 5-Rzr-362231:35 Request METABOLIC PANEL, COMPREHENSIVE (91621)Indication: Diabetes mellitus type 2, controlled On: 9-Zco-468092:35 Request LIPID PANEL (42128)Indication: Diabetes mellitus type 2, controlled On: :35 Request CBC WITH MANUAL DIFF (44272)Indication: Diabetes mellitus type 2, controlled On: 3-Jmu-179579:35 Request Planned Encounters Medical; 3 Month FU - On: 23-Nov-2018 8:30 [facility] Kristine Mccauley CNP, CNP, Mary E Planned Procedures SCREENING DIGITAL TOMOSYNTHESIS OF On: 14-Aug-2018 Intent BREAST (68514)By: Kristine Mccauley CNP, CNP, Mary E MAMMOGRAM, RIGHT (69290)By: Radha On: 28-Aug-2016 Intent Terrence WING Breast Ultrasound - RightBy: Radha On: 28-Aug-2016 Intent Terrence WING MAMMOGRAM, SCREENING, BOTH BREAST On: 31-Jul-2015 Intent (66947)By: Annalee Alvarenga MD Comments: 2-16 CTA CHEST W/W/O CONTRAST On: 08-Dec-2014 Intent (73370)By: Suri Paredes DO Aerosol Treatment (04510)By: On: 08-Dec-2014 Intent Suri Paredes DO Comments: more a/e- DEXA SCAN AXIAL SKELETON On: 04-Oct-2014 Intent (11802)By: Annalee Alvarenga MD Comments: postmenapausal MAMMOGRAM, SCREENING, BOTH BREAST On: 04-Oct-2014 Intent (15475)By: Annalee Alvarenga MD EKG (75423)By: Annalee Alvarenga MD On: 04-Oct-2014 Intent Comments: see scanned document of test done to see results reviewed today with patient CT - Cardiac CTABy: Colette WING, On: 14-Apr-2014 Intent Annalee Tsang Venous Doppler - LeftBy: Colette On: 22-Mar-2014 Intent Annalee WING Comments: bilateral legs today COMPUTED TOMOGRAPHY ANGIOGRAPHY OF On: 09-Mar-2014 Intent CHEST WITH AND WITHOUT CONTRAST Comments: PE PROTOCOL (11849)By: Annalee Alvarenga MD CT - Chest (IV Contrast Needed)By: On: 08-Mar-2014 Intent Annalee Alvarenga MD Comments: due pe protocol Ultrasound - Breast - LeftBy: On: 08-Mar-2014 Intent Annalee Alvarenga MD Echo CompleteBy: Annalee Alvarenga MD On: 15-Feb-2014 Intent Trinh Eprescribed prescriptions On: 15-Feb-2014 Intent (G8553)By: Annalee Alvarenga MD Inhaler Demo (21221)By: Reggie BRAND, On: 11-Nov-2013 Intent Suri Radiology - Chest- PA and LatBy: On: 11-Nov-2013 Intent Suri Paredes DO Aerosol Treatment (81143)By: On: 11-Nov-2013 Intent Suri Paredes DO Comments: more a/e less tight Eprescribed prescriptions On: 11-Nov-2013 Intent (G8553)By: Suri aPredes DO Breast Screening - BilateralBy: On: 14-Jul-2013 Intent Annalee Alvarenga MD MAMMOGRAM, SCREENING, BOTH BREASTS On: 08-Jul-2013 Intent (09665)By: Annalee Alvarenga MD EKG (12839)By: Annalee Alvarenga MD On: 22-Jun-2013 Intent Comments: see scanned document of test done to see results reviewed today with patient Eprescribed prescriptions On: 22-Jun-2013 Intent (G8553)By: Amalia Wilder LPN EKG (96653)By: Annalee Alvarenga MD On: 03-Sep-2007 Intent Ultrasound - Abdomen (Limited Area On: 03-Sep-2007 Intent or Organs)By: Annalee Alvarenga MD Comments: upper look at mass in epig area and luq Ultrasound - GallbladderBy: On: 03-Sep-2007 Intent Annalee Alvarenga MD EKG (90042)By: Annalee Alvarenga MD On: 03-Sep-2007 Intent Instructions [...] right : DISCONTINUED - US BREAST RIGHT (98814) Indication: Cyst, breast, right Diabetes mellitus type [...] expensive but worked in [facility] Diagnosis: Diabetes mellitus type 2, [...] The patient does have durable power of quality auditor and living will. The patient has noticed nothing from the geriatic depression scale. Other providers contributing to the patient's care are other: (Opthalm: Dr. Zavala in [place] ).Encounter Diagnosis: Encounter for Medicare annual wellness [...] to get [facility] script of [facility]. Encounter Diagnosis: Preop examination, Type II Diabetes,controlled [...]
--- OUTSIDE RECORDS SUMMARY | 2018-12-08 07:40 | XMS RPT_ITS | Continuity of Care Document ---
:1945 Author Organization [facility] Address [address] [facility] [facility] [address] [place] [address] Phone Care Team Providers Name Role Phone [...] Cataract), no changes, Nat Gallegos, [facility].Labs:urine albumin/Cr:Lipid panel:[id number] on medicine done.DIABETIC FOOT CARE:Check feet daily [...] Refused influenza vaccine) (Z28.21, V64.06) Status: Active Non-smoker (Z78.9, V49.89) Status: Active [...] CNP, CNP Yuni Start : 11-Feb-2018 Active MetFORMIN HCl ER (MOD) 1000 MG Oral Tablet Extended Release 24 Hour 1 (one) Tablet 1 in am and 1/2 qpm for 0 days Quantity: 130 {Tablet} Refills: 3 Ordered:24-Mar-2018 Kristine Mccauley CNP, CNP Yuni Start : 24-Mar-2018 End : 11-Feb-2018 Active MetFORMIN HCl ER (MOD) 1000 MG Oral Tablet Extended Release 24 Hour 1 (one) Tablet 1 in am and 1/2 qpm for 0 days Quantity: 130 {Tablet} Refills: 3 Ordered:24-Mar-2018 Kristine Mccauley CNP, CNP Yuni Start : 24-Mar-2018 End : 11-Feb-2018 Active [...] Quantity: 90 {Tablet} Refills: 3 Ordered:15-Oct-2017 Parisa MASON LINER, Kristine Muñoz CNP, Yuni Start : 15-Oct-2017 Active Pravastatin Sodium 80 MG Oral Tablet 1 Tablet daily for 0 days Quantity: 90 {Tablet} Refills: 3 Ordered:15-Oct-2017 Cibernicea MASON LINER, Kristine Muñoz MASON LINER, Yuni Start : 15-Oct-2017 Active Prevacid 24HR 15 MG Oral Capsule Delayed Release 1 qd prn for 0 days Refills: 0 Ordered:18-Jun-2016 Terrence Garcia MD Start : 18-Jun-2016 Active Vitamin D3 1000 UNIT Oral Capsule daily (1000 UNIT) Active ACTOS, 30MG (Oral Tablet) 1 Tablet qd for 0 days Quantity: 90 {Tablet} Refills: 3 Ordered:22-Jun-2013 Long TRACER POWDER BLENDER, Amalia L Start : 13-Aug-2007 End : 22-Jun-2013 Inactive ASTELIN, 137MCG/SPRAY (Nasal Solution) Solution QD for 0 days Quantity: 1 {Solution} Refills: 3 Ordered:22-Jun-2013 Long TRACER POWDER BLENDER, Amalia L Start : 16-Jul-2007 End : 22-Jun-2013 Inactive AUGMENTIN, 875-125MG (Oral Tablet) 1 (one) Tablet bid for 0 days Quantity: 28 {Tablet} Refills: 0 Ordered:15-Feb-2014 Long TRACER POWDER BLENDER, Amalia L Start : 11-Nov-2013 End : 15-Feb-2014 Inactive BIAXIN XL PAC, 500MG (Oral Tablet Extended Release 24 Hour) 2 (two) Tablet ER 24HR qd for 0 days Quantity: 1 {Packet} Refills: 0 Ordered:31-Jul-2015 GURPREET Brito Start : 15-May-2015 End : 31-Jul-2015 Inactive CALTRATE 600+D, 834-064LF-BZZS (Oral Tablet) 2 (two) Tablet qd for [...] 16-Feb-2015 End : 27-Mar-2015 Inactive Comments:DX: 250.00NPI: [id number] PREDNISONE, 20MG (Oral Tablet) 1 (one) Tablet [...] Quantity: 90 {Tablet} Refills: 3 Ordered:22-Jun-2013 Long TRACER POWDER BLENDER, Amalia L Start : 03-Sep-2007 End : 22-Jun-2013 Inactive TAMIFLU, 75MG (Oral Capsule) 1 (one) Capsule bid for 5 days Quantity: 10 {Capsule} Refills: 0 Ordered:12-Sep-2014 Lancemerleelsa Laura Start : 12-Sep-2014 End : 17-Sep-2014 Inactive TENORMIN, 50MG (Oral Tablet) 1 Tablet qd for 0 days Quantity: 30 {Tablet} Refills: 0 Ordered:22-Jun-2013 Long TRACER POWDER BLENDER, Amalia L Start : 13-Aug-2007 End : [...] days Quantity: 1 {Milligram} Refills: 2 Ordered:11-Nov-2017 Kristine Mccauley CNP, CNP, Mary E Start : 11-Jul-2017 End : 11-Nov-2017 Inactive Victoza 18 MG/3ML Subcutaneous Solution Pen-injector 1.25 Milligram Start 0.6 sc qd x1 wk, then 1.2mg SC qd, then 1.8mg qd for 90 days Quantity: 3 {Box} Refills: 3 Ordered:11-Nov-2017 Kristine Mccauley CNP, CNP, Mary E Start : 11-Jul-2017 End : 11-Nov-2017 Inactive Vitamin D3 1000 UNIT Oral Tablet 2 (two) Tablet qd for 30 days Quantity: 60 {Tablet} Refills: 0 Ordered:11-Nov-2017 Kristine Mccauley CNP, CNP, Mary E Start : 11-Nov-2017 End : 11-Dec-2017 Inactive [...] Refills: 3 Ordered:11-Nov-2017 Parisa CAPPS, Kristine Muñoz [facility], Kristine Perrin Start : 01-Apr-2017 End : 11-Nov-2017 Discontinued GlyBURIDE 2.5 MG Oral Tablet 1 (one) Tablet daily for 0 days Quantity: 90 {Tablet} Refills: 3 Ordered:11-Nov-2017 Parisa MASON LINER, Kristine Muñoz [facility], Kristine Perrin Start : 01-Apr-2017 End : [...] 611.71) Comments: cut out caffiene use nsaids. 11- mammookay hhx of cyst. if not better [...] decades ago Status: Inactive as of 04-Mar-2016 Need for prophylactic vaccination and inoculation against influenza (Renamed from Need for immunization against influenza) (Z23, V04.81) Status: Resolved as of 12-Aug-2018 Peptic ulcer disease (K27.9, 533.90) 1984 Status: [...] Study (HP) Result: Comments: See Note; NOTES: [facility] Imaging Services [address] [place] [address] Verdana 4d Dexa Bone Density Study (HP) MR#: [id number] Acct: [id number] Name: ALFONSO SANTIAGO EN Rep #: [id number] : 1945 F 71 From: Gutierrez Fisher MD PCP: Terrence Garcia Status: REG CLI Study: Dexa Bone Density Study (HP) Date of Exam: 10/22/16 Exam# [id number] Ordering Dr: Melvin Garcia STUDY: DUAL ENERGY [...] Gutierrez Fisher MD at 9:00 EST Tel [phone], Service support [phone], CC: Terrence Garcia Child Therapist: Signed 02-Sep-2016 Breast Limited Unilateral Result: Comments: See Note; NOTES: [facility] Imaging Services [address] [place] [address] Verdana 4d Breast Limited Unilateral MR#: [id number] Acct: [id number] Name: EMILY SANTIAGO Rep #: [id number] : 1945 F 71 From: David Mclaughlin MD PCP: Terrence Garcia Status: REG CLI Study: Breast Limited Unilateral Date of Exam: 09/02/16 Exam# [id number] Ordering Dr: Terrence Garcia STUDY: UL TRASOUND [...] at 10:19 EST Tel , Service support [phone], CC: Terrence Garcia Child Therapist: Signed 14-Feb-2016 Breast Limited Unilateral Result: Comments: See Note; NOTES: [facility] Imaging Services [address] [place] [address] Verdana 4d Breast Limited Unilateral MR#: [id number] Acct: [id number] Name: EMILY AVINA Rep #: [id number] : 1945 F 71 From: Gutierrez Fisher MD PCP: Annalee Alvarenga MD Status: REG CLI Study: Breast Limited Unilateral Date of Exam: 02/14/16 Exam# [id number] Ordering Dr: Annalee Alvarenga MD STUDY: ULTRASOUND [...] Gutierrez Fisher MD at 9:13 EDT Tel [phone], Service support [phone], CC: Annalee Alvarenga MD Child Therapist: Signed 09-Feb-2016 Bilat Scrn Digital AND CAD Result: Comments: See Note; NOTES: [facility] Imaging Services [address] [place] [address] Verdana 4d Bilat Scrn Digital AND CAD MR#: [id number] Acct: [id number] Name: EMILY SANTIAGO Rep #: [id number] : 1945 F 71 From: Gutierrez Fisher MD PCP: Annalee Alvarenga MD Status: REG CLI Study: Bilat Scrn Digital AND CAD Date of Exam: 02/09/16 Exam# [id number] Orderin g Dr: Annalee Alvarenga MD MAMMOGRAPHY [...] biopsy of a clinically suspicious abnorma lity. [id number] Electronically Signed: Gutierrez Fisher MD at 10:27 EDT Tel [phone], Service support [phone], CC: Annalee Alvarenga MD Child Therapist: Signed 04-Dec-2015 ELECTROCARDIOGRAM, COMPLETE (ECG) (06655) Comments: see scanned document of test done to see results reviewed today with patient Result: [MEASUREMENTS ANALYSIS] Date of Test: 12/04/2015 08:33:40; Heart Rate: 71; OK Interval: 146; QRS: 96; QT Interval: 370; Corrected QT Interval (QTc): 389; P Wave Aurora: 52; QRS Wave [place]: -15; T Wave [place] : -1; Blood Pressure: 140/80 [ECG DIAGNOSTIC STATEMENTS] Date of Test: 12/04/2015 08:33:40; Summary: Sinus Rhythm WITHIN NORMAL LIMITS 15-May-2015 Spirometry (02776) Comments: see scanned document of test done to see results reviewed today with patient Result: 08-Dec-2014 Spirometry (40189) Comments: poor technique- mild restriction Result: 18-Oct-2014 Bilat Scrn Digital AND CAD Result: Comments: See Note; NOTES: [facility] Imaging Services [address] [place] [address] Breast Imaging Report MR#: [id number] Acct: [id number] Name: EMILY SANTIAGO Rep #: [id number] : 1945 F 69 From: Gutierrez Fisher MD PCP: Annalee Alvarenga MD Status: REG CLI Study: Bilat Scrn Digital AND CAD Date of Exam: 10/18/14 Exam# [id number] Ordering Dr: Annalee Alvarenga MD MAMMOGRAPHY - [...] Gutierrez Fisher MD at 9:48 EST Tel [phone], Service support [phone], CC: Annalee Alvarenga MD Child Therapist: Signed 18-Oct-2014 Dexa Bone Density Study (HP) Result: Comments: See Note; NOTES: [facility] Imaging Services [address] [place] [address] Bone Density Report MR#: [id number] Acct: [id number] Name: EMILY SANTIAGO Rep #: [id number] : 1945 F 69 From: Gutierrez Fisher MD PCP: Annalee Alvarenga MD Status[facility] Study: Dexa Bone Density Study () Date of Exam: 10/18/14 Exam# [id number] Ordering Dr: Annalee Alvarenga MD STUDY: DUAL [...] than -1.5 would be considered abnormal. Refe renrenaldo: 1. NIH Osteoporosis and Related Bone Diseases http://www.osteo.org 2. International Society for Clinical Densitometry http://www.iscd.org 3. National Osteoporosis Foundation http://www.nof.or g Electronically Signed: Gutierrez Fisher MD at 11:31 EST Tel [phone], Service support [phone], CC: Annalee Alvarenga MD Child Therapist: Signed 23-Sep-2014 Discharge Instruction Result: Comments: See Note; NOTES: [facility] Medical Records Department [address] [place] [address] Discharge Instruction 09/15/14 1351 MR#: [id number] Acct: [id number] Name: EMILY SANTIAGO Rep #: [id number] : 1945 69 From: Phani Valencia MD [...] contact your doctor. Call [facility] ( [phone]) or report to the closest Emergency Room. Call 911 if necessary. 09/23/14 0821 <Electronically signed by Phani Valencia MD> Date ____ Phani Valencia MD Cosigner Signature (If Indicated): Date CC: Annalee Alvarenga MD 23-Sep-2014 Emergency Department Summary Result: Comments: See Note; NOTES: [facility] Medical Records Department [address] [place] [address] Emergency Department Summary MR#: [id number] Acct: [id number] Name: EMILY SANTIAGO Rep #: [id number] : 1945 69 From: Phani Valencia MD PCP: Annalee Alvarenga MD Status: [facility] ER DATE OF SERVICE: 09/15/2014 METHOD OF [...] Hugh Ramirez C: Annalee Alvarenga MD T: [facility] JOB: [id number] 09/23/14 0821 <Electronically melissa d by Phani Valencia MD> Date Phani Valencia MD CC: Annalee Alvarenga MD Date Dictated: 09/18/14 1201 Date Transcribed: 09/18/141200 Child Therapist: Signed 15-Sep-2014 Chest PA and Lateral Result: Comments: See Note; NOTES: [facility] Imaging Services [address] [place] [address] Radiology Report MR#: [id number] Acct: [id number] Name: EMILY SANTIAGO Rep #: [id number] : 1945 F 69 From: Karina Grimm MD PCP: Annalee Alvarenga MD Status: DEP ER Study: Chest PA and Lateral Date of Exam: 09/15/14 Exam# [id number] Ordering Dr: Phani Valencia MD STUDY: X-RA [...] at 9:27 EST Tel , Service support [phone], RAD/Chest PA and Lateral IMPRESSION: There is no evidence of acute disease. Electronically Sign ed: Lakshmi Grimm MD at 9:27 EST Tel , Service support [phone], CC: Annalee Alvarenga MD; Phani Valencia MD Child Therapist: Signed 11-Mar-2014 Echocardiogram Complete Result: Comments: See Note; NOTES: [facility] Cardiovascular Services [facility] [place] [address] Echo Complete 03/11/14 1314 MR#: [id number] Acct: [id number] Name: MEME SANTIAGO Rep #: [id number] : 1945 69 From: Joshua Leonard MD Attending Dr: Annalee Alvarenga MD Status: REG I Ordering Dr: Annalee Alvarenga MD Date: 03/11/14 Location: [place] Sex: F C Admitted: [facility] This was a 2D Doppler, Color Flow transthoracic echocardiogram. The exam was of adequate technical quality. Exam performed in department. Left Ventricle Normal LV size. Segmental dysfunction with preserved ejection fraction (see wall motion). The estimated ejection fraction is 55 %. Septal bounce. Infero-Basal: Hypokinetic. Mid-Inferior: Hypokinetic. Mid-inferoseptal : Hypokinetic. Mid- anteroseptal : Hypokinetic. Anterior [place] : Hypokinetic. Inferior [place] : Hypokinetic. Septal [place] : Hypokinetic. Right Ventricle Normal RV size. [...] Dictated: 03/11/14 1314 Date Transcribed: 03/11/14 1713 Child Therapist: Signed 11-Mar-2014 CTA Chest W/WO Contrast Result: Comments: See Note; NOTES: [facility] Imaging Services [address] [place] [address] CAT Scan Report MR#: [id number] Acct: [id number] Name: EMILY SANTIAGO Rep #: [id number] : 1945 F 69 From: Gutierrez Fisher MD PCP: Annalee Alvarenga MD Status: REG CLI Study: CTA Chest W/WO Contrast Date of Exam: 03/11/14 Exam# [id number] Ordering Dr: Annalee Alvarenga MD STUDY : [...] Gutierrez Fisher MD at 15:17 EDT Tel [phone], Service support [phone], CC: Annalee Alvarenga MD Child Therapist: Signed 11-Nov-2013 Chest PA and Lateral Result: Comments: See Note; NOTES: [facility] Imaging Services [address] [place] [address] Radiology Report MR#: [id number] Acct: [id number] Name: EMILY SANTIAGO Rep #: [id number] : 1945 F 68 From: Alexander Gilman DO PCP: Suri Paredes DO Status: REG CLI Study: Chest PA and Lateral Date of Exam: 11/11/13 Exam# [id number] Ordering Dr: Suri Paredes DO STUDY: X [...] D.O. at 21:45 EST , Service support [phone], CC: Suri Paredes DO Child Therapist: Signed 21-Jul-2013 Bilat Scrn Digital & CAD Result: Comments: See Note; NOTES: [facility] Imaging Services [address] [place] [address] Breast Imaging Report MR#: [id number] Acct: [id number] Name: EMILY SANTIAGO Rep #: [id number] : 1945 F 68 From: Gutierrez Fisher MD PCP: CARLOS LING Status: REG CLI Exam# [id number] Ordering Dr: Annalee Alvarenga MD MAMMOGRAPHY - [...] 21, 2013 at 2 :40:05 PM EST [phone] Electronically Signed GP/GP If you are the referring physician and would like to consult with the radiologist who provided this interpretation, please contact Gutierrez Fisher M.D. at [phone]. If this radiologist is unavailable, you will be directed to another radiologist to assist. If you are a patient with a question regarding this report, please contact your referring physician directly. Professional Interpretation Provided By: [employer] Phone , These documents contain legally protected [...] documents. CC: CARLOS LING; Annalee Alvarenga MD Child Therapist: Signed Family History Unknown Family Member Name [...] Description Value Details :10 HgA1C , Office (22534) Comments: 6.8 has improved HgA1C , Office 6.8 % (Normal) Range: 4.6 - 7.1 :10 Blood Glucose , Office (87102) Blood Glucose , Office 167 (Normal) :46 T4, FREE (THYROXINE) (70824) Comments: PATIENT WAS FASTINGPERFORMED BY: [employer] Lpqluw[address] [facility] [id number] T4,Free(Direct) 1.00 ng/dL (Normal) Range: 0.82-1.77 :46 T3, FREE (TRIDOTHYRONINE) (65501) Comments: PATIENT WAS FASTINGPERFORMED BY: [employer] [id number] Triiodothyronine,Free,Serum 2.8 pg/mL (Normal) Range: 2.0-4.4 :46 TSH (THYROID STIMULATING Comments: PATIENT WAS FASTINGPERFORMED BY: [employer] [facility] [id number] HORMONE) (52273) TSH 3.730 {uIU/mL} (Normal) Range: 0.450-4.500 :46 Metabolic Panel, Comprehensive Comments: PATIENT WAS FASTINGPERFORMED BY: MORE [facility]Sh[facility] HospitalWfxuhx0969 [facility] [id number] (71327) ALT (SGPT) 23 [iU]/L (Normal) Range: 0-32 [...] (Abnormal) Range: 65-99 :25 HgA1C , Office (89014) HgA1C , Office 7.2 % (Abnormal) Range: 4.6 - 7.1 :25 Blood Glucose , Office (87190) Blood Glucose , Office 217 (Normal) :32 Microscopic Examination Comments: PATIENT WAS FASTINGPERFORMED BY: [facility] [facility] [id number] Bacteria None seen (Normal) Epithelial Cells (non renal) 0-10 {/hpf} (Normal) Range: 0 - 10 RBC 0-2 {/hpf} (Normal) Range: 0 - 2 WBC 0-5 {/hpf} (Normal) Range: 0 - 5 :32 MICROALBUMIN: CREATININE RATIO Comments: PATIENT WAS FASTINGPERFORMED BY: [facility] [facility] [id number] (88330) AND (09190) Alb/Creat Ratio 9.8 {mg/g_creat} (Normal) Range: 0.0-30.0 Albumin, Urine 12.3 ug/mL (Normal) Creatinine, Urine 124.9 mg/dL (Normal) :32 URINALYSIS (85832) Comments: PATIENT WAS FASTINGPERFORMED BY: [employer] [facility] Nskogr8818 [facility] [id number] Microscopic Examination See below: (Normal) Comments: Microscopic was indicated and was performed. Nitrite, Urine Negative (Normal) Urobilinogen,Semi-Qn 0.2 mg/dL (Normal) Range: 0.2-1.0 Bilirubin Negative (Normal) Occult Blood Negative (Normal) Ketones Negative (Normal) Glucose Negative (Normal) Protein Negative (Normal) WBC Esterase Trace (Abnormal) Appearance Clear (Normal) Urine-Color Yellow (Normal) pH 6.5 (Normal) Range: 5.0-7.5 Specific [place] 1.017 (Normal) Range: 1.005-1.030 :32 Lipid Panel (83575) Comments: PATIENT WAS FASTINGPERFORMED BY: [facility] [facility] [id number] LDL/HDL Ratio 1.8 {ratio_units} (Normal) Range: 0.0-3.2 [...] Panel, Comprehensive Comments: PATIENT WAS FASTINGPERFORMED BY: [facility] [id number] (11270) ALT (SGPT) 29 [iU]/L (Normal) Range: 0-32 [...] Auto Diff Comments: PATIENT WAS FASTINGPERFORMED BY: [facility] Brown6370 [facility] [id number] (90838) Immature Grans (Abs) 0.0 {x10E3/uL} (Normal) Range: [...] 3.77-5.28 WBC 6.0 {x10E3/uL} (Normal) Range: 3.4-10.8 82-Gdf-13252:32 TSH (12251) Comments: PATIENT WAS FASTINGPERFORMED BY: [facility] Ccasvr4362 [facility] [place] [id number] TSH 4.760 {uIU/mL} (Abnormal) Range: 0.450-4.500 38-Ury-71175:32 CALCIFEDIOL (74011) Comments: PATIENT WAS FASTINGPERFORMED BY: [facility] Tvfddb1738 [facility] [place] [id number] Vitamin D, 25-Hydroxy 70.9 ng/mL (Normal) Range: 30.0-100.0 Comments: Vitamin D deficiency has been defined by the [place] of[place]icine and an Endocrine Society practice guideline as alevel of serum 25-OH vitamin D less than 20 ng/mL (1,2).The Endocrine Society went on to further define vitamin Dinsufficiency as a level between 21 and 29 ng/mL (2).1. IOM ([place] of [employer]). 2010. Dietary reference intakes for calcium and D. [place]: The National Academies Press.2. Pasha Quevedo, Chirag CAMERON, et al. Evaluation, treatment, and prevention of vitamin D deficiency: an Endocrine Society clinical practice guideline. JCEM. 2010; 96(7):1911-30. :11 HgA1C , Office (71039) HgA1C , Office 6.8 % (Normal) Range: 4.6 - 7.1 :11 Blood Glucose , Office (58538) Blood Glucose , Office 209 (Normal) :22 CALCIFEDIOL (24559) Comments: today; PATIENT NOT FASTINGPERFORMED BY: [facility]Co[facility] HospitalSljeud8[address] [facility] [id number] Vitamin D, 25-Hydroxy 50.8 ng/mL (Normal) Range: 30.0-100.0 Comments: Vitamin D deficiency has been defined by the [place] of[place] and an Endocrine Society practice guideline as alevel of serum 25-OH vitamin D less than 20 ng/mL (1,2).The Endocrine Society went on to further define vitamin Dinsufficiency as a level between 21 and 29 ng/mL (2).1. IOM ([place] [employer]). 2010. Dietary reference intakes for calcium and D. [place]: The National Academies Press.2. Pasha Quevedo, Chirag CAMERON, et al. Evaluation, treatment, and prevention of vitamin D deficiency: an Endocrine Society clinical practice guideline. JCEM. 2010; 96(7):1911-30. :32 HgA1C , Office (49563) HgA1C , Office 6.9 % (Normal) Range: 4.6 - 7.1 :31 Blood Glucose , Office (49415) Blood Glucose , Office 171 (Normal) :56 HgA1C , Office (79050) HgA1C , Office 6.6 % (Normal) Range: 4.6 - 7.1 :56 Blood Glucose , Office (78067) Blood Glucose , Office 184 (Normal) Comments: Just ate breakfast :49 MICROALBUMIN: CREATININE RATIO Comments: PATIENT WAS FASTINGPERFORMED BY: [facility] Tiqaro54[address] [facility] [id number] (40325) AND (52967) Microalb/Creat Ratio 7.4 {mg/g_creat} (Normal) Range: 0.0-30.0 Microalbumin, Urine 14.7 ug/mL (Normal) Creatinine, Urine 198.7 mg/dL (Normal) :49 VITAMIN B12 AND FOLATES Comments: PATIENT WAS FASTINGPERFORMED BY: [facility] [facility] [id number] (04807) Folate (Folic Acid), Serum >20.0 ng/mL (Normal) Comments: A serum folate concentration of less than 3.1 ng/mL isconsidered to represent clinical deficiency. Vitamin B12 497 pg/mL (Normal) Range: 211-946 :49 CALCIFEDIOL (46433) Comments: PATIENT WAS FASTINGPERFORMED BY: [facility] Brown[address] [facility] [id number] Vitamin D, 25-Hydroxy 57.6 ng/mL (Normal) Range: 30.0-100.0 Comments: Vitamin D deficiency has been defined by the [place] of[place] and an Endocrine Society practice guideline as alevel of serum 25-OH vitamin D less than 20 ng/mL (1,2).The Endocrine Society went on to further define vitamin Dinsufficiency as a level between 21 and 29 ng/mL (2).1. IOM ([place] [employer]). 2010. Dietary reference intakes for calcium and D. [place]: The National Academies Press.2. Sadiq MF, Pasha [place], Chirag CAMERON, et al. Evaluation, treatment, and prevention of vitamin D deficiency: an Endocrine Society clinical practice guideline. JCEM. 2010; 96(7):9151-30. :49 TSH (THYROID STIMULATING Comments: PATIENT WAS FASTINGPERFORMED BY: [place] [id number] [facility] [id number] HORMONE) (94608) TSH 3.740 {uIU/mL} (Normal) Range: 0.450-4.500 :49 LIPID PANEL (70005) Comments: PATIENT WAS FASTINGPERFORMED BY: [facility] [facility] [id number] LDL/HDL Ratio 1.9 {ratio_units} (Normal) Range: 0.0-3.2 [...] PANEL, COMPREHENSIVE Comments: PATIENT WAS FASTINGPERFORMED BY: [facility] [facility] [id number] (09886) ALT (SGPT) 27 [iU]/L (Normal) Range: 0-32 [...] Glucose, Serum 136 mg/dL (Abnormal) Range: 65-99 82-Bfx-24292:49 CBC, PLATELETS & AUT DIFF Comments: PATIENT WAS FASTINGPERFORMED BY: [facility] Uflabp9736 [facility] [id number]; fu [facility] 12-18-16 (85576) Immature Grans (Abs) 0.0 {x10E3/uL} (Normal) Range: [...] Range: 3.4-10.8 :09 Blood Glucose , Office (69098) Blood Glucose , Office 231 (Normal) :09 HgA1C , Office (84457) HgA1C , Office 6.5 % (Normal) Range: 4.6 - 7.1 :33 MICROALBUMIN: CREATININE RATIO Comments: PATIENT WAS FASTINGPERFORMED BY: [facility] HospitalPphoqk9132 [facility] [id number] (31864) AND (20053) Microalb/Creat Ratio 14.1 {mg/g_creat} (Normal) Range: 0.0-30.0 Microalbumin, Urine 16.3 ug/mL (Normal) Creatinine, Urine 115.2 mg/dL (Normal) :33 VITAMIN B12 AND FOLATES Comments: PATIENT WAS FASTINGPERFORMED BY: [facility] HospitalUbnvro[facility] [id number] (53722) Folate (Folic Acid), Serum 15.9 ng/mL (Normal) Comments: A serum folate concentration of less than 3.1 ng/mL isconsidered to represent clinical deficiency. Vitamin B12 251 pg/mL (Normal) Range: 211-946 :33 CALCIFEDIOL (02778) Comments: PATIENT WAS FASTINGPERFORMED BY: [facility] [facility] [id number] Vitamin D, 25-Hydroxy 45.1 ng/mL (Normal) Range: 30.0-100.0 Comments: Vitamin D deficiency has been defined by the [place] of[place] and an Endocrine Society practice guideline as alevel of serum 25-OH vitamin D less than 20 ng/mL (1,2).The Endocrine Society went on to further define vitamin Dinsufficiency as a level between 21 and 29 ng/mL (2).1. IOM ([place] [employer]). 2010. Dietary reference intakes for calcium and D. [place]: The National Academies Press.2. Sadiq RAVI, Pasha GARG, Chirag CAMERON, et al. Evaluation, treatment, and prevention of vitamin D deficiency: an Endocrine Society clinical practice guideline. JCEM. 2010; 96(7):1911-30. :33 TSH (THYROID STIMULATING Comments: PATIENT WAS FASTINGPERFORMED BY: [facility] Dnnkpq2236 [facility] [id number] HORMONE) (99955) TSH 3.200 {uIU/mL} (Normal) Range: 0.450-4.500 :33 LIPID PANEL (33469) Comments: PATIENT WAS FASTINGPERFORMED BY: [facility]Co[facility] HospitalKldofx4650 [facility] [id number] LDL/HDL Ratio 1.3 {ratio_units} (Normal) Range: 0.0-3.2 Comments: LDL/HDL Ratio Men Women 1/2 Avg.Risk 1.0 1.5 Av g.Risk 3.6 3.2 2X Avg.Risk 6.2 5.0 3X Avg.Risk 8.0 6.1 LDL Cholesterol Calc 68 mg/dL (Normal) Range: 0-99 VLDL Cholesterol [place] 26 mg/dL (Normal) Range: 5-40 HDL Cholesterol 53 mg/dL (Normal) Triglycerides 129 mg/dL (Normal) Range: 0-149 Cholesterol, Total 147 mg/dL (Normal) Range: 100-199 01-Pfh-16048:33 METABOLIC PANEL, COMPREHENSIVE Comments: PATIENT WAS FASTINGPERFORMED BY: [employer] Cjixzj[address] [facility] [id number] (30935) ALT (SGPT) 20 [iU]/L (Normal) Range: 0-32 [...] AUT DIFF Comments: PATIENT WAS FASTINGPERFORMED BY: Everything ClubPresbyterian Santa Fe Medical CenterLlwcir20[address] [facility] [id number] (23994) Immature Grans (Abs) 0.0 {x10E3/uL} (Normal) Range: [...] (Normal) Range: 3.4-10.8 :04 HgA1C , Office (22854) HgA1C , Office 6.8 % (Normal) Range: 4.6 - 7.1 :04 Blood Glucose , Office (77385) Blood Glucose , Office 140 (Normal) Comments: not fasting :58 VITAMIN D, 1, 25-DIHYDROXY Comments: PATIENT WAS FASTINGPERFORMED BY: CB [facility] Edoyum17[address] [facility] [address] [id number] BY: BN [facility] [address] [id number] (34070) Calcitriol(1,25 di-OH Vit D) 38.6 pg/mL (Normal) Range: 19.9-79.3 :58 LIPID PANEL (62583) Comments: PATIENT WAS FASTINGPERFORMED BY: [employer] Mfgpxf20[address] [facility] [id number] BY: [employer] [id number] LDL/HDL Ratio 1.7 {ratio_units} (Normal) Range: 0.0-3.2 [...] MICROALBUMIN: CREATININE Comments: PATIENT WAS FASTINGPERFORMED BY: [employer]ialin6[address] [facility] [id number] BY: Habbo[address] [id number] RATIO (41157) AND (08670) Microalb/Creat Ratio 5.1 {mg/g_creat} (Normal) Range: 0.0-30.0 Microalbumin, Urine 6.3 ug/mL (Normal) Creatinine, Urine 122.4 mg/dL (Normal) 61-Oax-24540:58 METABOLIC PANEL, Comments: PATIENT WAS FASTINGPERFORMED BY: [employer] Gzxvfr5[address] [facility] [id number] BY: [employer] [id number] COMPREHENSIVE (31191) ALT (SGPT) 31 [iU]/L (Normal) Range: 0-32 [...] Glucose, Serum 138 mg/dL (Abnormal) Range: 65-99 14-Jkj-17660:58 CBC, PLATELETS & AUT DIFF Comments: PATIENT WAS FASTINGPERFORMED BY: CB [facility] Qylfax3681 [facility] [address] [id number] BY: BN [facility] [address] [id number] (69629) Immature Grans (Abs) 0.0 {x10E3/uL} (Normal) Range: [...] (Normal) Range: 3.4-10.8 :14 HgA1C , Office (88692) HgA1C , Office 7.5 % (Abnormal) Range: 4.6 - 7.1 :14 Blood Glucose , Office (88203) Blood Glucose , Office 108 (Normal) :55 HgA1C , Office (53780) HgA1C , Office 7.1 % (Normal) Range: 4.6 - 7.1 :08 CALCIFIDIOL (59988) VIT D 25 Comments: PATIENT WAS FASTINGPERFORMED BY: [facility] [id number] Vitamin D, 25-Hydroxy 42.3 ng/mL (Normal) Range: 30.0-100.0 Comments: Vitamin D deficiency has been defined by the [place] of[place]icine and an Endocrine Society practice guideline as alevel of serum 25-OH vitamin D less than 20 ng/mL (1,2).The Endocrine Society went on to further define vitamin Dinsufficiency as a level between 21 and 29 ng/mL (2).1. IOM ([place] of Medicine). 2010. Dietary reference intakes for calcium and D. [place]: The National Academies Press.2. Sadiq RAVI, Pasha GARG, Chirag CAMERON, et al. Evaluation, treatment, and prevention of vitamin D deficiency: an Endocrine Society clinical practice guideline. JCEM. 2010; 96(1):1911-30. :08 MICROALBUMIN: CREATININE RATIO Comments: PATIENT WAS FASTINGPERFORMED BY: [employer] Aifdnm8[address] [facility] [address] [id number] (21299) AND (17553) Microalb/Creat Ratio 6.3 {mg/g_creat} (Normal) Range: 0.0-30.0 Microalbumin, Urine 11.8 ug/mL (Normal) Range: 0.0-17.0 Creatinine, Urine 186.0 mg/dL (Normal) Range: 15.0-278.0 :08 METABOLIC PANEL, COMPREHENSIVE Comments: PATIENT WAS FASTINGPERFORMED BY: [employer] Tltulx88[address] [id number] (50093) ALT (SGPT) 25 [iU]/L (Normal) Range: 0-32 [...] mg/dL (Abnormal) Range: 65-99 :08 LIPID PANEL (05217) Comments: PATIENT WAS FASTINGPERFORMED BY: [employer] Jgxoxh8391 [facility] [address] [id number]; apt. 12-04-15 LDL/HDL Ratio 1.7 {ratio_units} (Normal) [...] auto diff Comments: PATIENT WAS FASTINGPERFORMED BY: [facility] Centerlin6370 [address] [id number] Information: [id number] (19680) Immature Grans (Abs) 0.0 {x10E3/uL} (Normal) Range: [...] (Normal) Range: 3.4-10.8 :38 HgA1C , Office (63028) HgA1C , Office 7.5 % (Abnormal) Range: 4.6 - 7.1 :38 Blood Glucose , Office (36918) Blood Glucose , Office 171 (Normal) :31 LIPID PANEL (67299) Comments: PATIENT WAS FASTINGPERFORMED BY: LabCoShore Memorial HospitalLddgxe8655 [facility] [address] [id number] Information: [id number]; apt. 07-31-15 LDL/HDL Ratio 1.7 {ratio_units} (Normal) [...] 177 mg/dL (Normal) Range: 100-199 :31 CALCIFIDIOL (01284) VIT D 25 Comments: PATIENT WAS FASTINGPERFORMED BY: EdgeioFormerly [facility]6[address] [facility] [address] [id number] Vitamin D, 25-Hydroxy 33.0 ng/mL (Normal) Range: 30.0-100.0 Comments: Vitamin D deficiency has been defined by the [place] of[place] and an Endocrine Society practice guideline as alevel of serum 25-OH vitamin D less than 20 ng/mL (1,2).The Endocrine Society went on to further define vitamin Dinsufficiency as a level between 21 and 29 ng/mL (2).1. IOM ([place] [employer] [place]). 2010. Dietary reference intakes for calcium and D. [place]: The National Academies Press.2. Sadiq MF, Pasha GARG, Chirag CAMERON, et al. Evaluation, treatment, and prevention of vitamin D deficiency: an Endocrine Society clinical practice guideline. JCEM. 2010; 96(7):1911-30. :09 HgA1C , Office (11083) HgA1C , Office 6.8 % (Normal) Range: 4.6 - 7.1 :09 Blood Glucose , Office (76461) Blood Glucose , Office 172 (Normal) :20 CBC With Differential/Platelet Comments: PATIENT WAS FASTINGPERFORMED BY: [facility]Former[facility]6[address] [id number] Information: [id number] Immature Grans (Abs) 0.0 {x10E3/uL} (Normal) Range: [...] Panel (14) Comments: PATIENT WAS FASTINGPERFORMED BY: LabCoShore Memorial HospitalSewius04[address] [facility] [address] [id number]; will review at 03/27 appt ALT (SGPT) [...] With LDL/HDL Comments: PATIENT WAS FASTINGPERFORMED BY: [facility] [id number] Ratio LDL/HDL Ratio 1.8 {ratio_units} Range: 0.0-3.2 [...] ng/mL (Abnormal) Comments: PATIENT NOT FASTINGPERFORMED BY: Watson Brown6370 [facility] [id number] Information: [id number] 20 Range: 30.0-100.0 Comments: Vitamin D deficiency has been defined by the [place] of[place] and an Endocrine Society practice guideline as alevel of serum 25-OH vitamin D less than 20 ng/mL (1,2).The Endocrine Society went on to further define vitamin Dinsufficiency as a level between 21 and 29 ng/mL (2).1. IOM ([place]). 2010. Dietary reference intakes for calcium and D. [place]: The National Academies Press.2. Sadiq MF, Pasha [place], Chirag CAMERON, et al. Evaluation, treatment, and prevention of vitamin D deficiency: an Endocrine Society clinical practice guideline. JCEM. 2010; 96(7):1911-30. :40 Rapid Strep Test, Office (70624) Rapid Strep Test, Office Negative (Normal) :39 Rapid Flu (41726 x 2) Influenza A Ag neg a and b (Normal) :45 HgA1C , Office (51461) HgA1C , Office 7.2 % (Abnormal) Range: 4.6 - 7.1 :16 Basic Metabolic Profile (BMP) Comments: Test performed at:[facility] Swyjdzqmtn7623 [facility]. [place], [place] [id number] GAP 6 (Normal) Range: 5-15 CO2 31.0 [...] :16 CBC W/Diff, Automated Comments: Test performed at:[facility] Whuvqpwque1334 [facility]. [place], [place] [address] Absolute Lymph 1.81 {X10_3/ul} (Normal) Range: 0.83-4.51 [...] 4.2-5.4 WBC 4.7 K/mm3 (Normal) Range: 4.4-11.0 52-Ooz-876290:23 Rapid Flu (87866 x 2) Influenza A Ag positive A (Normal) 74-Rio-40830:30 METABOLIC PANEL, COMPREHENSIVE Comments: PATIENT WAS FASTINGPERFORMED BY: LabCoShore Memorial HospitalAdmopj7063 [facility] [address] [id number] (48144) ALT (SGPT) 21 [iU]/L (Normal) Range: 0-32 [...] Glucose, Serum 138 mg/dL (Abnormal) Range: 65-99 99-Obj-74655:30 CBC WITH MANUAL DIFF Comments: PATIENT WAS FASTINGPERFORMED BY: LabCoShore Memorial HospitalCyrzsm5[address] [facility] [address] [id number] Information: [id number] (33278) Immature Grans (Abs) 0.0 {x10E3/uL} (Normal) Range: [...] 3.77-5.28 WBC 7.5 {x10E3/uL} (Normal) Range: 3.4-10.8 9-Wat-609807:56 Anticardiolip Ab, IgA/G/M, Comments: PATIENT NOT FASTINGPERFORMED BY: BN [facility] [address] [id number] BY: CB [facility] Csnlzk80[address] [id number] BY: TG [facility] Qn THE9767 [facility] [id number] Anticardiolipin Ab,IgA,Qn <9 {APL_U/mL} (Normal) Range: 0-11 [...] Positive: >20 - 80 High Positive: >80 2-Qsg-640345:56 Antithrombin III, Comments: PATIENT NOT FASTINGPERFORMED BY: [employer] [facility] Qxret[address]ku[address] [id number] BY: CB [facility] Mpczvx3954 [address] Roadbl[address] [place] [id number] BY: [facility] Func/Immunol FOR1711 [facility] [id number] Antithrombin Activity 117 % (Normal) Range: 75-135 Antithrombin Antigen 116 % (Normal) Range: 75-130 5-Xuj-460110:5 Factor II Activity 111 % (Normal) Comments: PATIENT NOT FASTINGPERFORMED BY: [employer] [facility] Jjuxuvkvyz[address] [id number] BY: [employer] [facility] Rsvazs4548 [address] [id number] BY: LabCoregency [facility] CLF8127 [facility] [id number] Range: 75-130 8-Exf-460706:56 Factor V Leiden Mutation Comments: PATIENT NOT FASTINGPERFORMED BY: [facility] [address] [id number] BY: [employer] [facility] Ztppmn9998 [address] [id number] BY: LabCo TIM2808 [facility] [id number] Factor V Leiden FVNEG3 (Normal) Comments: Result: [...] in the workup for venous thrombosis include [id number] mutation in the factor II (prothrombin) gene,protein S and C deficiency, and antithromb in deficiencies.Anticardiolipin antibody and lupus anticoagulant analysismay be appropriate for certain patients, as well ashomocysteine levels. .Contact your local [facility] for information on how to orderadditional testing if desired. .Genetic counselors are available for health care* providers to discuss results at [phone] .Methodology:DNA analysis of the Factor V gene [...] 10.8 umol/L Comments: PATIENT NOT FASTINGPERFORMED BY: Lab[address] [id number] BY: [facility] [id number] BY: LabSsm [facility] 8:56 Plasma (Normal) RLO5463 TW [facility] [id number] Range: 0.0-15.0 1-Fjm-388702:56 MTHFR Comments: PATIENT NOT FASTINGPERFORMED BY: Lab[address] [id number] BY: [place] [address] [id number] BY: [facility] EOM62[address] DriveRTP [place] [id number] MTHFR, DNA Analysis IHQ221 (Normal) Comments: Result: C677T/C677T Two copies of the same mutation (C677T and C677T) identified .Interpretation: .This individual is homozygous for the MTHFR C677T variant (two copies).The MTHFR D1070M variant was not identified. Homozygosity for ogtG186I mutation confers an increased risk for the [...] discuss these results with healthcare providers at [phone]-GENE. .Methylenetetrahydrofolate reductase (MTHFR) is a salazar enzyme in thefolate pathway and is responsible for the metabolism of homocysteine.There are two common variants i n the MTHFR gene, c.655C>T(p.Rsq282Xfn), referred to as C677T, and c.1286A>C (p.Vte808Sfj),referred to as R0765N. Individuals homozygous for C677T (two copiesof the variant), have decreased activi ty of the MTHFR enzyme and apredisposition to hyperhomocysteinemia, particularly when deficient infolate. Hyperhomocysteinemia is a risk factor for venous thrombosisand coronary artery disease and is as sociated with an increased riskof open neural tube defects. The C677T variant does notindependently increase risk of these conditions in the absence ofhyperhomocysteinemia. The V6950R variant is n ot associated withelevated homocysteine levels unless a C677T variant is also present;however, the clinical significance of heterozygosity for both Y668Vkew S8195U is controversial. Population data sugg est that these twovariants are not present on the same chromosome, but rare exceptionshave been reported of triple variant MTHFR genotypes (ie. homozygousfor one variant and heterozygous for the other). Homozygosity hhvZ077I has an estimated frequency of 10% to [...] SE et al. Naomi Med 2013; 15(2):153- 156.Osprey C et al. Obstet Gynecol 2011; 118(3):730-740.Sedras B et al. Eur J Epidemiol 2013; 28(8):621-647. .Jami Gongora MD, PhDKem Figueroa PhDSuzette M Huguenin, PhDDorothy Adcock, MDAnnette K Taylor, MS, PhD 0-Dfy-493422:56 Protein C Deficiency Comments: PATIENT NOT FASTINGPERFORMED BY: BN [facility] Wvnneexpsl7117 [facility] [id number] BY: CB [facility] Gkezvd1192 [address] [id number] BY: TG [facility] Profile NFX8805 [facility] [id number] Protein C-Functional 137 % (Normal) Range: 74-151 Protein C Antigen 124 % (Normal) Range: 70-140 3-Cce-996892:56 Protein S Panel Comments: PATIENT NOT FASTINGPERFORMED BY: LabTen[facility] Louis1447 [facility] [id number] BY: LabFormerly [facility] [id number] BY: LabCo ONG6077 [address]SEL[address] [facility]CA[facility] [id number] Protein S-Functional 120 % (Normal) Range: 60-145 Protein S, Free 129 % (Abnormal) Range: 56-124 Protein S, Total 112 % (Normal) Range: 58-150 :17 Metabolic Panel, Basic (67752) Comments: PATIENT WAS FASTINGPERFORMED BY: LabWilliam Ville 2370670 [address] [id number] Calcium, Serum 9.4 mg/dL (Normal) Range: 8.6-10.2 [...] mg/dL (Abnormal) Range: 65-99 :17 CBC (Auto) (47802) Comments: PATIENT WAS FASTINGPERFORMED BY: LabWilliam Ville 2370670 [facility] [address] [id number] Information: [id number] Platelets 201 {x10E3/uL} (Normal) Range: 150-379 RDW 13.1 % (Normal) Range: 12.3-15.4 MCH 29.2 pg (Normal) Range: 26.6-33.0 MCHC 32.7 g/dL (Normal) Range: 31.5-35.7 MCV 89 fL (Normal) Range: 79-97 Hematocrit 40.1 % (Normal) Range: 34.0-46.6 Hemoglobin 13.1 g/dL (Normal) Range: 11.1-15.9 RBC 4.49 {x10E6/uL} (Normal) Range: 3.77-5.28 WBC 6.6 {x10E3/uL} (Normal) Range: 3.4-10.8 :04 HgA1C , Office (82040) HgA1C , Office 8.4 % (Abnormal) Range: 4.6 - 7.1 :04 Blood Glucose , Office (93626) Blood Glucose , Office 198 (Normal) :47 MICROALBUMIN: CREATININE RATIO Comments: PATIENT WAS FASTINGPERFORMED BY: Everything ClubShore Memorial HospitalYccjim2070 [address] [id number] (65274) AND (61085) Microalb/Creat Ratio 4.0 {mg/g_creat} (Normal) Range: 0.0-30.0 Microalbumin, Urine 5.6 ug/mL (Normal) Range: 0.0-17.0 Creatinine, Urine 139.4 mg/dL (Normal) Range: 15.0-278.0 :47 METABOLIC PANEL, COMPREHENSIVE Comments: PATIENT WAS FASTINGPERFORMED BY: LabCoShore Memorial HospitalCdfigd5461 [address] [id number] (46363) ALT (SGPT) 25 [iU]/L (Normal) Range: 0-32 [...] Glucose, Serum 177 mg/dL (Abnormal) Range: 65-99 46-Fut-30119:47 LIPID PANEL (52368) Comments: PATIENT WAS FASTINGPERFORMED BY: [facility] [id number]; Non-emergent and has apt next week 02/2014. LDL/HDL Ratio 1.4 {ratio_units} (Normal) Range: 0.0-3.2 LDL Cholesterol Calc 81 mg/dL (Normal) Range: 0-99 VLDL Cholesterol Arpit 38 mg/dL (Normal) Range: 5-40 HDL Cholesterol 56 mg/dL (Normal) Comments: According to ATP-III Guidelines, HDL-C >59 mg/dL is considered anegative risk factor for CHD. Triglycerides 191 mg/dL (Abnormal) Range: 0-149 Cholesterol, Total 175 mg/dL (Normal) Range: 100-199 42-Pay-65474:47 CBC WITH MANUAL DIFF Comments: PATIENT WAS FASTINGPERFORMED BY: Unata70 ApliiqScotland Memorial Hospital [id number] Information: [id number] (49008) Immature Grans (Abs) 0.0 {x10E3/uL} (Normal) Range: [...] Range: 3.4-10.8 :06 Blood Glucose , Office (28456) Blood Glucose , Office 135 (Normal) :06 HgA1C , Office (10294) HgA1C , Office 7.1 % (Normal) Range: 4.6 - 7.1 :23 Hemoglobin Glyclated (HGB A1C) Comments: PATIENT WAS FASTINGPERFORMED BY: LabFormerly [facility] [id number] (98476) Hemoglobin A1c 6.5 % (Abnormal) Range: 4.8-5.6 Comments: . Increased risk for diabetes: 5.7 - 6.4 Diabetes: >6.4 Glycemic control for adults with diabetes: <7.0 :23 MICROALBUMIN: CREATININE RATIO Comments: PATIENT WAS FASTINGPERFORMED BY: Everything ClubShore Memorial HospitalBalprp8179 [address] [id number] (36746) AND (63994) Microalb/Creat Ratio 2.3 {mg/g_creat} (Normal) Range: 0.0-30.0 Microalbumin, Urine 1.7 ug/mL (Normal) Range: 0.0-17.0 Creatinine, Urine 75.5 mg/dL (Normal) Range: 15.0-278.0 :23 METABOLIC PANEL, COMPREHENSIVE Comments: PATIENT WAS FASTINGPERFORMED BY: [employer]6370 [facility] InstitutePioneticsScotland Memorial Hospital [id number] (33123) ALT (SGPT) 19 [iU]/L (Normal) Range: 0-32 [...] mg/dL (Abnormal) Range: 65-99 :23 LIPID PANEL (51658) Comments: PATIENT WAS FASTINGPERFORMED BY: Everything ClubShore Memorial HospitalZwxkzg6906 [facility] [address] [id number] LDL/HDL Ratio 1.8 {ratio_units} (Normal) Range: 0.0-3.2 [...] MANUAL DIFF Comments: PATIENT WAS FASTINGPERFORMED BY: [facility] [id number] Information: [id number] (11654) Immature Grans (Abs) 0.0 {x10E3/uL} (Normal) Range: [...] (Normal) Range: 3.4-10.8 :37 HgA1C , Office (55484) HgA1C , Office .26 % (Abnormal) Range: [...] mg/dL (Normal) :29 Blood Glucose , Office (43634) Blood Glucose , Office 101 (Normal) Plan [...] Nonprescription Treatment Indication: Hypercholesteremia Planned Observations CALCIFEDIOL (67887)Indication: Osteopenia On: 5-Myj-005272:03 Request METABOLIC PANEL, COMPREHENSIVE (37624)Indication: Benign essential hypertension On: 71-Xzw-71788:10 Request LIPID PANEL (41612)Indication: Benign essential hypertension On: 61-Ukl-27477:10 Request CBC W/AUTO DIFF WBC (24864)Indication: Benign essential hypertension On: 34-Iqu-98746:10 Request Protein S Profile (16974)Indication: Pulmonary embolism On: :45 Request Protein C Profile (61858)Indication: Pulmonary embolism On: 2-Tkz-224028:45 Request Homocysteine, Plasma (11990)Indication: Pulmonary embolism On: :45 Request Antiphospholipid atb (07976)Indication: Pulmonary embolism On: :45 Request ANTICOAG ANTTHROMB III & ASSAY (86563)Indication: Pulmonary embolism On: :45 Request ANTITHROMBIN III ACTIVTY (91892)Indication: Pulmonary embolism On: :45 Request CLOTTING FACTOR II (74609)Indication: Pulmonary embolism On: :45 Request Factor V Leiden (04830)Indication: Pulmonary embolism On: :45 Request MTHFR (52289)Indication: Pulmonary embolism On: 8-Gid-053911:45 Request HEPATIC FUNCTION PANEL (73360)Indication: Hypercholesteremia On: 03-Pdp-95778:59 Request LIPID PANEL (78210)Indication: Hypercholesteremia On: 36-Zte-11768:59 Request MICROALBUMIN: CREATININE RATIO (92085) AND (07774)Indication: Diabetes mellitus type 2, controlled On: 6-Qiu-737277:35 Request METABOLIC PANEL, COMPREHENSIVE (32987)Indication: Diabetes mellitus type 2, controlled On: 5-Vlb-531784:35 Request LIPID PANEL (77223)Indication: Diabetes mellitus type 2, controlled On: :35 Request CBC WITH MANUAL DIFF (17407)Indication: Diabetes mellitus type 2, controlled On: 3-Ihs-975583:35 Request Planned Encounters Medical; 6 Month FU - On: 14-Aug-2018 8:15 [facility] [place] CAPPS, Yuni Parisa CAPPS, Kristine Perrin Planned Procedures MAMMOGRAM, RIGHT (09810)By: Radha On: 28-Aug-2016 Intent Terrence WING Breast Ultrasound - RightBy: Radha On: 28-Aug-2016 Terrence Perkins MD MAMMOGRAM, SCREENING, BOTH BREAST On: 31-Jul-2015 Intent (86172)By: Annalee Alvarenga MD Comments: 2-16 CTA CHEST W/W/O CONTRAST On: 08-Dec-2014 Intent (24123)By: Suri Paredes DO Aerosol Treatment (49448)By: On: 08-Dec-2014 Intent Suri Paredes DO Comments: more a/e- DEXA SCAN AXIAL SKELETON On: 04-Oct-2014 Intent (51604)By: Annalee Alvarenga MD Comments: postmenapausal MAMMOGRAM, SCREENING, BOTH BREAST On: 04-Oct-2014 Intent (96002)By: Annalee Alvarenga MD EKG (47453)By: Annalee Alvarenga MD On: 04-Oct-2014 Intent Comments: see scanned document of test done to see results reviewed today with patient CT - Cardiac CTABy: Colette WING, On: 14-Apr-2014 Intent Annalee Tsang Venous Doppler - LeftBy: Colette On: 22-Mar-2014 Intent Annalee WING Comments: bilateral legs today COMPUTED TOMOGRAPHY ANGIOGRAPHY OF On: 09-Mar-2014 Intent CHEST WITH AND WITHOUT CONTRAST Comments: PE PROTOCOL (10171)By: Annalee Alvarenga MD CT - Chest (IV Contrast Needed)By: On: 08-Mar-2014 Intent Annalee Alvarenga MD Comments: due pe protocol Ultrasound - Breast - LeftBy: On: 08-Mar-2014 Intent Annalee Alvarenga MD Echo CompleteBy: Annalee Alvarenga MD On: 15-Feb-2014 Intent M Eprescribed prescriptions On: 15-Feb-2014 Intent (G8553)By: Annalee Alvarenga MD Inhaler Demo (19958)By: Reggie BRAND, On: 11-Nov-2013 Intent Suri Radiology - Chest- PA and LatBy: On: 11-Nov-2013 Intent Suri Paredes DO Aerosol Treatment (10740)By: On: 11-Nov-2013 Intent Suri Paredes DO Comments: more a/e less tight Eprescribed prescriptions On: 11-Nov-2013 Intent (G8553)By: Suri Paredes DO Breast Screening - BilateralBy: On: 14-Jul-2013 Intent Annalee Alvarenga MD MAMMOGRAM, SCREENING, BOTH BREASTS On: 08-Jul-2013 Intent (82965)By: Annalee Alvarenga MD EKG (07836)By: Annalee Alvarenga MD On: 22-Jun-2013 Intent Comments: see scanned document of test done to see results reviewed today with patient Eprescribed prescriptions On: 22-Jun-2013 Intent (G8553)By: Amalia Wilder LPN EKG (75655)By: Annalee Alvarenga MD On: 03-Sep-2007 Intent Ultrasound - Abdomen (Limited Area On: 03-Sep-2007 Intent or Organs)By: Annalee Alvarenga MD Comments: upper look at mass in epig area and luq Ultrasound - GallbladderBy: On: 03-Sep-2007 Intent Annalee Alvarenga MD EKG (90299)By: Annalee Alvarenga MD On: 03-Sep-2007 Intent Instructions [...] controlled Cyst, breast, right : DISCONTINUED - BREAST RIGHT (72499) Indication: Cyst, breast, right Diabetes mellitus type [...] regimen and considered effective by patient. Miles bennett sleeps 7 hours per night. Impact of [...] Victoza was too expensive but worked in [facility] Diagnosis: Diabetes mellitus type 2, controlled, Non- [...] The patient does have durable power of research attorney and living will. The patient has noticed nothing from the geriatic depression scale. Other providers contributing to the patient's care are other: (Opthalm: Dr. Zavala in [place] ).Encounter Diagnosis: Encounter for Medicare annual wellness [...] get last script of victoza in [facility]. Encounter Diagnosis: Preop examination, Type II [...]
--- OUTSIDE RECORDS SUMMARY | 2018-12-08 07:40 | XMS RPT_ITS ---
:1945 Author Organization OH[facility] Care Team Providers Name Role Phone Kristine Mccauley Attending Unavailable Colette WING, Annalee Tsang Referring Unavailable Kristine Mccauley Consulting Unavailable Kristine Mccauley Attending Unavailable Kristine Mccauley Referring Unavailable Kristine Mccauley Primary Care Unavailable Kristine Mccauley Attending Unavailable Kristine Mccauley Referring Unavailable Kristine Mccauley Primary Care Unavailable PROBLEMS PROBLEMS DATE TYPE CONDITION / CODE ATTENDING STATUS SOURCE 10/06/2018 Unknown Z12.31 - Encounter Kristine Mccauley for screening [facility] malignant [facility]oplasm Repository of breast / Z12.31(ICD-10) 10/06/2018 Unknown R92.8 - Other Kristine Mccauley Active [place] abnormal and [facility] inconclusive [facility] findings on Repository diagnostic imaging of breast / R92.8(ICD-10) PROCEDURES PROCEDURES No Procedure Records FoundRESULTS RESULTS BREAST LIMITED Observed: 10/09/2018 Status: F Source: [place] 2:22 PM [facility] REPOSITORY [facility] Imaging Services [address] [place] [address] Breast Limited Unilateral MR#: [id number] Acct: [id number] Name: LALITA SANTIAGO Rep #: [id number] : 1945 F 73 From: Gutierrez Fisher MD PCP: Kristine Mccauley NP Status: REG CLI Study: Breast Limited Unilateral Date of Exam: 10/09/18 Exam# [id number] Ordering Dr: Kristine Mccauley [employer]PER-C STUDY: ULTRASOUND BREAST - RIGHT REASON FOR EXAM: Female, 73 years old. Abnormal mammogram. TECHNIQUE: Axial and longitudinal images of the RIGHT breast were performed with a high resolution ultrasound transducer. COMPARISON: Comparison is made with prior mammogram done earlier in the day and prior ultrasound dated October 06, 2018. FINDINGS: RIGHT Breast: The medial half of the right breast was examined. No solid or cystic mass lesion is seen. This may represent a small lymph node. A repeat mammogram in 6 months is recommended. US/Breast Limited Unilateral IMPRESSION: No sonographic abnormality is seen. A repeat echogram in 6 months is recommended. ASSESSMENT CATEGORY: BIRADS Category 3: Probably Benign - Short-Interval Follow- up Suggested. A letter regarding these results will be sent to the patient by the facility within 30 days. Electronically Signed: Gutierrez Fisher MD at 15:58 EST , Service support , CC: Kristine Mccauley NP Cushion Padder: Signed DIAG MAMM W/CAD, Observed: 10/09/2018 Status: F Source: [facility] 1:40 PM [facility] REPOSITORY [facility] Imaging Services [address] [place] [address] DIAG MAMM W/CAD, UNILAT MR#: [id number] Acct: [id number] Name: LALITA SANTIAGO Rep #: [id number] : 1945 F 73 From: Gutierrez Fisher MD PCP: Kristine Mccauley NP Status: REG CLI Study: DIAG MAMM W/CAD, UNILAT Date of Exam: 10/09/18 Exam# [id number] Ordering Dr: Kristine Mccauley [employer]-C MAMMOGRAPHY - UNILATERAL DIAGNOSTIC: RIGHT BREAST REASON FOR EXAM: Female, 73 years old. Abnormal screening mammogram. PERTINENT HISTORY: Grandmother with breast cancer. TECHNIQUE: Compression spot views of the right breast were obtained. CAD: Full Field Digital Mammography with Computer Added Detection was performed. COMPARISON: Comparison is made with prior mammogram dated April 05, 2019. FINDINGS: Breast Composition: The breasts are heterogeneously dense, which may obscure small masses. The 8.8 mm nodular density is once again seen on the medial aspect of the left breast on the craniocaudad view. A repeat targeted ultrasound is recommended. No other significant abnormalities are identified. BI/DIAG MAMM W/CAD, UNILAT IMPRESSION: Continued visualization of the nodular density in the left breast on the craniocaudad view as described. A repeat targeted ultrasound is recommended. ASSESSMENT CATEGORY: BIRADS Category 0: Incomplete. Need additional imaging evaluation. A letter regarding these results will be sent to the patient by the facility within 30 days. Approximately 10% of breast cancers are not detected by mammography. A normal mammogram should not delay biopsy of a clinically suspicious abnormality. Electronically Signed: Gutierrez Fisher MD at 15:57 EST , Service support , CC: Kristine Mccauley NP Cushion Padder: Signed BREAST LIMITED Observed: 10/06/2018 Status: F Source: [place] 1:53 PM [facility] REPOSITORY [facility] Imaging Services [facility] [place] [address] Breast Limited Unilateral MR#: [id number] Acct: [id number] Name: LALITA SANTIAGO Rep #: [id number] : 1945 F 73 From: Gutierrez Fisher MD PCP: Kristine Mccauley NP Status: REG CLI Study: Breast Limited Unilateral Date of Exam: 10/06/18 Exam# [id number] Ordering Dr: Kristine Mccauley [employer] HELPER-C STUDY: ULTRASOUND BREAST - RIGHT REASON FOR EXAM: Female, 73 years old. Abnormal screening mammogram. TECHNIQUE: Axial and longitudinal images of the RIGHT breast were performed with a high resolution ultrasound transducer. COMPARISON: Comparison is made with prior mammogram dated October 06, 2018 and prior ultrasound of her breast dated September 02, 2016. FINDINGS: RIGHT Breast: The upper inner quadrant of the right breast was examined by ultrasound. No solid or cystic mass lesion is seen. The patient will be recalled for additional views of the right breast including 90 degree lateral and compression spot views. The previously seen cyst at the 9:00 position of breast is not seen at this time. US/Breast Limited Unilateral IMPRESSION: No sonographic abnormality is seen at this time. The patient will be recalled for additional views of the right breast including 90 degree lateral and compression spot views. ASSESSMENT CATEGORY: BIRADS Category 0: Incomplete. Need additional imaging evaluation. A letter regarding these results will be sent to the patient by the facility within 30 days. Electronically Signed: Gutierrez Fisher MD at 8:20 EST Tel [phone], Service support , CC: Kristine Mccauley NP Cushion Padder: Signed SCREENING MAMM (CAD), Observed: 10/06/2018 Status: F Source: [place] 7:25 AM [facility] REPOSITORY [facility] Imaging Services [address] [place] [address] SCREENING MAMM (CAD), BILAT MR#: [id number] Acct: [id number] Name: LALITA SANTIAGO Rep #: [id number] : 1945 F 73 From: Gutierrez Fisher MD PCP: Kristine Mccauley NP Status: REG CLI Study: SCREENING MAMM (CAD), BILAT Date of Exam: 10/06/18 Exam# [id number] Ordering Dr: Kristine Mccauley [employer]ET[employer] HELPER-C MAMMOGRAPHY - BILATERAL SCREENING REASON FOR EXAM: Female, 73 years old. Routine annual screening examination. PERTINENT HISTORY: Grandmother with breast cancer. Remote left excisional breast biopsies. TECHNIQUE: Digital bilateral breast nick (3D mammographic acquisition) in the CC and MLO projections. 2-D mediolateral oblique (MLO) and craniocaudad (CC) views of both breasts were obtained. CAD: Full Field Digital Mammography with Computer Added Detection was performed. COMPARISON: Comparison is made with prior study dated February 09, 2016 and October 18, 2014. FINDINGS: Breast Composition: The breasts are heterogeneously dense, which may obscure small masses. There are no dominant masses or suspicious calcifications. There is evidence of a 8.8 mm x 8.1 mm well-defined nodular density in the deep slightly upper medial portion of the right breast. Correlation with ultrasound is recommended. The previously seen nodular density in the axillary region of the right breast as clear. No other significant abnormalities are identified. BI/SCREENING MAMM (CAD), BILAT IMPRESSION: 8.8 mm x 8.1 mm well-defined nodule in the slightly upper medial portion of the right breast. Correlation with ultrasound is recommended. ASSESSMENT CATEGORY: BIRADS Category 0: Incomplete. Need additional imaging evaluation. A letter regarding these results will be sent to the patient by the facility within 30 days. Approximately 10% of breast cancers are not detected by mammography. A normal mammogram should not delay biopsy of a clinically suspicious abnormality. [id number] Electronically Signed: Gutierrez Fisher MD at 9:14 EST Tel [phone], Service support , CC: Kristine Mccauley NP Cushion Padder: Signed ALLERGIES ALLERGIES DATE TYPE / CODE NAME / CODE REACTION SEVERITY SOURCE 09/15/2014 Drug codeine/F006 Itching Unknown [facility] Allergy/4160 169574([facility] 95669(SNOMED M) Repository CT) ENCOUNTERS ENCOUNTERS ADMIT/DISCHARGE ACCOUNT ADMITTING ENCOUNTER LOCATION SOURCE NUMBER CLASS 10/09/2018 [id number] Ambulatory [place] [facility] ing:OPBI Repository 10/06/2018 [id number] Ambulatory [place] [facility] ing:OPBI Repository 08/14/2018 [id number] Ambulatory Building:[facility] [place] Practices Repository PAYERS PAYERS ENCOUNTER GUARANTOR PAYER SUBSCRIBER SOURCE 10/09/2018 LAL[place] Primary LALITA [place] [id number] Insurance:HUMANA FLYNNDOB: Community [address] PPOPolicy [id number] [address] Number: Repository [id number]: 330 [id number] [phone] () Date:[id number] [address]UG: 10/09/2018 Secondary NOT GIVENUNK [place] Insurance:SELF PAY [facility] Number: Effective Repository Date:2018-10-08 10/06/2018 LALITA Primary LALITA [place] [id number] Insurance:HUMANA FLYNNDOB: Community [address] MEDICARE PPOPolicy [id number] Number: Repository [id number]: 330 [id number] [phone] () Date:[id number] [address]XA: 10/06/2018 Secondary NOT GIVENUNK [place] Insurance:SELF PAY [facility] Number: Effective Repository Date:2018-08-14 08/14/2018 Lalita Primary Lalita [facility] Practices FlynnDOB: Insurance:Humana FlynnDOB: Repository [id number] [facility] [id number] [place] Number: [place] [address]Gaa: [phone] [id number] [place] [address]Bqi: [phone] () Date:[id number] Name:O Box () [address] [place] [address]UG: 08/14/2018 Secondary Edward FlynnDOB: OHIP Practices Insurance:Medical [id number] Repository [facility] [place] [address], Number: [place] [id number]: [id number] Date:2006-06-15 - () [id number] Name:O [place] [address], [place] [id number]: 08/14/2018 Tertiary Edward FlynnDOB: [facility]IP Practices Insurance:Scal[employer] Level [id number] Repository /BSPolicy Number: [place] [id number] [id number]: mayco Date: - [id number] () Name:[address]jbm [place] [id number]:
== END ==
PROVIDERS: Family Provider Nurse Practitioner; PCP Nurse Practitioner; Referring Provider Nurse Practitioner; Visit Provider Nurse Practitioner
DX: R92.8 Other abnormal and inconclusive findings on diagnostic imaging of breast (principal); Z12.31 Encounter for screening mammogram for malignant neoplasm of breast
CPT/HCPCS: 76642; 77063; 77067

== ENCOUNTER → 2018-10-09 13:37 | Outpatient (CLI) | payer MEDICARE, SELFPAY ==
--- NOTE | 2018-10-09 13:39 | BI_ITS ---
MAMMOGRAPHY - UNILATERAL DIAGNOSTIC: RIGHT BREAST REASON FOR EXAM: Female, 73 years old. Abnormal screening mammogram. PERTINENT HISTORY: Grandmother with breast cancer. TECHNIQUE: Compression spot views of the right breast were obtained. CAD: Full Field Digital Mammography with Computer Added Detection was performed. COMPARISON: Comparison is made with prior mammogram dated April 05, 2019. FINDINGS: Breast Composition: The breasts are heterogeneously dense, which may obscure small masses. The 8.8 mm nodular density is once again seen on the medial aspect of the left breast on the craniocaudad view. A repeat targeted ultrasound is recommended. No other significant abnormalities are identified. BI/DIAG MAMM W/CAD, UNILAT IMPRESSION: Continued visualization of the nodular density in the left breast on the craniocaudad view as described. A repeat targeted ultrasound is recommended. ASSESSMENT CATEGORY: BIRADS Category 0: Incomplete. Need additional imaging evaluation. A letter regarding these results will be sent to the patient by the facility within 30 days. Approximately 10% of breast cancers are not detected by mammography. A normal mammogram should not delay biopsy of a clinically suspicious abnormality. Electronically Signed: Gutierrez Fisher MD at 15:57 EST , Service support ,
--- NOTE | 2018-10-09 14:21 | US_ITS ---
STUDY: ULTRASOUND BREAST - RIGHT REASON FOR EXAM: Female, 73 years old. Abnormal mammogram. TECHNIQUE: Axial and longitudinal images of the RIGHT breast were performed with a high resolution ultrasound transducer. COMPARISON: Comparison is made with prior mammogram done earlier in the day and prior ultrasound dated October 06, 2018. FINDINGS: RIGHT Breast: The medial half of the right breast was examined. No solid or cystic mass lesion is seen. This may represent a small lymph node. A repeat mammogram in 6 months is recommended. US/Breast Limited Unilateral IMPRESSION: No sonographic abnormality is seen. A repeat echogram in 6 months is recommended. ASSESSMENT CATEGORY: BIRADS Category 3: Probably Benign - Short-Interval Follow-up Suggested. A letter regarding these results will be sent to the patient by the facility within 30 days. Electronically Signed: Gutierrez Fisher MD at 15:58 EST , Service support ,
== END ==
PROVIDERS: Family Provider Nurse Practitioner; PCP Nurse Practitioner; Referring Provider Nurse Practitioner; Visit Provider Nurse Practitioner
DX: R92.8 Other abnormal and inconclusive findings on diagnostic imaging of breast (principal)
CPT/HCPCS: 76642; 77065

== ENCOUNTER 2018-10-14 13:55 | Outpatient (RCR) | payer MEDICARE, SELFPAY | END 2018-10-15 23:59 | LOC: DC 13:55 | PROVIDERS: Family Provider Nurse Practitioner; PCP Nurse Practitioner; Referring Provider Nurse Practitioner; Visit Provider Nurse Practitioner | DX: E11.9 Type 2 diabetes mellitus without complications (principal); Z71.3 Dietary counseling and surveillance | CPT/HCPCS: G0108 ==

== ENCOUNTER 2018-11-10 11:00 | Outpatient (RCR) | payer MEDICARE, SELFPAY | END 2018-11-10 23:59 | disposition home or self-care (01) | LOC: DC 11:00 | PROVIDERS: Family Provider Nurse Practitioner; PCP Nurse Practitioner; Referring Provider Nurse Practitioner; Visit Provider Nurse Practitioner | DX: E11.9 Type 2 diabetes mellitus without complications (principal); Z71.3 Dietary counseling and surveillance | CPT/HCPCS: 97802; 97803; G0108 ==